=== PATIENT | male | born 1940 | race Caucasian/White ===

== ENCOUNTER 2019-07-29 22:57 | Emergency (ER) | payer OTHER, MEDICARE, SELFPAY ==
--- NOTE | ~2019-07-29 | XR_ITS ---
XR shoulder RT min 2V 07/29/2019 23:32 Indication: Right shoulder pain after fall Procedure: 4 views right shoulder Comparison: 01/29/2017 Findings: No fracture, subluxation or dislocation. There is mild polyarticular osteoarthritis. Visual ized lung parenchyma unremarkable. No significant soft tissue abnormality. Impression: 1: No acute fracture. Reviewed, dictated and finalized at location A. [employer] Impression: 1: No acute fracture.
--- NOTE | ~2019-07-29 | XR_ITS ---
XR hand RT 2V, XR wrist RT 2V 07/29/2019 23:32 (accession [id number]), 07/29/2019 23:33 (accession [id number]) Indication: Right wrist and hand pain after fall Procedure: 2 views of the right hand and 2 views of the right wrist Comparison: No prior studies for comparison. Findings: There are advanced degenerative changes of the first CMC joint with adjacent loose bodies. No acute fracture or traumatic malalignment. Osteopenia. Impression: 1: No acute fracture. Reviewed, dictated and finalized at location A. BUSTER Impression: 1: No acute fracture. Impression: 1: No acute fracture.
[2019-07-29 23:01] VITALS: BP 161/76; PULSE 93; RESP 16; TEMP 37.2; O2SAT 99
[2019-07-30 00:17] VITALS: BP 158/85; PULSE 91; TEMP 36.8; O2SAT 96
--- NOTE | 2019-07-30 00:22 | ED.UPPEXIN ---
HPI - Extremity Injury (Upper) General Chief Complaint: Extremity Injury, Upper Stated Complaint: fall, right hand pain Time Seen by Provider: 07/30/19 00:20 Source: patient and RN notes reviewed Mode of arrival: other Limitations: no limitations History of Present Illness HPI narrative: Pt is a 78 y/o male who presents to the ED with c/o right hand pain that began at 8:30 PM after tripping and falling in [employer] parking lot. Pt notes that he was able ambulate after the fall. He notes that his sx are aggravated by movement of his RUE. Pt notes that he took 2 Vicodin 750 mg and an OTC headache relief medication for his sx. Pt also reports right shoulder pain, but denies any neck pain, back pain, numbness, and tingling. MD complaint: injury to: right and hand Onset (ago): hour(s) Other injuries: none Place: outdoors Context: fall Associated symptoms: other (right shoulder pain) Related Data Allergies Allergy/AdvReac Type Severity Reaction Status Date / Time adhesive tape Allergy Unknown Verified 12/05/16 08:16 venom-wasp Allergy Unknown Verified 01/14/10 10:53 Wasp Allergy Unknown Anaphylactic Uncoded 02/02/19 09:51 Shock Review of Systems Review of Systems: All systems reviewed & are unremarkable except as noted in HPI and below Musculoskeletal: Musculoskeletal: Denies back pain, Denies neck pain and Reports other (right hand pain, right shoulder pain) Neurologic: Denies numbness and Denies tingling PMFSH Past Medical History Medical History (Updated 07/30/19 @ 01:01 by Tila Holt) Arthritis Bladder stone BPH (benign prostatic hyperplasia) Gallbladder disease Kidney stone Prostate cancer Seasonal allergies Surgical History Surgical History (Updated 07/30/19 @ 01:01 by Tila Holt) H/O arthroscopic knee surgery bilateral knees H/O colonoscopy H/O prostatectomy H/O sinus surgery History of bladder surgery Hx of cholecystectomy Family History Family History (Updated 01/25/16 @ 23:19 by DOCTOR UNKNOWN) Father Family history of emphysema Family history of congestive heart failure Mother Family history of malignant neoplasm of breast in first degree relative Family history of malignant neoplasm Social History Social History Smoking status: Former smoker Second hand tobacco smoke exposure: No Smoking end date: 06/29/09 Alcohol intake: current Exam Const: General: healthy appearing and no acute distress Nutritional Appearance: well nourished HENMT: Mouth: Yes lip normal and Yes moist mucous membranes Eyes: Conjunctivae: conjunctivae normal Pupils: Equal, round and reactive pupils present Resp: Effort & Inspection: normal respiratory effort Back/Spine/Pelvis: Back: other (Full ROM) Skin: General skin exam: normal color, dry skin and other (warm) Neuro: General: patient oriented x3 and other (alert) Speech: normal speech Gait exam (Neuro): Normal gait present (and steady) Extrem: General: full ROM Right upper extremity: shoulder/upper arm tenderness other (over anterior deltoid) and normal ROM and Extremity exam: right hand neuromotor exam normal, vascular exam radial pulse present 2+ and normal capillary refill, normal ROM of fingers and other (pain over MCP joints on 4th and 5th finger, no deformity) Right lower extremity: knee Details: ecchymosis knee Psych: Mental Status: mental status grossly normal Affect: normal affect Course Vital Signs Vital signs: Vital Signs Temperature 37.2 C 07/29/19 23:01 Pulse Rate 93 07/29/19 23:01 Respiratory Rate 16 07/29/19 23:01 Blood Pressure 161/76 H 07/29/19 23:01 Pulse Oximetry 99 07/29/19 23:01 Temperature 36.8 C 07/30/19 00:17 Pulse Rate 88 07/30/19 00:40 Respiratory Rate 19 07/30/19 00:40 Blood Pressure 133/82 07/30/19 00:40 Pulse Oximetry 97 07/30/19 00:40 MDM - Extremity Injury (Upper) MDM Narrative Medical decision making narrative: No fracture on x-ray. He has
[2019-07-30 00:40] VITALS: BP 133/82; PULSE 88; RESP 19; O2SAT 97
== END 2019-07-30 00:40 | disposition home or self-care (01) ==
PROVIDERS: Emergency Provider Emergency Medicine; PCP Internal Medicine
DX: S63.91XA Sprain of unspecified part of right wrist and hand, initial encounter (principal); M25.511 Pain in right shoulder; S80.01XA Contusion of right knee, initial encounter; M19.90 Unspecified osteoarthritis, unspecified site; Z87.891 Personal history of nicotine dependence; Z90.79 Acquired absence of other genital organ(s); W01.0XXA Fall on same level from slipping, tripping and stumbling without subsequent striking against object, initial encounter
CPT/HCPCS: 73030; 73100; 73120; 99284

== ENCOUNTER 2022-12-08 01:49 | Day surgery (SDC) | payer OTHER, MEDICARE, SELFPAY ==
[2022-11-27 14:02] VITALS: BMI 29.3
--- NOTE | 2022-11-27 14:28 | PC.NURSE ---
Report to the Outpatient Waiting Room, entrance under the green pavilion located off [facility], at time _12:20PM on date ___12/08/22____. Planned Procedure Time: __1:30PM . Time changes happen often and if your time is changed the preop area will call you the afternoon before. - You and your visitor will be asked to self-screen and do not enter if you have any COVID symptoms. - A mask is optional within the hospital at this time. Patients may have LIGHT BREAKFAST/LUNCH. Take the following medications with a SIP of water the morning of surgery: __AM MEDS DO NOT STOP ANY OF YOUR OTHER PRESCRIPTION MEDICATIONS PRIOR TO SURGERY ?EXCEPT THE FOLLOWING Medications to discontinue per physician __HOLD HEADACHE MEDICATION WITH ASPIRIN FOR 3 DAYS PRE-OP PER DR OWEN(PER PATIENT). Date to take last dose 12/04/22 Please no make-up, nail divehi, hairspray, perfume, deodorant, or body powder the day of surgery. No jewelry (including any body piercings) or valuables the day of surgery, leave them at home. Please take a shower or bath the night before, or the morning of, surgery with an antibacterial soap. Wear comfortable, loose fitting clothing. Children are encouraged to wear pajamas. - Jewelry must be removed prior to entering the operating room. Rings and piercings that are not removed may be cut off. - The hospital will not accept responsibility for valuables. - Please leave all valuables, including medications, at home the day of surgery. If you are going home after surgery, a licensed [employer] driver OR SELF drive home. Follow any additional instructions given to you from your surgeon. If you or anyone in your household have experienced Covid symptoms in the past week, please notify your surgeon or the nurse liaison at the phone number below for possible testing. Telephone instructions given to ___PATIENT and asked if any additional questions and then verbalized understanding. Patient advised to call surgeon office or pre surgery nurse liaison [phone] if any additional questions.
[2022-12-08] VITALS (7 sets, daily range): BP systolic 141–162; BP diastolic 61–84; PULSE 93–102; RESP 12–14; TEMP 36.2; O2SAT 93–96
--- NOTE | 2022-12-08 11:56 | WPDHPUPDATE1 ---
History and Physical Update Update Date/Time: 12/08/22 11:56 History and Physical has been reviewed, including an updated exam of the patient. There are NO changes in the patient's condition. Risks, benefits, and alternatives have been discussed and questions answered. Patient agrees to proceed with procedure.
[2022-12-08] MEDS: LIDO 1%/EPINEPHRINE 1:100,000 20 ML VIAL 10 ML INFILTRATE (12:45)
--- NOTE | 2022-12-08 13:05 | P.OP_ITS ---
Procedure Note - Detailed Date of Procedure 12/08/22 Pre-op Diagnosis Sebaceous Cyst Anterior Chest Wall Post-op Diagnosis Same Procedure Performed Excision of anterior chest wall sebaceous cyst with 4cm intermediate layered wound closure. Surgeon Good Rand MD Anesthesia Local Indications Patient is a 82-year-old gentleman who presents with a slowly enlarging sebaceous cyst in his mid anterior chest wall. He presents now for excision. Findings Sebaceous cyst measuring 1.5cm x 1.0cm x 1.0cm. Description of Procedure After informed consent was obtained patient brought to the operating room was placed in a supine position and then the anterior chest was then prepped and draped in usual sterile fashion. Time-out was then performed correctly identifying the patient as well as procedure to be performed. No antibiotics were given as this was a local only procedure. I then injected 1% lidocaine mixed with 0.5% Marcaine around the cyst for local anesthetic effect. Then made a vertical elliptical incision through the skin with the scalpel and then proceeded to dissect the dermis of the skin around the cyst wall shelling it out from the surrounding subcutaneous tissue. Electrocautery was then used to completely excise out the cyst wall with the attached overlying ellipse of skin. The cyst wall was not violated. The cyst measured 0.5cm in length by 1.0cm in width by 1.0cm in depth. It was sent to pathology for examination. I then achieved hemostasis in the wound electrocautery. It was then irrigated sterile saline solution. A 4cm intermediate layered wound closure was then performed u tilizing multiple layers of interrupted 3-0 Vicryl sutures in the subcutaneous tissues. The skin edges were approximated utilizing a running subcuticular 4 Monocryl suture. The incision was then cleaned and skin glue was applied. The patient tolerated the procedure well no complications. All sponges, needles, and instrument counts were correct at the end procedure. EBL was _2__cc. The patient was awakened and taken to recovery in stable and satisfactory condition. Implants None Estimated Blood Loss 2 Drains No Packing No Pathology Yes (Cyst to pathology) Complications No immediate complications Condition Stable Disposition PACU [facility] Billing Surgery - Charge Forward: Surgery Billing
== END 2022-12-08 13:17 | disposition home or self-care (01) ==
PROVIDERS: PCP Internal Medicine; Visit Provider Surgery
PROC: (CPT 11402; principal; 2022-12-08 12:00)
DX: L72.0 Epidermal cyst (principal)
CPT/HCPCS: 11402; 12032; 88305; A9270

== ENCOUNTER → 2023-01-27 13:37 | Outpatient (CLI) | payer OTHER, MEDICARE, SELFPAY ==
--- NOTE | ~2023-01-27 | MR_ITS ---
EXAMINATION: MR shoulder RT wo con DATE: 01/27/2023 14:22 INDICATION: Right shoulder pain TECHNIQUE: Magnetic resonance imaging (MRI) of the right shoulder was performed without intravenous c ontrast. Sequences included axial PD-weighted FS FSE, coronal oblique PD-weighted FS FSE, coronal obl ique T2-weighted FS FSE, sagittal PD-weighted FS FSE, and sagittal T1-weighted SE. COMPARISON: None. FINDINGS: Coracoacromial arch: The acromion undersurface is curved in morphology (type II). The coracoacromial ligament is normal. M oderate acromioclavicular osteoarthritis. Rotator cuff: Moderate tendinopathy at the distal conjoined portion of the supraspinatus and infraspinatus tendons without discrete tear. Moderate subscapularis tendinopathy with small intrasubstance tear measuring a pproximately 4-5 mm in craniocaudal length along the inferolateral margin of the lesser tuberosity fo otplate along the medial rim of the intertubercular groove. There is partial subluxation of a portion of the long head biceps tendon into the tear defect which appears likely transition to a small intra substance split tear of the more cephalad tendon. There is intraosseous cystic change underlying the lesser tuberosity. The teres minor tendon is normal. Normal rotator cuff muscle bulk and signal. Biceps tendon, glenoid labrum and glenohumeral cartilage: Mild tendinopathy without tear of the intra-articular long head biceps tendon. Prominent diffuse dege nerative tearing circumferentially about the glenoid labrum. There is intraosseous cystic change mariana g the posterior superior rim of the glenoid. Deep chondral ulceration without degenerative subchondra l changes slightly posterior and medial to the apex of the humeral head. Diffuse mild partial-thickne ss cartilage loss along the glenoid with suggestion of a small region of delamination along the bone chondral interface at the anteroinferior glenoid. Fluid: Physiologic amount of fluid in the glenohumeral joint. Disproportionate increased fluid signal in the long head biceps tendon sheath consistent with mild bicipital tenosynovitis. There is also a 4 mm o void low signal intensity loose body along the long head biceps tendon sheath. Mild increased fluid s ignal along the subacromial/subdeltoid bursa consistent with minimal bursitis. Bones: Bone alignment is normal. No fracture or pathologic marrow replacing process. Mild cystic change at t he greater tuberosity. IMPRESSION: 1. Mild glenohumeral osteoarthritis with diffuse degenerative tearing of the glenoid labrum. 2. Moderate tendinopathy of the conjoined portion of the supraspinatus and infraspinatus tendons with out tear and of the subscapularis tendon with small mild partial-thickness tear along the inferolater al aspect of the lesser tuberosity footplate transition to a small longitudinal split tear in the mor e cephalad distal tendon. 3. Mild bicipital tenosynovitis with mild tendinopathy of the intra-articular long head biceps tendon . There is subluxation of a portion of the extra articular biceps tendon into the subscapularis tendo n tear defect. 4. Moderate acromioclavicular osteoarthritis. Reviewed, dictated and finalized at location L. IMPRESSION: 1. Mild glenohumeral osteoarthritis with diffuse degenerative tearing of the gl enoid labrum. 2. Moderate tendinopathy of the conjoined portion of the supraspinatus and infr aspinatus tendons without tear and of the subscapularis tendon with small mild partial-thickness tear along the inferolateral aspect of the lesser tuberosity footplate transition to a small longitudinal split tear in the more cephalad di stal tendon. 3. Mild bicipital tenosynovitis with mild tendinopathy of the intra-articular l modesto head biceps tendon. There is subluxation of a po
== END ==
PROVIDERS: PCP Internal Medicine; Visit Provider Orthopaedic Surgery
DX: M19.011 Primary osteoarthritis, right shoulder (principal); M75.21 Bicipital tendinitis, right shoulder
CPT/HCPCS: 73221

== ENCOUNTER 2023-04-14 13:09 | Outpatient (NON) | payer OTHER, MEDICARE, SELFPAY | END 2023-04-14 13:10 | disposition home or self-care (01) | LOC: ANHLAB 04-15 13:12 | PROVIDERS: PCP Internal Medicine; Visit Provider Nurse Practitioner | DX: D48.5 Neoplasm of uncertain behavior of skin (principal) | CPT/HCPCS: 88305 ==

== ENCOUNTER 2024-04-25 08:23 | Outpatient (CLI) | payer MEDICARE, SELFPAY ==
--- NOTE | ~2024-04-25 | MR_ITS ---
EXAMINATION: MR shoulder LT wo con DATE: 04/25/2024 09:11 INDICATION: Left shoulder pain TECHNIQUE: Magnetic resonance imaging (MRI) of the left shoulder was performed without intravenous co ntrast. Sequences included axial PD-weighted FS FSE, coronal oblique PD-weighted FS FSE, coronal obli que T2-weighted FS FSE, sagittal PD-weighted FS FSE, and sagittal T1-weighted SE. COMPARISON: None. FINDINGS: Coracoacromial arch: The acromion undersurface is curved in morphology (type II). The coracoacromial ligament is normal. M oderate acromioclavicular osteoarthritis. Rotator cuff: Mild to moderate tendinopathy without tear at the supraspinatus and infraspinatus tendons. The teres minor tendon is normal. There is mild subscapularis tendinopathy with tear involving the entire media l collateral with of the cephalad third of the lesser tuberosity footplate and the lateral half of th e mid third of the lesser tuberosity footplate. 3.6 x 1.8 x 3.6 cm intramuscular lipoma within the ca udal aspect of the subscapularis. Otherwise normal rotator cuff muscle bulk and signal. Biceps tendon, glenoid labrum and glenohumeral cartilage: Severe tendinopathy without discrete tear of the long head biceps tendon at the junction of the intra -articular and extra articular portion of the tendon which is subluxed across the medial rim of the i ntertubercular groove and the lesser tuberosity tear defect of the subscapularis tendon. There is a t ear at the base of the 3:00-4:30 position of the anteroinferior glenoid labrum. There is an additiona l tear of the posterior superior glenoid labrum extending from the 10:30-11:30 position. There is mil d partial-thickness cartilage loss at the glenoid. There is some partial-thickness chondral fissuring at the anteroinferior glenoid. Fluid: Small glenohumeral joint effusion or soft tissue extension of fluid into the deep subscapular recess and along the long head biceps tendon sheath. No loose osteochondral bodies. Mild increased fluid sig nal in the subacromial/subdeltoid bursa consistent with minimal bursitis. Bones: Bone alignment is normal. There is appears be an old no sac fracture trough along the posterior super ior lateral aspect of the humeral head suggesting sequela prior anterior glenohumeral dislocation. Th ere is cystic change along the lesser tuberosity likely related to the subscapularis tendon disease a nd tear. IMPRESSION: 1. 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 2. Mild subscapularis tendinopathy with partial tear involving the cephalad third and lateral side of the middle third of the lesser tuberosity footplate allowing medial subluxation of the long head of the biceps tendon across the medial rim of the intertubercular groove and across the tear defect. 3. Severe secondary tendinopathy without tear at the junction of the intra-articular and extra articu lar portions of the subluxed long head biceps tendon. 4. Moderate supraspinatus and displaced tendinopathy without tear. 5. Mild glenohumeral and moderate acromioclavicular osteoarthritis. Reviewed, dictated and finalized at location A. IMPRESSION: 1. Chronic Hill-Sachs fracture trough with tear at the anteroinferior glenoid l ikely sequela of a chronic anterior glenohumeral dislocation injury. 2. Mild subscapularis tendinopathy with partial tear involving the cephalad thi rd and lateral side of the middle third of the lesser tuberosity footplate allo wing medial subluxation of the long head of the biceps tendon across the medial rim of the intertubercular groove and across the tear defect. 3. Severe secondary tendinopathy without tear at the junction of the intra-luann cular and extra articular portions of the subluxed long head biceps tendon. 4. Moderate supraspinatus and displaced tendinopathy without tear. 5. Mild glenohumeral and moderate acromioclavicular osteoarthritis.
== END 2024-04-25 08:24 | disposition home or self-care (01) ==
LOC: MICIMG 08:25
PROVIDERS: PCP Internal Medicine; Visit Provider Orthopaedic Surgery
DX: M19.012 Primary osteoarthritis, left shoulder (principal)
CPT/HCPCS: 73221

== ENCOUNTER 2024-08-30 14:01 | Outpatient (CLI) | payer MEDICARE, SELFPAY | END 2024-08-30 14:02 | disposition home or self-care (01) | PROVIDERS: Visit Provider Nurse Practitioner | DX: M51.26 Other intervertebral disc displacement, lumbar region (principal); M47.896 Other spondylosis, lumbar region | CPT/HCPCS: 72148 ==

== ENCOUNTER 2025-02-24 17:45 | Inpatient (IN) | payer MEDICARE, SELFPAY ==
--- NOTE | ~2025-02-24 | XR_ITS ---
EXAMINATION: XR retrograde pyelo w/stent RT DATE: 02/25/2025 02:45 INDICATION: Right internal ureteral stent placement TECHNIQUE: Fluoroscopic images from a right internal ureteral stent placement are submitted for review. 41 seconds of fluoroscopy time. FINDINGS: There is a right double-J internal ureteral stent projecting in expected position, with proximal [place] loop at the level of the renal pelvis and distal loop in the pelvis within the bladder lumen. IMPRESSION: 1. Right internal ureteral stent placement. Please refer to real-time procedural findings for details. Reviewed, dictated and finalized at location O. IMPRESSION: 1. Right internal ureteral stent placement. Please refer to real-time procedu ral findings for details.
--- NOTE | ~2025-02-24 | XR_ITS ---
EXAMINATION: XR chest 1V portable, 02/25/2025 7:28 CDT HISTORY: Hypoxia COMPARISON: No comparisons available. Technique: Single view. Findings: Scattered bilateral interstitial airspace opacities. No pneumothorax. Heart is normal size. Mediastinal and hilar contours are within normal limits. Bony thorax no acute abnormality. Impression: Probable viral pneumonitis Reviewed, dictated and finalized at location A. Impression: Probable viral pneumonitis
--- NOTE | ~2025-02-24 | XR_ITS ---
XR abdomen/kub 1V 02/28/2025 11:05 Indication: Right renal stone Procedure: KUB Comparison: 02/26/2025 Findings: There is a right internal ureteral stent, position unchanged. There are multiple calcifications adjacent to the stent throughout its course, suspicious for ureteral stones. There is a right renal stone in the lower pole. Bowel gas pattern nonobstructive. Severe lumbar spondylosis. Impression: 1: Right renal and probable ureteral stones. Consider correlation with CT. Right internal ureteral stent position stable. Reviewed, dictated and finalized at location O. Impression: 1: Right renal and probable ureteral stones. Consider correlation with CT. Righ t internal ureteral stent position stable.
--- NOTE | ~2025-02-24 | XR_ITS ---
EXAMINATION: XR abdomen/kub 1V, 02/25/2025 10:20 CDT HISTORY: Right ureteral stone position COMPARISON: No comparisons available. Technique: 1 view. Findings: Bowel gas pattern unremarkable. No obstruction. There are some phleboliths noted however there is no gross perilesional calculus identified. No acute osseous abnormality. Right ureteral stent appears in appropriate location, portacatheter noted. Impression: 1. Probable phlebolith, no gross periureteral calculus. Correlation with CT recommended Reviewed, dictated and finalized at location A. Impression: 1. Probable phlebolith, no gross periureteral calculus. Correlation with CT rec ommended
--- NOTE | ~2025-02-24 | XR_ITS ---
EXAMINATION: XR abdomen/kub 1V DATE: 02/26/2025 12:44 INDICATION: Constipation TECHNIQUE: A supine view of the abdomen on 2 radiographs was obtained. COMPARISON: 02/25/2025 FINDINGS: Unchanged likely catheter projecting over the bladder and right internal ureteral stent with loops formed in expected location of the right renal pelvis and the bladder. Again seen is a small electronic device with battery projecting over the left abdomen. Moderate amount of gas scattered throughout the colon and in the stomach. No dilated gas-filled loops of small bowel to suggest obstruction. Cholecystectomy clips in right upper quadrant. A few phleboliths in the pelvis. Mild S-shaped lumbar curvature with severe spondylosis.. IMPRESSION: 1. Valente catheter and right anterior vertebral stent, both remaining in expected positions. Reviewed, dictated and finalized at location A. IMPRESSION: 1. Valente catheter and right anterior vertebral stent, both remaining in expecte d positions.
--- NOTE | 2025-02-24 22:10 | PM.IMHP ---
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 The patient presented outside facility complaining of decreased appetite for 3 days and right flank pain. He denies any dysuria or hematuria. He denied having any fevers and was afebrile on presentation to the outside hospital. According to the documentation from the outside facility the patient was initially had sinus tachycardia but shortly after arrival at ER was noted to flip into AFib with RVR. The patient denies any chest pain at the outside facility. He does not have a documented history of AFib or heart failure. Patient did have an elevated white count at 12.3 and a lactic acid of 2.4. He received 1 L IV fluid bolus and 1 dose of Zosyn around 15:00. Patient's creatinine was 1.46. His baseline creatinine is unknown. His potassium was 3.9 and is magnesium was 1.7. He received a dose of morphine and a dose of Zofran at the outside hospital as well. Blood cultures were obtained at the outside hospital. Is documented that the patient had a UA collected at the outside hospital but the patient did not arrive with the results of the UA in his chart. The patient is extremely hard of hearing which made obtaining history difficult. He denied having any pain at the time my evaluation and denied difficulty emptying his bladder. However despite denying pain on palpation the patient's abdomen he did grimace multiple times a specially palpation of the suprapubic region. The patient had had a bladder scan an hour so prior to my evaluation had demonstrated greater than 400 mL of urine. He was febrile with a T-max of a 102.9 at the time of my evaluation. His CT from the outside facility was reviewed and demonstrated an 8 mm mid ureteral stone with mild hydronephrosis. The patient seemed to somewhat confused at times and acutely ill-appearing. Urology was contacted and updated as to the patient's change in condition and subsequently patient is being taken directly to OR for ureteral stent placement. Review of Systems Review of Systems: Review of systems limited due to the patient's chronic hearing loss and confusion likely due to acute infection/encephalopathy. Subsequently the majority of information was obtained from review of past medical records, external records and nursing report. [facility] Past Medical History Medical History (Updated 02/25/25 @ 05:02 by Leana Contreras DO) Type 2 diabetes mellitus with insulin therapy Diabetic retinopathy SK (seborrheic keratosis) Incomplete tear of right rotator cuff Hereditary and idiopathic neuropathy, unspecified Gastro-esophageal reflux disease without esophagitis Elevated PSA Dysphagia Body mass index (BMI) greater than 30 (01/29/17) AK (actinic keratosis) Hard of hearing Chronic pain of both knees Chronic low back pain Essential (primary) hypertension Prostate cancer BPH (benign prostatic hyperplasia) Kidney stone Seasonal allergies Surgical History Surgical History Status post cystoscopy with ureteral stent placement With right ureteral stent placement at least 3 past with the most recent episode being December 2013 and September 2017 Status post right partial knee replacement Complicated by Staph epidermidis infection with subsequent removal of hardware and antibiotic spacer placement 03/2025 H/O cataract removal with insertion of prosthetic lens Hx of excision of mass exc anterior chest wall cyst on 12/08/22 H/O arthroscopic knee surgery bilateral knees History of bladder surgery H/O prostatectomy Hx of cholecystectomy H/O colonoscopy H/O sinus surgery Family History Family History Father Family history of emphysema Family history of congestive heart failure Mother Family history of malignant neoplasm of breast in first degree relative Family history of malignant neoplasm Social History Social History (Updated 02/25/25 @ 04:32 by Leana Contreras DO) Social History: He lives with his . He has 6 children. 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 He smoked a pack of cigarettes per week from the time use 17 up until 2002. The last 10 or 15 years of his smoking he only smoked intermittently. Code status: Full code Surrogate decision maker: Smoking packs per day: 0.25 Smoking cigarettes per day: 5.0 Years smoked: 50 Smoking pack-years: 12.50 Smoking status: Former smoker Tobacco type: cigarettes Second hand tobacco smoke exposure: No Smoking end date: 12/27/02 Additional smoking assessment comments: SMOKED 1 PACK/WEEK X 15 YEARS Alcohol intake: former Substance use: never Lack of Transportation: No Lack of Food: Never True Current Housing: I Have Housing Concerned About Future Housing: No Difficulty Paying Gas/Electric Bills: No Difficulty Paying for Meds: No Currently Unemployed: No Education: Decline to Answer Difficulty w/ Childcare or Family Care: No Living arrangements: with family Additional living arrangements comments: AND GRANDDAUGHTER Spiritual care concerns: No Meds Home Medications and Allergies Home Medications ?Medication ?Instructions ?Recorded ?Confirmed ?Type blood sugar diagnostic (Accu-Chek #10 ea 08/11/19 02/25/25 History Dot Plus test strips) blood-glucose meter (Accu-Chek #1 ea 08/11/19 02/25/25 History Dot Plus Meter) lancets (Accu-Chek Softclix #50 ea 08/11/19 02/25/25 History Lancets) aiepfuq-dzeifdsgslfhh-olbbpasy 250 1 - 3 tablet PO Q4-6H PRN HEADACHES 11/27/22 02/24/25 History mg-250 mg-65 mg tablet (Excedrin Migraine) magnesium 500 mg tablet 500 mg PO DAILY PRN cramps 11/27/22 02/24/25 History blood-glucose sensor (Dexcom G7 #10 ea 05/01/23 02/25/25 Rx Sensor device) pen needle, diabetic 31 gauge x #100 ea 08/11/23 02/25/25 Rx 3/16 (BD Ultra-Fine Mini Pen Needle) hydrocodone 10 mg-acetaminophen 1 tablet PO Q6H PRN pain (scale 02/09/24 02/24/25 History 325 mg tablet score 4-6) empagliflozin 10 mg tablet 10 mg PO QAM #90 tabs 05/27/24 02/24/25 Rx (Jardiance) metformin 500 mg tablet 1,000 mg (2 x 500 mg) PO BID 90 09/05/24 02/24/25 Rx days #360 tabs cyclobenzaprine 10 mg tablet 10 mg PO DAILY PRN muscle spasm 02/24/25 02/24/25 History insulin glargine 100 unit/mL (3 60 unit subcut DAILY 02/24/25 02/24/25 History mL) subcutaneous pen (Lantus Solostar U-100 Insulin) insulin aspart U-100 100 unit/mL See Rx Instructions subcut DAILY 02/25/25 02/25/25 History (3 mL) subcutaneous pen (Novolog FlexPen U-100 Insulin aspart) Allergies Allergy/AdvReac Type Severity Reaction Status Date / Time venom-wasp Allergy Severe Anaphylaxis Verified 02/24/25 23:50 adhesive tape Allergy Mild Rash Verified 02/24/25 23:50 Exam Narrative: Weight 100.4 kg BMI 29.2 Const: Other: Acutely ill-appearing, height weight proportionate HENMT: Other: Mucous membranes are dry, no oral pharyngeal erythema upper and lower dentures in place Eyes: Other: Pupils are equal and reactive, no scleral icterus, no conjunctival pallor Neck: Other: No lymphadenopathy, no thyromegaly Resp: Other: Clear to auscultation bilaterally, no increased work of breathing Cardio: Other: Irregularly irregular, tachycardic, 2+ bilateral radial pedal pulses, no murmur GI: Other: Soft, distended, tender over the suprapubic and lower abdominal area : Other: Circumcised male, Valente catheter place after my evaluation and urine output evaluated immediately thereafter demonstrated greater than 600 mL of immediate output of turbid yellow urine Skin: Other: Hot to touch, non jaundice, no pallor, 3-4 second cap refill Neuro: Other: Alert oriented to person, year and name of the current president, confused as to the month and the exact location of the hospital, speech is clear, hearing is profoundly affected, no facial asymmetry, no localizing neurologic deficits noted during the course of conversation Extrem: Other: Moves all extremities equally, no clubbing, cyanosis or edema Psych: Other: confused, cooperative H&P: Results Labs Labs: labs from outside facility: CBC: WBC 12.3 hemoglobin 12.8 platelet count 238 Lactic acid: 2.4 CMP: Sodium 135 potassium 3.9 chloride 99 CO2 22 BUN 22 creatinine 1.46 glucose 209 normal is he ALT and bilirubin TSH 0.875 Troponin less than 0.012 Magnesium 1.7 PT PTT and INR within normal limits with INR specifically being 1.0 CT of the abdomen pelvis without contrast from outside facility demonstrated 8.6 mm mid ureteral stone with mild hydronephrosis Chest x-ray: Increased bronchovascular markings Assessment and Plan Assessment and plan (1) Sepsis: Qualifiers: Sepsis type: sepsis due to unspecified organism Sepsis acute organ dysfunction status: with acute organ dysfunction Severe sepsis acute organ dysfunction type: acute renal failure Acute renal failure type: unspecified Severe sepsis shock status: without septic shock Qualified Code(s): A41.9 - Sepsis, unspecified organism; R65.20 - Severe sepsis without septic shock; N17.9 - Acute kidney failure, unspecified Code(s): A41.9 - Sepsis, unspecified organism Status: Acute (2) Hydronephrosis with renal calculous obstruction: Code(s): N13.2 - Hydronephrosis with renal and ureteral calculous obstruction Status: Acute (3) Urinary tract infection: Qualifiers: Urinary tract infection type: acute pyelonephritis Qualified Code(s): N10 - Acute pyelonephritis Code(s): N39.0 - Urinary tract infection, site not specified Status: Acute (4) Atrial fibrillation with rapid ventricular response: Code(s): I48.91 - Unspecified atrial fibrillation Status: Acute (5) Acute kidney injury: Code(s): N17.9 - Acute kidney failure, unspecified Status: Acute (6) Dehydration: Code(s): E86.0 - Dehydration Status: Acute (7) Type 2 diabetes mellitus with hyperglycemia, with long-term current use of insulin: Code(s): E11.65 - Type 2 diabetes mellitus with hyperglycemia; 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 Patient received 1 L fluid bolus at the outside hospital. I ordered a 2 L of fluid bolus while awaiting for the patient to go to the OR for cystoscopy. The normal saline bolus that I had ordered did not get completed but patient did receive an additional 1 L of LR in the OR. Postoperative Nina the patient was still tachycardic. Will given additional 1 L fluid bolus to achieve the patient's 30 mL/kilos recommended fluids as the patient is not having any respiratory symptoms to suggest pulmonary edema or cardiac decompensation. I suspect patient likely has some chronic AFib for flutter that was previously undiagnosed and that his tachycardia is in part due to volume depletion. Patient is still as ketones in his urine despite the fluids administered after arrival here and is L given at the outside hospital. Will continue patient on maintenance IV fluids. Patient had been started on Zosyn at the outside facility and will continue Zosyn here with pharmacy to dose. Blood cultures were obtained at the outside facility. However will also obtain blood cultures here to confirm and will obtain urine specimen sent for culture. Patient did have lactic acidosis on labs from outside facility will repeat lactic acid level. Patient is noted to be in atrial flutter with RVR. I suspect patient may have some chronic underlying a flutter did previously undiagnosed. Component the tachycardia is likely due to fever and volume status. Fluids as discussed above. Patient on initial arrival to our facility had actually converted back to sinus tachycardia but then had a recurrence of atrial flutter. Labs from outside facility did she demonstrate borderline low magnesium level. Will give 2 g magnesium sulfate rider today aim for magnesium level closer to his 2 given the patient's arrhythmia. Will obtain echocardiogram to further evaluate patient's cardiac structure and function. Patient will be placed back on a Cardizem drip. Patient's repeat troponin at our facility is normal with no evidence of acute cardiac ischemia. EKGs personally reviewed and interpreted as discussed. Will place on heparin drip. Will base initial INR PT PTT off of labs from [place]. This was discussed with the pharmacist on duty. Patient has elevated creatinine. Patient's baseline creatinine is not known but I suspect at least some component of acute kidney injury due to a combination of sepsis and ureteral obstruction. Will avoid nephrotoxic medications and proceed with IV fluid administration as discussed above. Will monitor strict I&O's. The patient does seem to have some episodes of confusion is unclear if part of this may be his chronic hearing difficulty but I think there is at least some component of encephalopathy. Will treat underlying cause and avoid sedating medications. Patient has type 2 diabetes mellitus on chronic insulin therapy and is currently hyperglycemic. Will place patient on a reduced dose of his home Lantus as he is currently NPO. We will also order moderate dose sliding scale insulin with Accu-Cheks q.6 hours and hypoglycemia protocol as needed. 60 minutes spent in critical care activities. Due to a high probability of clinically significant, life threatening deterioration, the patient required my highest level of preparedness to intervene emergently and I personally spent this critical care time directly and personally managing the patient. This critical care time included obtaining a history; examining the patient; pulse oximetry; ordering and review of studies; arranging urgent treatment with development of a management plan; evaluation of patient's response to treatment; frequent reassessment; and discussions with other providers. It was exclusive of separately billable procedures and treating other patients and teaching time. Please see Assessment and Plan section and the rest of the note for further information on patient assessment and treatment. Quality VTE Prophylaxis VTE prophylaxis: pharmacologic ordered (Heparin drip per protocol) Hospitalist MIPS Advance Care Plan I have confirmed that the patient's Advanced Care Plan is present, code status is documented, or surrogate decision maker is listed in patient medical record.: Yes Medication Reconciliation I have utilized all available resources to obtain, update and review the patients current medications (includes all prescriptions, OTC, herbals, cannabis, and nutritional supplements).: Yes
[2025-02-24 22:43] VITALS: BP 125/63; PULSE 102; RESP 23; TEMP 37.4; O2SAT 93
[2025-02-24 22:48] VITALS: PULSE 106
[2025-02-24 22:52] VITALS: BMI 29.2
[2025-02-24] MEDS: SODIUM CHLORIDE 0.9% IV 1,000 ML 100 ML IV CONT (22:54)
--- NOTE | 2025-02-24 23:06 | ECG_ITS ---
Test Date: 2025-02-24 23:22:52 Measurements Intervals [place] Rate: 163 P: 0 SC: 0 QRS: -29 QRSD: 120 T: 69 QT: 276 QTc: 456 Interpretive Statements ATRIAL FLUTTER/TACHYCARDIA WITH RAPID VENTRICULAR RESPONSE INCOMPLETE LEFT BUNDLE BRANCH BLOCK DELAYED PRECORDIAL R/S TRANSITION NONSPECIFIC ST & T-WAVE ABNORMALITY- HIGH LATERAL LEADS BASELINE ARTIFACT- I, II, III, AVR, AVL, AVF, V1-V4 ABNORMAL ECG No previous ECG available for comparison Electronically Signed On 02-25-2025 08:22:05 CDT by Dion Jordan D.O.
[2025-02-24 23:41] VITALS: BP 115/63; PULSE 167; RESP 32; TEMP 38.3; O2SAT 94
[2025-02-25] VITALS (49 sets, daily range): BP systolic 96–148; BP diastolic 52–94; PULSE 87–165; RESP 16–36; TEMP 36.4–39.4; O2SAT 88–97
--- NOTE | 2025-02-25 | ECHO_ITS ---
Patient Info Name: Thompson Agudelo Age: 84 years : 1940 Gender: Male Ht: 72 in Wt: 232 lbs BSA: 2.34 m2 HR: 160 bpm BP: 111 / 73 mmHg Heart Rhythm: Tachycardia, Atrial Fibrillation Technical Quality: Fair Exam Date: 02/25/2025 8:32 AM Patient Status: I Admit Date: 02/25/2025 Exam Type: CA echo dop color flow w con Complete two-dimensional, color flow and Doppler transthoracic echocardiogram is performed with contrast to opacify the left ventricle and to improve the deliniation of the left ventricle endocardial borders. Staff Referring Physician: Alberto Munroe M.D. Creative Recruiter: Moriah Quinn Attending Provider: Leana Contreras DO Contrast/Agitated Saline Contrast/Ag. Saline: Definity Amount: 2.00 ml Administered By: Moriah Quinn Summary 1. Left ventricular systolic function is normal, estimated at 60-65. 2. There is mildly increased left ventricular wall thickness. 3. The left ventricular diastolic function is abnormal. 4. There is mild aortic valve stenosis. Left Ventricle Left ventricular chamber dimension is normal. Left ventricular systolic function is normal, estimated at 60-65. There is mildly increased left ventricular wall thickness. Left ventricular septal wall motion is normal. The left ventricular diastolic function is abnormal. Right Ventricle Right ventricular chamber dimension is normal. Right ventricular systolic function is normal. Left Atria Left atrial chamber dimension is mildly enlarged. Right Atria Right atrial chamber dimension is normal. Aortic Valve The aortic valve is trileaflet. There is moderate aortic valve sclerosis. There is mild aortic valve stenosis. There is no aortic valve regurgitation. Pulmonic Valve The pulmonic valve is normal. There is no pulmonic valve stenosis. There is no pulmonic regurgitation. Mitral Valve The mitral valve has normal leaflets. There is no mitral valve stenosis. There is no mitral valve regurgitation. There is mild mitral valve calcification. Tricuspid Valve The tricuspid valve leaflets are normal. There is no significant tricuspid valve stenosis. There is no tricuspid valve regurgitation. Pericardium/Pleural The pericardium appears normal. There is no pericardial effusion. Inferior Vena Cava Normal inferior vena cava with >50% collapse upon inspiration consistent with normal right atrial pressure, 5 mmHg. Aorta The aortic root size at the sinus of Valsalva is normal. The prox ascending aorta size is normal. Left Ventricular Outflow Tract Name Value Normal LVOT 2D LVOT Diameter 2.1 cm LVOT Doppler LVOT Peak Velocity 97 cm/s LVOT Peak Gradient 3 mmHg LVOT Mean Gradient 2 mmHg LVOT VTI 24 cm LVOT Stroke Volume 81 ml Pulmonic Valve Name Value Normal RVOT Doppler RVOT Peak Velocity 59 cm/s RVOT Peak Gradient 1 mmHg PV Doppler PV Peak Velocity 99 cm/s PV Peak Gradient 4 mmHg Tricuspid Valve Name Value Normal Estimated PAP/RSVP RA Pressure 5 mmHg <=5 Aorta Name Value Normal Ascending Aorta Sinus of Valsalva Diameter 3.6 cm 3.1-3.7 Sinus of Valsalva Index 1.6 cm/m2 1.5-1.9 Ao [place] Diameter 3.2 cm 2.6-3.2 Aortic Valve Name Value Normal AV Doppler AV Peak Velocity 189 cm/s AV Peak Gradient 9 mmHg AV Area (Cont Eq Ramon) 1.7 cm2 AV DI (Ramon) 0.51 AV Regurgitation 2D LVOT Area 3.3 cm2 Ventricles Name Value Normal LV Dimensions 2D/MM IVS Diastolic Thickness (2D) 1.1 cm 0.6-1.0 LVID Diastole (2D) 3.5 cm 4.2-5.8 LVIW Diastolic Thickness (2D) 1.3 cm 0.6-1.0 LVID Systole (2D) 2.3 cm 2.5-4.0 LVOT Diameter 2.1 cm LV Mass (2D Cubed) 135.80 g 88.00-224.00 LV Mass Index (2D Cubed) 58 g/m2 49-115 Relative Wall Thickness (2D) 0.74 <=0.42 LV Fractional Shortening/Ejection Fraction 2D/MM LV Fractional Shortening (2D) 34 % 25-43 LV EF (2D Teichholz) 64 % LV Diastolic Volume (4C MOD) 107 ml LV EF (4C MOD) 56 % LV Diastolic Volume (2C MOD) 100 ml LV EF (2C MOD) 57 % LV Diastolic Volume (BP MOD) 105 ml 62-150 LV Diastolic Volume Index (BP MOD) 45 ml/m2 34-74 LV Systolic Volume (BP MOD) 46 ml 21-61 LV Systolic Volume Index (BP MOD) 20 ml/m2 11-31 LV EF (BP MOD) 56 % 52-72 LV Diastolic Length (4C) 8.0 cm LV Systolic Length (4C) 7.4 cm LV Stroke Volume (4C MOD) 60 ml RV Dimensions 2D/MM TAPSE 1.8 cm >=1.7 Atria Name Value Normal LA Dimensions LA Volume (4C A-L) 92 ml LA Volume (BP A-L) 93 ml RA Dimensions RA Systolic [place] Length (4C) 6.5 cm 2.1-2.7 RA Area (4C) 16.0 cm2 <=18.0 Report Signatures
[2025-02-25] MEDS: dilTIAZem 100 MG/100 ML 100 MG/100 ML BAG 10 MG IV CONT (00:11)
[2025-02-25 00:26] LABS: Troponin I < 0.012 ng/mL (0.000-0.034)
[2025-02-25] MEDS: LIDOCAINE 2% GEL UROJET 10 ML PKG MUCOUS MEM (00:44)
[2025-02-25] MEDS: ACETAMINOPHEN 325 MG TABLET 650 MG PO ×4 (01:10→23:34)
[2025-02-25] MEDS: PIPERACILLIN/TAZOBACTAM SOD 2.25 GM in SODIUM CHLORIDE 0.9% IV 50 ML 100 ML IVPB ×5 (01:11→23:22)
[2025-02-25 01:42] LABS: Add Urine Microscopic? YES; Appearance Urine Cloudy (Clear); Glucose Urine UA Negative (Negative); Leukocyte Esterase Ur 1+ LEU/UL (Negative); Need Manual Microscopic Reviewed; Nitrate Urine Positive (Negative); Specific Grav Ur 1.025 (1.001-1.035)
[2025-02-25] MEDS: SODIUM CHLORIDE 0.9% IV 1,000 ML 999 ML IV CONT ×2 (01:47→04:27)
--- NOTE | 2025-02-25 02:11 | P.PNAN_ITS ---
Anes - Initial Pre Proc Eval Procedure: Operation Date: 02/25/25 01:40 Proposed Procedures p Cysto, RPG, Stone Ext, Stent Placement(Right) - Alberto Munroe MD Date/Time: 02/25/25 02:11 Surgeon: Elier Giles MD Pre Op Diagnosis: Afib RVR/Renal Stone Patient Data Age: 84 Gender: M Height: 1.85 m Weight: 100.4 kg Last Vital Signs Temp 37.4 C 02/25/25 02:01 Pulse 161 H 02/25/25 02:03 Resp 36 H 02/25/25 01:54 BP 119/72 02/25/25 02:03 Pulse Ox 95 02/25/25 01:54 O2 Del Method Nasal Cannula 02/25/25 01:30 O2 Flow Rate 2 02/25/25 01:30 Allergies Allergy/AdvReac Type Severity Reaction Status Date / Time venom-wasp Allergy Severe Anaphylaxis Verified 02/24/25 23:50 adhesive tape Allergy Mild Rash Verified 02/24/25 23:50 Home Medications ?Medication ?Instructions ?Recorded ?Confirmed ?Type blood sugar diagnostic (Accu-Chek #10 ea 08/11/1901/29 History Dot Plus test strips) blood-glucose meter (Accu-Chek #1 ea 08/11/19 02/25/25 History Dot Plus Meter) lancets (Accu-Chek Softclix #50 ea 08/11/19 02/25/25 H istory Lancets) nmrzjpe-ceqeifjqpqips-xemrpdre 250 1 - 3 tablet PO Q4- 6H PRN HEADACHES 11/27/22 02/24/25 History mg-250 mg-65 mg tablet (Excedrin Migraine) magnesium 500 mg tablet 500 mg PO DAILY PRN cramps 0 11/27/22 02/24/25 History blood-glucose sensor (Dexcom G7 #10 ea 05/01/23 Rx Sensor device) pen needle, diabetic 31 gauge x #100 ea 08/11/2302/25 Rx 3/16 (BD Ultra-Fine Mini Pen Needle) hydrocodone 10 mg-acetaminophen 1 tablet PO Q6H PRN pa in (scale 02/09/24 02/24/25 History 325 mg tablet score 4-6) empagliflozin 10 mg tablet 10 mg PO QAM #90 tabs 11/29 /24 08/29/25 Rx (Jardiance) metformin 500 mg tablet 1,000 mg (2 x 500 mg) PO BID 90 09/05/24 02/24/25 Rx days #360 tabs cyclobenzaprine 10 mg tablet 10 mg PO DAILY PRN muscle spasm 02/24/25 02/24/25 History insulin glargine 100 unit/mL (3 60 unit subcut DAILY 0 02/24/25 02/24/25 History mL) subcutaneous pen (Lantus Solostar U-100 Insulin) insulin aspart U-100 100 unit/mL See Rx Instructions s ubcut DAILY 02/25/25 02/25/25 History (3 mL) subcutaneous pen (Novolog FlexPen U-100 Insulin aspart) Laboratory Tests 02/24/25 02/24/25 02/25/25 22:52 23:45 00:48 POC Capillary Glucose 174 H mg/dl (65-105) Lactic Acid Troponin I < 0.012 ng/mL (0.000-0.034) Urine Color Dark yellow (Yellow) Urine Appearance Cloudy H (Clear) Urine pH 5.0 (5.0-9.0) Ur Specific [place] 1.025 (1.001-1.035) Urine Protein 2+ H mg/dL (Negative) Urine Glucose (UA) Negative mg/dL (Negative) Urine Ketones Trace H mg/dL (Negative) Ur Blood (Man) 1+ H (Negative) Urine Nitrate Positive (Negative) Urine Bilirubin Negative (Negative) Urine Urobilinogen 0.2 mg/dL (<2.0) Ur Leukocyte Esterase 1+ H ISABELLE/UL (Negative) Add Ur Microanalysis Reviewed Urine RBC 0-2 /hpf (0-2) Urine WBC 6-10 H /hpf (0-3) Ur Squamous Epith Cells Occasional /hpf (Few) Urine Bacteria Rare /hpf Urine Casts 6-10 Urine Mucus Present /lpf 02/25/25 01:02 POC Capillary Glucose Lactic Acid 1.2 mmol/L (0.7-2.0) Troponin I Urine Color Urine Appearance Urine pH Ur Specific [place] Urine Protein Urine Glucose (UA) Urine Ketones Ur Blood (Man) Urine Nitrate Urine Bilirubin Urine Urobilinogen Ur Leukocyte Esterase Add Ur Microanalysis Urine RBC Urine WBC Ur Squamous Epith Cells Urine Bacteria Urine Casts Urine Mucus Patient hx anesthesia problems: none Family hx anesthesia problems: none Results Review: All pre-operative results and documents have been reviewed as part of the pre- operative evaluation. [facility]LY [facility] Past Medical History Medical History Diabetic retinopathy SK (seborrheic keratosis) Incomplete tear of right rotator cuff Hereditary and idiopathic neuropathy, unspecified Gastro-esophageal reflux disease without esophagitis Elevated PSA Dysphagia Body mass index (BMI) greater than 30 (01/29/17) [place] (actinic keratosis) Hard of hearing Chronic pain of both knees Chronic low back pain Essential (primary) hypertension Type 2 diabetes mellitus without complications Prostate cancer BPH (benign prostatic hyperplasia) Kidney stone Seasonal allergies Surgical History Surgical History Status post cystoscopy with ureteral stent placement With right ureteral stent placement at least 3 past with the most recent episode being December 2013 and September 2017 Status post right partial knee replacement Complicated by Staph epidermidis infection with subsequent removal of hardware and antibiotic spacer placement 03/2025 H/O cataract removal with insertion of prosthetic lens Hx of excision of mass exc anterior chest wall cyst on 12/08/22 H/O arthroscopic knee surgery bilateral knees History of bladder surgery H/O prostatectomy Hx of cholecystectomy H/O colonoscopy H/O sinus surgery Family History Family History Father Family history of emphysema Family history of congestive heart failure Mother Family history of malignant neoplasm of breast in first degree relative Family history of malignant neoplasm Social History Social History Social History: Code status: Surrogate decision maker: Smoking packs per day: 0.5 Smoking cigarettes per day: 10.0 Years smoked: 10 Smoking pack-years: 5.00 Smoking status: Former smoker Tobacco type: cigarettes Second hand tobacco smoke exposure: No Smoking end date: 12/27/02 Additional smoking assessment comments: SMOKED 1 PACK/WEEK X 15 YEARS Alcohol intake: former Substance use: never Lack of Transportation: No Lack of Food: Never True Current Housing: I Have Housing Concerned About Future Housing: No Difficulty Paying Gas/Electric Bills: No Difficulty Paying for Meds: No Currently Unemployed: No Education: Decline to Answer Difficulty w/ Childcare or Family Care: No Living arrangements: with family Additional living arrangements comments: AND GRANDDAUGHTER Spiritual care concerns: No Anes - Eval Final PreProcedure Day of Procedure 02/25/25 02:11 Patient weight: overweight Heart: irregular rhythm and tachycardia Lungs: clear to auscultation Airway: Mallampati scale class II Neurological: alert and oriented Last oral intake: >/= 8 hours ASA classification: III Emergent: yes Anesthetic plan: proceed Anesthesia type and monitoring: general GIVS and standard monitoring Results Review: All pre-operative results and documents have been reviewed as part of the pre- operative evaluation. Informed Consent: The patient's anesthetic plan of GIVS with possibility of GA with ETT and possible central line, a-line and ICU admission and its attendant risks and benefits were discussed with the patient/family/POA. Questions were solicited and answers provided to the satisfaction of the patient/family/POA.
--- NOTE | 2025-02-25 02:17 | WPDURCON ---
Assessment and Plan Assessment and plan (1) Prostate cancer: Code(s): C61 - Malignant neoplasm of prostate Status: Acute Assessment and Plan: (2) Hydronephrosis with renal calculous obstruction: Code(s): N13.2 - Hydronephrosis with renal and ureteral calculous obstruction Status: Acute (3) Pyelonephritis: Code(s): N12 - Tubulo-interstitial nephritis, not specified as acute or chronic Status: Acute Assessment and Plan: Obstructing right ureteral calculus with obstructive pyelonephritis Emergent cystoscopy with right ureteral stent placement this evening. Definitive stone management in the future Urology Consult Note HPI Date Seen: 02/25/25 Requesting Physician: Elier Giles MD Primary Care Provider: Timothy Medrano, Consult Narrative Narrative: Thompson Agudelo is a 84 year old male with history of urolithiasis requiring intervention approximately 12 years ago. We got called from the ER in [facility] [place] late this afternoon where he had presented with a painful 8 mm obstructing right ureteral stone. Subsequent to transfer patient spiked a fever and developed tachycardia. In light of his fever and obstructing stone will plan emergent cystoscopy with right ureteral stent placement. He will need definitive stone intervention his infection has been thoroughly treated. Review of Systems Review of Systems: All systems reviewed & are unremarkable except as noted in HPI and below PMFSH Past Medical History Medical History Diabetic retinopathy SK (seborrheic keratosis) Incomplete tear of right rotator cuff Hereditary and idiopathic neuropathy, unspecified Gastro-esophageal reflux disease without esophagitis Elevated PSA Dysphagia Body mass index (BMI) greater than 30 (01/29/17) [place] (actinic keratosis) Hard of hearing Chronic pain of both knees Chronic low back pain Essential (primary) hypertension Type 2 diabetes mellitus without complications Prostate cancer BPH (benign prostatic hyperplasia) Kidney stone Seasonal allergies Surgical History Surgical History Status post cystoscopy with ureteral stent placement With right ureteral stent placement at least 3 past with the most recent episode being December 2013 and September 2017 Status post right partial knee replacement Complicated by Staph epidermidis infection with subsequent removal of hardware and antibiotic spacer placement 03/2025 H/O cataract removal with insertion of prosthetic lens Hx of excision of mass exc anterior chest wall cyst on 12/08/22 H/O arthroscopic knee surgery bilateral knees History of bladder surgery H/O prostatectomy Hx of cholecystectomy H/O colonoscopy H/O sinus surgery Family History Family History Father Family history of emphysema Family history of congestive heart failure Mother Family history of malignant neoplasm of breast in first degree relative Family history of malignant neoplasm Social History Social History Social History: Code status: Surrogate decision maker: Smoking packs per day: 0.5 Smoking cigarettes per day: 10.0 Years smoked: 10 Smoking pack-years: 5.00 Smoking status: Former smoker Tobacco type: cigarettes Second hand tobacco smoke exposure: No Smoking end date: 12/27/02 Additional smoking assessment comments: SMOKED 1 PACK/WEEK X 15 YEARS Alcohol intake: former Substance use: never Lack of Transportation: No Lack of Food: Never True Current Housing: I Have Housing Concerned About Future Housing: No Difficulty Paying Gas/Electric Bills: No Difficulty Paying for Meds: No Currently Unemployed: No Education: Decline to Answer Difficulty w/ Childcare or Family Care: No Living arrangements: with family Additional living arrangements comments: AND GRANDDAUGHTER Spiritual care concerns: No Meds Home Medications and Allergies Home Medications ?Medication ?Instructions ?Recorded ?Confirmed ?Type blood sugar diagnostic (Accu-Chek #10 ea 08/11/19 02/25/25 History Dot Plus test strips) blood-glucose meter (Accu-Chek #1 ea 08/11/19 02/25/25 History Dot Plus Meter) lancets (Accu-Chek Softclix #50 ea 08/11/19 02/25/25 History Lancets) muljduo-xldjuupdedckb-vtskeuvb 250 1 - 3 tablet PO Q4-6H PRN HEADACHES 11/27/22 02/24/25 History mg-250 mg-65 mg tablet (Excedrin Migraine) magnesium 500 mg tablet 500 mg PO DAILY PRN cramps 11/27/22 02/24/25 History blood-glucose sensor (Dexcom G7 #10 ea 05/01/23 02/25/25 Rx Sensor device) pen needle, diabetic 31 gauge x #100 ea 08/11/23 02/25/25 Rx 3/16 (BD Ultra-Fine Mini Pen Needle) hydrocodone 10 mg-acetaminophen 1 tablet PO Q6H PRN pain (scale 02/09/24 02/24/25 History 325 mg tablet score 4-6) empagliflozin 10 mg tablet 10 mg PO QAM #90 tabs 05/27/24 02/24/25 Rx (Jardiance) metformin 500 mg tablet 1,000 mg (2 x 500 mg) PO BID 90 09/05/24 02/24/25 Rx days #360 tabs cyclobenzaprine 10 mg tablet 10 mg PO DAILY PRN muscle spasm 02/24/25 02/24/25 History insulin glargine 100 unit/mL (3 60 unit subcut DAILY 02/24/25 02/24/25 History mL) subcutaneous pen (Lantus Solostar U-100 Insulin) insulin aspart U-100 100 unit/mL See Rx Instructions subcut DAILY 02/25/25 02/25/25 History (3 mL) subcutaneous pen (Novolog FlexPen U-100 Insulin aspart) Allergies Allergy/AdvReac Type Severity Reaction Status Date / Time venom-wasp Allergy Severe Anaphylaxis Verified 02/24/25 23:50 adhesive tape Allergy Mild Rash Verified 02/24/25 23:50 Vital Signs Vital Signs - 24 hr 02/24/25 22:43 02/24/25 22:48 02/24/25 23:00 Temperature 99.4 F Pulse Rate 102 H 106 H Respiratory Rate 23 H Blood Pressure 125/63 Pulse Oximetry 93 Oxygen Delivery Room Air Oxygen Flow Rate 02/24/25 23:41 02/25/25 00:00 02/25/25 00:11 Temperature 100.9 F H Pulse Rate 167 H 162 H 163 H Respiratory Rate 32 H Blood Pressure 115/63 Pulse Oximetry 94 Oxygen Delivery Oxygen Flow Rate 02/25/25 01:03 02/25/25 01:10 02/25/25 01:30 Temperature 102.9 F H 102.9 F H Pulse Rate Respiratory Rate Blood Pressure Pulse Oximetry 95 Oxygen Delivery Nasal Cannula Oxygen Flow Rate 2 02/25/25 01:54 02/25/25 02:00 02/25/25 02:01 Temperature 99.1 F 99.4 F Pulse Rate 165 H 161 H Respiratory Rate 36 H Blood Pressure 119/72 Pulse Oximetry 95 Oxygen Delivery Oxygen Flow Rate 02/25/25 02:03 Temperature Pulse Rate 161 H Respiratory Rate Blood Pressure 119/72 Pulse Oximetry Oxygen Delivery Oxygen Flow Rate Exam Const: General: no acute distress Resp: Effort & Inspection: normal respiratory effort GI: Inspection: non-distended GI Palp: No abdominal tenderness and No Guarding due to palpation present (GI) Auscultation: normal bowel sounds Results Labs Labs: Cardiac Enzymes 02/24/25 Range/Units 23:45 Troponin I < 0.012 (0.000-0.034) ng/mL Urine 02/25/25 Range/Units 00:48 Urine Color Dark yellow (Yellow) Urine Appearance Cloudy H (Clear) Urine pH 5.0 (5.0-9.0) Ur Specific [place] 1.025 (1.001-1.035) Urine Protein 2+ H (Negative) mg/dL Urine Glucose (UA) Negative (Negative) mg/dL
--- NOTE | 2025-02-25 02:18 | PC.NURSE ---
0210 Patient transported to OR for cystoscopy with right ureteral stent placement. Left patient in the care of LOLITA Espana; HALIE Brenner; Dr. Bartlett and Dr. Munroe.
--- NOTE | 2025-02-25 02:20 | WPDHPUPDATE1 ---
History and Physical Update Update Date/Time: 02/25/25 02:20 History and Physical has been reviewed, including an updated exam of the patient. There are NO changes in the patient's condition. Risks, benefits, and alternatives have been discussed and questions answered. Patient agrees to proceed with procedure.
--- NOTE | 2025-02-25 02:40 | P.OP_ITS ---
Procedure Note - Detailed Date of Procedure 02/25/25 Pre-op Diagnosis Right ureteral stone, obstructive pyelonephritis Post-op Diagnosis Same Procedure Performed Cystoscopy right retrograde pyelogram, right ureteral stent placement Surgeon Alberto Munroe MD Anesthesia MAC Description of Procedure Patient is brought the operative suite where he is prepped draped in routine sterile fashion while dorsal lithotomy position. 2% xylocaine jelly was introduced intraurethrally and systemic sedation is administered per Anesthesia. Cystoscopy was undertaken with a 19 F rigid cystoscope. He has no urethral stricture and minimal prostatic hyperplasia. The bladder was trabeculated and diffusely hyperemic consistent with bacterial cystitis. There is no intravesical foreign body or neoplasm. Has a single orthotopic ureteral orifice bilaterally. A [place] catheter was used to obtain a right retrograde pyelogram and ensure appropriate positioning of ureteral stent. There appears to be obstruction in the right mid ureter consistent with his known ureteral stone. A 0.035 in glidewire was advised against into the right renal pelvis and a 6 F variable length stent is positioned with the proximal coil in the renal pelvis and distal coil in the bladder. Scopes wires removed and a 18 F coude catheter was placed to drainage. Efflux was clear at the termination. Drains Yes Packing No Pathology None sent Complications No immediate complications Condition Stable
[2025-02-25] MEDS: LACTATED RINGERS 1,000 ML 30 ML IV CONT (02:42)
--- NOTE | 2025-02-25 03:25 | PC.NURSE ---
Pt arrived back to floor from OR at 0325.
[2025-02-25] MEDS: SODIUM CHLORIDE 0.9% IV 1,000 ML 100 ML IV CONT (03:42)
[2025-02-25 04:13] LABS: Hematocrit 32.7 % (42.0-52.0); Hemoglobin 10.8 g/dL (14.0-18.0); Immature Granulocyte Percent A 1.2 % (0-0.5); Lymphocytes Absolute Auto 0.54 K/mm3 (0.9-3.2); Mean Corpuscular HGB Conc 33.0 g/dl (32-36); Mean Corpuscular Hemoglobin 32.0 pg (26-34); Mean Corpuscular Volume 97.0 fl (80-100); Nucleated Red Blood Cells Absolute Auto 0.000 K/mm3 (0.0-0.012); Nucleated Red Blood Cells Perc 0.0 % (0.0-0.2); Platelet Count Result 195 k/mm3 (150-375); Red Blood Count 3.37 M/mm3 (4.6-6.20); White Blood Count 13.5 K/mm3 (4.5-10.0)
[2025-02-25 04:38] LABS: Anion Gap 8 mmol/L (4-12); Blood Urea Nitrogen 22 mg/dL (9-20); Calcium 8.3 mg/dL (8.4-10.2); Carbon Dioxide 23 mmol/L (22-30); Chloride 101 mmol/L (98-107); Estimated CRCL calculation 43 ml/min; Estimated Glomerular Filt Rate 51; Glucose 202 mg/dL (65-110); Magnesium 1.6 mg/dL (1.6-2.3); Potassium 4.0 mmol/L (3.4-5.0); Sodium 132 mmol/L (137-145)
[2025-02-25] MEDS: MAGNESIUM SULF 2 GM/WATER 50ML 2 GM/50 ML BAG IVPB (04:56)
[2025-02-25 05:43] LABS: Partial Thromboplastin Time 51.3 Seconds (22.3-36.8)
[2025-02-25] MEDS: HEPARIN SOD/D5W 100 UNITS/ML 25,000 UNITS/250 ML BAG 15 UNITS IV CONT (06:03)
[2025-02-25] MEDS: METOPROLOL TARTRATE INJ 5 MG/5 ML VIAL IV PUSH (06:49)
--- NOTE | 2025-02-25 07:45 | WPDUROPN2 ---
Progress Note: A&P Assessment and Plan (1) Urinary tract infection: Qualifiers: Urinary tract infection type: acute pyelonephritis Qualified Code(s): N10 - Acute pyelonephritis Code(s): N39.0 - Urinary tract infection, site not specified Status: Acute (2) Hydronephrosis with renal calculous obstruction: Code(s): N13.2 - Hydronephrosis with renal and ureteral calculous obstruction Status: Acute Assessment and Plan: Afebrile following stent placement early this morning. Tolerating stent well. Continue Pip/Tazo pending culture results. KUB for stone position. Subjective Subjective Date/Time Seen: 02/25/25 07:45 Interval history: Reports shortness of breath but no flank/abdominal pain Review of Systems Review of Systems: All systems reviewed & are unremarkable except as noted in HPI and below Exam Const: General: no acute distress Resp: Effort & Inspection: normal respiratory effort GI: Inspection: non-distended GI Palp: No abdominal tenderness and No Guarding due to palpation present (GI) Auscultation: normal bowel sounds Urinary Catheter: Urinary Catheter: patent and draining and urine clear Objective Data Vital Signs Vital Signs: Vital Signs - 24 hr 02/24/25 22:43 02/24/25 22:48 02/24/25 23:00 Temperature 99.4 F Pulse Rate 102 H 106 H Respiratory Rate 23 H Blood Pressure 125/63 Pulse Oximetry 93 Oxygen Delivery Room Air Oxygen Flow Rate 02/24/25 23:41 02/25/25 00:00 02/25/25 00:11 Temperature 100.9 F H Pulse Rate 167 H 162 H 163 H Respiratory Rate 32 H Blood Pressure 115/63 Pulse Oximetry 94 Oxygen Delivery Oxygen Flow Rate 02/25/25 01:03 02/25/25 01:10 02/25/25 01:30 Temperature 102.9 F H 102.9 F H Pulse Rate Respiratory Rate Blood Pressure Pulse Oximetry 95 Oxygen Delivery Nasal Cannula Oxygen Flow Rate 2 02/25/25 01:54 02/25/25 02:00 02/25/25 02:01 Temperature 99.1 F 99.4 F Pulse Rate 165 H 161 H Respiratory Rate 36 H Blood Pressure 119/72 Pulse Oximetry 95 Oxygen Delivery Oxygen Flow Rate 02/25/25 02:03 02/25/25 02:40 02/25/25 02:45 Temperature 98.6 F Pulse Rate 161 H 160 H 160 H Respiratory Rate 28 H 26 H Blood Pressure 119/72 114/67 119/62 Pulse Oximetry 97 97 Oxygen Delivery Simple Face Mask Simple Face Mask Oxygen Flow Rate 10 10 02/25/25 03:00 02/25/25 03:11 02/25/25 03:25 Temperature 98.4 F Pulse Rate 156 H 155 H 147 H Respiratory Rate 21 H 20 18 Blood Pressure 105/67 111/68 96/59 L Pulse Oximetry 94 95 92 Oxygen Delivery Nasal Cannula Nasal Cannula Oxygen Flow Rate 3 3 02/25/25 03:30 02/25/25 04:00 02/25/25 04:00 Temperature Pulse Rate 158 H 159 H Respiratory Rate Blood Pressure 96/59 L Pulse Oximetry 94 Oxygen Delivery Nasal Cannula Oxygen Flow Rate 3 02/25/25 04:46 02/25/25 06:00 02/25/25 06:01 Temperature 98.4 F 98.1 F Pulse Rate 156 H 160 H 156 H Respiratory Rate 18 18 Blood Pressure 122/66 141/60 H Pulse Oximetry 90 94 Oxygen Delivery Oxygen Flow Rate 02/25/25 06:02 02/25/25 06:47 02/25/25 06:49 Temperature Pulse Rate 160 H 162 H 161 H Respiratory Rate Blood Pressure 138/76 134/59 L Pulse Oximetry Oxygen Delivery Oxygen Flow Rate Intake/Output Intake/Output: Intake & Output 02/22/25 02/23/25 02/24/25 02/25/25 23:59 23:59 23:59 23:59 Intake Total 1968.5 Output Total 1300 Balance 668.5 Meds/Results Medications: Active Medications Generic Name Dose Route Start Last Admin Trade Name Freq PRN Reason Stop Dose Admin Acetaminophen 650 mg 02/24/25 22:24 02/25/25 01:10 Acetaminophen 325 Mg Tablet PO 650 mg Q4H PRN Administration Mild Pain (1-3) or Fever Hydrocodone Bitart/Acetaminophen 1 tab 02/25/25 00:31 Hydrocodone/Acetaminophen (*Crx) 10-325 Mg Tablet PO Q6H PRN pain (scale score 4-6) Al Hydrox/Mg Hydrox/Simethicone 30 ml 02/24/25 22:24 Mag Hydrox/Al Hydrox/Simeth 30 Ml Udc PO QID PRN Dyspepsia Cyclobenzaprine HCl 10 mg 02/25/25 00:31 Cyclobenzaprine Hcl 10 Mg Tablet PO DAILY PRN Muscle Spasm Dextrose 12.5 gm 02/25/25 00:33 Dextrose 50% 25 Gm/50 Ml Syringe IV PUSH PRN PRN Hypoglycemia Protocol Glucagon 1 mg 02/25/25 00:33 Glucagon For Inj 1 Mg Vial IM PRN PRN Hypoglycemia Protocol Glucose 15 gm 02/25/25 00:33 Glucose Oral Gel 15 Gm Of Glucse In 37.5 Gm Tube PO PRN PRN Hypoglycemia Protocol Heparin Sodium (Porcine) 7,000 units 02/25/25 04:55 Heparin Sodium 5,000 Units/Ml Vial IV PUSH PRN PRN aPTT less than 55 seconds Heparin Sodium (Porcine) 3,500 units 02/25/25 04:55 Heparin Sodium 5,000 Units/Ml Vial IV PUSH PRN PRN aPTT 55 - 70 seconds Sodium Chloride 1,000 mls @ 100 mls/hr 02/24/25 22:25 02/25/25 03:42 Normal Saline Iv IV CONT 100 mls/hr .Q10H ANTON Administration Diltiazem HCl 100 mg in 100 mls @ 15 mls/hr 02/24/25 23:45 02/25/25 06:02 Cardizem 100 Mg/100 Ml IV CONT 15 mg/hr .[id number] [place] 15 mls/hr 15 MG/HR Infusion Piperacillin Sod/Tazobactam 50 mls @ 100 mls/hr 02/25/25 00:20 02/25/25 05:41 Sod 2.25 gm/ Sodium Chloride IVPB 100 mls/hr Q6HR ANTON Administration Dextrose 1,000 mls @ 100 mls/hr 02/25/25 00:33 Dextrose 5% 1,000 Ml IVPB PRN PRN Hypoglycemia Protocol Lactated Ringer's 1,000 mls @ 30 mls/hr 02/25/25 02:40 02/25/25 03:13 Lr - Lactated Ringers Iv IV CONT Infused .Q24H [place] Infusion Heparin Sodium/Dextrose 25,000 units in 250 mls @ 15 mls/hr 02/25/25 04:55 02/25/25 06:03 Heparin Sodium/D5w 100 Units/Ml IV CONT 1,500 units/hr .[id number] [place] 15 mls/hr Protocol Administration 1,500 UNITS/HR Insulin Aspart 3 - 6 units 02/25/25 08:00 Insulin Aspart (*Bkc) 100 Units/Ml SUB-Q TIDWM [facility] Protocol Insulin Glargine 45 units 02/25/25 21:00 Insulin Glargine (*Bkc) 100 Units/Ml SUB-Q HS [facility] Magnesium Hydroxide 30 ml 02/24/25 22:24 Magnesium Hydroxide Susp 30 Ml Udc PO DAILY PRN Constipation Morphine Sulfate 2 mg 02/24/25 22:24 Morphine Sulfate (*Crx) 2 Mg/Ml Inj IV PUSH Q4H PRN Pain Rated 7-10 Naloxone HCl 0.1 mg 02/24/25 22:24 Naloxone Hcl 0.4 Mg/Ml Vial IV PUSH Q2M PRN Opiate Reversal Ondansetron HCl 4 mg 02/25/25 02:38 Ondansetron Inj 4 Mg/2 Ml Vial IV PUSH ONCE PRN Nausea Perflutren Lipid Microsphere 0 ml 02/24/25 22:22 Perflutren Lipid Microspheres 1.5 Ml Vial Diluted To 10 Ml Total Volume IV PUSH 02/27/25 22:24 ONCE PRN adequate visualization Protocol Labs Labs: Laboratory Results - last 24 hr 02/24/25 02/24/25 02/25/25 22:52 23:45 00:48 WBC RBC Hgb Hct MCV MCH MCHC RDW Plt Count MPV Immature Gran % (Auto) Neut % (Auto) Lymph % (Auto) [place] % (Auto) Eos % (Auto) Baso % (Auto) Lymph # (Auto) [place] # (Auto) Eos # (Auto) Baso # (Auto) Abs Immat Gran (auto) Absolute Neuts (auto) Absolute Nucleated RBC Nucleated RBC % APTT Sodium Potassium Chloride Carbon Dioxide Anion Gap BUN Creatinine Estim Creat Clear Calc Estimated GFR Glucose POC Capillary Glucose 174 H Lactic Acid Calcium Phosphorus Magnesium Troponin I < 0.012 Urine Color Dark yellow Urine Appearance Cloudy H Urine pH 5.0 Ur Specific [place] 1.025 Urine Protein 2+ H Urine Glucose (UA) Negative Urine Ketones Trace H Ur Blood (Man) 1+ H Urine Nitrate Positive Urine Bilirubin Negative Urine Urobilinogen 0.2 Ur Leukocyte Esterase 1+ H Add Ur Microanalysis Reviewed Urine RBC 0-2 Urine WBC 6-10 H Ur Squamous Epith Cells Occasional Urine Bacteria Rare Urine Casts 6-10 Urine Mucus Present 02/25/25 02/25/25 02/25/25 01:02 02:50 03:54 WBC 13.5 H RBC 3.37 L Hgb 10.8 L Hct 32.7 L MCV 97.0 MCH 32.0 MCHC 33.0 RDW 12.5 Plt Count 195 MPV 9.5 Immature Gran % (Auto) 1.2 H Neut % (Auto) 86.5 H Lymph % (Auto) 4.0 L [place] % (Auto) 7.6 Eos % (Auto) 0.4 Baso % (Auto) 0.3 Lymph # (Auto) 0.54 L [place] # (Auto) 1.0 H Eos # (Auto) 0.1 Baso # (Auto) 0.0 Abs Immat Gran (auto) 0.16 H Absolute Neuts (auto) 11.7 H Absolute Nucleated RBC 0.000 Nucleated RBC % 0.0 APTT Sodium 132 L Potassium 4.0 Chloride 101 Carbon Dioxide 23 Anion Gap 8 BUN 22 H Creatinine 1.35 H Estim Creat Clear Calc 43 Estimated GFR 51 L Glucose 202 H POC Capillary Glucose 180 H Lactic Acid 1.2 Calcium 8.3 L Phosphorus 3.0 Magnesium 1.6 Troponin I Urine Color Urine Appearance Urine pH Ur Specific [place] Urine Protein Urine Glucose (UA) Urine Ketones Ur Blood (Man) Urine Nitrate Urine Bilirubin Urine Urobilinogen Ur Leukocyte Esterase Add Ur Microanalysis Urine RBC Urine WBC Ur Squamous Epith Cells Urine Bacteria Urine Casts Urine Mucus 02/25/25 02/25/25 05:22 05:55 WBC RBC Hgb Hct MCV MCH MCHC RDW Plt Count MPV Immature Gran % (Auto) Neut % (Auto) Lymph % (Auto) [place] % (Auto) Eos % (Auto) Baso % (Auto) Lymph # (Auto) [place] # (Auto) Eos # (Auto) Baso # (Auto) Abs Immat Gran (auto) Absolute Neuts (auto) Absolute Nucleated RBC Nucleated RBC % APTT 51.3 H Sodium Potassium Chloride Carbon Dioxide Anion Gap BUN Creatinine Estim Creat Clear Calc Estimated GFR Glucose POC Capillary Glucose 182 H Lactic Acid Calcium Phosphorus Magnesium Troponin I Urine Color Urine Appearance Urine pH Ur Specific [place] Urine Protein Urine Glucose (UA) Urine Ketones Ur Blood (Man) Urine Nitrate Urine Bilirubin Urine Urobilinogen Ur Leukocyte Esterase Add Ur Microanalysis Urine RBC Urine WBC Ur Squamous Epith Cells Urine Bacteria Urine Casts Urine Mucus
--- NOTE | 2025-02-25 08:09 | PC.NURSE ---
[id number] spoke with Sandrine Murry at [facility] lab. Report positive blood culture in both anaerobic bottle. Result gram negative bacilli.
--- NOTE | 2025-02-25 08:10 | PC.NURSE ---
0715 telephoned Saundra to update her concerning new room number. Left message to call the IMU.
[2025-02-25] MEDS: dilTIAZem 100 MG/100 ML 100 MG/100 ML BAG 15 MG IV CONT (08:31)
--- NOTE | 2025-02-25 09:17 | PM.IMPN ---
Progress Note: A&P Assessment and Plan (1) Sepsis: Qualifiers: Acute renal failure type: unspecified Sepsis acute organ dysfunction status: with acute organ dysfunction Sepsis type: sepsis due to unspecified organism Severe sepsis acute organ dysfunction type: acute renal failure Severe sepsis shock status: without septic shock Qualified Code(s): A41.9 - Sepsis, unspecified organism; R65.20 - Severe sepsis without septic shock; N17.9 - Acute kidney failure, unspecified Code(s): A41.9 - Sepsis, unspecified organism Status: Acute Assessment and Plan: Due to obstructive nephrolithiasis Underwent emergent cystoscopy with right ureteral stent placement Started on Zosyn at outside facility Blood culture from outside facility growing Gram-negative bacilli Will continue Zosyn Received fluids in the ED and floor -total 3 L (2) Hydronephrosis with renal calculous obstruction: Code(s): N13.2 - Hydronephrosis with renal and ureteral calculous obstruction Status: Acute Assessment and Plan: As above (3) Urinary tract infection: Qualifiers: Urinary tract infection type: acute pyelonephritis Qualified Code(s): N10 - Acute pyelonephritis Code(s): N39.0 - Urinary tract infection, site not specified Status: Acute Assessment and Plan: As above (4) Atrial fibrillation with rapid ventricular response: Code(s): I48.91 - Unspecified atrial fibrillation Status: Acute Assessment and Plan: New onset. Order TSH Echo shows left ventricular ejection fraction 60-65% On heparin drip Order HbA1c and Lipid Panel Started on metoprolol 25 mg and amiodarone drip Lasix 40 IV b.i.d. Cardiology consulted (5) Acute kidney injury: Code(s): N17.9 - Acute kidney failure, unspecified Status: Acute Assessment and Plan: -possibly due to obstructing nephrolithiasis -Avoid nephrotoxic drugs. -Monitor antihypertensive drug therapy. -Avoid NSAIDs. -Routine CMP monitoring GFR. -Monitor electrolytes especially potassium. -Antibiotic doses depending on creatinine clearance. -Pharmacy does medications. -unable to find baseline Cr -Routine follow-up with Nephrology as an outpatient. (6) Dehydration: Code(s): E86.0 - Dehydration Status: Acute Assessment and Plan: NS at 100 mL/hr Monitor I and O's (7) Type 2 diabetes mellitus with hyperglycemia, with long-term current use of insulin: Code(s): E11.65 - Type 2 diabetes mellitus with hyperglycemia; Z79.4 - oil heaterman (current) use of insulin Status: Acute Assessment and Plan: Order HbA1c SSI Hypoglycemic protocol (8) Bacteremia: Code(s): R78.81 - Bacteremia Status: Acute Assessment and Plan: [facility] reported blood culture growing Gram-negative bacilli with aerobic bottle Continue Zosyn Follow-up with culture Possible source UTI Trans thoracic echocardiogram negative for any vegetation Less suspicion for endocarditis, 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 Patient was transferred from ER at [facility] due to obstructing nephrolithiasis. Today he underwent emergent cystoscopy with right ureteral stent placement. Patient 0 was also seen by Cardiology due to atrial flutter with RVR. Patient started on metoprolol 25 mg q.i.d. and started on amiodarone drip. Review of Systems Review of Systems: Review of systems limited due to the patient's chronic hearing loss and confusion likely due to acute infection/encephalopathy. Subsequently the majority of information was obtained from review of past medical records, external records and nursing report. Exam Narrative: Weight 100.4 kg BMI 29.2 Const: Other: Acutely ill-appearing, height weight proportionate HENMT: Other: Mucous membranes are dry, no oral pharyngeal erythema upper and lower dentures in place Eyes: Other: Pupils are equal and reactive, no scleral icterus, no conjunctival pallor Neck: Other: No lymphadenopathy, no thyromegaly Resp: Other: Clear to auscultation bilaterally, no increased work of breathing Cardio: Other: Irregularly irregular, tachycardic, 2+ bilateral radial pedal pulses, no murmur GI: Other: Soft, distended, tender over the suprapubic and lower abdominal area : Other: Circumcised male, Valente catheter place after my evaluation and urine output evaluated immediately thereafter demonstrated greater than 600 mL of immediate output of turbid yellow urine Skin: Other: Hot to touch, non jaundice, no pallor, 3-4 second cap refill Neuro: Other: Alert oriented to person, year and name of the current president, confused as to the month and the exact location of the hospital, speech is clear, hearing is profoundly affected, no facial asymmetry, no localizing neurologic deficits noted during the course of conversation Extrem: Other: Moves all extremities equally, no clubbing, cyanosis or edema Psych: Other: confused, cooperative Objective Data Vital Signs Vital Signs: Vital Signs - 24 hr 02/24/25 22:43 02/24/25 22:48 02/24/25 23:00 Temperature 99.4 F Pulse Rate 102 H 106 H Respiratory Rate 23 H Blood Pressure 125/63 Pulse Oximetry 93 Oxygen Delivery Room Air Oxygen Flow Rate 02/24/25 23:41 02/25/25 00:00 02/25/25 00:11 Temperature 100.9 F H Pulse Rate 167 H 162 H 163 H Respiratory Rate 32 H Blood Pressure 115/63 Pulse Oximetry 94 Oxygen Delivery Oxygen Flow Rate 02/25/25 01:03 02/25/25 01:10 02/25/25 01:30 Temperature 102.9 F H 102.9 F H Pulse Rate Respiratory Rate Blood Pressure Pulse Oximetry 95 Oxygen Delivery Nasal Cannula Oxygen Flow Rate 2 02/25/25 01:54 02/25/25 02:00 02/25/25 02:01 Temperature 99.1 F 99.4 F Pulse Rate 165 H 161 H Respiratory Rate 36 H Blood Pressure 119/72 Pulse Oximetry 95 Oxygen Delivery Oxygen Flow Rate 02/25/25 02:03 02/25/25 02:40 02/25/25 02:45 Temperature 98.6 F Pulse Rate 161 H 160 H 160 H Respiratory Rate 28 H 26 H Blood Pressure 119/72 114/67 119/62 Pulse Oximetry 97 97 Oxygen Delivery Simple Face Mask Simple Face Mask Oxygen Flow Rate 10 10 02/25/25 03:00 02/25/25 03:11 02/25/25 03:25 Temperature 98.4 F Pulse Rate 156 H 155 H 147 H Respiratory Rate 21 H 20 18 Blood Pressure 105/67 111/68 96/59 L Pulse Oximetry 94 95 92 Oxygen Delivery Nasal Cannula Nasal Cannula Oxygen Flow Rate 3 3 02/25/25 03:30 02/25/25 04:00 02/25/25 04:00 Temperature Pulse Rate 158 H 159 H Respiratory Rate Blood Pressure 96/59 L Pulse Oximetry 94 Oxygen Delivery Nasal Cannula Oxygen Flow Rate 3 02/25/25 04:46 02/25/25 06:00 02/25/25 06:01 Temperature 98.4 F 98.1 F Pulse Rate 156 H 160 H 156 H Respiratory Rate 18 18 Blood Pressure 122/66 141/60 H Pulse Oximetry 90 94 Oxygen Delivery Oxygen Flow Rate 02/25/25 06:02 02/25/25 06:47 02/25/25 06:49 Temperature Pulse Rate 160 H 162 H 161 H Respiratory Rate Blood Pressure 138/76 134/59 L Pulse Oximetry Oxygen Delivery Oxygen Flow Rate 02/25/25 08:00 02/25/25 08:04 02/25/25 08:31 Temperature 98.3 F Pulse Rate 152 H 163 H Respiratory Rate 20 Blood Pressure 111/73 Pulse Oximetry 94 91 Oxygen Delivery Nasal Cannula Oxygen Flow Rate 3 02/25/25 08:31 02/25/25 08:58 02/25/25 09:02 Temperature 100.4 F H 100.4 F H Pulse Rate 163 H 162 H Respiratory Rate Blood Pressure Pulse Oximetry Oxygen Delivery Oxygen Flow Rate Intake/Output Intake/Output: Intake & Output 02/22/25 02/23/25 02/24/25 02/25/25 23:59 23:59 23:59 23:59 Intake Total 2005.7 Output Total 1300 Balance 705.7 Meds/Results Medications: Active Medications Generic Name Dose Route Start Last Admin Trade Name Freq PRN Reason Stop Dose Admin Acetaminophen 650 mg 02/24/25 22:24 02/25/25 09:02 Acetaminophen 325 Mg Tablet PO 650 mg Q4H PRN Administration Mild Pain (1-3) or Fever Hydrocodone Bitart/Acetaminophen 1 tab 02/25/25 00:31 Hydrocodone/Acetaminophen (*Crx) 10-325 Mg Tablet PO Q6H PRN pain (scale score 4-6) Al Hydrox/Mg Hydrox/Simethicone 30 ml 02/24/25 22:24 Mag Hydrox/Al Hydrox/Simeth 30 Ml Udc PO QID PRN Dyspepsia Cyclobenzaprine HCl 10 mg 02/25/25 00:31 Cyclobenzaprine Hcl 10 Mg Tablet PO DAILY PRN Muscle Spasm Dextrose 12.5 gm 02/25/25 00:33 Dextrose 50% 25 Gm/50 Ml Syringe IV PUSH PRN PRN Hypoglycemia Protocol Glucagon 1 mg 02/25/25 00:33 Glucagon For Inj 1 Mg Vial IM PRN PRN Hypoglycemia Protocol Glucose 15 gm 02/25/25 00:33 Glucose Oral Gel 15 Gm Of Glucse In 37.5 Gm Tube PO PRN PRN Hypoglycemia Protocol Heparin Sodium (Porcine) 7,000 units 02/25/25 04:55 Heparin Sodium 5,000 Units/Ml Vial IV PUSH PRN PRN aPTT less than 55 seconds Heparin Sodium (Porcine) 3,500 units 02/25/25 04:55 Heparin Sodium 5,000 Units/Ml Vial IV PUSH PRN PRN aPTT 55 - 70 seconds Sodium Chloride 1,000 mls @ 100 mls/hr 02/24/25 22:25 02/25/25 03:42 Normal Saline Iv IV CONT 100 mls/hr .Q10H ANTON Administration Diltiazem HCl 100 mg in 100 mls @ 15 mls/hr 02/24/25 23:45 02/25/25 08:31 Cardizem 100 Mg/100 Ml IV CONT 15 mg/hr .Q6H40M [place] 15 mls/hr 15 MG/HR Administration Piperacillin Sod/Tazobactam 50 mls @ 100 mls/hr 02/25/25 00:20 02/25/25 05:41 Sod 2.25 gm/ Sodium Chloride IVPB 100 mls/hr Q6HR AN[place] Administration Dextrose 1,000 mls @ 100 mls/hr 02/25/25 00:33 Dextrose 5% 1,000 Ml IVPB PRN PRN Hypoglycemia Protocol Lactated Ringer's 1,000 mls @ 30 mls/hr 02/25/25 02:40 02/25/25 03:13 Lr - Lactated Ringers Iv IV CONT Infused .Q24H ANTON Infusion Heparin Sodium/Dextrose 25,000 units in 250 mls @ 15 mls/hr 02/25/25 04:55 02/25/25 06:03 Heparin Sodium/D5w 100 Units/Ml IV CONT 1,500 units/hr .[id number] [place] 15 mls/hr Protocol Administration 1,500 UNITS/HR Insulin Aspart 3 - 6 units 02/25/25 08:00 Insulin Aspart (*Bkc) 100 Units/Ml SUB-Q TIDWM [facility] Protocol Insulin Glargine 45 units 02/25/25 21:00 Insulin Glargine (*Bkc) 100 Units/Ml SUB-Q HS [place] Magnesium Hydroxide 30 ml 02/24/25 22:24 Magnesium Hydroxide Susp 30 Ml Udc PO DAILY PRN Constipation Morphine Sulfate 2 mg 02/24/25 22:24 Morphine Sulfate (*Crx) 2 Mg/Ml Inj IV PUSH Q4H PRN Pain Rated 7-10 Naloxone HCl 0.1 mg 02/24/25 22:24 Naloxone Hcl 0.4 Mg/Ml Vial IV PUSH Q2M PRN Opiate Reversal Ondansetron HCl 4 mg 02/25/25 02:38 Ondansetron Inj 4 Mg/2 Ml Vial IV PUSH ONCE PRN Nausea Perflutren Lipid Microsphere 0 ml 02/24/25 22:22 Perflutren Lipid Microspheres 1.5 Ml Vial Diluted To 10 Ml Total Volume IV PUSH 02/27/25 22:24 ONCE PRN adequate visualization Protocol Labs Labs: Laboratory Results - last 24 hr 02/24/25 02/24/25 02/25/25 22:52 23:45 00:48 WBC RBC Hgb Hct MCV MCH MCHC RDW Plt Count MPV Immature Gran % (Auto) Neut % (Auto) Lymph % (Auto) [place] % (Auto) Eos % (Auto) Baso % (Auto) Lymph # (Auto) [place] # (Auto) Eos # (Auto) Baso # (Auto) Abs Immat Gran (auto) Absolute Neuts (auto) Absolute Nucleated RBC Nucleated RBC % APTT Sodium Potassium Chloride Carbon Dioxide Anion Gap BUN Creatinine Estim Creat Clear Calc Estimated GFR Glucose POC Capillary Glucose 174 H Lactic Acid Calcium Phosphorus Magnesium Troponin I < 0.012 Urine Color Dark yellow Urine Appearance Cloudy H Urine pH 5.0 Ur Specific [place] 1.025 Urine Protein 2+ H Urine Glucose (UA) Negative Urine Ketones Trace H Ur Blood (Man) 1+ H Urine Nitrate Positive Urine Bilirubin Negative Urine Urobilinogen 0.2 Ur Leukocyte Esterase 1+ H Add Ur Microanalysis Reviewed Urine RBC 0-2 Urine WBC 6-10 H Ur Squamous Epith Cells Occasional Urine Bacteria Rare Urine Casts 6-10 Urine Mucus Present 02/25/25 02/25/25 02/25/25 01:02 02:50 03:54 WBC 13.5 H RBC 3.37 L Hgb 10.8 L Hct 32.7 L MCV 97.0 MCH 32.0 MCHC 33.0 RDW 12.5 Plt Count 195 MPV 9.5 Immature Gran % (Auto) 1.2 H Neut % (Auto) 86.5 H Lymph % (Auto) 4.0 L [place] % (Auto) 7.6 Eos % (Auto) 0.4 Baso % (Auto) 0.3 Lymph # (Auto) 0.54 L [place] # (Auto) 1.0 H Eos # (Auto) 0.1 Baso # (Auto) 0.0 Abs Immat Gran (auto) 0.16 H Absolute Neuts (auto) 11.7 H Absolute Nucleated RBC 0.000 Nucleated RBC % 0.0 APTT Sodium 132 L Potassium 4.0 Chloride 101 Carbon Dioxide 23 Anion Gap 8 BUN 22 H Creatinine 1.35 H Estim Creat Clear Calc 43 Estimated GFR 51 L Glucose 202 H POC Capillary Glucose 180 H Lactic Acid 1.2 Calcium 8.3 L Phosphorus 3.0 Magnesium 1.6 Troponin I Urine Color Urine Appearance Urine pH Ur Specific [place] Urine Protein Urine Glucose (UA) Urine Ketones Ur Blood (Man) Urine Nitrate Urine Bilirubin Urine Urobilinogen Ur Leukocyte Esterase Add Ur Microanalysis Urine RBC Urine WBC Ur Squamous Epith Cells Urine Bacteria Urine Casts Urine Mucus 02/25/25 02/25/25 02/25/25 05:22 05:55 07:42 WBC RBC Hgb Hct MCV MCH MCHC RDW Plt Count MPV Immature Gran % (Auto) Neut % (Auto) Lymph % (Auto) [place] % (Auto) Eos % (Auto) Baso % (Auto) Lymph # (Auto) [place] # (Auto) Eos # (Auto) Baso # (Auto) Abs Immat Gran (auto) Absolute Neuts (auto) Absolute Nucleated RBC Nucleated RBC % APTT 51.3 H Sodium Potassium Chloride Carbon Dioxide Anion Gap BUN Creatinine Estim Creat Clear Calc Estimated GFR Glucose POC Capillary Glucose 182 H 211 H Lactic Acid Calcium Phosphorus Magnesium Troponin I Urine Color Urine Appearance Urine pH Ur Specific [place] Urine Protein Urine Glucose (UA) Urine Ketones Ur Blood (Man) Urine Nitrate Urine Bilirubin Urine Urobilinogen Ur Leukocyte Esterase Add Ur Microanalysis Urine RBC Urine WBC Ur Squamous Epith Cells Urine Bacteria Urine Casts Urine Mucus Quality VTE Prophylaxis VTE prophylaxis: pharmacologic ordered (Heparin drip per protocol)
--- NOTE | 2025-02-25 09:26 | PM.CNCAR ---
Assessment and Plan Assessment and plan (1) Atrial fibrillation with rapid ventricular response: Code(s): I48.91 - Unspecified atrial fibrillation Status: Acute Plan Acute hypoxemic respiratory failure is likely related to pulmonary edema Atrial flutter with RVR Sepsis Obstructive uropathy ASH Diabetes mellitus type 2 Plan Transthoracic echocardiogram Lasix 40 mg IV b.i.d. Rate control using metoprolol 25 mg q.i.d. and start amiodarone infusion 150 mg of 10 minutes and 1 milligram/minute for 6 hours and 0.5 mg per minute afterward Continue heparin infusion Watch for bleeding with hematuria since patient had cystoscopy yesterday Follow-up CBC and BMP History of Present Illness History of Present Illness Consult date/time: 02/25/25 09:26 Reason For Visit: Afib RVR/Renal Stone Narrative: 84-year-old male patient presented to the hospital with flank pain and AFib with RVR. Patient cannot give much history he was in distress this morning with severe tachypnea sitting up on the edge of the bed. Per chart review patient was transferred from [facility] ER with severe pain in both legs. He was noted to have tachycardia and flipped into AFib with RVR. He was noted to have elevated low platelet count admitted to the hospital was infected obstructive uropathy was ASH and sepsis. He underwent cystoscopy yesterday. Patient appeared confused this morning Review of Systems Review of Systems: ROS unobtainable: Yes unobtainable due to mental status [facility] Past Medical History Medical History (Updated 02/25/25 @ 05:02 by Leana Contreras DO) Type 2 diabetes mellitus with insulin therapy Diabetic retinopathy SK (seborrheic keratosis) Incomplete tear of right rotator cuff Hereditary and idiopathic neuropathy, unspecified Gastro-esophageal reflux disease without esophagitis Elevated PSA Dysphagia Body mass index (BMI) greater than 30 (01/29/17) AK (actinic keratosis) Hard of hearing Chronic pain of both knees Chronic low back pain Essential (primary) hypertension Prostate cancer BPH (benign prostatic hyperplasia) Kidney stone Seasonal allergies Surgical History Surgical History Status post cystoscopy with ureteral stent placement With right ureteral stent placement at least 3 past with the most recent episode being December 2013 and September 2017 Status post right partial knee replacement Complicated by Staph epidermidis infection with subsequent removal of hardware and antibiotic spacer placement 03/2025 H/O cataract removal with insertion of prosthetic lens Hx of excision of mass exc anterior chest wall cyst on 12/08/22 H/O arthroscopic knee surgery bilateral knees History of bladder surgery H/O prostatectomy Hx of cholecystectomy H/O colonoscopy H/O sinus surgery Family History Family History Father Family history of emphysema Family history of congestive heart failure Mother Family history of malignant neoplasm of breast in first degree relative Family history of malignant neoplasm Social History Social History (Updated 02/25/25 @ 04:32 by Leana Contreras DO) Social History: He lives with his . He has 6 children. 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 He smoked a pack of cigarettes per week from the time use 17 up until 2002. The last 10 or 15 years of his smoking he only smoked intermittently. Code status: Full code Surrogate decision maker: Smoking packs per day: 0.25 Smoking cigarettes per day: 5.0 Years smoked: 50 Smoking pack-years: 12.50 Smoking status: Former smoker Tobacco type: cigarettes Second hand tobacco smoke exposure: No Smoking end date: 12/27/02 Additional smoking assessment comments: SMOKED 1 PACK/WEEK X 15 YEARS Alcohol intake: former Substance use: never Lack of Transportation: No Lack of Food: Never True Current Housing: I Have Housing Concerned About Future Housing: No Difficulty Paying Gas/Electric Bills: No Difficulty Paying for Meds: No Currently Unemployed: No Education: Decline to Answer Difficulty w/ Childcare or Family Care: No Living arrangements: with family Additional living arrangements comments: AND GRANDDAUGHTER Spiritual care concerns: No Meds Home Medications and Allergies Home Medications ?Medication ?Instructions ?Recorded ?Confirmed ?Type blood sugar diagnostic (Accu-Chek #10 ea 08/11/19 02/25/25 History Dot Plus test strips) blood-glucose meter (Accu-Chek #1 ea 08/11/19 02/25/25 History Dot Plus Meter) lancets (Accu-Chek Softclix #50 ea 08/11/19 02/25/25 History Lancets) pyepuys-upswevepzkmfy-snnydjqd 250 1 - 3 tablet PO Q4-6H PRN HEADACHES 11/27/22 02/24/25 History mg-250 mg-65 mg tablet (Excedrin Migraine) magnesium 500 mg tablet 500 mg PO DAILY PRN cramps 11/27/22 02/24/25 History blood-glucose sensor (Dexcom G7 #10 ea 05/01/23 02/25/25 Rx Sensor device) pen needle, diabetic 31 gauge x #100 ea 08/11/23 02/25/25 Rx 3/16 (BD Ultra-Fine Mini Pen Needle) hydrocodone 10 mg-acetaminophen 1 tablet PO Q6H PRN pain (scale 02/09/24 02/24/25 History 325 mg tablet score 4-6) empagliflozin 10 mg tablet 10 mg PO QAM #90 tabs 05/27/24 02/24/25 Rx (Jardiance) metformin 500 mg tablet 1,000 mg (2 x 500 mg) PO BID 90 09/05/24 02/24/25 Rx days #360 tabs cyclobenzaprine 10 mg tablet 10 mg PO DAILY PRN muscle spasm 02/24/25 02/24/25 History insulin glargine 100 unit/mL (3 60 unit subcut DAILY 02/24/25 02/24/25 History mL) subcutaneous pen (Lantus Solostar U-100 Insulin) insulin aspart U-100 100 unit/mL See Rx Instructions subcut DAILY 02/25/25 02/25/25 History (3 mL) subcutaneous pen (Novolog FlexPen U-100 Insulin aspart) Allergies Allergy/AdvReac Type Severity Reaction Status Date / Time venom-wasp Allergy Severe Anaphylaxis Verified 02/24/25 23:50 adhesive tape Allergy Mild Rash Verified 02/24/25 23:50 Vital Signs Vital Signs - 24 hr 02/24/25 22:43 02/24/25 22:48 02/24/25 23:00 Temperature 37.4 C Pulse Rate 102 H 106 H Respiratory Rate 23 H Blood Pressure 125/63 Pulse Oximetry 93 Oxygen Delivery Room Air Oxygen Flow Rate 02/24/25 23:41 02/25/25 00:00 02/25/25 00:11 Temperature 38.3 C H Pulse Rate 167 H 162 H 163 H Respiratory Rate 32 H Blood Pressure 115/63 Pulse Oximetry 94 Oxygen Delivery Oxygen Flow Rate 02/25/25 01:03 02/25/25 01:10 02/25/25 01:30 Temperature 39.4 C H 39.4 C H Pulse Rate Respiratory Rate Blood Pressure Pulse Oximetry 95 Oxygen Delivery Nasal Cannula Oxygen Flow Rate 2 02/25/25 01:54 02/25/25 02:00 02/25/25 02:01 Temperature 37.3 C 37.4 C Pulse Rate 165 H 161 H Respiratory Rate 36 H Blood Pressure 119/72 Pulse Oximetry 95 Oxygen Delivery Oxygen Flow Rate 02/25/25 02:03 02/25/25 02:40 02/25/25 02:45 Temperature 37.0 C Pulse Rate 161 H 160 H 160 H Respiratory Rate 28 H 26 H Blood Pressure 119/72 114/67 119/62 Pulse Oximetry 97 97 Oxygen Delivery Simple Face Mask Simple Face Mask Oxygen Flow Rate 10 10 02/25/25 03:00 02/25/25 03:11 02/25/25 03:25 Temperature 36.9 C Pulse Rate 156 H 155 H 147 H Respiratory Rate 21 H 20 18 Blood Pressure 105/67 111/68 96/59 L Pulse Oximetry 94 95 92 Oxygen Delivery Nasal Cannula Nasal Cannula Oxygen Flow Rate 3 3 02/25/25 03:30 02/25/25 04:00 02/25/25 04:00 Temperature Pulse Rate 158 H 159 H Respiratory Rate Blood Pressure 96/59 L Pulse Oximetry 94 Oxygen Delivery Nasal Cannula Oxygen Flow Rate 3 02/25/25 04:46 02/25/25 06:00 02/25/25 06:01 Temperature 36.9 C 36.7 C Pulse Rate 156 H 160 H 156 H Respiratory Rate 18 18 Blood Pressure 122/66 141/60 H Pulse Oximetry 90 94 Oxygen Delivery Oxygen Flow Rate 02/25/25 06:02 02/25/25 06:47 02/25/25 06:49 Temperature Pulse Rate 160 H 162 H 161 H Respiratory Rate Blood Pressure 138/76 134/59 L Pulse Oximetry Oxygen Delivery Oxygen Flow Rate 02/25/25 08:00 02/25/25 08:04 02/25/25 08:31 Temperature 36.8 C Pulse Rate 152 H 163 H Respiratory Rate 20 Blood Pressure 111/73 Pulse Oximetry 94 91 Oxygen Delivery Nasal Cannula Oxygen Flow Rate 3 02/25/25 08:31 02/25/25 08:58 02/25/25 09:02 Temperature 38.0 C H 38.0 C H Pulse Rate 163 H 162 H Respiratory Rate Blood Pressure Pulse Oximetry Oxygen Delivery Oxygen Flow Rate Exam Const: General: in distress moderate and confusion Other: Able to lie flat HENMT: Face/Nose/Sinus: Normal nares present and no epistaxis Mouth: Yes moist mucous membranes Eyes: Sclera: sclerae normal Pupils: Equal, round and reactive pupils present Neck: Neck: supple and JVD Carotids: no bruits Resp: Auscultation: rales bilateral at the base and lung sounds not diminished Other: No chest wall tenderness Cardio: Rate: regular rate Rhythm: regular rhythm Heart sounds: no gallops, no murmurs and no rubs GI: GI Palp: Yes Soft to palpation and No Tenderness to palpation present (GI) Auscultation: normal bowel sounds Skin: General skin exam: normal color, rashes and/or lesions noted and no erythema Other: Warm Neuro: Cranial nerves: Yes Equal, round and reactive pupils present Speech: normal speech Other: No obvious focal deficit or facial asymmetry Extrem: General: no edema Other: Normal capillary refills Intact distal pulses. Results Labs and Meds 02/25/25 03:54 02/25/25 03:54 Lab results: Cardiac Enzymes 02/24/25 Range/Units 23:45 Troponin I < 0.012 (0.000-0.034) ng/mL Coagulation 02/25/25 Range/Units 05:22 APTT 51.3 H (22.3-36.8) Seconds CBC 02/25/25 Range/Units 03:54 WBC 13.5 H (4.5-10.0) K/mm3 RBC 3.37 L (4.6-6.20) M/mm3 Hgb 10.8 L (14.0-18.0) g/dL Hct 32.7 L (42.0-52.0) % Plt Count 195 (150-375) k/mm3 Lymph # (Auto) 0.54 L (0.9-3.2) K/mm3 Thomas # (Auto) 1.0 H (0.1-0.6) K/mm3 Eos # (Auto) 0.1 (0-0.3) K/mm3 Baso # (Auto) 0.0 (0.0-0.1) K/mm3 Comprehensive Metabolic Panel 02/25/25 Range/Units 03:54 Sodium 132 L (137-145) mmol/L Potassium 4.0 (3.4-5.0) mmol/L Chloride 101 (98-107) mmol/L Carbon Dioxide 23 (22-30) mmol/L BUN 22 H (9-20) mg/dL Creatinine 1.35 H (0.7-1.3) mg/dL Glucose 202 H (65-110) mg/dL Calcium 8.3 L (8.4-10.2) mg/dL Intake and Output 02/24/25 02/25/25 02/25/25 23:59 07:59 15:59 Intake Total 1968.5 37.2 Output Total 1300 Balance 668.5 37.2 Intake: IV 1968.5 37.2 Lactated Ringers 1,000 ml @ 30 500 mls/hr IV CONT .Q24H [facility] Rx#: [id number] Sodium Chloride 0.9% IV 1,000 1360 ml @ 999 mls/hr IV CONT .Q1H1M [facility] Rx#:[id number] dilTIAZem 100 MG/100 ML 100 mg 58.5 37.2 In 100 ml @ 10 MG/HR 10 mls/hr IV CONT .Q10H [facility] Rx#:[id number] Piperacillin/Tazobactam Sod 2. 50 25 gm In Sodium Chloride 0.9% IV 50 ml @ 100 mls/hr IVPB Q6HR [facility] Rx#:[id number] Output: Catheter Urine 1300 Urethral Catheter 1300 Patient Weight 02/25/25 23:59 Weight 100.4 kg
[2025-02-25] MEDS: INSULIN ASPART (*BKC) 100 UNITS/ML SUB-Q ×4 (09:59→21:39)
[2025-02-25] MEDS: FUROSEMIDE INJ 40 MG/4 ML VIAL IV PUSH ×2 (10:06→17:24)
[2025-02-25] MEDS: METOPROLOL TARTRATE 25 MG TABLET PO ×3 (10:29→23:22)
[2025-02-25] MEDS: PERFLUTREN LIPID MICROSPHERES 1.5 ML VIAL DILUTED TO 10 ML TOTAL VOLUME IV PUSH (11:03)
--- NOTE | 2025-02-25 11:03 | IVDEFINITY ---
Prior to administration of IV Definity the patient was educated on the risks and benefits of the imaging enhancing agent including potential adverse side effects. The patient verbalized understanding. Allergies were verified. No exclusion criteria were identified and at least one of the following inclusion criteria were met: 1) physician request, 2) patient technically difficult to image (per the [place] [employer] guidelines of two or more segments not discernable within the apical view), or 3) questionable left ventricular function. ?
[2025-02-25 11:14] LABS: Hematocrit 35.1 % (42.0-52.0); Hemoglobin 11.5 g/dL (14.0-18.0); Mean Corpuscular HGB Conc 32.8 g/dl (32-36); Mean Corpuscular Hemoglobin 31.8 pg (26-34); Mean Corpuscular Volume 97.0 fl (80-100); Platelet Count Result 211 k/mm3 (150-375); Red Blood Count 3.62 M/mm3 (4.6-6.20); White Blood Count 15.0 K/mm3 (4.5-10.0)
--- NOTE | 2025-02-25 11:19 | ECG_ITS ---
Test Date: 2025-02-25 11:49:14 Measurements Intervals [place] Rate: 89 P: 23 MT: 167 QRS: 0 QRSD: 113 T: 46 QT: 358 QTc: 436 Interpretive Statements SINUS RHYTHM INCOMPLETE LEFT BUNDLE BRANCH BLOCK ABNORMAL ECG Compared to ECG 02/24/2025 23:22:52 Atrial flutter no longer present Electronically Signed On 02-25-2025 15:38:04 CDT by Dion Jordan D.O.
[2025-02-25 11:37] LABS: Partial Thromboplastin Time 113.3 Seconds (22.3-36.8)
[2025-02-25 11:49] LABS: Alanine Aminotransferase 15 U/L (6-50); Albumin Level 3.5 g/dL (3.5-5.1); Alkaline Phosphatase 78 U/L (38-126); Anion Gap 12 mmol/L (4-12); Aspartate Amino Transferase 28 U/L (17-59); Bilirubin,Total 1.3 mg/dL (0.2-1.3); Blood Urea Nitrogen 25 mg/dL (9-20); Calcium 8.3 mg/dL (8.4-10.2); Carbon Dioxide 22 mmol/L (22-30); Chloride 100 mmol/L (98-107); Estimated CRCL calculation 39 ml/min; Estimated Glomerular Filt Rate 46; Glucose 283 mg/dL (65-110); Potassium 4.1 mmol/L (3.4-5.0); Sodium 134 mmol/L (137-145); Total Protein 6.9 g/dL (6.3-8.2)
[2025-02-25] MEDS: ONDANSETRON INJ 4 MG/2 ML VIAL IV PUSH (15:15)
[2025-02-25 19:12] LABS: Partial Thromboplastin Time 72.6 Seconds (22.3-36.8)
[2025-02-25] MEDS: IPRATROPIUM BR 0.02% INH SOLN 0.5 MG/2.5 ML VIAL INHALATION (21:18)
[2025-02-25] MEDS: INSULIN GLARGINE (*BKC) 100 UNITS/ML 55 UNITS SUB-Q (21:38)
[2025-02-25] MEDS: HEPARIN SOD/D5W 100 UNITS/ML 25,000 UNITS/250 ML BAG 13 UNITS IV CONT (23:09)
[2025-02-26] VITALS (36 sets, daily range): BP systolic 110–141; BP diastolic 58–90; PULSE 75–155; RESP 16–28; TEMP 36.6–38.1; O2SAT 90–99
[2025-02-26 00:58] LABS: Hemoglobin A1C 7.4 % (<5.7)
[2025-02-26 01:11] LABS: Alanine Aminotransferase 15 U/L (6-50); Albumin Level 3.3 g/dL (3.5-5.1); Alkaline Phosphatase 75 U/L (38-126); Anion Gap 8 mmol/L (4-12); Aspartate Amino Transferase 35 U/L (17-59); Bilirubin,Total 0.6 mg/dL (0.2-1.3); Blood Urea Nitrogen 31 mg/dL (9-20); Calcium 8.0 mg/dL (8.4-10.2); Carbon Dioxide 28 mmol/L (22-30); Chloride 96 mmol/L (98-107); Cholesterol 98 mg/dL (0-200); Estimated CRCL calculation 38 ml/min; Estimated Glomerular Filt Rate 43; Glucose 231 mg/dL (65-110); HDL Direct 12 mg/dL; Potassium 3.5 mmol/L (3.4-5.0); Sodium 132 mmol/L (137-145); Total Protein 6.6 g/dL (6.3-8.2); Triglycerides 235 mg/dL (<150)
[2025-02-26 01:14] LABS: Partial Thromboplastin Time 68.4 Seconds (22.3-36.8)
[2025-02-26 01:40] LABS: Thyroid Stimulating Hormone Reflex 0.221 uIU/mL (0.465-4.68)
[2025-02-26] MEDS: METOPROLOL TARTRATE 25 MG TABLET PO ×3 (05:56→13:55)
[2025-02-26 05:57] LABS: Free T4 Free Thyroxine Reflex 1.55 ng/dL (0.78-2.19)
[2025-02-26] MEDS: PIPERACILLIN/TAZOBACTAM SOD 2.25 GM in SODIUM CHLORIDE 0.9% IV 50 ML 100 ML IVPB ×4 (05:57→23:07)
[2025-02-26 06:43] LABS: Total Triiodothyronine (T3) 0.65 NG/ML (0.82-1.58)
[2025-02-26 07:45] LABS: Partial Thromboplastin Time 73.8 Seconds (22.3-36.8)
[2025-02-26] MEDS: INSULIN ASPART (*BKC) 100 UNITS/ML SUB-Q ×3 (08:29→16:35)
[2025-02-26] MEDS: FUROSEMIDE INJ 40 MG/4 ML VIAL IV PUSH (08:30)
--- NOTE | 2025-02-26 09:21 | PM.PNCARD ---
Progress Note: A&P Assessment and Plan (1) Atrial fibrillation with rapid ventricular response: Code(s): I48.91 - Unspecified atrial fibrillation Status: Acute Plan Acute hypoxemic respiratory failure is likely related to pulmonary edema improved today Atrial flutter with RVR converted back to sinus Sepsis Obstructive uropathy ASH Diabetes mellitus type 2 Plan Transthoracic echocardiogram Change Lasix to 40 mg p.o. b.i.d. Change amiodarone to 400 mg daily Continue heparin infusion if no more hematuria tomorrow or consider starting Eliquis 5 mg b.i.d. Follow-up CBC and BMP Subjective Date/time seen: 02/26/25 09:21 Interval history: Patient is seen today for evaluation of AFib with RVR No acute events overnight Breathing better today Telemetry is converted to sinus rhythm Review of Systems Review of Systems: All systems reviewed & are unremarkable except as noted in HPI and below Exam Const: General: in distress moderate and confusion Other: Able to lie flat HENMT: Face/Nose/Sinus: Normal nares present and no epistaxis Mouth: Yes moist mucous membranes Eyes: Sclera: sclerae normal Pupils: Equal, round and reactive pupils present Neck: Neck: supple and JVD Carotids: no bruits Resp: Auscultation: rales bilateral at the base and lung sounds not diminished Other: No chest wall tenderness Cardio: Rate: regular rate Rhythm: regular rhythm Heart sounds: no gallops, no murmurs and no rubs GI: GI Palp: Yes Soft to palpation and No Tenderness to palpation present (GI) Auscultation: normal bowel sounds Skin: General skin exam: normal color, rashes and/or lesions noted and no erythema Other: Warm Neuro: Cranial nerves: Yes Equal, round and reactive pupils present Speech: normal speech Other: No obvious focal deficit or facial asymmetry Extrem: General: no edema Other: Normal capillary refills Intact distal pulses. Objective Data Vital Signs Vital Signs: Vital Signs - 24 hr 02/25/25 09:59 02/25/25 10:00 02/25/25 10:00 Temperature Pulse Rate 155 H 154 H Respiratory Rate Blood Pressure 126/71 Pulse Oximetry Oxygen Delivery Oxygen Flow Rate 02/25/25 10:05 02/25/25 10:05 02/25/25 10:29 Temperature Pulse Rate 165 H 165 H 153 H Respiratory Rate Blood Pressure 126/71 126/71 Pulse Oximetry Oxygen Delivery Oxygen Flow Rate 02/25/25 11:12 02/25/25 11:45 02/25/25 12:00 Temperature 36.9 C Pulse Rate 95 93 88 Respiratory Rate 20 Blood Pressure 129/60 Pulse Oximetry 94 Oxygen Delivery Oxygen Flow Rate 02/25/25 12:00 02/25/25 12:00 02/25/25 14:00 Temperature Pulse Rate 87 89 Respiratory Rate Blood Pressure Pulse Oximetry 94 Oxygen Delivery Nasal Cannula Oxygen Flow Rate 3 02/25/25 14:00 02/25/25 14:00 02/25/25 15:14 Temperature Pulse Rate 94 96 Respiratory Rate Blood Pressure 148/94 H Pulse Oximetry Oxygen Delivery Oxygen Flow Rate 02/25/25 16:00 02/25/25 16:00 02/25/25 16:52 Temperature 38.1 C H Pulse Rate 96 99 103 H Respiratory Rate 20 20 Blood Pressure 135/62 Pulse Oximetry 94 91 Oxygen Delivery Room Air Oxygen Flow Rate 02/25/25 17:24 02/25/25 17:45 02/25/25 17:46 Temperature 38.1 C H Pulse Rate 100 100 Respiratory Rate Blood Pressure Pulse Oximetry Oxygen Delivery Oxygen Flow Rate 02/25/25 18:20 02/25/25 20:00 02/25/25 20:00 Temperature 36.4 C 38.2 C H 38.2 C H Pulse Rate 94 99 Respiratory Rate 20 22 H Blood Pressure 132/56 L 131/61 Pulse Oximetry 92 92 Oxygen Delivery Oxygen Flow Rate 02/25/25 20:00 02/25/25 20:00 02/25/25 20:00 Temperature Pulse Rate 99 93 Respiratory Rate 24 H Blood Pressure 131/61 Pulse Oximetry 88 L Oxygen Delivery Nasal Cannula Oxygen Flow Rate 3 02/25/25 21:50 02/25/25 22:00 02/25/25 23:22 Temperature 37.1 C Pulse Rate 100 101 H 104 H Respiratory Rate 16 Blood Pressure 122/52 L Pulse Oximetry 90 Oxygen Delivery Oxygen Flow Rate 02/25/25 23:34 02/25/25 23:36 02/25/25 23:39 Temperature 38.5 C H 38.5 C H Pulse Rate 101 H 100 Respiratory Rate 32 H Blood Pressure 137/77 122/52 L Pulse Oximetry 96 Oxygen Delivery Oxygen Flow Rate 02/25/25 23:39 02/26/25 00:00 02/26/25 00:00 Temperature Pulse Rate 101 H 100 Respiratory Rate Blood Pressure 137/77 Pulse Oximetry 94 Oxygen Delivery Nasal Cannula Oxygen Flow Rate 2 02/26/25 00:45 02/26/25 00:59 02/26/25 01:55 Temperature 38.1 C H 38.1 C H 37.9 C H Pulse Rate 94 Respiratory Rate 22 H Blood Pressure 139/66 Pulse Oximetry 93 Oxygen Delivery Oxygen Flow Rate 02/26/25 02:00 02/26/25 02:00 02/26/25 02:33 Temperature Pulse Rate 93 94 89 Respiratory Rate Blood Pressure 139/66 Pulse Oximetry Oxygen Delivery Oxygen Flow Rate 02/26/25 02:33 02/26/25 03:39 02/26/25 03:43 Temperature 36.8 C Pulse Rate 89 87 87 Respiratory Rate 28 H Blood Pressure 130/61 130/61 Pulse Oximetry 95 Oxygen Delivery Oxygen Flow Rate 02/26/25 03:45 02/26/25 04:00 02/26/25 05:52 Temperature Pulse Rate 88 88 Respiratory Rate Blood Pressure 136/70 Pulse Oximetry 96 Oxygen Delivery Nasal Cannula Oxygen Flow Rate 1 02/26/25 05:56 02/26/25 06:00 02/26/25 08:00 Temperature 37.3 C Pulse Rate 89 94 99 Respiratory Rate 24 H Blood Pressure 141/72 H Pulse Oximetry 99 Oxygen Delivery Oxygen Flow Rate Intake/Output Intake/Output: Intake & Output 02/23/25 02/24/25 02/25/25 02/26/25 23:59 23:59 23:59 23:59 Intake Total 2953.0 781.8 Output Total 3250 1750 Balance -297.0 -968.2 Meds/Results Medications: Active Medications Generic Name Dose Route Start Last Admin Trade Name Freq PRN Reason Stop Dose Admin Acetaminophen 650 mg 02/24/25 22:24 02/25/25 23:34 Acetaminophen 325 Mg Tablet PO 650 mg Q4H PRN Administration Mild Pain (1-3) or Fever Hydrocodone Bitart/Acetaminophen 1 tab 02/25/25 00:31 Hydrocodone/Acetaminophen (*Crx) 10-325 Mg Tablet PO Q6H PRN pain (scale score 4-6) Al Hydrox/Mg Hydrox/Simethicone 30 ml 02/24/25 22:24 Mag Hydrox/Al Hydrox/Simeth 30 Ml Udc PO QID PRN Dyspepsia Cyclobenzaprine HCl 10 mg 02/25/25 00:31 Cyclobenzaprine Hcl 10 Mg Tablet PO DAILY PRN Muscle Spasm Dextrose 12.5 gm 02/25/25 00:33 Dextrose 50% 25 Gm/50 Ml Syringe IV PUSH PRN PRN Hypoglycemia Protocol Dextrose 12.5 gm 02/25/25 13:41 Dextrose 50% 25 Gm/50 Ml Syringe IV PUSH PRN PRN Hypoglycemia Protocol Furosemide 40 mg 02/25/25 09:45 02/26/25 08:30 Furosemide Inj 40 Mg/4 Ml Vial IV PUSH 40 mg BID ANTON Administration Glucagon 1 mg 02/25/25 00:33 Glucagon For Inj 1 Mg Vial IM PRN PRN Hypoglycemia Protocol Glucagon 1 mg 02/25/25 13:41 Glucagon For Inj 1 Mg Vial IM PRN PRN Hypoglycemia Protocol Glucose 15 gm 02/25/25 00:33 Glucose Oral Gel 15 Gm Of Glucse In 37.5 Gm Tube PO PRN PRN Hypoglycemia Protocol Glucose 15 gm 02/25/25 13:41 Glucose Oral Gel 15 Gm Of Glucse In 37.5 Gm Tube PO PRN PRN Hypoglycemia Protocol Heparin Sodium (Porcine) 7,000 units 02/25/25 04:55 Heparin Sodium 5,000 Units/Ml Vial IV PUSH PRN PRN aPTT less than 55 seconds Heparin Sodium (Porcine) 3,500 units 02/25/25 04:55 02/26/25 01:25 Heparin Sodium 5,000 Units/Ml Vial IV PUSH 3,500 units PRN PRN Administration aPTT 55 - 70 seconds Piperacillin Sod/Tazobactam 50 mls @ 100 mls/hr 02/25/25 00:20 02/26/25 05:57 Sod 2.25 gm/ Sodium Chloride IVPB 100 mls/hr Q6HR ANTON Administration Dextrose 1,000 mls @ 100 mls/hr 02/25/25 00:33 Dextrose 5% 1,000 Ml IVPB PRN PRN Hypoglycemia Protocol Heparin Sodium/Dextrose 25,000 units in 250 mls @ 15 mls/hr 02/25/25 04:55 02/26/25 08:00 Heparin Sodium/D5w 100 Units/Ml IV CONT 1,500 units/hr .[id number] ANTON 15 mls/hr Protocol Titration 1,500 UNITS/HR Amiodarone HCl/Dextrose 360 mg in 200 mls @ 16.667 mls/hr 02/25/25 15:42 02/26/25 05:52 Nexterone 360 Mg/D5w 200 Ml IV CONT 02/26/25 15:41 0.5 mg/min .Q12H ANTON 16.67 mls/hr Protocol Infusion 0.5 MG/MIN Dextrose 1,000 mls @ 100 mls/hr 02/25/25 13:41 Dextrose 5% 1,000 Ml IVPB PRN PRN Hypoglycemia Protocol Insulin Aspart 3 - 6 units 02/25/25 08:00 02/26/25 08:29 Insulin Aspart (*Bkc) 100 Units/Ml SUB-Q 3 units TIDWM ANTON Administration Protocol Insulin Aspart 1 - 2 units 02/25/25 21:00 02/25/25 21:39 Insulin Aspart (*Bkc) 100 Units/Ml SUB-Q 1 units HS ANTON Administration Protocol Insulin Glargine 55 units 02/25/25 21:10 02/25/25 21:38 Insulin Glargine (*Bkc) 100 Units/Ml SUB-Q 55 units HS ANTON Administration Magnesium Hydroxide 30 ml 02/24/25 22:24 Magnesium Hydroxide Susp 30 Ml Udc PO DAILY PRN Constipation Metoprolol Tartrate 25 mg 02/25/25 12:00 02/26/25 05:56 Metoprolol Tartrate 25 Mg Tablet PO 25 mg Q6HR ANTON Administration Morphine Sulfate 2 mg 02/24/25 22:24 Morphine Sulfate (*Crx) 2 Mg/Ml Inj IV PUSH Q4H PRN Pain Rated 7-10 Naloxone HCl 0.1 mg 02/24/25 22:24 Naloxone Hcl 0.4 Mg/Ml Vial IV PUSH Q2M PRN Opiate Reversal Ondansetron HCl 4 mg 02/25/25 02:38 02/25/25 15:15 Ondansetron Inj 4 Mg/2 Ml Vial IV PUSH 4 mg ONCE PRN Administration Nausea Ondansetron HCl 4 mg 02/25/25 14:59 Ondansetron Inj 4 Mg/2 Ml Vial IV PUSH Q4H PRN Nausea And Vomiting Radiology Results: ITS Impressions Abdomen X-Ray 02/25/25 19:16 Impression: 1. Probable phlebolith, no gross periureteral calculus. Correlation with CT recommended Chest X-Ray 02/25/25 19:27 Impression: Probable viral pneumonitis Labs Labs: Laboratory Results - last 24 hr 02/25/25 02/25/25 02/25/25 11:07 11:15 16:18 WBC 15.0 H RBC 3.62 L Hgb 11.5 L Hct 35.1 L MCV 97.0 MCH 31.8 MCHC 32.8 RDW 12.4 Plt Count 211 MPV 9.7 APTT 113.3 H Sodium 134 L Potassium 4.1 Chloride 100 Carbon Dioxide 22 Anion Gap 12 BUN 25 H Creatinine 1.47 H Estim Creat Clear Calc 39 Estimated GFR 46 L Glucose 283 H POC Capillary Glucose 288 H 270 H Hemoglobin A1c Calcium 8.3 L Total Bilirubin 1.3 AST 28 ALT 15 Alkaline Phosphatase 78 Total Protein 6.9 Albumin 3.5 Triglycerides Cholesterol LDL Cholesterol Direct HDL Direct TSH (Reflex) Free T4 Total T3 02/25/25 02/25/25 02/26/25 18:37 19:40 00:29 WBC RBC Hgb Hct MCV MCH MCHC RDW Plt Count MPV APTT 72.6 H 68.4 H Sodium 132 L Potassium 3.5 Chloride 96 L Carbon Dioxide 28 Anion Gap 8 BUN 31 H Creatinine 1.54 H Estim Creat Clear Calc 38 Estimated GFR 43 L Glucose 231 H POC Capillary Glucose 244 H Hemoglobin A1c 7.4 H Calcium 8.0 L Total Bilirubin 0.6 AST 35 ALT 15 Alkaline Phosphatase 75 Total Protein 6.6 Albumin 3.3 L Triglycerides 235 H Cholesterol 98 LDL Cholesterol Direct < 30 HDL Direct 12 TSH (Reflex) 0.221 L Free T4 1.55 Total T3 0.65 L 02/26/25 02/26/25 07:22 07:24 WBC RBC Hgb Hct MCV MCH MCHC RDW Plt Count MPV APTT 73.8 H Sodium Potassium Chloride Carbon Dioxide Anion Gap BUN Creatinine Estim Creat Clear Calc Estimated GFR Glucose POC Capillary Glucose 249 H Hemoglobin A1c Calcium Total Bilirubin AST ALT Alkaline Phosphatase Total Protein Albumin Triglycerides Cholesterol LDL Cholesterol Direct HDL Direct TSH (Reflex) Free T4 Total T3
--- NOTE | 2025-02-26 09:36 | PM.IMPN ---
Progress Note: A&P Assessment and Plan (1) Sepsis: Qualifiers: Acute renal failure type: unspecified Sepsis acute organ dysfunction status: with acute organ dysfunction Sepsis type: sepsis due to unspecified organism Severe sepsis acute organ dysfunction type: acute renal failure Severe sepsis shock status: without septic shock Qualified Code(s): A41.9 - Sepsis, unspecified organism; R65.20 - Severe sepsis without septic shock; N17.9 - Acute kidney failure, unspecified Code(s): A41.9 - Sepsis, unspecified organism Status: Acute Assessment and Plan: Due to obstructive nephrolithiasis Underwent emergent cystoscopy with right ureteral stent placement Started on Zosyn at outside facility Blood culture from outside facility growing Gram-negative bacilli Will continue Zosyn Received fluids in the ED and floor -total 3 L (2) Hydronephrosis with renal calculous obstruction: Code(s): N13.2 - Hydronephrosis with renal and ureteral calculous obstruction Status: Acute Assessment and Plan: As above (3) Urinary tract infection: Qualifiers: Urinary tract infection type: acute pyelonephritis Qualified Code(s): N10 - Acute pyelonephritis Code(s): N39.0 - Urinary tract infection, site not specified Status: Acute Assessment and Plan: As above (4) Atrial fibrillation with rapid ventricular response: Code(s): I48.91 - Unspecified atrial fibrillation Status: Acute Assessment and Plan: New onset. Order TSH Echo shows left ventricular ejection fraction 60-65% On heparin drip Order HbA1c and Lipid Panel Started on metoprolol 25 mg and amiodarone drip Lasix 40 IV b.i.d. Cardiology consulted 02/26: Amiodarone drip stopped and started on amiodarone 400 mg p.o. q.d. (5) Acute kidney injury: Code(s): N17.9 - Acute kidney failure, unspecified Status: Acute Assessment and Plan: -possibly due to obstructing nephrolithiasis -Avoid nephrotoxic drugs. -Monitor antihypertensive drug therapy. -Avoid NSAIDs. -Routine CMP monitoring GFR. -Monitor electrolytes especially potassium. -Antibiotic doses depending on creatinine clearance. -Pharmacy does medications. -unable to find baseline Cr -Routine follow-up with Nephrology as an outpatient. (6) Dehydration: Code(s): E86.0 - Dehydration Status: Acute Assessment and Plan: NS at 100 mL/hr Monitor I and O's (7) Type 2 diabetes mellitus with hyperglycemia, with long-term current use of insulin: Code(s): E11.65 - Type 2 diabetes mellitus with hyperglycemia; Z79.4 - jail (current) use of insulin Status: Acute Assessment and Plan: Order HbA1c SSI Hypoglycemic protocol (8) Bacteremia: Code(s): R78.81 - Bacteremia Status: Acute Assessment and Plan: [facility] reported blood culture growing Gram-negative bacilli with aerobic bottle Continue Zosyn Follow-up with culture Possible source UTI Trans thoracic echocardiogram negative for any vegetation Less suspicion for endocarditis, 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 Ordered MRSA, KUB due to constipation and ipratropium for wheezing.Amiodarone drip stopped and started on amiodarone 400 mg p.o. q.d. Review of Systems Review of Systems: Review of systems limited due to the patient's chronic hearing loss and confusion likely due to acute infection/encephalopathy. Subsequently the majority of information was obtained from review of past medical records, external records and nursing report. Exam Narrative: Weight 100.4 kg BMI 29.2 Const: Other: Acutely ill-appearing, height weight proportionate HENMT: Other: Mucous membranes are dry, no oral pharyngeal erythema upper and lower dentures in place Eyes: Other: Pupils are equal and reactive, no scleral icterus, no conjunctival pallor Neck: Other: No lymphadenopathy, no thyromegaly Resp: Other: Clear to auscultation bilaterally, no increased work of breathing Cardio: Other: Irregularly irregular, tachycardic, 2+ bilateral radial pedal pulses, no murmur GI: Other: Soft, distended, tender over the suprapubic and lower abdominal area : Other: Circumcised male, Valente catheter place after my evaluation and urine output evaluated immediately thereafter demonstrated greater than 600 mL of immediate output of turbid yellow urine Skin: Other: Hot to touch, non jaundice, no pallor, 3-4 second cap refill Neuro: Other: Alert oriented to person, year and name of the current president, confused as to the month and the exact location of the hospital, speech is clear, hearing is profoundly affected, no facial asymmetry, no localizing neurologic deficits noted during the course of conversation Extrem: Other: Moves all extremities equally, no clubbing, cyanosis or edema Psych: Other: confused, cooperative Objective Data Vital Signs Vital Signs: Vital Signs - 24 hr 02/25/25 09:59 02/25/25 10:00 02/25/25 10:00 Temperature Pulse Rate 155 H 154 H Respiratory Rate Blood Pressure 126/71 Pulse Oximetry Oxygen Delivery Oxygen Flow Rate 02/25/25 10:05 02/25/25 10:05 02/25/25 10:29 Temperature Pulse Rate 165 H 165 H 153 H Respiratory Rate Blood Pressure 126/71 126/71 Pulse Oximetry Oxygen Delivery Oxygen Flow Rate 02/25/25 11:12 02/25/25 11:45 02/25/25 12:00 Temperature 98.5 F Pulse Rate 95 93 88 Respiratory Rate 20 Blood Pressure 129/60 Pulse Oximetry 94 Oxygen Delivery Oxygen Flow Rate 02/25/25 12:00 02/25/25 12:00 02/25/25 14:00 Temperature Pulse Rate 87 89 Respiratory Rate Blood Pressure Pulse Oximetry 94 Oxygen Delivery Nasal Cannula Oxygen Flow Rate 3 02/25/25 14:00 02/25/25 14:00 02/25/25 15:14 Temperature Pulse Rate 94 96 Respiratory Rate Blood Pressure 148/94 H Pulse Oximetry Oxygen Delivery Oxygen Flow Rate 02/25/25 16:00 02/25/25 16:00 02/25/25 16:52 Temperature 100.5 F H Pulse Rate 96 99 103 H Respiratory Rate 20 20 Blood Pressure 135/62 Pulse Oximetry 94 91 Oxygen Delivery Room Air Oxygen Flow Rate 02/25/25 17:24 02/25/25 17:45 02/25/25 17:46 Temperature 100.5 F H Pulse Rate 100 100 Respiratory Rate Blood Pressure Pulse Oximetry Oxygen Delivery Oxygen Flow Rate 02/25/25 18:20 02/25/25 20:00 02/25/25 20:00 Temperature 97.6 F 100.8 F H 100.8 F H Pulse Rate 94 99 Respiratory Rate 20 22 H Blood Pressure 132/56 L 131/61 Pulse Oximetry 92 92 Oxygen Delivery Oxygen Flow Rate 02/25/25 20:00 02/25/25 20:00 02/25/25 20:00 Temperature Pulse Rate 99 93 Respiratory Rate 24 H Blood Pressure 131/61 Pulse Oximetry 88 L Oxygen Delivery Nasal Cannula Oxygen Flow Rate 3 02/25/25 21:50 02/25/25 22:00 02/25/25 23:22 Temperature 98.8 F Pulse Rate 100 101 H 104 H Respiratory Rate 16 Blood Pressure 122/52 L Pulse Oximetry 90 Oxygen Delivery Oxygen Flow Rate 02/25/25 23:34 02/25/25 23:36 02/25/25 23:39 Temperature 101.3 F H 101.3 F H Pulse Rate 101 H 100 Respiratory Rate 32 H Blood Pressure 137/77 122/52 L Pulse Oximetry 96 Oxygen Delivery Oxygen Flow Rate 02/25/25 23:39 02/26/25 00:00 02/26/25 00:00 Temperature Pulse Rate 101 H 100 Respiratory Rate Blood Pressure 137/77 Pulse Oximetry 94 Oxygen Delivery Nasal Cannula Oxygen Flow Rate 2 02/26/25 00:45 02/26/25 00:59 02/26/25 01:55 Temperature 100.5 F H 100.5 F H 100.2 F H Pulse Rate 94 Respiratory Rate 22 H Blood Pressure 139/66 Pulse Oximetry 93 Oxygen Delivery Oxygen Flow Rate 02/26/25 02:00 02/26/25 02:00 02/26/25 02:33 Temperature Pulse Rate 93 94 89 Respiratory Rate Blood Pressure 139/66 Pulse Oximetry Oxygen Delivery Oxygen Flow Rate 02/26/25 02:33 02/26/25 03:39 02/26/25 03:43 Temperature 98.3 F Pulse Rate 89 87 87 Respiratory Rate 28 H Blood Pressure 130/61 130/61 Pulse Oximetry 95 Oxygen Delivery Oxygen Flow Rate 02/26/25 03:45 02/26/25 04:00 02/26/25 05:52 Temperature Pulse Rate 88 88 Respiratory Rate Blood Pressure 136/70 Pulse Oximetry 96 Oxygen Delivery Nasal Cannula Oxygen Flow Rate 1 02/26/25 05:56 02/26/25 06:00 02/26/25 08:00 Temperature 99.1 F Pulse Rate 89 94 99 Respiratory Rate 24 H Blood Pressure 141/72 H Pulse Oximetry 99 Oxygen Delivery Oxygen Flow Rate Intake/Output Intake/Output: Intake & Output 02/23/25 02/24/25 02/25/25 02/26/25 23:59 23:59 23:59 23:59 Intake Total 2953.0 781.8 Output Total 3250 1750 Balance -297.0 -968.2 Meds/Results Medications: Active Medications Generic Name Dose Route Start Last Admin Trade Name Freq PRN Reason Stop Dose Admin Acetaminophen 650 mg 02/24/25 22:24 02/25/25 23:34 Acetaminophen 325 Mg Tablet PO 650 mg Q4H PRN Administration Mild Pain (1-3) or Fever Hydrocodone Bitart/Acetaminophen 1 tab 02/25/25 00:31 Hydrocodone/Acetaminophen (*Crx) 10-325 Mg Tablet PO Q6H PRN pain (scale score 4-6) Al Hydrox/Mg Hydrox/Simethicone 30 ml 02/24/25 22:24 Mag Hydrox/Al Hydrox/Simeth 30 Ml Udc PO QID PRN Dyspepsia Cyclobenzaprine HCl 10 mg 02/25/25 00:31 Cyclobenzaprine Hcl 10 Mg Tablet PO DAILY PRN Muscle Spasm Dextrose 12.5 gm 02/25/25 00:33 Dextrose 50% 25 Gm/50 Ml Syringe IV PUSH PRN PRN Hypoglycemia Protocol Dextrose 12.5 gm 02/25/25 13:41 Dextrose 50% 25 Gm/50 Ml Syringe IV PUSH PRN PRN Hypoglycemia Protocol Furosemide 40 mg 02/26/25 17:00 Furosemide 40 Mg Tablet PO BID ANTON Glucagon 1 mg 02/25/25 00:33 Glucagon For Inj 1 Mg Vial IM PRN PRN Hypoglycemia Protocol Glucagon 1 mg 02/25/25 13:41 Glucagon For Inj 1 Mg Vial IM PRN PRN Hypoglycemia Protocol Glucose 15 gm 02/25/25 00:33 Glucose Oral Gel 15 Gm Of Glucse In 37.5 Gm Tube PO PRN PRN Hypoglycemia Protocol Glucose 15 gm 02/25/25 13:41 Glucose Oral Gel 15 Gm Of Glucse In 37.5 Gm Tube PO PRN PRN Hypoglycemia Protocol Heparin Sodium (Porcine) 7,000 units 02/25/25 04:55 Heparin Sodium 5,000 Units/Ml Vial IV PUSH PRN PRN aPTT less than 55 seconds Heparin Sodium (Porcine) 3,500 units 02/25/25 04:55 02/26/25 01:25 Heparin Sodium 5,000 Units/Ml Vial IV PUSH 3,500 units PRN PRN Administration aPTT 55 - 70 seconds Piperacillin Sod/Tazobactam 50 mls @ 100 mls/hr 02/25/25 00:20 02/26/25 05:57 Sod 2.25 gm/ Sodium Chloride IVPB 100 mls/hr Q6HR ANTON Administration Dextrose 1,000 mls @ 100 mls/hr 02/25/25 00:33 Dextrose 5% 1,000 Ml IVPB PRN PRN Hypoglycemia Protocol Heparin Sodium/Dextrose 25,000 units in 250 mls @ 15 mls/hr 02/25/25 04:55 02/26/25 08:00 Heparin Sodium/D5w 100 Units/Ml IV CONT 1,500 units/hr .[id number] ANTON 15 mls/hr Protocol Titration 1,500 UNITS/HR Amiodarone HCl/Dextrose 360 mg in 200 mls @ 16.667 mls/hr 02/25/25 15:42 02/26/25 05:52 Nexterone 360 Mg/D5w 200 Ml IV CONT 02/26/25 15:41 0.5 mg/min .Q12H ANTON 16.67 mls/hr Protocol Infusion 0.5 MG/MIN Dextrose 1,000 mls @ 100 mls/hr 02/25/25 13:41 Dextrose 5% 1,000 Ml IVPB PRN PRN Hypoglycemia Protocol Insulin Aspart 3 - 6 units 02/25/25 08:00 02/26/25 08:29 Insulin Aspart (*Bkc) 100 Units/Ml SUB-Q 3 units TIDWM ANTON Administration Protocol Insulin Aspart 1 - 2 units 02/25/25 21:00 02/25/25 21:39 Insulin Aspart (*Bkc) 100 Units/Ml SUB-Q 1 units HS ANTON Administration Protocol Insulin Glargine 55 units 02/25/25 21:10 02/25/25 21:38 Insulin Glargine (*Bkc) 100 Units/Ml SUB-Q 55 units HS ANTON Administration Magnesium Hydroxide 30 ml 02/24/25 22:24 Magnesium Hydroxide Susp 30 Ml Udc PO DAILY PRN Constipation Metoprolol Tartrate 25 mg 02/25/25 12:00 02/26/25 05:56 Metoprolol Tartrate 25 Mg Tablet PO 25 mg Q6HR ANTON Administration Morphine Sulfate 2 mg 02/24/25 22:24 Morphine Sulfate (*Crx) 2 Mg/Ml Inj IV PUSH Q4H PRN Pain Rated 7-10 Naloxone HCl 0.1 mg 02/24/25 22:24 Naloxone Hcl 0.4 Mg/Ml Vial IV PUSH Q2M PRN Opiate Reversal Ondansetron HCl 4 mg 02/25/25 02:38 02/25/25 15:15 Ondansetron Inj 4 Mg/2 Ml Vial IV PUSH 4 mg ONCE PRN Administration Nausea Ondansetron HCl 4 mg 02/25/25 14:59 Ondansetron Inj 4 Mg/2 Ml Vial IV PUSH Q4H PRN Nausea And Vomiting Radiology Results: ITS Impressions Abdomen X-Ray 02/25/25 19:16 Impression: 1. Probable phlebolith, no gross periureteral calculus. Correlation with CT recommended Chest X-Ray 02/25/25 19:27 Impression: Probable viral pneumonitis Labs Labs: Laboratory Results - last 24 hr 02/25/25 02/25/25 02/25/25 11:07 11:15 16:18 WBC 15.0 H RBC 3.62 L Hgb 11.5 L Hct 35.1 L MCV 97.0 MCH 31.8 MCHC 32.8 RDW 12.4 Plt Count 211 MPV 9.7 APTT 113.3 H Sodium 134 L Potassium 4.1 Chloride 100 Carbon Dioxide 22 Anion Gap 12 BUN 25 H Creatinine 1.47 H Estim Creat Clear Calc 39 Estimated GFR 46 L Glucose 283 H POC Capillary Glucose 288 H 270 H Hemoglobin A1c Calcium 8.3 L Total Bilirubin 1.3 AST 28 ALT 15 Alkaline Phosphatase 78 Total Protein 6.9 Albumin 3.5 Triglycerides Cholesterol LDL Cholesterol Direct HDL Direct TSH (Reflex) Free T4 Total T3 02/25/25 02/25/25 02/26/25 18:37 19:40 00:29 WBC RBC Hgb Hct MCV MCH MCHC RDW Plt Count MPV APTT 72.6 H 68.4 H Sodium 132 L Potassium 3.5 Chloride 96 L Carbon Dioxide 28 Anion Gap 8 BUN 31 H Creatinine 1.54 H Estim Creat Clear Calc 38 Estimated GFR 43 L Glucose 231 H POC Capillary Glucose 244 H Hemoglobin A1c 7.4 H Calcium 8.0 L Total Bilirubin 0.6 AST 35 ALT 15 Alkaline Phosphatase 75 Total Protein 6.6 Albumin 3.3 L Triglycerides 235 H Cholesterol 98 LDL Cholesterol Direct < 30 HDL Direct 12 TSH (Reflex) 0.221 L Free T4 1.55 Total T3 0.65 L 02/26/25 02/26/25 07:22 07:24 WBC RBC Hgb Hct MCV MCH MCHC RDW Plt Count MPV APTT 73.8 H Sodium Potassium Chloride Carbon Dioxide Anion Gap BUN Creatinine Estim Creat Clear Calc Estimated GFR Glucose POC Capillary Glucose 249 H Hemoglobin A1c Calcium Total Bilirubin AST ALT Alkaline Phosphatase Total Protein Albumin Triglycerides Cholesterol LDL Cholesterol Direct HDL Direct TSH (Reflex) Free T4 Total T3 Quality VTE Prophylaxis VTE prophylaxis: pharmacologic ordered (Heparin drip per protocol) Hospitalist MIPS Advance Care Plan I have confirmed that the patient's Advanced Care Plan is present, code status is documented, or surrogate decision maker is listed in patient medical record.: Yes Medication Reconciliation I have utilized all available resources to obtain, update and review the patients current medications (includes all prescriptions, OTC, herbals, cannabis, and nutritional supplements).: Yes
--- NOTE | 2025-02-26 10:22 | WPDUROPN2 ---
Progress Note: A&P Assessment and Plan (1) Hydronephrosis with renal calculous obstruction: Code(s): N13.2 - Hydronephrosis with renal and ureteral calculous obstruction Status: Acute Assessment and Plan: Tolerating stent well. I don't see his ureteral stone on KUB but there is extensive bowel gas. Await urine culture. Subjective Subjective Date/Time Seen: 02/26/25 10:22 Interval history: No significant flank/abdominal pain. Still SOB but improving Review of Systems Review of Systems: All systems reviewed & are unremarkable except as noted in HPI and below Exam Const: General: no acute distress Resp: Effort & Inspection: normal respiratory effort GI: Inspection: non-distended GI Palp: No abdominal tenderness and No Guarding due to palpation present (GI) Auscultation: normal bowel sounds Urinary Catheter: Urinary Catheter: patent and draining and urine clear Objective Data Vital Signs Vital Signs: Vital Signs - 24 hr 02/25/25 10:29 02/25/25 11:12 02/25/25 11:45 Temperature 98.5 F Pulse Rate 153 H 95 93 Respiratory Rate 20 Blood Pressure 129/60 Pulse Oximetry 94 Oxygen Delivery Oxygen Flow Rate 02/25/25 12:00 02/25/25 12:00 02/25/25 12:00 Temperature Pulse Rate 88 87 Respiratory Rate Blood Pressure Pulse Oximetry 94 Oxygen Delivery Nasal Cannula Oxygen Flow Rate 3 02/25/25 14:00 02/25/25 14:00 02/25/25 14:00 Temperature Pulse Rate 89 94 Respiratory Rate Blood Pressure 148/94 H Pulse Oximetry Oxygen Delivery Oxygen Flow Rate 02/25/25 15:14 02/25/25 16:00 02/25/25 16:00 Temperature Pulse Rate 96 96 99 Respiratory Rate 20 Blood Pressure Pulse Oximetry 94 Oxygen Delivery Room Air Oxygen Flow Rate 02/25/25 16:52 02/25/25 17:24 02/25/25 17:45 Temperature 100.5 F H 100.5 F H Pulse Rate 103 H 100 Respiratory Rate 20 Blood Pressure 135/62 Pulse Oximetry 91 Oxygen Delivery Oxygen Flow Rate 02/25/25 17:46 02/25/25 18:20 02/25/25 20:00 Temperature 97.6 F 100.8 F H Pulse Rate 100 94 99 Respiratory Rate 20 22 H Blood Pressure 132/56 L 131/61 Pulse Oximetry 92 92 Oxygen Delivery Oxygen Flow Rate 02/25/25 20:00 02/25/25 20:00 02/25/25 20:00 Temperature 100.8 F H Pulse Rate 99 Respiratory Rate 24 H Blood Pressure 131/61 Pulse Oximetry 88 L Oxygen Delivery Nasal Cannula Oxygen Flow Rate 3 02/25/25 20:00 02/25/25 21:50 02/25/25 22:00 Temperature 98.8 F Pulse Rate 93 100 101 H Respiratory Rate 16 Blood Pressure 122/52 L Pulse Oximetry 90 Oxygen Delivery Oxygen Flow Rate 02/25/25 23:22 02/25/25 23:34 02/25/25 23:36 Temperature 101.3 F H 101.3 F H Pulse Rate 104 H 101 H Respiratory Rate 32 H Blood Pressure 137/77 Pulse Oximetry 96 Oxygen Delivery Oxygen Flow Rate 02/25/25 23:39 02/25/25 23:39 02/26/25 00:00 Temperature Pulse Rate 100 101 H 100 Respiratory Rate Blood Pressure 122/52 L 137/77 Pulse Oximetry Oxygen Delivery Oxygen Flow Rate 02/26/25 00:00 02/26/25 00:45 02/26/25 00:59 Temperature 100.5 F H 100.5 F H Pulse Rate Respiratory Rate Blood Pressure Pulse Oximetry 94 Oxygen Delivery Nasal Cannula Oxygen Flow Rate 2 02/26/25 01:55 02/26/25 02:00 02/26/25 02:00 Temperature 100.2 F H Pulse Rate 94 93 94 Respiratory Rate 22 H Blood Pressure 139/66 139/66 Pulse Oximetry 93 Oxygen Delivery Oxygen Flow Rate 02/26/25 02:33 02/26/25 02:33 02/26/25 03:39 Temperature 98.3 F Pulse Rate 89 89 87 Respiratory Rate 28 H Blood Pressure 130/61 Pulse Oximetry 95 Oxygen Delivery Oxygen Flow Rate 02/26/25 03:43 02/26/25 03:45 02/26/25 04:00 Temperature Pulse Rate 87 88 Respiratory Rate Blood Pressure 130/61 Pulse Oximetry 96 Oxygen Delivery Nasal Cannula Oxygen Flow Rate 1 02/26/25 05:52 02/26/25 05:56 02/26/25 06:00 Temperature Pulse Rate 88 89 94 Respiratory Rate Blood Pressure 136/70 Pulse Oximetry Oxygen Delivery Oxygen Flow Rate 02/26/25 08:00 Temperature 99.1 F Pulse Rate 99 Respiratory Rate 24 H Blood Pressure 141/72 H Pulse Oximetry 99 Oxygen Delivery Oxygen Flow Rate Intake/Output Intake/Output: Intake & Output 02/23/25 02/24/25 02/25/25 02/26/25 23:59 23:59 23:59 23:59 Intake Total 2953.0 781.8 Output Total 3250 1750 Balance -297.0 -968.2 Meds/Results Medications: Active Medications Generic Name Dose Route Start Last Admin Trade Name Freq PRN Reason Stop Dose Admin Acetaminophen 650 mg 02/24/25 22:24 02/25/25 23:34 Acetaminophen 325 Mg Tablet PO 650 mg Q4H PRN Administration Mild Pain (1-3) or Fever Hydrocodone Bitart/Acetaminophen 1 tab 02/25/25 00:31 Hydrocodone/Acetaminophen (*Crx) 10-325 Mg Tablet PO Q6H PRN pain (scale score 4-6) Al Hydrox/Mg Hydrox/Simethicone 30 ml 02/24/25 22:24 Mag Hydrox/Al Hydrox/Simeth 30 Ml Udc PO QID PRN Dyspepsia Cyclobenzaprine HCl 10 mg 02/25/25 00:31 Cyclobenzaprine Hcl 10 Mg Tablet PO DAILY PRN Muscle Spasm Dextrose 12.5 gm 02/25/25 00:33 Dextrose 50% 25 Gm/50 Ml Syringe IV PUSH PRN PRN Hypoglycemia Protocol Dextrose 12.5 gm 02/25/25 13:41 Dextrose 50% 25 Gm/50 Ml Syringe IV PUSH PRN PRN Hypoglycemia Protocol Furosemide 40 mg 02/26/25 17:00 Furosemide 40 Mg Tablet PO BID ANTON Glucagon 1 mg 02/25/25 00:33 Glucagon For Inj 1 Mg Vial IM PRN PRN Hypoglycemia Protocol Glucagon 1 mg 02/25/25 13:41 Glucagon For Inj 1 Mg Vial IM PRN PRN Hypoglycemia Protocol Glucose 15 gm 02/25/25 00:33 Glucose Oral Gel 15 Gm Of Glucse In 37.5 Gm Tube PO PRN PRN Hypoglycemia Protocol Glucose 15 gm 02/25/25 13:41 Glucose Oral Gel 15 Gm Of Glucse In 37.5 Gm Tube PO PRN PRN Hypoglycemia Protocol Heparin Sodium (Porcine) 7,000 units 02/25/25 04:55 Heparin Sodium 5,000 Units/Ml Vial IV PUSH PRN PRN aPTT less than 55 seconds Heparin Sodium (Porcine) 3,500 units 02/25/25 04:55 02/26/25 01:25 Heparin Sodium 5,000 Units/Ml Vial IV PUSH 3,500 units PRN PRN Administration aPTT 55 - 70 seconds Piperacillin Sod/Tazobactam 50 mls @ 100 mls/hr 02/25/25 00:20 02/26/25 05:57 Sod 2.25 gm/ Sodium Chloride IVPB 100 mls/hr Q6HR ANTON Administration Dextrose 1,000 mls @ 100 mls/hr 02/25/25 00:33 Dextrose 5% 1,000 Ml IVPB PRN PRN Hypoglycemia Protocol Heparin Sodium/Dextrose 25,000 units in 250 mls @ 15 mls/hr 02/25/25 04:55 02/26/25 08:00 Heparin Sodium/D5w 100 Units/Ml IV CONT 1,500 units/hr .[id number] ATNON 15 mls/hr Protocol Titration 1,500 UNITS/HR Amiodarone HCl/Dextrose 360 mg in 200 mls @ 16.667 mls/hr 02/25/25 15:42 02/26/25 05:52 Nexterone 360 Mg/D5w 200 Ml IV CONT 02/26/25 15:41 0.5 mg/min .Q12H ANTON 16.67 mls/hr Protocol Infusion 0.5 MG/MIN Dextrose 1,000 mls @ 100 mls/hr 02/25/25 13:41 Dextrose 5% 1,000 Ml IVPB PRN PRN Hypoglycemia Protocol Insulin Aspart 3 - 6 units 02/25/25 08:00 02/26/25 08:29 Insulin Aspart (*Bkc) 100 Units/Ml SUB-Q 3 units TIDWM ANTON Administration Protocol Insulin Aspart 1 - 2 units 02/25/25 21:00 02/25/25 21:39 Insulin Aspart (*Bkc) 100 Units/Ml SUB-Q 1 units HS ANTON Administration Protocol Insulin Glargine 55 units 02/25/25 21:10 02/25/25 21:38 Insulin Glargine (*Bkc) 100 Units/Ml SUB-Q 55 units HS ANTON Administration Magnesium Hydroxide 30 ml 02/24/25 22:24 Magnesium Hydroxide Susp 30 Ml Udc PO DAILY PRN Constipation Metoprolol Tartrate 25 mg 02/25/25 12:00 02/26/25 05:56 Metoprolol Tartrate 25 Mg Tablet PO 25 mg Q6HR ANTON Administration Morphine Sulfate 2 mg 02/24/25 22:24 Morphine Sulfate (*Crx) 2 Mg/Ml Inj IV PUSH Q4H PRN Pain Rated 7-10 Naloxone HCl 0.1 mg 02/24/25 22:24 Naloxone Hcl 0.4 Mg/Ml Vial IV PUSH Q2M PRN Opiate Reversal Ondansetron HCl 4 mg 02/25/25 02:38 02/25/25 15:15 Ondansetron Inj 4 Mg/2 Ml Vial IV PUSH 4 mg ONCE PRN Administration Nausea Ondansetron HCl 4 mg 02/25/25 14:59 Ondansetron Inj 4 Mg/2 Ml Vial IV PUSH Q4H PRN Nausea And Vomiting Radiology Results: ITS Impressions Abdomen X-Ray 02/25/25 19:16 Impression: 1. Probable phlebolith, no gross periureteral calculus. Correlation with CT recommended Chest X-Ray 02/25/25 19:27 Impression: Probable viral pneumonitis Retrograde Pyelogram 02/26/25 10:14 IMPRESSION: 1. Right internal ureteral stent placement. Please refer to real-time procedural findings for details. Labs Labs: Laboratory Results - last 24 hr 02/25/25 02/25/25 02/25/25 11:07 11:15 16:18 WBC 15.0 H RBC 3.62 L Hgb 11.5 L Hct 35.1 L MCV 97.0 MCH 31.8 MCHC 32.8 RDW 12.4 Plt Count 211 MPV 9.7 APTT 113.3 H Sodium 134 L Potassium 4.1 Chloride 100 Carbon Dioxide 22 Anion Gap 12 BUN 25 H Creatinine 1.47 H Estim Creat Clear Calc 39 Estimated GFR 46 L Glucose 283 H POC Capillary Glucose 288 H 270 H Hemoglobin A1c Calcium 8.3 L Total Bilirubin 1.3 AST 28 ALT 15 Alkaline Phosphatase 78 Total Protein 6.9 Albumin 3.5 Triglycerides Cholesterol LDL Cholesterol Direct HDL Direct TSH (Reflex) Free T4 Total T3 02/25/25 02/25/25 02/26/25 18:37 19:40 00:29 WBC RBC Hgb Hct MCV MCH MCHC RDW Plt Count MPV APTT 72.6 H 68.4 H Sodium 132 L Potassium 3.5 Chloride 96 L Carbon Dioxide 28 Anion Gap 8 BUN 31 H Creatinine 1.54 H Estim Creat Clear Calc 38 Estimated GFR 43 L Glucose 231 H POC Capillary Glucose 244 H Hemoglobin A1c 7.4 H Calcium 8.0 L Total Bilirubin 0.6 AST 35 ALT 15 Alkaline Phosphatase 75 Total Protein 6.6 Albumin 3.3 L Triglycerides 235 H Cholesterol 98 LDL Cholesterol Direct < 30 HDL Direct 12 TSH (Reflex) 0.221 L Free T4 1.55 Total T3 0.65 L 02/26/25 02/26/25 07:22 07:24 WBC RBC Hgb Hct MCV MCH MCHC RDW Plt Count MPV APTT 73.8 H Sodium Potassium Chloride Carbon Dioxide Anion Gap BUN Creatinine Estim Creat Clear Calc Estimated GFR Glucose POC Capillary Glucose 249 H Hemoglobin A1c Calcium Total Bilirubin AST ALT Alkaline Phosphatase Total Protein Albumin Triglycerides Cholesterol LDL Cholesterol Direct HDL Direct TSH (Reflex) Free T4 Total T3
[2025-02-26 13:22] LABS: MRSA (PCR) NOT DETECTED (NOT DETECTE)
[2025-02-26] MEDS: IPRATROPIUM BR 0.02% INH SOLN 0.5 MG/2.5 ML VIAL INHALATION ×2 (14:34→21:30)
[2025-02-26 15:01] LABS: Hematocrit 33.7 % (42.0-52.0); Hemoglobin 11.4 g/dL (14.0-18.0); Mean Corpuscular HGB Conc 33.8 g/dl (32-36); Mean Corpuscular Hemoglobin 32.0 pg (26-34); Mean Corpuscular Volume 94.7 fl (80-100); Platelet Count Result 221 k/mm3 (150-375); Red Blood Count 3.56 M/mm3 (4.6-6.20); White Blood Count 10.1 K/mm3 (4.5-10.0)
[2025-02-26 15:16] LABS: Partial Thromboplastin Time 58.4 Seconds (22.3-36.8)
[2025-02-26] MEDS: FUROSEMIDE 40 MG TABLET PO (16:35)
[2025-02-26] MEDS: AMIODARONE HCL 200 MG TABLET 400 MG PO ×2 (16:35→20:46)
[2025-02-26] MEDS: HEPARIN SOD/D5W 100 UNITS/ML 25,000 UNITS/250 ML BAG 17 UNITS IV CONT (17:50)
[2025-02-26] MEDS: INSULIN GLARGINE (*BKC) 100 UNITS/ML 55 UNITS SUB-Q (20:46)
[2025-02-26 21:40] LABS: Partial Thromboplastin Time 110.6 Seconds (22.3-36.8)
[2025-02-26] MEDS: METOPROLOL TARTRATE 50 MG TAB PO (23:07)
[2025-02-27] VITALS (22 sets, daily range): BP systolic 109–146; BP diastolic 57–81; PULSE 72–147; RESP 16–20; TEMP 36.4–37; O2SAT 88–98
[2025-02-27 04:37] LABS: Hematocrit 32.7 % (42.0-52.0); Hemoglobin 10.9 g/dL (14.0-18.0); Mean Corpuscular HGB Conc 33.3 g/dl (32-36); Mean Corpuscular Hemoglobin 31.9 pg (26-34); Mean Corpuscular Volume 95.6 fl (80-100); Platelet Count Result 213 k/mm3 (150-375); Red Blood Count 3.42 M/mm3 (4.6-6.20); White Blood Count 8.2 K/mm3 (4.5-10.0)
[2025-02-27 04:54] LABS: Partial Thromboplastin Time 67.6 Seconds (22.3-36.8)
[2025-02-27] MEDS: METOPROLOL TARTRATE 50 MG TAB PO ×3 (05:17→21:24)
[2025-02-27] MEDS: PIPERACILLIN/TAZOBACTAM SOD 2.25 GM in SODIUM CHLORIDE 0.9% IV 50 ML 100 ML IVPB (05:18)
[2025-02-27] MEDS: IPRATROPIUM BR 0.02% INH SOLN 0.5 MG/2.5 ML VIAL INHALATION (07:35)
[2025-02-27 07:36] LABS: Alanine Aminotransferase 16 U/L (6-50); Albumin Level 3.3 g/dL (3.5-5.1); Alkaline Phosphatase 79 U/L (38-126); Anion Gap 7 mmol/L (4-12); Aspartate Amino Transferase 31 U/L (17-59); Bilirubin,Total 0.6 mg/dL (0.2-1.3); Blood Urea Nitrogen 34 mg/dL (9-20); Calcium 8.6 mg/dL (8.4-10.2); Carbon Dioxide 31 mmol/L (22-30); Chloride 95 mmol/L (98-107); Estimated CRCL calculation 46 ml/min; Estimated Glomerular Filt Rate 55; Glucose 225 mg/dL (65-110); Magnesium 1.9 mg/dL (1.6-2.3); Potassium 3.3 mmol/L (3.4-5.0); Sodium 133 mmol/L (137-145); Total Protein 6.8 g/dL (6.3-8.2)
[2025-02-27] MEDS: POTASSIUM CHLORIDE 20 MEQ ER TABLET 40 MEQ PO (09:14)
[2025-02-27] MEDS: FUROSEMIDE 40 MG TABLET PO ×2 (09:14→17:09)
[2025-02-27] MEDS: AMIODARONE HCL 200 MG TABLET 400 MG PO ×2 (09:15→21:24)
[2025-02-27] MEDS: INSULIN ASPART (*BKC) 100 UNITS/ML SUB-Q ×4 (09:15→21:25)
--- NOTE | 2025-02-27 09:19 | P.PNIM_ITS ---
Progress Note: A&P Assessment and Plan (1) Sepsis: Qualifiers: Sepsis type: sepsis due to unspecified organism Sepsis acute organ dysfunction status: with acute organ dysfunction Severe sepsis acute organ dysfunction type: acute renal failure Acute renal failure type: unspecified Severe sepsis shock status: without septic shock Qualified Code(s): A41.9 - Sepsis, unspecified organism; R65.20 - Severe sepsis without septic shock; N17.9 - Acute kidney failure, unspecified Code(s): A41.9 - Sepsis, unspecified organism Status: Acute Assessment and Plan: * Due to obstructive nephrolithiasis * Underwent emergent cystoscopy with right ureteral stent placement * Started on Zosyn at outside facility, switched today to Ceftriaxone 2 gram IVPB daily. * Blood culture from outside facility growing Gram-negative bacilli at [facility]. * Blood culture drawn here on 02/25- no growth to date. * Urine culture from 02/25 is pending. * ID is following patient, appreciate recommendations. * Received fluids in the ED and floor -total 3 L * WBC improved from 10.1 > 8.2. (2) Hydronephrosis with renal calculous obstruction: Code(s): N13.2 - Hydronephrosis with renal and ureteral calculous obstruction Status: Acute Assessment and Plan: * As above (3) Urinary tract infection: Qualifiers: Urinary tract infection type: acute pyelonephritis Qualified Code(s): N10 - Acute pyelonephritis Code(s): N39.0 - Urinary tract infection, site not specified Status: Acute Assessment and Plan: * As above (4) Atrial fibrillation with rapid ventricular response: Code(s): I48.91 - Unspecified atrial fibrillation Status: Acute Assessment and Plan: * New onset. * TSH 0.221, free T4 1.55, total T3 0.65. * Echo shows left ventricular ejection fraction 60-65% * On heparin drip, if no more hematuria tomorrow or consider starting Eliquis 5 mg b.i.d. per Cardiology. * HbA1c 7.4% and Lipid Panel:Cholesterol 98, LDL <30, HDL 12, Triglycerides 235. * Amiodarone to 400 mg PO BID for one week then 400 mg daily for one week then 200 mg daily/ * Metoprolol 50 mg PO TID * Lasix 40mg PO b.i.d. * Cardiology consulted, appreciate recommendations. 02/26: Amiodarone drip stopped and started on amiodarone 400 mg p.o. q.d. (5) Acute kidney injury: Code(s): N17.9 - Acute kidney failure, unspecified Status: Acute Assessment and Plan: * possibly due to obstructing nephrolithiasis * Avoid nephrotoxic drugs. * Monitor antihypertensive drug therapy. * Avoid NSAIDs. * Routine CMP monitoring GFR. * Monitor electrolytes especially potassium. * Antibiotic doses depending on creatinine clearance. * Pharmacy dose medications. * unable to find baseline Cr. * Routine follow-up with Nephrology as an outpatient. (6) Dehydration: Code(s): E86.0 - Dehydration Status: Acute Assessment and Plan: * Improved. Good oral intake. * Monitor I and O's (7) Type 2 diabetes mellitus with hyperglycemia, with long-term current use of insulin: Code(s): E11.65 - Type 2 diabetes mellitus with hyperglycemia; Z79.4 - penitentiary (current) use of insulin Status: Acute Assessment and Plan: * HgbA1c 7.4% on 02/26/25. * SSI * Hypoglycemic protocol (8) Bacteremia: Code(s): R78.81 - Bacteremia Status: Acute Assessment and Plan: * [facility] reported blood culture growing Gram-negative bacilli with aerobic bottle * Ceftriaxone 2 gram IVPB daily. * Follow-up with culture. Urine culture pending. Blood cultures from 02/25/25 are no growth to date. * Possible source UTI * Trans thoracic echocardiogram negative for any vegetation * Less suspicion for endocarditis, will not pursue for transesophageal echo cardiac * Monitor leukocytosis and fever * ID consulted (9) Hypokalemia: Code(s): E87.6 - Hypokalemia Status: Acute Assessment and Plan: * Potassium 3.3. * Potassium 40 meq PO x 1 given. * Monitor level. Subjective Date/time seen: 02/27/25 09:19 Interval history: Patient sitting up in bed. Patient denies chest pain, palpitations, shortness of breath, headache, dizziness, nausea, or vomiting. Reports eating and drinking well. Review of Systems Review of Systems: All systems reviewed & are unremarkable except as noted in HPI and below Exam Const: General: comfortable and no acute distress Resp: Effort & Inspection: normal respiratory effort Auscultation: rales bilateral at the base and diminished lung sounds Cardio: Rate: regular rate Rhythm: regular rhythm Other: Telemetry- SR 76 GI: GI Palp: Yes Soft to palpation Auscultation: normal bowel sounds Skin: General skin exam: no rashes or lesions noted Neuro: Speech: normal speech Extrem: General: no pedal edema Psych: Mental Status: mental status grossly normal Affect: normal affect Objective Data Vital Signs Vital Signs: Vital Signs - 24 hr 02/26/25 10:00 02/26/25 10:00 02/26/25 10:00 Temperature 97.8 F Pulse Rate 75 75 75 Respiratory Rate 16 Blood Pressure 117/73 117/73 Pulse Oximetry 98 Oxygen Delivery Fraction of Inspired Oxygen 02/26/25 11:50 02/26/25 11:52 02/26/25 12:00 Temperature 99.3 F Pulse Rate 92 93 Respiratory Rate 20 Blood Pressure 133/90 Pulse Oximetry 98 92 Oxygen Delivery Room Air Fraction of Inspired Oxygen 02/26/25 12:00 02/26/25 12:00 02/26/25 13:00 Temperature Pulse Rate 92 90 137 H Respiratory Rate Blood Pressure 133/90 Pulse Oximetry Oxygen Delivery Fraction of Inspired Oxygen 02/26/25 13:55 02/26/25 14:00 02/26/25 14:00 Temperature 98.4 F Pulse Rate 155 H 143 H 134 H Respiratory Rate 20 Blood Pressure 110/84 Pulse Oximetry 92 Oxygen Delivery Fraction of Inspired Oxygen 02/26/25 14:00 02/26/25 14:00 02/26/25 14:34 Temperature 98.2 F Pulse Rate 134 H 147 H 147 H Respiratory Rate 28 H 20 Blood Pressure 110/84 115/67 Pulse Oximetry 90 92 Oxygen Delivery Room Air Fraction of Inspired Oxygen 02/26/25 14:34 02/26/25 14:41 02/26/25 14:41 Temperature Pulse Rate 147 H 98 143 H Respiratory Rate 20 20 Blood Pressure Pulse Oximetry Oxygen Delivery Fraction of Inspired Oxygen 02/26/25 16:00 02/26/25 16:00 02/26/25 16:00 Temperature 99.0 F Pulse Rate 89 90 Respiratory Rate 28 H Blood Pressure 128/62 Pulse Oximetry 91 92 Oxygen Delivery Room Air Fraction of Inspired Oxygen 02/26/25 16:35 02/26/25 17:50 02/26/25 18:00 Temperature 98.5 F Pulse Rate 91 86 89 Respiratory Rate 28 H Blood Pressure 137/58 L Pulse Oximetry 93 Oxygen Delivery Fraction of Inspired Oxygen 02/26/25 19:28 02/26/25 20:00 02/26/25 20:00 Temperature 98.0 F Pulse Rate 87 93 93 Respiratory Rate 17 17 Blood Pressure 133/61 Pulse Oximetry 93 93 Oxygen Delivery Room Air Fraction of Inspired Oxygen 02/26/25 20:46 02/26/25 21:30 02/26/25 21:34 Temperature Pulse Rate 92 86 86 Respiratory Rate 18 18 Blood Pressure Pulse Oximetry 90 Oxygen Delivery Room Air Fraction of Inspired Oxygen 02/26/25 22:00 02/26/25 22:40 02/26/25 23:07 Temperature Pulse Rate 90 98 Respiratory Rate Blood Pressure Pulse Oximetry 91 Oxygen Delivery Room Air Fraction of Inspired Oxygen 02/26/25 23:42 02/27/25 00:00 02/27/25 00:00 Temperature 98.0 F Pulse Rate 94 94 94 Respiratory Rate 17 17 Blood Pressure 141/73 H Pulse Oximetry 97 97 Oxygen Delivery Room Air Fraction of Inspired Oxygen 02/27/25 02:00 02/27/25 03:12 02/27/25 03:34 Temperature 98.0 F Pulse Rate 91 81 80 Respiratory Rate 17 17 Blood Pressure 146/58 H Pulse Oximetry 97 Oxygen Delivery Room Air Fraction of Inspired Oxygen 02/27/25 03:34 02/27/25 05:17 02/27/25 06:00 Temperature Pulse Rate 80 124 H 80 Respiratory Rate Blood Pressure Pulse Oximetry Oxygen Delivery Fraction of Inspired Oxygen 02/27/25 07:20 02/27/25 07:35 02/27/25 07:39 Temperature 97.8 F Pulse Rate 147 H 86 Respiratory Rate 16 20 Blood Pressure 109/81 Pulse Oximetry 94 91 Oxygen Delivery Room Air Fraction of Inspired Oxygen 02/27/25 07:45 Temperature Pulse Rate 82 Respiratory Rate 20 Blood Pressure Pulse Oximetry Oxygen Delivery Fraction of Inspired Oxygen Intake/Output Intake/Output: Intake & Output 02/24/25 02/25/25 02/26/25 02/27/25 23:59 23:59 23:59 23:59 Intake Total 2953.0 2198.4 511.3 Output Total 3250 7000 1000 Balance -297.0 -4801.6 -488.7 Meds/Results Medications: Active Medications Generic Name Dose Route Start Last Admin Trade Name Larry PRN Reason Stop Dose Admin Acetaminophen 650 mg 02/24/25 22:24 02/25/25 23:34 Acetaminophen 325 Mg Tablet PO 650 mg Q4H PRN Administration Mild Pain (1-3) or Fever Hydrocodone Bitart/Acetaminophen 1 tab 02/25/25 00:31 Hydrocodone/Acetaminophen (*Crx) 10-325 Mg Tablet PO Q6H PRN pain (scale score 4-6) Al Hydrox/Mg Hydrox/Simethicone 30 ml 02/24/25 22:24 Mag Hydrox/Al Hydrox/Simeth 30 Ml Udc PO QID PRN Dyspepsia Amiodarone HCl 400 mg 02/26/25 15:25 02/26/25 20:46 Amiodarone Hcl 200 Mg Tablet PO 400 mg Q12HR ANTON Administration Cyclobenzaprine HCl 10 mg 02/25/25 00:31 Cyclobenzaprine Hcl 10 Mg Tablet PO DAILY PRN Muscle Spasm Dextrose 12.5 gm 02/25/25 00:33 Dextrose 50% 25 Gm/50 Ml Syringe IV PUSH PRN PRN Hypoglycemia Protocol Dextrose 12.5 gm 02/25/25 13:41 Dextrose 50% 25 Gm/50 Ml Syringe IV PUSH PRN PRN Hypoglycemia Protocol Furosemide 40 mg 02/26/25 17:00 02/26/25 16:35 Furosemide 40 Mg Tablet PO 40 mg BID ANTON Administration Glucagon 1 mg 02/25/25 00:33 Glucagon For Inj 1 Mg Vial IM PRN PRN Hypoglycemia Protocol Glucagon 1 mg 02/25/25 13:41 Glucagon For Inj 1 Mg Vial IM PRN PRN Hypoglycemia Protocol Glucose 15 gm 02/25/25 00:33 Glucose Oral Gel 15 Gm Of Glucse In 37.5 Gm Tube PO PRN PRN Hypoglycemia Protocol Glucose 15 gm 02/25/25 13:41 Glucose Oral Gel 15 Gm Of Glucse In 37.5 Gm Tube PO PRN PRN Hypoglycemia Protocol Heparin Sodium (Porcine) 7,000 units 02/25/25 04:55 Heparin Sodium 5,000 Units/Ml Vial IV PUSH PRN PRN aPTT less than 55 seconds Heparin Sodium (Porcine) 3,500 units 02/25/25 04:55 02/27/25 05:24 Heparin Sodium 5,000 Units/Ml Vial IV PUSH 3,500 units PRN PRN Administration aPTT 55 - 70 seconds Piperacillin Sod/Tazobactam 50 mls @ 100 mls/hr 02/25/25 00:20 02/27/25 05:50 Sod 2.25 gm/ Sodium Chloride IVPB Infused Q6HR ANTON Infusion Dextrose 1,000 mls @ 100 mls/hr 02/25/25 00:33 Dextrose 5% 1,000 Ml IVPB PRN PRN Hypoglycemia Protocol Heparin Sodium/Dextrose 25,000 units in 250 mls @ 17 mls/hr 02/25/25 04:55 02/27/25 05:15 Heparin Sodium/D5w 100 Units/Ml IV CONT 1,700 units/hr .[id number] ANTON 17 mls/hr Protocol Titration 1,700 UNITS/HR Dextrose 1,000 mls @ 100 mls/hr 02/25/25 13:41 Dextrose 5% 1,000 Ml IVPB PRN PRN Hypoglycemia Protocol Insulin Aspart 3 - 6 units 02/25/25 08:00 02/26/25 16:35 Insulin Aspart (*Bkc) 100 Units/Ml SUB-Q 4 units TIDWM ANTON Administration Protocol Insulin Aspart 1 - 2 units 02/25/25 21:00 02/26/25 20:47 Insulin Aspart (*Bkc) 100 Units/Ml SUB-Q Not Given HS [facility] Protocol Insulin Glargine 55 units 02/25/25 21:10 02/26/25 20:46 Insulin Glargine (*Bkc) 100 Units/Ml SUB-Q 55 units HS ANTON Administration Ipratropium [place] 0.5 mg 02/26/25 14:00 02/27/25 07:35 Ipratropium Br 0.02% Inh Soln 0.5 Mg/2.5 Ml Vial INHALATION 0.5 mg Q6HRT ANTON Administration Magnesium Hydroxide 30 ml 02/24/25 22:24 Magnesium Hydroxide Susp 30 Ml Udc PO DAILY PRN Constipation Metoprolol Tartrate 50 mg 02/26/25 22:00 02/27/25 05:17 Metoprolol Tartrate 50 Mg Tab PO 50 mg Q8HR ANTON Administration Morphine Sulfate 2 mg 02/24/25 22:24 Morphine Sulfate (*Crx) 2 Mg/Ml Inj IV PUSH Q4H PRN Pain Rated 7-10 Naloxone HCl 0.1 mg 02/24/25 22:24 Naloxone Hcl 0.4 Mg/Ml Vial IV PUSH Q2M PRN Opiate Reversal Ondansetron HCl 4 mg 02/25/25 02:38 02/25/25 15:15 Ondansetron Inj 4 Mg/2 Ml Vial IV PUSH 4 mg ONCE PRN Administration Nausea Ondansetron HCl 4 mg 02/25/25 14:59 Ondansetron Inj 4 Mg/2 Ml Vial IV PUSH Q4H PRN Nausea And Vomiting Radiology Results: ITS Impressions Chest X-Ray 02/25/25 19:27 Impression: Probable viral pneumonitis Retrograde Pyelogram 02/26/25 10:14 IMPRESSION: 1. Right internal ureteral stent placement. Please refer to real-time procedural findings for details. Abdomen X-Ray 02/26/25 17:22 IMPRESSION: 1. Valente catheter and right anterior vertebral stent, both remaining in expected positions. Labs Labs: Laboratory Results - last 24 hr 02/26/25 02/26/25 02/26/25 11:31 12:03 14:57 WBC 10.1 H RBC 3.56 L Hgb 11.4 L Hct 33.7 L MCV 94.7 MCH 32.0 MCHC 33.8 RDW 12.7 Plt Count 221 MPV 9.8 APTT 58.4 H Sodium Potassium Chloride Carbon Dioxide Anion Gap BUN Creatinine Estim Creat Clear Calc Estimated GFR Glucose POC Capillary Glucose 236 H Calcium Magnesium Total Bilirubin AST ALT Alkaline Phosphatase Total Protein Albumin Nasal MRSA (PCR) Not detected 02/26/25 02/26/25 02/26/25 16:22 20:35 21:23 WBC RBC Hgb Hct MCV MCH MCHC RDW Plt Count MPV APTT 110.6 H Sodium Potassium Chloride Carbon Dioxide Anion Gap BUN Creatinine Estim Creat Clear Calc Estimated GFR Glucose POC Capillary Glucose 281 H 246 H Calcium Magnesium Total Bilirubin AST ALT Alkaline Phosphatase Total Protein Albumin Nasal MRSA (PCR) 02/27/25 02/27/25 02/27/25 04:31 04:32 07:20 WBC 8.2 RBC 3.42 L Hgb 10.9 L Hct 32.7 L MCV 95.6 MCH 31.9 MCHC 33.3 RDW 12.6 Plt Count 213 MPV 9.7 APTT 67.6 H Sodium 133 L Potassium 3.3 L Chloride 95 L Carbon Dioxide 31 H Anion Gap 7 BUN 34 H Creatinine 1.25 Estim Creat Clear Calc 46 Estimated GFR 55 L Glucose 225 H POC Capillary Glucose 230 H Calcium 8.6 Magnesium 1.9 Total Bilirubin 0.6 AST 31 ALT 16 Alkaline Phosphatase 79 Total Protein 6.8 Albumin 3.3 L Nasal MRSA (PCR) Quality VTE Prophylaxis VTE prophylaxis: pharmacologic ordered
--- NOTE | 2025-02-27 09:35 | PM.PNCARD ---
Progress Note: A&P Assessment and Plan (1) Atrial fibrillation with rapid ventricular response: Code(s): I48.91 - Unspecified atrial fibrillation Status: Acute Plan Acute hypoxemic respiratory failure is likely related to pulmonary edema improved today Atrial flutter with RVR converted back to sinus Sepsis Obstructive uropathy ASH Diabetes mellitus type 2 Plan Change Lasix 40 mg p.o. b.i.d. Amiodarone to 400 mg PO bID for one week then 400 mg daily for one week then 200 mg daily Metoprolol 50 mg TID Continue heparin infusion if no more hematuria tomorrow or consider starting Eliquis 5 mg b.i.d. Follow-up CBC and BMP Subjective Date/time seen: 02/27/25 09:36 Interval history: Patient is seen for follow-up for AFib with RVR No acute events overnight Telemetry paroxysmal atrial fibrillation alternating with sinus rhythm currently in sinus rhythm Review of Systems Review of Systems: All systems reviewed & are unremarkable except as noted in HPI and below Exam Const: General: in distress moderate and confusion Other: Able to lie flat HENMT: Face/Nose/Sinus: Normal nares present and no epistaxis Mouth: Yes moist mucous membranes Eyes: Sclera: sclerae normal Pupils: Equal, round and reactive pupils present Neck: Neck: supple and JVD Carotids: no bruits Resp: Auscultation: rales bilateral at the base and lung sounds not diminished Other: No chest wall tenderness Cardio: Rate: regular rate Rhythm: regular rhythm Heart sounds: no gallops, no murmurs and no rubs GI: GI Palp: Yes Soft to palpation and No Tenderness to palpation present (GI) Auscultation: normal bowel sounds Skin: General skin exam: normal color, rashes and/or lesions noted and no erythema Other: Warm Neuro: Cranial nerves: Yes Equal, round and reactive pupils present Speech: normal speech Other: No obvious focal deficit or facial asymmetry Extrem: General: no edema Other: Normal capillary refills Intact distal pulses. Objective Data Vital Signs Vital Signs: Vital Signs - 24 hr 02/26/25 10:00 02/26/25 10:00 02/26/25 10:00 Temperature 36.6 C Pulse Rate 75 75 75 Respiratory Rate 16 Blood Pressure 117/73 117/73 Pulse Oximetry 98 Oxygen Delivery Fraction of Inspired Oxygen 02/26/25 11:50 02/26/25 11:52 02/26/25 12:00 Temperature 37.4 C Pulse Rate 92 93 Respiratory Rate 20 Blood Pressure 133/90 Pulse Oximetry 98 92 Oxygen Delivery Room Air Fraction of Inspired Oxygen 02/26/25 12:00 02/26/25 12:00 02/26/25 13:00 Temperature Pulse Rate 92 90 137 H Respiratory Rate Blood Pressure 133/90 Pulse Oximetry Oxygen Delivery Fraction of Inspired Oxygen 02/26/25 13:55 02/26/25 14:00 02/26/25 14:00 Temperature 36.9 C Pulse Rate 155 H 143 H 134 H Respiratory Rate 20 Blood Pressure 110/84 Pulse Oximetry 92 Oxygen Delivery Fraction of Inspired Oxygen 02/26/25 14:00 02/26/25 14:00 02/26/25 14:34 Temperature 36.8 C Pulse Rate 134 H 147 H 147 H Respiratory Rate 28 H 20 Blood Pressure 110/84 115/67 Pulse Oximetry 90 92 Oxygen Delivery Room Air Fraction of Inspired Oxygen 02/26/25 14:34 02/26/25 14:41 02/26/25 14:41 Temperature Pulse Rate 147 H 98 143 H Respiratory Rate 20 20 Blood Pressure Pulse Oximetry Oxygen Delivery Fraction of Inspired Oxygen 02/26/25 16:00 02/26/25 16:00 02/26/25 16:00 Temperature 37.2 C Pulse Rate 89 90 Respiratory Rate 28 H Blood Pressure 128/62 Pulse Oximetry 91 92 Oxygen Delivery Room Air Fraction of Inspired Oxygen 02/26/25 16:35 02/26/25 17:50 02/26/25 18:00 Temperature 36.9 C Pulse Rate 91 86 89 Respiratory Rate 28 H Blood Pressure 137/58 L Pulse Oximetry 93 Oxygen Delivery Fraction of Inspired Oxygen 02/26/25 19:28 02/26/25 20:00 02/26/25 20:00 Temperature 36.7 C Pulse Rate 87 93 93 Respiratory Rate 17 17 Blood Pressure 133/61 Pulse Oximetry 93 93 Oxygen Delivery Room Air Fraction of Inspired Oxygen 02/26/25 20:46 02/26/25 21:30 02/26/25 21:34 Temperature Pulse Rate 92 86 86 Respiratory Rate 18 18 Blood Pressure Pulse Oximetry 90 Oxygen Delivery Room Air Fraction of Inspired Oxygen 21 02/26/25 22:00 02/26/25 22:40 02/26/25 23:07 Temperature Pulse Rate 90 98 Respiratory Rate Blood Pressure Pulse Oximetry 91 Oxygen Delivery Room Air Fraction of Inspired Oxygen 02/26/25 23:42 02/27/25 00:00 02/27/25 00:00 Temperature 36.7 C Pulse Rate 94 94 94 Respiratory Rate 17 17 Blood Pressure 141/73 H Pulse Oximetry 97 97 Oxygen Delivery Room Air Fraction of Inspired Oxygen 21 02/27/25 02:00 02/27/25 03:12 02/27/25 03:34 Temperature 36.7 C Pulse Rate 91 81 80 Respiratory Rate 17 17 Blood Pressure 146/58 H Pulse Oximetry 97 Oxygen Delivery Room Air Fraction of Inspired Oxygen 02/27/25 03:34 02/27/25 05:17 02/27/25 06:00 Temperature Pulse Rate 80 124 H 80 Respiratory Rate Blood Pressure Pulse Oximetry Oxygen Delivery Fraction of Inspired Oxygen 02/27/25 07:20 02/27/25 07:35 02/27/25 07:39 Temperature 36.6 C Pulse Rate 147 H 86 Respiratory Rate 16 20 Blood Pressure 109/81 Pulse Oximetry 94 91 Oxygen Delivery Room Air Fraction of Inspired Oxygen 02/27/25 07:45 02/27/25 09:15 Temperature Pulse Rate 82 75 Respiratory Rate 20 Blood Pressure Pulse Oximetry Oxygen Delivery Fraction of Inspired Oxygen Intake/Output Intake/Output: Intake & Output 02/24/25 02/25/25 02/26/25 02/27/25 23:59 23:59 23:59 23:59 Intake Total 2953.0 2198.4 577.6 Output Total 3250 7000 1000 Balance -297.0 -4801.6 -422.4 Meds/Results Medications: Active Medications Generic Name Dose Route Start Last Admin Trade Name Freq PRN Reason Stop Dose Admin Acetaminophen 650 mg 02/24/25 22:24 02/25/25 23:34 Acetaminophen 325 Mg Tablet PO 650 mg Q4H PRN Administration Mild Pain (1-3) or Fever Hydrocodone Bitart/Acetaminophen 1 tab 02/25/25 00:31 Hydrocodone/Acetaminophen (*Crx) 10-325 Mg Tablet PO Q6H PRN pain (scale score 4-6) Al Hydrox/Mg Hydrox/Simethicone 30 ml 02/24/25 22:24 Mag Hydrox/Al Hydrox/Simeth 30 Ml Udc PO QID PRN Dyspepsia Amiodarone HCl 400 mg 02/26/25 15:25 02/27/25 09:15 Amiodarone Hcl 200 Mg Tablet PO 400 mg Q12HR ANTON Administration Cyclobenzaprine HCl 10 mg 02/25/25 00:31 Cyclobenzaprine Hcl 10 Mg Tablet PO DAILY PRN Muscle Spasm Dextrose 12.5 gm 02/25/25 00:33 Dextrose 50% 25 Gm/50 Ml Syringe IV PUSH PRN PRN Hypoglycemia Protocol Dextrose 12.5 gm 02/25/25 13:41 Dextrose 50% 25 Gm/50 Ml Syringe IV PUSH PRN PRN Hypoglycemia Protocol Furosemide 40 mg 02/26/25 17:00 02/27/25 09:14 Furosemide 40 Mg Tablet PO 40 mg BID ANTON Administration Glucagon 1 mg 02/25/25 00:33 Glucagon For Inj 1 Mg Vial IM PRN PRN Hypoglycemia Protocol Glucagon 1 mg 02/25/25 13:41 Glucagon For Inj 1 Mg Vial IM PRN PRN Hypoglycemia Protocol Glucose 15 gm 02/25/25 00:33 Glucose Oral Gel 15 Gm Of Glucse In 37.5 Gm Tube PO PRN PRN Hypoglycemia Protocol Glucose 15 gm 02/25/25 13:41 Glucose Oral Gel 15 Gm Of Glucse In 37.5 Gm Tube PO PRN PRN Hypoglycemia Protocol Heparin Sodium (Porcine) 7,000 units 02/25/25 04:55 Heparin Sodium 5,000 Units/Ml Vial IV PUSH PRN PRN aPTT less than 55 seconds Heparin Sodium (Porcine) 3,500 units 02/25/25 04:55 02/27/25 05:24 Heparin Sodium 5,000 Units/Ml Vial IV PUSH 3,500 units PRN PRN Administration aPTT 55 - 70 seconds Piperacillin Sod/Tazobactam 50 mls @ 100 mls/hr 02/25/25 00:20 02/27/25 05:50 Sod 2.25 gm/ Sodium Chloride IVPB Infused Q6HR ANTON Infusion Dextrose 1,000 mls @ 100 mls/hr 02/25/25 00:33 Dextrose 5% 1,000 Ml IVPB PRN PRN Hypoglycemia Protocol Heparin Sodium/Dextrose 25,000 units in 250 mls @ 17 mls/hr 02/25/25 04:55 02/27/25 09:09 Heparin Sodium/D5w 100 Units/Ml IV CONT 1,700 units/hr .[id number] ANTON 17 mls/hr Protocol Titration 1,700 UNITS/HR Dextrose 1,000 mls @ 100 mls/hr 02/25/25 13:41 Dextrose 5% 1,000 Ml IVPB PRN PRN Hypoglycemia Protocol Insulin Aspart 3 - 6 units 02/25/25 08:00 02/27/25 09:15 Insulin Aspart (*Bkc) 100 Units/Ml SUB-Q 3 units TIDWM ANTON Administration Protocol Insulin Aspart 1 - 2 units 02/25/25 21:00 02/26/25 20:47 Insulin Aspart (*Bkc) 100 Units/Ml SUB-Q Not Given HS [facility] Protocol Insulin Glargine 55 units 02/25/25 21:10 02/26/25 20:46 Insulin Glargine (*Bkc) 100 Units/Ml SUB-Q 55 units HS [facility] Administration Ipratropium [place] 0.5 mg 02/26/25 14:00 02/27/25 07:35 Ipratropium Br 0.02% Inh Soln 0.5 Mg/2.5 Ml Vial INHALATION 0.5 mg Q6HRT ANTON Administration Magnesium Hydroxide 30 ml 02/24/25 22:24 Magnesium Hydroxide Susp 30 Ml Udc PO DAILY PRN Constipation Metoprolol Tartrate 50 mg 02/26/25 22:00 02/27/25 05:17 Metoprolol Tartrate 50 Mg Tab PO 50 mg Q8HR ANTON Administration Morphine Sulfate 2 mg 02/24/25 22:24 Morphine Sulfate (*Crx) 2 Mg/Ml Inj IV PUSH Q4H PRN Pain Rated 7-10 Naloxone HCl 0.1 mg 02/24/25 22:24 Naloxone Hcl 0.4 Mg/Ml Vial IV PUSH Q2M PRN Opiate Reversal Ondansetron HCl 4 mg 02/25/25 02:38 02/25/25 15:15 Ondansetron Inj 4 Mg/2 Ml Vial IV PUSH 4 mg ONCE PRN Administration Nausea Ondansetron HCl 4 mg 02/25/25 14:59 Ondansetron Inj 4 Mg/2 Ml Vial IV PUSH Q4H PRN Nausea And Vomiting Radiology Results: ITS Impressions Chest X-Ray 02/25/25 19:27 Impression: Probable viral pneumonitis Retrograde Pyelogram 02/26/25 10:14 IMPRESSION: 1. Right internal ureteral stent placement. Please refer to real-time procedural findings for details. Abdomen X-Ray 02/26/25 17:22 IMPRESSION: 1. Valente catheter and right anterior vertebral stent, both remaining in expected positions. Labs Labs: Laboratory Results - last 24 hr 02/26/25 02/26/25 02/26/25 11:31 12:03 14:57 WBC 10.1 H RBC 3.56 L Hgb 11.4 L Hct 33.7 L MCV 94.7 MCH 32.0 MCHC 33.8 RDW 12.7 Plt Count 221 MPV 9.8 APTT 58.4 H Sodium Potassium Chloride Carbon Dioxide Anion Gap BUN Creatinine Estim Creat Clear Calc Estimated GFR Glucose POC Capillary Glucose 236 H Calcium Magnesium Total Bilirubin AST ALT Alkaline Phosphatase Total Protein Albumin Nasal MRSA (PCR) Not detected 02/26/25 02/26/25 02/26/25 16:22 20:35 21:23 WBC RBC Hgb Hct MCV MCH MCHC RDW Plt Count MPV APTT 110.6 H Sodium Potassium Chloride Carbon Dioxide Anion Gap BUN Creatinine Estim Creat Clear Calc Estimated GFR Glucose POC Capillary Glucose 281 H 246 H Calcium Magnesium Total Bilirubin AST ALT Alkaline Phosphatase Total Protein Albumin Nasal MRSA (PCR) 02/27/25 02/27/25 02/27/25 04:31 04:32 07:20 WBC 8.2 RBC 3.42 L Hgb 10.9 L Hct 32.7 L MCV 95.6 MCH 31.9 MCHC 33.3 RDW 12.6 Plt Count 213 MPV 9.7 APTT 67.6 H Sodium 133 L Potassium 3.3 L Chloride 95 L Carbon Dioxide 31 H Anion Gap 7 BUN 34 H Creatinine 1.25 Estim Creat Clear Calc 46 Estimated GFR 55 L Glucose 225 H POC Capillary Glucose 230 H Calcium 8.6 Magnesium 1.9 Total Bilirubin 0.6 AST 31 ALT 16 Alkaline Phosphatase 79 Total Protein 6.8 Albumin 3.3 L Nasal MRSA (PCR)
[2025-02-27] MEDS: HEPARIN SOD/D5W 100 UNITS/ML 25,000 UNITS/250 ML BAG 17 UNITS IV CONT (10:01)
[2025-02-27] MEDS: cefTRIAXone 2 GM in SODIUM CHLORIDE 0.9% IV 100 ML 200 ML IVPB (10:08)
--- NOTE | 2025-02-27 10:59 | P.PNUR_ITS ---
Progress Note: A&P Assessment and Plan (1) Sepsis: Qualifiers: Sepsis type: sepsis due to unspecified organism Sepsis acute organ dysfunction status: with acute organ dysfunction Severe sepsis acute organ dysfunction type: acute renal failure Acute renal failure type: unspecified Severe sepsis shock status: without septic shock Qualified Code(s): A41.9 - Sepsis, unspecified organism; R65.20 - Severe sepsis without septic shock; N17.9 - Acute kidney failure, unspecified Code(s): A41.9 - Sepsis, unspecified organism Status: Acute (2) Bacteremia: Code(s): R78.81 - Bacteremia Status: Acute Assessment and Plan: * Tolerating right indwelling ureteral stent well * Blood and urine culture still pending * Plan voiding trial tomorrow * Definitive stone management, likely with ESWL, once more medically stable and current infection has been treated Subjective Subjective Date/Time Seen: 02/27/25 10:59 Interval history: Comfortable, less short of breath today Review of Systems Cardiovascular: Cardiovascular: Denies chest pain, Denies lightheadedness, Den ies palpitations and Denies dyspnea Respiratory: Respiratory: Denies dyspnea Gastrointestinal: Gastrointestinal: Denies diarrhea, Denies nausea and Denies vomiting Genitourinary: Genitourinary: Denies hematuria and Denies dysuria Endocrine: Endocrine: Denies palpitations Exam Const: General: no acute distress Resp: Effort & Inspection: normal respiratory effort GI: Inspection: non-distended GI Palp: No abdominal tenderness and No Guarding due to palpation present (GI) Auscultation: normal bowel sounds Objective Data Vital Signs Vital Signs: Vital Signs - 24 hr 02/26/25 11:50 02/26/25 11:52 02/26/25 12:00 Temperature 99.3 F Pulse Rate 92 93 Respiratory Rate 20 Blood Pressure 133/90 Pulse Oximetry 98 92 Oxygen Delivery Room Air Fraction of Inspired Oxygen 02/26/25 12:00 02/26/25 12:00 02/26/25 13:00 Temperature Pulse Rate 92 90 137 H Respiratory Rate Blood Pressure 133/90 Pulse Oximetry Oxygen Delivery Fraction of Inspired Oxygen 02/26/25 13:55 02/26/25 14:00 02/26/25 14:00 Temperature 98.4 F Pulse Rate 155 H 143 H 134 H Respiratory Rate 20 Blood Pressure 110/84 Pulse Oximetry 92 Oxygen Delivery Fraction of Inspired Oxygen 02/26/25 14:00 02/26/25 14:00 02/26/25 14:34 Temperature 98.2 F Pulse Rate 134 H 147 H 147 H Respiratory Rate 28 H 20 Blood Pressure 110/84 115/67 Pulse Oximetry 90 92 Oxygen Delivery Room Air Fraction of Inspired Oxygen 02/26/25 14:34 02/26/25 14:41 02/26/25 14:41 Temperature Pulse Rate 147 H 98 143 H Respiratory Rate 20 20 Blood Pressure Pulse Oximetry Oxygen Delivery Fraction of Inspired Oxygen 02/26/25 16:00 02/26/25 16:00 02/26/25 16:00 Temperature 99.0 F Pulse Rate 89 90 Respiratory Rate 28 H Blood Pressure 128/62 Pulse Oximetry 91 92 Oxygen Delivery Room Air Fraction of Inspired Oxygen 02/26/25 16:35 02/26/25 17:50 02/26/25 18:00 Temperature 98.5 F Pulse Rate 91 86 89 Respiratory Rate 28 H Blood Pressure 137/58 L Pulse Oximetry 93 Oxygen Delivery Fraction of Inspired Oxygen 02/26/25 19:28 02/26/25 20:00 02/26/25 20:00 Temperature 98.0 F Pulse Rate 87 93 93 Respiratory Rate 17 17 Blood Pressure 133/61 Pulse Oximetry 93 93 Oxygen Delivery Room Air Fraction of Inspired Oxygen 02/26/25 20:46 02/26/25 21:30 02/26/25 21:34 Temperature Pulse Rate 92 86 86 Respiratory Rate 18 18 Blood Pressure Pulse Oximetry 90 Oxygen Delivery Room Air Fraction of Inspired Oxygen 02/26/25 22:00 02/26/25 22:40 02/26/25 23:07 Temperature Pulse Rate 90 98 Respiratory Rate Blood Pressure Pulse Oximetry 91 Oxygen Delivery Room Air Fraction of Inspired Oxygen 02/26/25 23:42 02/27/25 00:00 02/27/25 00:00 Temperature 98.0 F Pulse Rate 94 94 94 Respiratory Rate 17 17 Blood Pressure 141/73 H Pulse Oximetry 97 97 Oxygen Delivery Room Air Fraction of Inspired Oxygen 02/27/25 02:00 02/27/25 03:12 02/27/25 03:34 Temperature 98.0 F Pulse Rate 91 81 80 Respiratory Rate 17 17 Blood Pressure 146/58 H Pulse Oximetry 97 Oxygen Delivery Room Air Fraction of Inspired Oxygen 02/27/25 03:34 02/27/25 05:17 02/27/25 06:00 Temperature Pulse Rate 80 124 H 80 Respiratory Rate Blood Pressure Pulse Oximetry Oxygen Delivery Fraction of Inspired Oxygen 02/27/25 07:20 02/27/25 07:35 02/27/25 07:39 Temperature 97.8 F Pulse Rate 147 H 86 Respiratory Rate 16 20 Blood Pressure 109/81 Pulse Oximetry 94 91 Oxygen Delivery Room Air Fraction of Inspired Oxygen 02/27/25 07:45 02/27/25 09:15 Temperature Pulse Rate 82 75 Respiratory Rate 20 Blood Pressure Pulse Oximetry Oxygen Delivery Fraction of Inspired Oxygen Intake/Output Intake/Output: Intake & Output 02/24/25 02/25/25 02/26/25 02/27/25 23:59 23:59 23:59 23:59 Intake Total 2953.0 2198.4 580.7 Output Total 3250 7000 1000 Balance -297.0 -4801.6 -419.3 Meds/Results Medications: Active Medications Generic Name Dose Route Start Last Admin Trade Name Freq PRN Reason Stop Dose Admin Acetaminophen 650 mg 02/24/25 22:24 02/25/25 23:34 Acetaminophen 325 Mg Tablet PO 650 mg Q4H PRN Administration Mild Pain (1-3) or Fever Hydrocodone Bitart/Acetaminophen 1 tab 02/25/25 00:31 Hydrocodone/Acetaminophen (*Crx) 10-325 Mg Tablet PO Q6H PRN pain (scale score 4-6) Al Hydrox/Mg Hydrox/Simethicone 30 ml 02/24/25 22:24 Mag Hydrox/Al Hydrox/Simeth 30 Ml Udc PO QID PRN Dyspepsia Amiodarone HCl 400 mg 02/26/25 15:25 02/27/25 09:15 Amiodarone Hcl 200 Mg Tablet PO 03/13/25 23:59 400 mg Q12HR ANTON Administration Cyclobenzaprine HCl 10 mg 02/25/25 00:31 Cyclobenzaprine Hcl 10 Mg Tablet PO DAILY PRN Muscle Spasm Dextrose 12.5 gm 02/25/25 00:33 Dextrose 50% 25 Gm/50 Ml Syringe IV PUSH PRN PRN Hypoglycemia Protocol Dextrose 12.5 gm 02/25/25 13:41 Dextrose 50% 25 Gm/50 Ml Syringe IV PUSH PRN PRN Hypoglycemia Protocol Furosemide 40 mg 02/26/25 17:00 02/27/25 09:14 Furosemide 40 Mg Tablet PO 40 mg BID ANTON Administration Glucagon 1 mg 02/25/25 00:33 Glucagon For Inj 1 Mg Vial IM PRN PRN Hypoglycemia Protocol Glucagon 1 mg 02/25/25 13:41 Glucagon For Inj 1 Mg Vial IM PRN PRN Hypoglycemia Protocol Glucose 15 gm 02/25/25 00:33 Glucose Oral Gel 15 Gm Of Glucse In 37.5 Gm Tube PO PRN PRN Hypoglycemia Protocol Glucose 15 gm 02/25/25 13:41 Glucose Oral Gel 15 Gm Of Glucse In 37.5 Gm Tube PO PRN PRN Hypoglycemia Protocol Heparin Sodium (Porcine) 7,000 units 02/25/25 04:55 Heparin Sodium 5,000 Units/Ml Vial IV PUSH PRN PRN aPTT less than 55 seconds Heparin Sodium (Porcine) 3,500 units 02/25/25 04:55 02/27/25 05:24 Heparin Sodium 5,000 Units/Ml Vial IV PUSH 3,500 units PRN PRN Administration aPTT 55 - 70 seconds Dextrose 1,000 mls @ 100 mls/hr 02/25/25 00:33 Dextrose 5% 1,000 Ml IVPB PRN PRN Hypoglycemia Protocol Heparin Sodium/Dextrose 25,000 units in 250 mls @ 17 mls/hr 02/25/25 04:55 02/27/25 10:01 Heparin Sodium/D5w 100 Units/Ml IV CONT 1,700 units/hr .[id number] ANTON 17 mls/hr Protocol Administration 1,700 UNITS/HR Dextrose 1,000 mls @ 100 mls/hr 02/25/25 13:41 Dextrose 5% 1,000 Ml IVPB PRN PRN Hypoglycemia Protocol Ceftriaxone Sodium 2 gm/ 100 mls @ 200 mls/hr 02/27/25 10:30 02/27/25 10:08 Sodium Chloride IVPB 200 mls/hr DAILY ANTON Administration Insulin Aspart 3 - 6 units 02/25/25 08:00 02/27/25 09:15 Insulin Aspart (*Bkc) 100 Units/Ml SUB-Q 3 units TIDWM ANTON Administration Protocol Insulin Aspart 1 - 2 units 02/25/25 21:00 02/26/25 20:47 Insulin Aspart (*Bkc) 100 Units/Ml SUB-Q Not Given [facility] Protocol Insulin Glargine 55 units 02/25/25 21:10 02/26/25 20:46 Insulin Glargine (*Bkc) 100 Units/Ml SUB-Q 55 units HS ANTON Administration Ipratropium [place] 0.5 mg 02/26/25 14:00 02/27/25 07:35 Ipratropium Br 0.02% Inh Soln 0.5 Mg/2.5 Ml Vial INHALATION 0.5 mg Q6HRT ANTON Administration Magnesium Hydroxide 30 ml 02/24/25 22:24 Magnesium Hydroxide Susp 30 Ml Udc PO DAILY PRN Constipation Metoprolol Tartrate 50 mg 02/26/25 22:00 02/27/25 05:17 Metoprolol Tartrate 50 Mg Tab PO 50 mg Q8HR ANTON Administration Morphine Sulfate 2 mg 02/24/25 22:24 Morphine Sulfate (*Crx) 2 Mg/Ml Inj IV PUSH Q4H PRN Pain Rated 7-10 Naloxone HCl 0.1 mg 02/24/25 22:24 Naloxone Hcl 0.4 Mg/Ml Vial IV PUSH Q2M PRN Opiate Reversal Ondansetron HCl 4 mg 02/25/25 02:38 02/25/25 15:15 Ondansetron Inj 4 Mg/2 Ml Vial IV PUSH 4 mg ONCE PRN Administration Nausea Ondansetron HCl 4 mg 02/25/25 14:59 Ondansetron Inj 4 Mg/2 Ml Vial IV PUSH Q4H PRN Nausea And Vomiting Radiology Results: ITS Impressions Chest X-Ray 02/25/25 19:27 Impression: Probable viral pneumonitis Retrograde Pyelogram 02/26/25 10:14 IMPRESSION: 1. Right internal ureteral stent placement. Please refer to real-time procedural findings for details. Abdomen X-Ray 02/26/25 17:22 IMPRESSION: 1. Valente catheter and right anterior vertebral stent, both remaining in expected positions. Labs Labs: Laboratory Results - last 24 hr 02/26/25 02/26/25 02/26/25 11:31 12:03 14:57 WBC 10.1 H RBC 3.56 L Hgb 11.4 L Hct 33.7 L MCV 94.7 MCH 32.0 MCHC 33.8 RDW 12.7 Plt Count 221 MPV 9.8 APTT 58.4 H Sodium Potassium Chloride Carbon Dioxide Anion Gap BUN Creatinine Estim Creat Clear Calc Estimated GFR Glucose POC Capillary Glucose 236 H Calcium Magnesium Total Bilirubin AST ALT Alkaline Phosphatase Total Protein Albumin Nasal MRSA (PCR) Not detected 02/26/25 02/26/25 02/26/25 16:22 20:35 21:23 WBC RBC Hgb Hct MCV MCH MCHC RDW Plt Count MPV APTT 110.6 H Sodium Potassium Chloride Carbon Dioxide Anion Gap BUN Creatinine Estim Creat Clear Calc Estimated GFR Glucose POC Capillary Glucose 281 H 246 H Calcium Magnesium Total Bilirubin AST ALT Alkaline Phosphatase Total Protein Albumin Nasal MRSA (PCR) 02/27/25 02/27/25 02/27/25 04:31 04:32 07:20 WBC 8.2 RBC 3.42 L Hgb 10.9 L Hct 32.7 L MCV 95.6 MCH 31.9 MCHC 33.3 RDW 12.6 Plt Count 213 MPV 9.7 APTT 67.6 H Sodium 133 L Potassium 3.3 L Chloride 95 L Carbon Dioxide 31 H Anion Gap 7 BUN 34 H Creatinine 1.25 Estim Creat Clear Calc 46 Estimated GFR 55 L Glucose 225 H POC Capillary Glucose 230 H Calcium 8.6 Magnesium 1.9 Total Bilirubin 0.6 AST 31 ALT 16 Alkaline Phosphatase 79 Total Protein 6.8 Albumin 3.3 L Nasal MRSA (PCR)
[2025-02-27 12:10] LABS: Partial Thromboplastin Time 60.3 Seconds (22.3-36.8)
[2025-02-27 18:00] LABS: Partial Thromboplastin Time 80.9 Seconds (22.3-36.8)
[2025-02-27] MEDS: INSULIN GLARGINE (*BKC) 100 UNITS/ML 55 UNITS SUB-Q (21:24)
[2025-02-27 23:51] LABS: Partial Thromboplastin Time 81.4 Seconds (22.3-36.8)
[2025-02-28] VITALS (13 sets, daily range): BP systolic 114–147; BP diastolic 59–72; PULSE 62–118; RESP 16–22; TEMP 36.3–36.7; O2SAT 92–97
[2025-02-28] MEDS: HEPARIN SOD/D5W 100 UNITS/ML 25,000 UNITS/250 ML BAG IV CONT
[2025-02-28 04:07] LABS: Hematocrit 34.5 % (42.0-52.0); Hemoglobin 11.4 g/dL (14.0-18.0); Immature Granulocyte Percent A 1.1 % (0-0.5); Lymphocytes Absolute Auto 0.86 K/mm3 (0.9-3.2); Mean Corpuscular HGB Conc 33.0 g/dl (32-36); Mean Corpuscular Hemoglobin 31.7 pg (26-34); Mean Corpuscular Volume 95.8 fl (80-100); Nucleated Red Blood Cells Absolute Auto 0.000 K/mm3 (0.0-0.012); Nucleated Red Blood Cells Perc 0.0 % (0.0-0.2); Platelet Count Result 225 k/mm3 (150-375); Red Blood Count 3.60 M/mm3 (4.6-6.20); White Blood Count 6.5 K/mm3 (4.5-10.0)
[2025-02-28 04:31] LABS: Alanine Aminotransferase 16 U/L (6-50); Albumin Level 3.3 g/dL (3.5-5.1); Alkaline Phosphatase 71 U/L (38-126); Anion Gap 6 mmol/L (4-12); Aspartate Amino Transferase 27 U/L (17-59); Bilirubin,Total 0.3 mg/dL (0.2-1.3); Blood Urea Nitrogen 33 mg/dL (9-20); Calcium 8.9 mg/dL (8.4-10.2); Carbon Dioxide 34 mmol/L (22-30); Chloride 93 mmol/L (98-107); Estimated CRCL calculation 53 ml/min; Estimated Glomerular Filt Rate > 60; Glucose 296 mg/dL (65-110); Magnesium 1.7 mg/dL (1.6-2.3); Potassium 3.5 mmol/L (3.4-5.0); Sodium 133 mmol/L (137-145); Total Protein 6.7 g/dL (6.3-8.2)
[2025-02-28] MEDS: METOPROLOL TARTRATE 50 MG TAB PO (05:55)
--- NOTE | 2025-02-28 07:35 | P.PNIM_ITS ---
Progress Note: A&P Assessment and Plan (1) Sepsis: Qualifiers: Acute renal failure type: unspecified Sepsis acute organ dysfunction status: with acute organ dysfunction Sepsis type: sepsis due to unspecified or ganism Severe sepsis acute organ dysfunction type: acute renal failure Severe sepsis shock status: without septic shock Qualified Code(s): A41.9 - Sepsis, unspecified organism; R65.20 - Severe sepsis without septic shock; N17.9 - Acute kidney failure, unspecified Code(s): A41.9 - Sepsis, unspecified organism Status: Acute Assessment and Plan: * Due to obstructive nephrolithiasis * Underwent emergent cystoscopy with right ureteral stent placement * Started on Zosyn at outside facility, switched to Ceftriaxone 2 gram IVPB daily. * Blood culture from outside facility growing Gram-negative bacilli at [facility]. Identified as E coli pansensitive * Blood culture drawn here on [id number] bacilli. * Urine culture from 02/25 is Gram-negative bacilli. * ID is following patient, appreciate recommendations. * Received fluids in the ED and floor -total 3 L * WBC improved from 10.1 > 8.2. (2) Hydronephrosis with renal calculous obstruction: Code(s): N13.2 - Hydronephrosis with renal and ureteral calculous obstruction Status: Acute Assessment and Plan: * As above (3) Urinary tract infection: Qualifiers: Urinary tract infection type: acute pyelonephritis Qualified Code(s): N10 - Acute pyelonephritis Code(s): N39.0 - Urinary tract infection, site not specified Status: Acute Assessment and Plan: * As above (4) Atrial fibrillation with rapid ventricular response: Code(s): I48.91 - Unspecified atrial fibrillation Status: Acute Assessment and Plan: * New onset. * TSH 0.221, free T4 1.55, total T3 0.65. * Echo shows left ventricular ejection fraction 60-65% * On heparin drip, switched to Eliquis 5 mg b.i.d. per Cardiology. * HbA1c 7.4% and Lipid Panel:Cholesterol 98, LDL <30, HDL 12, Triglycerides 235. * Amiodarone to 400 mg PO BID for one week then 400 mg daily for one week then 200 mg daily/ * Metoprolol 50 mg PO TID * Lasix 40mg PO b.i.d. * Cardiology consulted, appreciate recommendations. (5) Acute kidney injury: Code(s): N17.9 - Acute kidney failure, unspecified Status: Acute Assessment and Plan: * possibly due to obstructing nephrolithiasis * Avoid nephrotoxic drugs. * Monitor antihypertensive drug therapy. * Avoid NSAIDs. * Routine CMP monitoring GFR. * Monitor electrolytes especially potassium. * Antibiotic doses depending on creatinine clearance. * Pharmacy dose medications. * unable to find baseline Cr. * Routine follow-up with Nephrology as an outpatient. (6) Dehydration: Code(s): E86.0 - Dehydration Status: Acute Assessment and Plan: * Improved. Good oral intake. * Monitor I and O's (7) Type 2 diabetes mellitus with hyperglycemia, with long-term current use of insulin: Code(s): E11.65 - Type 2 diabetes mellitus with hyperglycemia; Z79.4 - intermediate (current) use of insulin Status: Acute Assessment and Plan: * HgbA1c 7.4% on 02/26/25. * SSI * Hypoglycemic protocol Lantus 55 units at bedtime Add prandial insulin 8 units t.i.d.. At home he takes 14 units with meals plus SSI (8) Bacteremia: Code(s): R78.81 - Bacteremia Status: Acute Assessment and Plan: * [facility] reported blood culture growing Gram-negative bacilli with aerobic bottle. Reported to be back as pansensitive E coli * Ceftriaxone 2 gram IVPB daily. * Follow-up with culture. Urine culture Gram-negative bacilli. Blood cultures from 02/25/25 are Gram-negative bacilli * Possible source UTI * Trans thoracic echocardiogram negative for any vegetation * Less suspicion for endocarditis, will not pursue for transesophageal echo cardiac * Monitor leukocytosis and fever * ID consulted (9) Hypokalemia: Code(s): E87.6 - Hypokalemia Status: Acute Assessment and Plan: * Replace and monitor Subjective Date/time seen: 02/28/25 07:35 Interval history: No overnight events. Feels weak no specific complaints. Does not feel back to baseline yet. No chest pain or shortness of breath. Review of Systems Review of Systems: All systems reviewed & are unremarkable except as noted in HPI and below Exam Narrative: GENERAL: The patient is well developed, not in acute distress HEENT: Nonicteric sclerae, PERRLA, EOMI. Oropharynx clear. Moist mucous membranes. Conjunctivae appear well perfused. CHEST: Chest wall is nontender. HEART: Regular rate and rhythm without murmur, rubs, or gallops LUNGS: Clear to auscultation bilaterally. no respiratory distress ABDOMEN: Soft, positive bowel sounds, non-tender, no organomegaly. SKIN: No rash, no excessive bruising, petechiae, or purpura. NEUROLOGIC: Cranial nerves II-XII intact, alert and oriented x 3, no gross motor deficits EXTREMITIES: no edema, cyanosis or clubbing Objective Data Vital Signs Vital Signs: Vital Signs - 24 hr 02/27/25 07:39 02/27/25 07:45 02/27/25 08:00 Temperature Pulse Rate 86 82 Respiratory Rate 20 20 Blood Pressure Pulse Oximetry 93 Oxygen Delivery Room Air Oxygen Flow Rate Fraction of Inspired Oxygen 02/27/25 08:00 02/27/25 09:15 02/27/25 10:00 Temperature Pulse Rate 79 75 75 Respiratory Rate Blood Pressure Pulse Oximetry Oxygen Delivery Oxygen Flow Rate Fraction of Inspired Oxygen 02/27/25 11:45 02/27/25 12:00 02/27/25 12:00 Temperature 98.1 F Pulse Rate 77 82 Respiratory Rate 20 Blood Pressure 116/57 L Pulse Oximetry 93 93 Oxygen Delivery Room Air Oxygen Flow Rate Fraction of Inspired Oxygen 02/27/25 13:21 02/27/25 14:00 02/27/25 16:00 Temperature Pulse Rate 89 98 Respiratory Rate Blood Pressure Pulse Oximetry 93 Oxygen Delivery Room Air Oxygen Flow Rate Fraction of Inspired Oxygen 02/27/25 16:00 02/27/25 16:00 02/27/25 18:00 Temperature 98.6 F Pulse Rate 76 77 81 Respiratory Rate 18 Blood Pressure 129/64 Pulse Oximetry 98 Oxygen Delivery Oxygen Flow Rate Fraction of Inspired Oxygen 02/27/25 20:00 02/27/25 20:00 02/27/25 20:00 Temperature 97.6 F Pulse Rate 78 78 78 Respiratory Rate 20 20 Blood Pressure 141/65 H Pulse Oximetry 93 88 L Oxygen Delivery Nasal Cannula Oxygen Flow Rate 2 Fraction of Inspired Oxygen 02/27/25 21:24 02/27/25 21:24 02/27/25 22:00 Temperature Pulse Rate 74 74 72 Respiratory Rate Blood Pressure Pulse Oximetry Oxygen Delivery Oxygen Flow Rate Fraction of Inspired Oxygen 02/28/25 00:00 02/28/25 00:00 02/28/25 00:00 Temperature 98.0 F Pulse Rate 77 76 76 Respiratory Rate 22 H 22 H Blood Pressure 147/67 H Pulse Oximetry 96 96 Oxygen Delivery Nasal Cannula Oxygen Flow Rate 2 Fraction of Inspired Oxygen 02/28/25 02:00 02/28/25 04:00 02/28/25 04:00 Temperature Pulse Rate 62 78 78 Respiratory Rate 22 H Blood Pressure Pulse Oximetry 96 Oxygen Delivery Nasal Cannula Oxygen Flow Rate 2 Fraction of Inspired Oxygen 02/28/25 04:00 02/28/25 05:55 02/28/25 06:00 Temperature 97.7 F Pulse Rate 73 118 H 74 Respiratory Rate 20 Blood Pressure 139/68 Pulse Oximetry 96 Oxygen Delivery Oxygen Flow Rate Fraction of Inspired Oxygen Intake/Output Intake/Output: Intake & Output 02/25/25 02/26/25 02/27/25 02/28/25 23:59 23:59 23:59 23:59 Intake Total 2953.0 2198.4 2769.1 241.1 Output Total 3250 7000 2625 1900 Balance -297.0 -4801.6 144.1 -1658.9 Meds/Results Medications: Active Medications Generic Name Dose Route Start Last Admin Trade Name Freq PRN Reason Stop Dose Admin Acetaminophen 650 mg 02/24/25 22:24 02/25/25 23:34 Acetaminophen 325 Mg Tablet PO 650 mg Q4H PRN Administration Mild Pain (1-3) or Fever Hydrocodone Bitart/Acetaminophen 1 tab 02/25/25 00:31 Hydrocodone/Acetaminophen (*Crx) 10-325 Mg Tablet PO Q6H PRN pain (scale score 4-6) Al Hydrox/Mg Hydrox/Simethicone 30 ml 02/24/25 22:24 Mag Hydrox/Al Hydrox/Simeth 30 Ml Udc PO QID PRN Dyspepsia Amiodarone HCl 400 mg 02/26/25 15:25 02/27/25 21:24 Amiodarone Hcl 200 Mg Tablet PO 03/13/25 23:59 400 mg Q12HR ANTON Administration Cyclobenzaprine HCl 10 mg 02/25/25 00:31 Cyclobenzaprine Hcl 10 Mg Tablet PO DAILY PRN Muscle Spasm Dextrose 12.5 gm 02/25/25 00:33 Dextrose 50% 25 Gm/50 Ml Syringe IV PUSH PRN PRN Hypoglycemia Protocol Dextrose 12.5 gm 02/25/25 13:41 Dextrose 50% 25 Gm/50 Ml Syringe IV PUSH PRN PRN Hypoglycemia Protocol Furosemide 40 mg 02/26/25 17:00 02/27/25 17:09 Furosemide 40 Mg Tablet PO 40 mg BID ANTON Administration Glucagon 1 mg 02/25/25 00:33 Glucagon For Inj 1 Mg Vial IM PRN PRN Hypoglycemia Protocol Glucagon 1 mg 02/25/25 13:41 Glucagon For Inj 1 Mg Vial IM PRN PRN Hypoglycemia Protocol Glucose 15 gm 02/25/25 00:33 Glucose Oral Gel 15 Gm Of Glucse In 37.5 Gm Tube PO PRN PRN Hypoglycemia Protocol Glucose 15 gm 02/25/25 13:41 Glucose Oral Gel 15 Gm Of Glucse In 37.5 Gm Tube PO PRN PRN Hypoglycemia Protocol Heparin Sodium (Porcine) 7,000 units 02/25/25 04:55 Heparin Sodium 5,000 Units/Ml Vial IV PUSH PRN PRN aPTT less than 55 seconds Heparin Sodium (Porcine) 3,500 units 02/25/25 04:55 02/27/25 13:22 Heparin Sodium 5,000 Units/Ml Vial IV PUSH 3,500 units PRN PRN Administration aPTT 55 - 70 seconds Dextrose 1,000 mls @ 100 mls/hr 02/25/25 00:33 Dextrose 5% 1,000 Ml IVPB PRN PRN Hypoglycemia Protocol Heparin Sodium/Dextrose 25,000 units in 250 mls @ 19 mls/hr 02/25/25 04:55 02/28/25 00:00 Heparin Sodium/D5w 100 Units/Ml IV CONT 19 units/hr .[id number] ANTON 0.19 mls/hr Protocol Administration 1,900 UNITS/HR Dextrose 1,000 mls @ 100 mls/hr 02/25/25 13:41 Dextrose 5% 1,000 Ml IVPB PRN PRN Hypoglycemia Protocol Ceftriaxone Sodium 2 gm/ 100 mls @ 200 mls/hr 02/27/25 10:30 02/27/25 10:08 Sodium Chloride IVPB 200 mls/hr DAILY ANTON Administration Insulin Aspart 3 - 6 units 02/25/25 08:00 02/27/25 17:09 Insulin Aspart (*Bkc) 100 Units/Ml SUB-Q 5 units TIDWM ANTON Administration Protocol Insulin Aspart 1 - 2 units 02/25/25 21:00 02/27/25 21:25 Insulin Aspart (*Bkc) 100 Units/Ml SUB-Q 2 units HS ANTON Administration Protocol Insulin Glargine 55 units 02/25/25 21:10 02/27/25 21:24 Insulin Glargine (*Bkc) 100 Units/Ml SUB-Q 55 units HS ANTON Administration Ipratropium [place] 0.5 mg 02/27/25 11:07 Ipratropium Br 0.02% Inh Soln 0.5 Mg/2.5 Ml Vial INHALATION Q6HRT PRN Wheezing Magnesium Hydroxide 30 ml 02/24/25 22:24 Magnesium Hydroxide Susp 30 Ml Udc PO DAILY PRN Constipation Metoprolol Tartrate 50 mg 02/26/25 22:00 02/28/25 05:55 Metoprolol Tartrate 50 Mg Tab PO 50 mg Q8HR ANTON Administration Morphine Sulfate 2 mg 02/24/25 22:24 Morphine Sulfate (*Crx) 2 Mg/Ml Inj IV PUSH Q4H PRN Pain Rated 7-10 Naloxone HCl 0.1 mg 02/24/25 22:24 Naloxone Hcl 0.4 Mg/Ml Vial IV PUSH Q2M PRN Opiate Reversal Ondansetron HCl 4 mg 02/25/25 02:38 02/25/25 15:15 Ondansetron Inj 4 Mg/2 Ml Vial IV PUSH 4 mg ONCE PRN Administration Nausea Ondansetron HCl 4 mg 02/25/25 14:59 Ondansetron Inj 4 Mg/2 Ml Vial IV PUSH Q4H PRN Nausea And Vomiting Radiology Results: ITS Impressions Chest X-Ray 02/25/25 19:27 Impression: Probable viral pneumonitis Retrograde Pyelogram 02/26/25 10:14 IMPRESSION: 1. Right internal ureteral stent placement. Please refer to real-time procedural findings for details. Abdomen X-Ray 02/26/25 17:22 IMPRESSION: 1. Valente catheter and right anterior vertebral stent, both remaining in expected positions. Labs Labs: Laboratory Results - last 24 hr 02/27/25 02/27/25 02/27/25 04:31 11:27 11:38 WBC RBC Hgb Hct MCV MCH MCHC RDW Plt Count MPV Immature Gran % (Auto) Neut % (Auto) Lymph % (Auto) [place] % (Auto) Eos % (Auto) Baso % (Auto) Lymph # (Auto) [place] # (Auto) Eos # (Auto) Baso # (Auto) Abs Immat Gran (auto) Absolute Neuts (auto) Absolute Nucleated RBC Nucleated RBC % APTT 60.3 H Sodium 133 L Potassium 3.3 L Chloride 95 L Carbon Dioxide 31 H Anion Gap 7 BUN 34 H Creatinine 1.25 Estim Creat Clear Calc 46 Estimated GFR 55 L Glucose 225 H POC Capillary Glucose 321 H Calcium 8.6 Magnesium 1.9 Total Bilirubin 0.6 AST 31 ALT 16 Alkaline Phosphatase 79 Total Protein 6.8 Albumin 3.3 L 02/27/25 02/27/25 02/27/25 16:01 17:43 19:53 WBC RBC Hgb Hct MCV MCH MCHC RDW Plt Count MPV Immature Gran % (Auto) Neut % (Auto) Lymph % (Auto) [place] % (Auto) Eos % (Auto) Baso % (Auto) Lymph # (Auto) [place] # (Auto) Eos # (Auto) Baso # (Auto) Abs Immat Gran (auto) Absolute Neuts (auto) Absolute Nucleated RBC Nucleated RBC % APTT 80.9 H Sodium Potassium Chloride Carbon Dioxide Anion Gap BUN Creatinine Estim Creat Clear Calc Estimated GFR Glucose POC Capillary Glucose 332 H 333 H Calcium Magnesium Total Bilirubin AST ALT Alkaline Phosphatase Total Protein Albumin 02/27/25 02/28/25 23:30 03:50 WBC 6.5 RBC 3.60 L Hgb 11.4 L Hct 34.5 L MCV 95.8 MCH 31.7 MCHC 33.0 RDW 12.6 Plt Count 225 MPV 10.1 Immature Gran % (Auto) 1.1 H Neut % (Auto) 71.4 Lymph % (Auto) 13.3 L [place] % (Auto) 10.8 H Eos % (Auto) 3.1 Baso % (Auto) 0.3 Lymph # (Auto) 0.86 L [place] # (Auto) 0.7 H Eos # (Auto) 0.2 Baso # (Auto) 0.0 Abs Immat Gran (auto) 0.07 H Absolute Neuts (auto) 4.6 Absolute Nucleated RBC 0.000 Nucleated RBC % 0.0 APTT 81.4 H Sodium 133 L Potassium 3.5 Chloride 93 L Carbon Dioxide 34 H Anion Gap 6 BUN 33 H Creatinine 1.08 Estim Creat Clear Calc 53 Estimated GFR > 60 Glucose 296 H POC Capillary Glucose Calcium 8.9 Magnesium 1.7 Total Bilirubin 0.3 AST 27 ALT 16 Alkaline Phosphatase 71 Total Protein 6.7 Albumin 3.3 L
--- NOTE | 2025-02-28 07:48 | P.PNUR_ITS ---
Progress Note: A&P Assessment and Plan (1) Hydronephrosis with renal calculous obstruction: Code(s): N13.2 - Hydronephrosis with renal and ureteral calculous obstruction Status: Acute Assessment and Plan: * Catheter out for voiding trial today Subjective Subjective Date/Time Seen: 02/28/25 07:48 Interval history: Continues to tolerate stent Review of Systems Review of Systems: All systems reviewed & are unremarkable except as noted in HPI and below Exam Const: General: no acute distress Resp: Effort & Inspection: normal respiratory effort GI: Inspection: non-distended GI Palp: No abdominal tenderness and No Guarding due to palpation present (GI) Auscultation: normal bowel sounds Objective Data Vital Signs Vital Signs: Vital Signs - 24 hr 02/27/25 08:00 02/27/25 08:00 02/27/25 09:15 Temperature Pulse Rate 79 75 Respiratory Rate Blood Pressure Pulse Oximetry 93 Oxygen Delivery Room Air Oxygen Flow Rate Fraction of Inspired Oxygen 02/27/25 10:00 02/27/25 11:45 02/27/25 12:00 Temperature 98.1 F Pulse Rate 75 77 Respiratory Rate 20 Blood Pressure 116/57 L Pulse Oximetry 93 93 Oxygen Delivery Room Air Oxygen Flow Rate Fraction of Inspired Oxygen 02/27/25 12:00 02/27/25 13:21 02/27/25 14:00 Temperature Pulse Rate 82 89 98 Respiratory Rate Blood Pressure Pulse Oximetry Oxygen Delivery Oxygen Flow Rate Fraction of Inspired Oxygen 02/27/25 16:00 02/27/25 16:00 02/27/25 16:00 Temperature 98.6 F Pulse Rate 76 77 Respiratory Rate 18 Blood Pressure 129/64 Pulse Oximetry 93 98 Oxygen Delivery Room Air Oxygen Flow Rate Fraction of Inspired Oxygen 02/27/25 18:00 02/27/25 20:00 02/27/25 20:00 Temperature 97.6 F Pulse Rate 81 78 78 Respiratory Rate 20 20 Blood Pressure 141/65 H Pulse Oximetry 93 88 L Oxygen Delivery Nasal Cannula Oxygen Flow Rate 2 Fraction of Inspired Oxygen 02/27/25 20:00 02/27/25 21:24 02/27/25 21:24 Temperature Pulse Rate 78 74 74 Respiratory Rate Blood Pressure Pulse Oximetry Oxygen Delivery Oxygen Flow Rate Fraction of Inspired Oxygen 02/27/25 22:00 02/28/25 00:00 02/28/25 00:00 Temperature 98.0 F Pulse Rate 72 77 76 Respiratory Rate 22 H 22 H Blood Pressure 147/67 H Pulse Oximetry 96 96 Oxygen Delivery Nasal Cannula Oxygen Flow Rate 2 Fraction of Inspired Oxygen 02/28/25 00:00 02/28/25 02:00 02/28/25 04:00 Temperature Pulse Rate 76 62 78 Respiratory Rate 22 H Blood Pressure Pulse Oximetry 96 Oxygen Delivery Nasal Cannula Oxygen Flow Rate 2 Fraction of Inspired Oxygen 02/28/25 04:00 02/28/25 04:00 02/28/25 05:55 Temperature 97.7 F Pulse Rate 78 73 118 H Respiratory Rate 20 Blood Pressure 139/68 Pulse Oximetry 96 Oxygen Delivery Oxygen Flow Rate Fraction of Inspired Oxygen 02/28/25 06:00 02/28/25 07:43 Temperature 97.5 F L Pulse Rate 74 76 Respiratory Rate 18 Blood Pressure 135/59 L Pulse Oximetry 93 Oxygen Delivery Oxygen Flow Rate Fraction of Inspired Oxygen Intake/Output Intake/Output: Intake & Output 02/25/25 02/26/25 02/27/25 02/28/25 23:59 23:59 23:59 23:59 Intake Total 2953.0 2198.4 2769.1 241.1 Output Total 3250 7000 2625 1900 Balance -297.0 -4801.6 144.1 -1658.9 Meds/Results Medications: Active Medications Generic Name Dose Route Start Last Admin Trade Name Freq PRN Reason Stop Dose Admin Acetaminophen 650 mg 02/24/25 22:24 02/25/25 23:34 Acetaminophen 325 Mg Tablet PO 650 mg Q4H PRN Administration Mild Pain (1-3) or Fever Hydrocodone Bitart/Acetaminophen 1 tab 02/25/25 00:31 Hydrocodone/Acetaminophen (*Crx) 10-325 Mg Tablet PO Q6H PRN pain (scale score 4-6) Al Hydrox/Mg Hydrox/Simethicone 30 ml 02/24/25 22:24 Mag Hydrox/Al Hydrox/Simeth 30 Ml Udc PO QID PRN Dyspepsia Amiodarone HCl 400 mg 02/26/25 15:25 02/27/25 21:24 Amiodarone Hcl 200 Mg Tablet PO 03/13/25 23:59 400 mg Q12HR [place] Administration Cyclobenzaprine HCl 10 mg 02/25/25 00:31 Cyclobenzaprine Hcl 10 Mg Tablet PO DAILY PRN Muscle Spasm Dextrose 12.5 gm 02/25/25 00:33 Dextrose 50% 25 Gm/50 Ml Syringe IV PUSH PRN PRN Hypoglycemia Protocol Dextrose 12.5 gm 02/25/25 13:41 Dextrose 50% 25 Gm/50 Ml Syringe IV PUSH PRN PRN Hypoglycemia Protocol Furosemide 40 mg 02/26/25 17:00 02/27/25 17:09 Furosemide 40 Mg Tablet PO 40 mg BID ANTON Administration Glucagon 1 mg 02/25/25 00:33 Glucagon For Inj 1 Mg Vial IM PRN PRN Hypoglycemia Protocol Glucagon 1 mg 02/25/25 13:41 Glucagon For Inj 1 Mg Vial IM PRN PRN Hypoglycemia Protocol Glucose 15 gm 02/25/25 00:33 Glucose Oral Gel 15 Gm Of Glucse In 37.5 Gm Tube PO PRN PRN Hypoglycemia Protocol Glucose 15 gm 02/25/25 13:41 Glucose Oral Gel 15 Gm Of Glucse In 37.5 Gm Tube PO PRN PRN Hypoglycemia Protocol Heparin Sodium (Porcine) 7,000 units 02/25/25 04:55 Heparin Sodium 5,000 Units/Ml Vial IV PUSH PRN PRN aPTT less than 55 seconds Heparin Sodium (Porcine) 3,500 units 02/25/25 04:55 02/27/25 13:22 Heparin Sodium 5,000 Units/Ml Vial IV PUSH 3,500 units PRN PRN Administration aPTT 55 - 70 seconds Dextrose 1,000 mls @ 100 mls/hr 02/25/25 00:33 Dextrose 5% 1,000 Ml IVPB PRN PRN Hypoglycemia Protocol Heparin Sodium/Dextrose 25,000 units in 250 mls @ 19 mls/hr 02/25/25 04:55 02/28/25 00:00 Heparin Sodium/D5w 100 Units/Ml IV CONT 19 units/hr .[id number] ANTON 0.19 mls/hr Protocol Administration 1,900 UNITS/HR Dextrose 1,000 mls @ 100 mls/hr 02/25/25 13:41 Dextrose 5% 1,000 Ml IVPB PRN PRN Hypoglycemia Protocol Ceftriaxone Sodium 2 gm/ 100 mls @ 200 mls/hr 02/27/25 10:30 02/27/25 10:08 Sodium Chloride IVPB 200 mls/hr DAILY AN[place] Administration Insulin Aspart 3 - 6 units 02/25/25 08:00 02/27/25 17:09 Insulin Aspart (*Bkc) 100 Units/Ml SUB-Q 5 units TIDWM [facility] Administration Protocol Insulin Aspart 1 - 2 units 02/25/25 21:00 02/27/25 21:25 Insulin Aspart (*Bkc) 100 Units/Ml SUB-Q 2 units HS [facility] [place] Administration Protocol Insulin Glargine 55 units 02/25/25 21:10 02/27/25 21:24 Insulin Glargine (*Bkc) 100 Units/Ml SUB-Q 55 units HS [facility] [place] Administration Ipratropium [place] 0.5 mg 02/27/25 11:07 Ipratropium Br 0.02% Inh Soln 0.5 Mg/2.5 Ml Vial INHALATION Q6HRT PRN Wheezing Magnesium Hydroxide 30 ml 02/24/25 22:24 Magnesium Hydroxide Susp 30 Ml Udc PO DAILY PRN Constipation Metoprolol Tartrate 50 mg 02/26/25 22:00 02/28/25 05:55 Metoprolol Tartrate 50 Mg Tab PO 50 mg Q8HR [facility] [place] Administration Morphine Sulfate 2 mg 02/24/25 22:24 Morphine Sulfate (*Crx) 2 Mg/Ml Inj IV PUSH Q4H PRN Pain Rated 7-10 Naloxone HCl 0.1 mg 02/24/25 22:24 Naloxone Hcl 0.4 Mg/Ml Vial IV PUSH Q2M PRN Opiate Reversal Ondansetron HCl 4 mg 02/25/25 02:38 02/25/25 15:15 Ondansetron Inj 4 Mg/2 Ml Vial IV PUSH 4 mg ONCE PRN Administration Nausea Ondansetron HCl 4 mg 02/25/25 14:59 Ondansetron Inj 4 Mg/2 Ml Vial IV PUSH Q4H PRN Nausea And Vomiting Radiology Results: ITS Impressions Chest X-Ray 02/25/25 19:27 Impression: Probable viral pneumonitis Retrograde Pyelogram 02/26/25 10:14 IMPRESSION: 1. Right internal ureteral stent placement. Please refer to real-time procedural findings for details. Abdomen X-Ray 02/26/25 17:22 IMPRESSION: 1. Valente catheter and right anterior vertebral stent, both remaining in expected positions. Labs Labs: Laboratory Results - last 24 hr 02/27/25 02/27/25 02/27/25 11:27 11:38 16:01 WBC RBC Hgb Hct MCV MCH MCHC RDW Plt Count MPV Immature Gran % (Auto) Neut % (Auto) Lymph % (Auto) [place] % (Auto) Eos % (Auto) Baso % (Auto) Lymph # (Auto) [place] # (Auto) Eos # (Auto) Baso # (Auto) Abs Immat Gran (auto) Absolute Neuts (auto) Absolute Nucleated RBC Nucleated RBC % APTT 60.3 H Sodium Potassium Chloride Carbon Dioxide Anion Gap BUN Creatinine Estim Creat Clear Calc Estimated GFR Glucose POC Capillary Glucose 321 H 332 H Calcium Magnesium Total Bilirubin AST ALT Alkaline Phosphatase Total Protein Albumin 02/27/25 02/27/25 02/27/25 17:43 19:53 23:30 WBC RBC Hgb Hct MCV MCH MCHC RDW Plt Count MPV Immature Gran % (Auto) Neut % (Auto) Lymph % (Auto) [place] % (Auto) Eos % (Auto) Baso % (Auto) Lymph # (Auto) [place] # (Auto) Eos # (Auto) Baso # (Auto) Abs Immat Gran (auto) Absolute Neuts (auto) Absolute Nucleated RBC Nucleated RBC % APTT 80.9 H 81.4 H Sodium Potassium Chloride Carbon Dioxide Anion Gap BUN Creatinine Estim Creat Clear Calc Estimated GFR Glucose POC Capillary Glucose 333 H Calcium Magnesium Total Bilirubin AST ALT Alkaline Phosphatase Total Protein Albumin 02/28/25 02/28/25 03:50 07:36 WBC 6.5 RBC 3.60 L Hgb 11.4 L Hct 34.5 L MCV 95.8 MCH 31.7 MCHC 33.0 RDW 12.6 Plt Count 225 MPV 10.1 Immature Gran % (Auto) 1.1 H Neut % (Auto) 71.4 Lymph % (Auto) 13.3 L [place] % (Auto) 10.8 H Eos % (Auto) 3.1 Baso % (Auto) 0.3 Lymph # (Auto) 0.86 L [place] # (Auto) 0.7 H Eos # (Auto) 0.2 Baso # (Auto) 0.0 Abs Immat Gran (auto) 0.07 H Absolute Neuts (auto) 4.6 Absolute Nucleated RBC 0.000 Nucleated RBC % 0.0 APTT Sodium 133 L Potassium 3.5 Chloride 93 L Carbon Dioxide 34 H Anion Gap 6 BUN 33 H Creatinine 1.08 Estim Creat Clear Calc 53 Estimated GFR > 60 Glucose 296 H POC Capillary Glucose 264 H Calcium 8.9 Magnesium 1.7 Total Bilirubin 0.3 AST 27 ALT 16 Alkaline Phosphatase 71 Total Protein 6.7 Albumin 3.3 L
[2025-02-28] MEDS: AMIODARONE HCL 200 MG TABLET 400 MG PO ×2 (09:07→20:30)
[2025-02-28] MEDS: INSULIN ASPART (*BKC) 100 UNITS/ML SUB-Q ×4 (09:08→21:42)
[2025-02-28] MEDS: FUROSEMIDE 40 MG TABLET PO ×2 (09:08→16:24)
[2025-02-28] MEDS: cefTRIAXone 2 GM in SODIUM CHLORIDE 0.9% IV 100 ML 200 ML IVPB (09:08)
--- NOTE | 2025-02-28 09:36 | PM.PNCARD ---
Progress Note: A&P Assessment and Plan (1) Atrial fibrillation with rapid ventricular response: Code(s): I48.91 - Unspecified atrial fibrillation Status: Acute Plan Acute hypoxemic respiratory failure is likely related to pulmonary edema improved today Atrial flutter with RVR converted back to sinus Sepsis Obstructive uropathy ASH Diabetes mellitus type 2 Plan Change Lasix 40 mg p.o. daily starting tomorrow Amiodarone to 400 mg PO BID for one week then 400 mg daily for one week then 200 mg daily Metoprolol can be shifted to ToprolXL 150mg daily for dosing convenience Will shift heparin to Eliquis 5mg b.i.d. - Platelets 225, H&H stable, and he is not having hematuria Follow-up CBC and BMP Will arrange for follow up in our office Cardiology will sign off please call with questions Subjective Date/time seen: 02/28/25 09:36 Interval history: Cardiology follow-up visit Patient is seen for follow-up for AFib with RVR No acute events overnight Telemetry paroxysmal atrial fibrillation alternating with sinus rhythm currently in sinus rhythm Date of service 02/28/2025: Feels well this morning. Complains of cough with thick phlegm. No chest pain, shortness of breath, palpitations. Review of Systems Review of Systems: All systems reviewed & are unremarkable except as noted in HPI and below ROS unobtainable: Yes unobtainable due to mental status Neurologic: Reports confusion Psychiatric: Psychiatric: Reports confusion Exam Const: General: in distress moderate and confusion Orientation/consciousness: confusion Other: Able to lie flat HENMT: Face/Nose/Sinus: Normal nares present and no epistaxis Mouth: Yes moist mucous membranes Eyes: Sclera: sclerae normal Pupils: Equal, round and reactive pupils present Neck: Neck: supple and JVD Carotids: no bruits Resp: Effort & Inspection: normal respiratory effort Auscultation: rales bilateral at the base and lung sounds not diminished Other: No chest wall tenderness Cardio: Rate: regular rate Rhythm: regular rhythm Heart sounds: no gallops, no murmurs and no rubs GI: Auscultation: normal bowel sounds Skin: General skin exam: normal color, rashes and/or lesions noted and no erythema Other: Warm Neuro: General: confusion Cranial nerves: Yes Equal, round and reactive pupils present Speech: normal speech Other: No obvious focal deficit or facial asymmetry Extrem: General: no edema Other: Normal capillary refills Intact distal pulses. Objective Data Vital Signs Vital Signs: Vital Signs - 24 hr 02/27/25 10:00 02/27/25 11:45 02/27/25 12:00 Temperature 36.7 C Pulse Rate 75 77 Respiratory Rate 20 Blood Pressure 116/57 L Pulse Oximetry 93 93 Oxygen Delivery Room Air Oxygen Flow Rate Fraction of Inspired Oxygen 02/27/25 12:00 02/27/25 13:21 02/27/25 14:00 Temperature Pulse Rate 82 89 98 Respiratory Rate Blood Pressure Pulse Oximetry Oxygen Delivery Oxygen Flow Rate Fraction of Inspired Oxygen 02/27/25 16:00 02/27/25 16:00 02/27/25 16:00 Temperature 37.0 C Pulse Rate 76 77 Respiratory Rate 18 Blood Pressure 129/64 Pulse Oximetry 93 98 Oxygen Delivery Room Air Oxygen Flow Rate Fraction of Inspired Oxygen 02/27/25 18:00 02/27/25 20:00 02/27/25 20:00 Temperature 36.4 C Pulse Rate 81 78 78 Respiratory Rate 20 20 Blood Pressure 141/65 H Pulse Oximetry 93 88 L Oxygen Delivery Nasal Cannula Oxygen Flow Rate 2 Fraction of Inspired Oxygen 02/27/25 20:00 02/27/25 21:24 02/27/25 21:24 Temperature Pulse Rate 78 74 74 Respiratory Rate Blood Pressure Pulse Oximetry Oxygen Delivery Oxygen Flow Rate Fraction of Inspired Oxygen 02/27/25 22:00 02/28/25 00:00 02/28/25 00:00 Temperature 36.7 C Pulse Rate 72 77 76 Respiratory Rate 22 H 22 H Blood Pressure 147/67 H Pulse Oximetry 96 96 Oxygen Delivery Nasal Cannula Oxygen Flow Rate 2 Fraction of Inspired Oxygen 02/28/25 00:00 02/28/25 02:00 02/28/25 04:00 Temperature Pulse Rate 76 62 78 Respiratory Rate 22 H Blood Pressure Pulse Oximetry 96 Oxygen Delivery Nasal Cannula Oxygen Flow Rate 2 Fraction of Inspired Oxygen 02/28/25 04:00 02/28/25 04:00 02/28/25 05:55 Temperature 36.5 C Pulse Rate 78 73 118 H Respiratory Rate 20 Blood Pressure 139/68 Pulse Oximetry 96 Oxygen Delivery Oxygen Flow Rate Fraction of Inspired Oxygen 02/28/25 06:00 02/28/25 07:43 02/28/25 09:07 Temperature 36.4 C L Pulse Rate 74 76 77 Respiratory Rate 18 Blood Pressure 135/59 L Pulse Oximetry 93 Oxygen Delivery Oxygen Flow Rate Fraction of Inspired Oxygen Intake/Output Intake/Output: Intake & Output 02/25/25 02/26/25 02/27/25 02/28/25 23:59 23:59 23:59 23:59 Intake Total 2953.0 2198.4 2869.1 481.1 Output Total 3250 7000 2625 2800 Balance -297.0 -4801.6 244.1 -2318.9 Meds/Results Medications: Active Medications Generic Name Dose Route Start Last Admin Trade Name Freq PRN Reason Stop Dose Admin Acetaminophen 650 mg 02/24/25 22:24 02/25/25 23:34 Acetaminophen 325 Mg Tablet PO 650 mg Q4H PRN Administration Mild Pain (1-3) or Fever Hydrocodone Bitart/Acetaminophen 1 tab 02/25/25 00:31 Hydrocodone/Acetaminophen (*Crx) 10-325 Mg Tablet PO Q6H PRN pain (scale score 4-6) Al Hydrox/Mg Hydrox/Simethicone 30 ml 02/24/25 22:24 Mag Hydrox/Al Hydrox/Simeth 30 Ml Udc PO QID PRN Dyspepsia Amiodarone HCl 400 mg 02/26/25 15:25 02/28/25 09:07 Amiodarone Hcl 200 Mg Tablet PO 03/13/25 23:59 400 mg Q12HR [place] Administration Cyclobenzaprine HCl 10 mg 02/25/25 00:31 Cyclobenzaprine Hcl 10 Mg Tablet PO DAILY PRN Muscle Spasm Dextrose 12.5 gm 02/25/25 00:33 Dextrose 50% 25 Gm/50 Ml Syringe IV PUSH PRN PRN Hypoglycemia Protocol Dextrose 12.5 gm 02/25/25 13:41 Dextrose 50% 25 Gm/50 Ml Syringe IV PUSH PRN PRN Hypoglycemia Protocol Furosemide 40 mg 02/26/25 17:00 02/28/25 09:08 Furosemide 40 Mg Tablet PO 40 mg BID ANTON Administration Glucagon 1 mg 02/25/25 00:33 Glucagon For Inj 1 Mg Vial IM PRN PRN Hypoglycemia Protocol Glucagon 1 mg 02/25/25 13:41 Glucagon For Inj 1 Mg Vial IM PRN PRN Hypoglycemia Protocol Glucose 15 gm 02/25/25 00:33 Glucose Oral Gel 15 Gm Of Glucse In 37.5 Gm Tube PO PRN PRN Hypoglycemia Protocol Glucose 15 gm 02/25/25 13:41 Glucose Oral Gel 15 Gm Of Glucse In 37.5 Gm Tube PO PRN PRN Hypoglycemia Protocol Heparin Sodium (Porcine) 7,000 units 02/25/25 04:55 Heparin Sodium 5,000 Units/Ml Vial IV PUSH PRN PRN aPTT less than 55 seconds Heparin Sodium (Porcine) 3,500 units 02/25/25 04:55 02/27/25 13:22 Heparin Sodium 5,000 Units/Ml Vial IV PUSH 3,500 units PRN PRN Administration aPTT 55 - 70 seconds Dextrose 1,000 mls @ 100 mls/hr 02/25/25 00:33 Dextrose 5% 1,000 Ml IVPB PRN PRN Hypoglycemia Protocol Heparin Sodium/Dextrose 25,000 units in 250 mls @ 19 mls/hr 02/25/25 04:55 02/28/25 00:00 Heparin Sodium/D5w 100 Units/Ml IV CONT 19 units/hr .[id number] ANTON 0.19 mls/hr Protocol Administration 1,900 UNITS/HR Dextrose 1,000 mls @ 100 mls/hr 02/25/25 13:41 Dextrose 5% 1,000 Ml IVPB PRN PRN Hypoglycemia Protocol Ceftriaxone Sodium 2 gm/ 100 mls @ 200 mls/hr 02/27/25 10:30 02/28/25 09:08 Sodium Chloride IVPB 200 mls/hr DAILY ANTON Administration Insulin Aspart 3 - 6 units 02/25/25 08:00 02/28/25 09:08 Insulin Aspart (*Bkc) 100 Units/Ml SUB-Q 4 units TIDWM [place] Administration Protocol Insulin Aspart 1 - 2 units 02/25/25 21:00 02/27/25 21:25 Insulin Aspart (*Bkc) 100 Units/Ml SUB-Q 2 units HS [place] Administration Protocol Insulin Glargine 55 units 02/25/25 21:10 02/27/25 21:24 Insulin Glargine (*Bkc) 100 Units/Ml SUB-Q 55 units HS [place] Administration Ipratropium [place] 0.5 mg 02/27/25 11:07 Ipratropium Br 0.02% Inh Soln 0.5 Mg/2.5 Ml Vial INHALATION Q6HRT PRN Wheezing Magnesium Hydroxide 30 ml 02/24/25 22:24 Magnesium Hydroxide Susp 30 Ml Udc PO DAILY PRN Constipation Metoprolol Tartrate 50 mg 02/26/25 22:00 02/28/25 05:55 Metoprolol Tartrate 50 Mg Tab PO 50 mg Q8HR [place] Administration Morphine Sulfate 2 mg 02/24/25 22:24 Morphine Sulfate (*Crx) 2 Mg/Ml Inj IV PUSH Q4H PRN Pain Rated 7-10 Naloxone HCl 0.1 mg 02/24/25 22:24 Naloxone Hcl 0.4 Mg/Ml Vial IV PUSH Q2M PRN Opiate Reversal Ondansetron HCl 4 mg 02/25/25 02:38 02/25/25 15:15 Ondansetron Inj 4 Mg/2 Ml Vial IV PUSH 4 mg ONCE PRN Administration Nausea Ondansetron HCl 4 mg 02/25/25 14:59 Ondansetron Inj 4 Mg/2 Ml Vial IV PUSH Q4H PRN Nausea And Vomiting Radiology Results: ITS Impressions Chest X-Ray 02/25/25 19:27 Impression: Probable viral pneumonitis Retrograde Pyelogram 02/26/25 10:14 IMPRESSION: 1. Right internal ureteral stent placement. Please refer to real-time procedural findings for details. Abdomen X-Ray 02/26/25 17:22 IMPRESSION: 1. Valente catheter and right anterior vertebral stent, both remaining in expected positions. Labs Labs: Laboratory Results - last 24 hr 02/27/25 02/27/25 02/27/25 11:27 11:38 16:01 WBC RBC Hgb Hct MCV MCH MCHC RDW Plt Count MPV Immature Gran % (Auto) Neut % (Auto) Lymph % (Auto) [place] % (Auto) Eos % (Auto) Baso % (Auto) Lymph # (Auto) [place] # (Auto) Eos # (Auto) Baso # (Auto) Abs Immat Gran (auto) Absolute Neuts (auto) Absolute Nucleated RBC Nucleated RBC % APTT 60.3 H Sodium Potassium Chloride Carbon Dioxide Anion Gap BUN Creatinine Estim Creat Clear Calc Estimated GFR Glucose POC Capillary Glucose 321 H 332 H Calcium Magnesium Total Bilirubin AST ALT Alkaline Phosphatase Total Protein Albumin 02/27/25 02/27/25 02/27/25 17:43 19:53 23:30 WBC RBC Hgb Hct MCV MCH MCHC RDW Plt Count MPV Immature Gran % (Auto) Neut % (Auto) Lymph % (Auto) [place] % (Auto) Eos % (Auto) Baso % (Auto) Lymph # (Auto) [place] # (Auto) Eos # (Auto) Baso # (Auto) Abs Immat Gran (auto) Absolute Neuts (auto) Absolute Nucleated RBC Nucleated RBC % APTT 80.9 H 81.4 H Sodium Potassium Chloride Carbon Dioxide Anion Gap BUN Creatinine Estim Creat Clear Calc Estimated GFR Glucose POC Capillary Glucose 333 H Calcium Magnesium Total Bilirubin AST ALT Alkaline Phosphatase Total Protein Albumin 02/28/25 02/28/25 03:50 07:36 WBC 6.5 RBC 3.60 L Hgb 11.4 L Hct 34.5 L MCV 95.8 MCH 31.7 MCHC 33.0 RDW 12.6 Plt Count 225 MPV 10.1 Immature Gran % (Auto) 1.1 H Neut % (Auto) 71.4 Lymph % (Auto) 13.3 L [place] % (Auto) 10.8 H Eos % (Auto) 3.1 Baso % (Auto) 0.3 Lymph # (Auto) 0.86 L [place] # (Auto) 0.7 H Eos # (Auto) 0.2 Baso # (Auto) 0.0 Abs Immat Gran (auto) 0.07 H Absolute Neuts (auto) 4.6 Absolute Nucleated RBC 0.000 Nucleated RBC % 0.0 APTT Sodium 133 L Potassium 3.5 Chloride 93 L Carbon Dioxide 34 H Anion Gap 6 BUN 33 H Creatinine 1.08 Estim Creat Clear Calc 53 Estimated GFR > 60 Glucose 296 H POC Capillary Glucose 264 H Calcium 8.9 Magnesium 1.7 Total Bilirubin 0.3 AST 27 ALT 16 Alkaline Phosphatase 71 Total Protein 6.7 Albumin 3.3 L Quality VTE Prophylaxis VTE prophylaxis: pharmacologic ordered
--- NOTE | 2025-02-28 12:45 | P.CONINF_ITS ---
Assessment and Plan Assessment and plan (1) E coli bacteremia: Code(s): R78.81 - Bacteremia; B96.20 - Unspecified Escherichia coli [E. coli] as the cause of diseases classified elsewhere Status: Acute (2) E. coli UTI (urinary tract infection): Code(s): N39.0 - Urinary tract infection, site not specified; B96.20 - Unspecified Escherichia coli [E. coli] as the cause of diseases classified elsewhere Status: Acute (3) Pyelonephritis of right kidney: Code(s): N12 - Tubulo-interstitial nephritis, not specified as acute or chronic Status: Acute (4) Hydronephrosis with renal calculous obstruction: Code(s): N13.2 - Hydronephrosis with renal and ureteral calculous obstruction Status: Acute Plan # Right pyelonephritis involving E coli. # Right - sided nephrolithiasis with ureteral obstruction and hydronephrosis now status post ureteral stent placement. # Acute sepsis associated with above, resolving. Plan: -- outside cultures reporting pansensitive E coli. [facility] urine and blood culture reported as positive for Gram-negative rods with 2 species identified in blood. suspect all these cultures will eventually be be identified as a single E coli species; however, until this can be verified would not deescalate antibiotics at this time. Recommend continuing ceftriaxone at 2 g IV Q 24 hours pending further lab [place] culture information. -- anticipate a 10 day course of antibiotics with plans to complete with oral antibiotics based on final culture results. -- Thank you for the consult. Further recommendations to follow. Patient was seen via video telehealth consultation with the assistance of staff. Chart, data, and patient independently reviewed. Patient was located at [facility] while I was located in my [place] office. Received verbal consent from patient. [facility] Data of Consult Date/Time: 02/28/25 12:45 Requesting Physician: Leana Contreras DO Primary Care Provider: Timothy MedranoMD Consult Narrative Reason for consult: Gram-negative sepsis. Narrative: Cami Agudelo is a 84 year old male and [facility] resident admitted 02/24/2025 for Gram-negative [facility]act[facility]. Past medical history significant for hypertension, diabetes with complication of neuropathy and retinopathy the, and nephrolithiasis. 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 Originally presented to [facility] with right flank pain. Additionally identified as having new onset atrial fibrillation with rapid ventricular response. Initially afebrile with low-grade leukocytosis and a lactic acid level of 2.4. Received Zosyn. Subsequently transferred to this institution. Noted to be febrile to 102.9. Review of outside CT scan of abdomen identified right ureteral stone with hydronephrosis. With clinical signs concerning for sepsis he was taken to the OR for right ureteral stent placement 02/25. 02/25 blood and urine cultures positive for Gram-negative rods with 2 species being reported in the blood cultures. however, initial blood cultures obtained at outside institution now being reported as pansensitive E coli. Has now been transitioned to ceftriaxone, now day 4 of antibiotics. No known antibiotic allergies. He currently remains afebrile with resolution of leukocytosis. He feels better. Review of Systems 2 Review of Systems: Improvement in right flank pain. 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 Diabetic retinopathy SK (seborrheic keratosis) Incomplete tear of right rotator cuff Hereditary and idiopathic neuropathy, unspecified Gastro-esophageal reflux disease without esophagitis Elevated PSA Dysphagia Body mass index (BMI) greater than 30 (01/29/17) AK (actinic keratosis) Hard of hearing Chronic pain of both knees Chronic low back pain Essential (primary) hypertension Prostate cancer BPH (benign prostatic hyperplasia) Kidney stone Seasonal allergies Surgical History Surgical History Status post cystoscopy with ureteral stent placement With right ureteral stent placement at least 3 past with the most recent episode being December 2013 and September 2017 Status post right partial knee replacement Complicated by Staph epidermidis infection with subsequent removal of hardware and antibiotic spacer placement 03/2025 H/O cataract removal with insertion of prosthetic lens Hx of excision of mass exc anterior chest wall cyst on 12/08/22 H/O arthroscopic knee surgery bilateral knees History of bladder surgery H/O prostatectomy Hx of cholecystectomy H/O colonoscopy H/O sinus surgery Family History Family History Father Family history of emphysema Family history of congestive heart failure Mother Family history of malignant neoplasm of breast in first degree relative Family history of malignant neoplasm Social History Social History (Updated 02/25/25 @ 04:32 by Leana Contreras DO) Social History: He lives with his . He has 6 children. 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 He smoked a pack of cigarettes per week from the time use 17 up until 2002. The last 10 or 15 years of his smoking he only smoked intermittently. Code status: Full code Surrogate decision maker: Smoking packs per day: 0.25 Smoking cigarettes per day: 5.0 Years smoked: 50 Smoking pack-years: 12.50 Smoking status: Former smoker Tobacco type: cigarettes Second hand tobacco smoke exposure: No Smoking end date: 12/27/02 Additional smoking assessment comments: SMOKED 1 PACK/WEEK X 15 YEARS Alcohol intake: former Substance use: never Lack of Transportation: No Lack of Food: Never True Current Housing: I Have Housing Concerned About Future Housing: No Difficulty Paying Gas/Electric Bills: No Difficulty Paying for Meds: No Currently Unemployed: No Education: Decline to Answer Difficulty w/ Childcare or Family Care: No Living arrangements: with family Additional living arrangements comments: AND GRANDDAUGHTER Spiritual care concerns: No Meds Home Medications and Allergies Home Medications ?Medication ?Instructions ?Recorded ?Confirmed ?Type blood sugar diagnostic (Accu-Chek #10 ea 08/11/1901/29 History Dot Plus test strips) blood-glucose meter (Accu-Chek #1 ea 08/11/19 02/25/25 History Dot Plus Meter) lancets (Accu-Chek Softclix #50 ea 08/11/19 02/25/25 H istory Lancets) vxyttjw-rzvlmkmxrcxfk-hebyyhpu 250 1 - 3 tablet PO Q4- 6H PRN HEADACHES 11/27/22 02/24/25 History mg-250 mg-65 mg tablet (Excedrin Migraine) magnesium 500 mg tablet 500 mg PO DAILY PRN cramps 0 11/27/22 02/24/25 History blood-glucose sensor (Dexcom G7 #10 ea 05/01/23 Rx Sensor device) pen needle, diabetic 31 gauge x #100 ea 08/11/2302/25 Rx 3/16 (BD Ultra-Fine Mini Pen Needle) hydrocodone 10 mg-acetaminophen 1 tablet PO Q6H PRN pa in (scale 02/09/24 02/24/25 History 325 mg tablet score 4-6) empagliflozin 10 mg tablet 10 mg PO QAM #90 tabs 05/2702/24/25 Rx (Jardiance) metformin 500 mg tablet 1,000 mg (2 x 500 mg) PO BID 90 09/05/24 02/24/25 Rx days #360 tabs cyclobenzaprine 10 mg tablet 10 mg PO DAILY PRN muscle spasm 02/24/25 02/24/25 History insulin glargine 100 unit/mL (3 60 unit subcut DAILY 0 02/24/25 02/24/25 History mL) subcutaneous pen (Lantus Solostar U-100 Insulin) insulin aspart U-100 100 unit/mL See Rx Instructions s ubcut DAILY 02/25/25 02/25/25 History (3 mL) subcutaneous pen (Novolog FlexPen U-100 Insulin aspart) Allergies Allergy/AdvReac Type Severity Reaction Status Date / Time venom-wasp Allergy Severe Anaphylaxis Verified 02/24/25 23:50 adhesive tape Allergy Mild Rash Verified 02/24/25 23:50 Vital Signs Vital Signs - 24 hr 02/27/25 13:21 02/27/25 14:00 02/27/25 16:00 Temperature Pulse Rate 89 98 Respiratory Rate Blood Pressure Pulse Oximetry 93 Oxygen Delivery Room Air Oxygen Flow Rate Fraction of Inspired Oxygen 02/27/25 16:00 02/27/25 16:00 02/27/25 18:00 Temperature 98.6 F Pulse Rate 76 77 81 Respiratory Rate 18 Blood Pressure 129/64 Pulse Oximetry 98 Oxygen Delivery Oxygen Flow Rate Fraction of Inspired Oxygen 02/27/25 20:00 02/27/25 20:00 02/27/25 20:00 Temperature 97.6 F Pulse Rate 78 78 78 Respiratory Rate 20 20 Blood Pressure 141/65 H Pulse Oximetry 93 88 L Oxygen Delivery Nasal Cannula Oxygen Flow Rate 2 Fraction of Inspired Oxygen 02/27/25 21:24 02/27/25 21:24 02/27/25 22:00 Temperature Pulse Rate 74 74 72 Respiratory Rate Blood Pressure Pulse Oximetry Oxygen Delivery Oxygen Flow Rate Fraction of Inspired Oxygen 02/28/25 00:00 02/28/25 00:00 02/28/25 00:00 Temperature 98.0 F Pulse Rate 77 76 76 Respiratory Rate 22 H 22 H Blood Pressure 147/67 H Pulse Oximetry 96 96 Oxygen Delivery Nasal Cannula Oxygen Flow Rate 2 Fraction of Inspired Oxygen 21 02/28/25 02:00 02/28/25 04:00 02/28/25 04:00 Temperature Pulse Rate 62 78 78 Respiratory Rate 22 H Blood Pressure Pulse Oximetry 96 Oxygen Delivery Nasal Cannula Oxygen Flow Rate 2 Fraction of Inspired Oxygen 21 02/28/25 04:00 02/28/25 05:55 02/28/25 06:00 Temperature 97.7 F Pulse Rate 73 118 H 74 Respiratory Rate 20 Blood Pressure 139/68 Pulse Oximetry 96 Oxygen Delivery Oxygen Flow Rate Fraction of Inspired Oxygen 02/28/25 07:43 02/28/25 08:00 02/28/25 08:00 Temperature 97.5 F L Pulse Rate 76 75 Respiratory Rate 18 Blood Pressure 135/59 L Pulse Oximetry 93 Oxygen Delivery Room Air Oxygen Flow Rate Fraction of Inspired Oxygen 02/28/25 09:07 02/28/25 10:00 02/28/25 12:00 Temperature 97.8 F Pulse Rate 77 70 70 Respiratory Rate 16 Blood Pressure 123/62 Pulse Oximetry 97 Oxygen Delivery Oxygen Flow Rate Fraction of Inspired Oxygen Exam 2 Narrative: Awake, alert, and nontoxic. Normocephalic and without conjunctivitis. Normal respiratory function. No abdominal distention. No rash. Results Labs 02/28/25 03:50 02/28/25 03:50 Labs: Short CBC 02/28/25 Range/Units 03:50 WBC 6.5 (4.5-10.0) K/mm3 Hgb 11.4 L (14.0-18.0) g/dL Hct 34.5 L (42.0-52.0) % Plt Count 225 (150-375) k/mm3 BMP 02/28/25 03:50 Sodium 133 L Potassium 3.5 Chloride 93 L Carbon Dioxide 34 H BUN 33 H Creatinine 1.08 Glucose 296 H Calcium 8.9 Liver Function 02/28/25 Range/Units 03:50 Total Bilirubin 0.3 (0.2-1.3) mg/dL AST 27 (17-59) U/L ALT 16 (6-50) U/L Alkaline Phosphatase 71 (38-126) U/L Albumin 3.3 L (3.5-5.1) g/dL
[2025-02-28] MEDS: HEPARIN SOD/D5W 100 UNITS/ML 25,000 UNITS/250 ML BAG 19 UNITS IV CONT (13:37)
[2025-02-28] MEDS: INSULIN ASPART (*BKC) 100 UNITS/ML 8 UNITS SUB-Q (16:57)
[2025-02-28] MEDS: APIXABAN 5 MG TABLET PO (20:30)
[2025-02-28] MEDS: INSULIN GLARGINE (*BKC) 100 UNITS/ML 55 UNITS SUB-Q (21:43)
[2025-03-01] VITALS (12 sets, daily range): BP systolic 117–131; BP diastolic 55–82; PULSE 71–95; RESP 16–20; TEMP 36.5–36.6; O2SAT 92–97
[2025-03-01 04:56] LABS: Hematocrit 38.5 % (42.0-52.0); Hemoglobin 12.8 g/dL (14.0-18.0); Immature Granulocyte Percent A 2.8 % (0-0.5); Lymphocytes Absolute Auto 1.47 K/mm3 (0.9-3.2); Mean Corpuscular HGB Conc 33.2 g/dl (32-36); Mean Corpuscular Hemoglobin 31.7 pg (26-34); Mean Corpuscular Volume 95.3 fl (80-100); Nucleated Red Blood Cells Absolute Auto 0.000 K/mm3 (0.0-0.012); Nucleated Red Blood Cells Perc 0.0 % (0.0-0.2); Platelet Count Result 296 k/mm3 (150-375); Red Blood Count 4.04 M/mm3 (4.6-6.20); White Blood Count 8.0 K/mm3 (4.5-10.0)
[2025-03-01 05:07] LABS: Alanine Aminotransferase 19 U/L (6-50); Albumin Level 3.7 g/dL (3.5-5.1); Alkaline Phosphatase 79 U/L (38-126); Anion Gap 9 mmol/L (4-12); Aspartate Amino Transferase 34 U/L (17-59); Bilirubin,Total 0.5 mg/dL (0.2-1.3); Blood Urea Nitrogen 30 mg/dL (9-20); Calcium 9.4 mg/dL (8.4-10.2); Carbon Dioxide 34 mmol/L (22-30); Chloride 94 mmol/L (98-107); Estimated CRCL calculation 46 ml/min; Estimated Glomerular Filt Rate 56; Glucose 224 mg/dL (65-110); Magnesium 1.7 mg/dL (1.6-2.3); Potassium 3.1 mmol/L (3.4-5.0); Sodium 137 mmol/L (137-145); Total Protein 7.5 g/dL (6.3-8.2)
[2025-03-01 05:50] LABS: Partial Thromboplastin Time 45.9 Seconds (22.3-36.8)
[2025-03-01] MEDS: APIXABAN 5 MG TABLET PO ×2 (08:11→20:50)
[2025-03-01] MEDS: METOPROLOL SUCCINATE EXT REL 50 MG TABCR 150 MG PO (08:11)
[2025-03-01] MEDS: FUROSEMIDE 40 MG TABLET PO (08:11)
[2025-03-01] MEDS: AMIODARONE HCL 200 MG TABLET 400 MG PO ×2 (08:11→20:49)
[2025-03-01] MEDS: INSULIN ASPART (*BKC) 100 UNITS/ML 8 UNITS SUB-Q (08:12)
[2025-03-01] MEDS: cefTRIAXone 2 GM in SODIUM CHLORIDE 0.9% IV 100 ML 200 ML IVPB (08:12)
[2025-03-01] MEDS: INSULIN ASPART (*BKC) 100 UNITS/ML SUB-Q ×3 (08:13→20:50)
--- NOTE | 2025-03-01 09:01 | PN_ITS ---
This document was recreated on 04/03/2025. The original document was signed by Makenzie Dumont APRN on 03/01/2025 0906. Progress Note: A&P Assessment and Plan (1) Atrial fibrillation with rapid ventricular response: Code(s): I48.91 - Unspecified atrial fibrillation Status: Acute Plan Acute hypoxemic respiratory failure is likely related to pulmonary edema improved today-now on PO lasix Atrial flutter with RVR converted back to sinus Sepsis Obstructive uropathy ASH Diabetes mellitus type 2 Plan Change Lasix 40 mg p.o. daily Amiodarone to 400 mg PO BID for one week then 400 mg daily for one week then 200 mg daily Metoprolol can be shifted to ToprolXL 150mg daily for dosing convenience Will shift heparin to Eliquis 5mg b.i.d. - Platelets and H&H stable, and he is not having hematuria Will arrange for follow up in our office Cardiology will sign off please call with questions Subjective Date/time seen: 03/01/25 09:01 Interval history: Patient is sitting up in bed shaving at time of visit. He is [place]. He denies any chest pain,shortness of breath, dizziness or palpitations. Review of Systems Review of Systems: All systems reviewed & are unremarkable except as noted in HPI and below (HPI) Exam Const: General: comfortable and no acute distress HENMT: Face/Nose/Sinus: Normal nares present and no epistaxis Mouth: Yes moist mucous membranes Neck: Neck: supple and JVD Carotids: no bruits Resp: Effort & Inspection: normal respiratory effort Auscultation: rales bilateral at the base and lung sounds not diminished Other: No chest wall tenderness Cardio: Rate: regular rate Rhythm: regular rhythm Heart sounds: no gallops, no murmurs and no rubs GI: Auscultation: normal bowel sounds Skin: General skin exam: normal color, rashes and/or lesions noted and no erythema Other: Warm Neuro: Cranial nerves: Yes Equal, round and reactive pupils present Speech: normal speech Other: No obvious focal deficit or facial asymmetry Extrem: General: no edema Other: Normal capillary refills Intact distal pulses. Objective Data Vital Signs Vital Signs: Vital Signs - 24 hr 02/28/2509:07 02/28/2510:00 02/29/2512:00 Temperature 36.6 C Pulse Rate 77 70 70 Respiratory Rate 16 Blood Pressure 123/62 Pulse Oximetry 97 Oxygen Delivery Fraction of Inspired Oxygen 02/29/2512:00 02/29/2516:00 02/29/2516:00 Temperature 36.6 C Pulse Rate 77 93 74 Respiratory Rate 20 Blood Pressure 146/68 H Pulse Oximetry 95 Oxygen Delivery Fraction of Inspired Oxygen 02/29/2520:00 02/29/2520:00 02/29/2520:00 Temperature 36.3 C L Pulse Rate 86 86 86 Respiratory Rate 20 20 Blood Pressure 124/61 Pulse Oximetry 92 92 Oxygen Delivery Room Air Fraction of Inspired Oxygen 21 02/28/2523:59 03/01/2500:00 03/01/2503:28 Temperature 36.4 C L 36.5 C Pulse Rate 90 89 89 Respiratory Rate 20 20 Blood Pressure 114/72 117/55 L Pulse Oximetry 94 92 Oxygen Delivery Fraction of Inspired Oxygen 03/01/2504:00 03/01/2508:00 03/01/2508:11 Temperature Pulse Rate 95 85 85 Respiratory Rate 16 Blood Pressure 129/82 Pulse Oximetry 94 Oxygen Delivery Fraction of Inspired Oxygen 03/01/2508:11 Temperature Pulse Rate 85 Respiratory Rate Blood Pressure Pulse Oximetry Oxygen Delivery Fraction of Inspired Oxygen Intake/Output Intake/Output: Intake & Output 02/26/25 02/27/25 02/28/25 03/01/25 23:59 23:59 23:59 23:59 Intake Total 2198.4 2869.1 1951.3 630 Output Total 7000 2625 3400 Balance -4801.6 244.1 -1448.7 630 Meds/Results Medications: Active Medications Generic Name Dose Route Start Last Admin Trade Name Freq PRN Reason Stop Dose Admin Acetaminophen 650 mg 02/24/25 22:24 02/25/25 23:34 Acetaminophen 325 Mg Tablet PO 650 mg Q4H PRN Administration Mild Pain (1-3) or Fever Hydrocodone Bitart/Acetaminophen 1 tab 02/25/25 00:31 Hydrocodone/Acetaminophen (*Crx) 10-325 Mg Tablet PO Q6H PRN pain (scale score 4-6) Al Hydrox/Mg Hydrox/Simethicone 30 ml 02/24/25 22:24 Mag Hydrox/Al Hydrox/Simeth 30 Ml Udc PO QID PRN Dyspepsia Amiodarone HCl 400 mg 02/26/25 15:25 03/01/25 08:11 Amiodarone Hcl 200 Mg Tablet PO 03/13/25 23:59 400 mg Q12HR ANTON Administration Apixaban 5 mg 02/28/25 21:00 03/01/25 08:11 Apixaban 5 Mg Tablet PO 5 mg Q12HR ANTON Administration Benzocaine 1 lozenge 02/28/25 16:26 Benzocaine/Menthol (*Bkc) 18 Ea Lozenge PO PRN PRN Sore Throat Cyclobenzaprine HCl 10 mg 02/25/25 00:31 Cyclobenzaprine Hcl 10 Mg Tablet PO DAILY PRN Muscle Spasm Dextrose 12.5 gm 02/28/25 12:21 Dextrose 50% 25 Gm/50 Ml Syringe IV PUSH PRN PRN Hypoglycemia Protocol Furosemide 40 mg 03/01/25 09:00 03/01/25 08:11 Furosemide 40 Mg Tablet PO 40 mg DAILY ANTON Administration Glucagon 1 mg 02/28/25 12:21 Glucagon For Inj 1 Mg Vial IM PRN PRN Hypoglycemia Protocol Glucose 15 gm 02/28/25 12:21 Glucose Oral Gel 15 Gm Of Glucse In 37.5 Gm Tube PO PRN PRN Hypoglycemia Protocol Ceftriaxone Sodium 2 gm/ 100 mls @ 200 mls/hr 02/27/25 10:30 03/01/25 08:12 Sodium Chloride IVPB 200 mls/hr DAILY ANTON Administration Dextrose 1,000 mls @ 100 mls/hr 02/28/25 12:21 Dextrose 5% 1,000 Ml IVPB PRN PRN Hypoglycemia Protocol Magnesium Sulfate/Dextrose 1 gm in 100 mls @ 100 mls/hr 03/01/25 08:45 Magnesium Sulf 1 Gm/D5w 100 Ml IVPB 03/01/25 09:44 ONCE ONE Insulin Aspart 3 - 6 units 02/25/25 08:00 03/01/25 08:13 Insulin Aspart (*Bkc) 100 Units/Ml SUB-Q 3 units TIDWM ANTON Administration Protocol Insulin Aspart 1 - 2 units 02/25/25 21:00 02/28/25 21:42 Insulin Aspart (*Bkc) 100 Units/Ml SUB-Q 2 units HS ANTON Administration Protocol Insulin Aspart 11 units 03/01/25 12:00 Insulin Aspart (*Bkc) 100 Units/Ml SUB-Q TIDWM ANTON Insulin Glargine 55 units 02/25/25 21:10 02/28/25 21:43 Insulin Glargine (*Bkc) 100 Units/Ml SUB-Q 55 units HS [facility] Administration Ipratropium [place] 0.5 mg 02/27/25 11:07 Ipratropium Br 0.02% Inh Soln 0.5 Mg/2.5 Ml Vial INHALATION Q6HRT PRN Wheezing Magnesium Hydroxide 30 ml 02/24/25 22:24 Magnesium Hydroxide Susp 30 Ml Udc PO DAILY PRN Constipation Metoprolol Succinate 150 mg 03/01/25 09:00 03/01/25 08:11 Metoprolol Succinate Ext Rel 50 Mg Tabcr PO 150 mg QAM [facility] Administration Morphine Sulfate 2 mg 02/24/25 22:24 Morphine Sulfate (*Crx) 2 Mg/Ml Inj IV PUSH Q4H PRN Pain Rated 7-10 Naloxone HCl 0.1 mg 02/24/25 22:24 Naloxone Hcl 0.4 Mg/Ml Vial IV PUSH Q2M PRN Opiate Reversal Ondansetron HCl 4 mg 02/25/25 02:38 02/25/25 15:15 Ondansetron Inj 4 Mg/2 Ml Vial IV PUSH 4 mg ONCE PRN Administration Nausea Ondansetron HCl 4 mg 02/25/25 14:59 Ondansetron Inj 4 Mg/2 Ml Vial IV PUSH Q4H PRN Nausea And Vomiting Potassium Chloride 40 meq 03/01/25 09:00 Potassium Chloride 20 Meq Er Tablet PO 03/01/25 13:01 Q4HR [facility] Radiology Results: ITS Impressions Chest X-Ray 02/25/25 19:27 Impression: Probable viral pneumonitis Retrograde Pyelogram 02/26/25 10:14 IMPRESSION: 1. Right internal ureteral stent placement. Please refer to real-time procedural findings for details. Abdomen X-Ray 02/28/25 13:46 Impression: 1: Right renal and probable ureteral stones. Consider correlation with CT. Right internal ureteral stent position stable. Labs Labs: Laboratory Results - last 24 hr 02/28/25 02/28/25 02/28/25 11:16 16:42 20:39 WBC RBC Hgb Hct MCV MCH MCHC RDW Plt Count MPV Immature Gran % (Auto) Neut % (Auto) Lymph % (Auto) [place] % (Auto) Eos % (Auto) Baso % (Auto) Lymph # (Auto) [place] # (Auto) Eos # (Auto) Baso # (Auto) Abs Immat Gran (auto) Absolute Neuts (auto) Absolute Nucleated RBC Nucleated RBC % APTT Sodium Potassium Chloride Carbon Dioxide Anion Gap BUN Creatinine Estim Creat Clear Calc Estimated GFR Glucose POC Capillary Glucose 280 H 261 H 311 H Calcium Magnesium Total Bilirubin AST ALT Alkaline Phosphatase Total Protein Albumin 03/01/25 03/01/25 04:23 07:56 WBC 8.0 RBC 4.04 L Hgb 12.8 L Hct 38.5 L MCV 95.3 MCH 31.7 MCHC 33.2 RDW 12.3 Plt Count 296 MPV 10.0 Immature Gran % (Auto) 2.8 H Neut % (Auto) 65.7 Lymph % (Auto) 18.5 [place] % (Auto) 9.8 H Eos % (Auto) 2.6 Baso % (Auto) 0.6 Lymph # (Auto) 1.47 [place] # (Auto) 0.8 H Eos # (Auto) 0.2 Baso # (Auto) 0.1 Abs Immat Gran (auto) 0.22 H Absolute Neuts (auto) 5.2 Absolute Nucleated RBC 0.000 Nucleated RBC % 0.0 APTT 45.9 H Sodium 137 Potassium 3.1 L Chloride 94 L Carbon Dioxide 34 H Anion Gap 9 BUN 30 H Creatinine 1.24 Estim Creat Clear Calc 46 Estimated GFR 56 L Glucose 224 H POC Capillary Glucose 241 H Calcium 9.4 Magnesium 1.7 Total Bilirubin 0.5 AST 34 ALT 19 Alkaline Phosphatase 79 Total Protein 7.5 Albumin 3.7 Please be advised this is a medical document. It is intended for [id number] communication. It is written in medical language and may contain unfamiliar abbreviations or verbiage. Medical documents are intended to carry relevant information, facts as evident, and the clinical opinion of the practitioner at the time of the encounter. This report may have been done utilizing a voice recognition system. Attempts have been made to correct errors. However, there may be uncorrected grammatical, spelling, and recognition errors present. The file time of this note does not necessarily represent the time the patient was seen. Report Initialized date/time: 6810 03/01/25905 Electronically signed by: [id number] 03/01/25905 Doyle Jenkins MD 03/01/25 6021
[2025-03-01] MEDS: MAGNESIUM SULF 1 GM/D5W 100 ML 1 GM/100 ML BAG IVPB (09:56)
[2025-03-01] MEDS: POTASSIUM CHLORIDE 20 MEQ ER TABLET 40 MEQ PO ×2 (09:56→13:29)
[2025-03-01] MEDS: INSULIN ASPART (*BKC) 100 UNITS/ML 11 UNITS SUB-Q ×2 (11:37→16:48)
[2025-03-01] MEDS: ACETAMINOPHEN 325 MG TABLET 650 MG PO (11:41)
--- NOTE | 2025-03-01 11:47 | WPDINFPN2 ---
Progress Note: A&P Assessment and Plan (1) E coli bacteremia: Code(s): R78.81 - Bacteremia; B96.20 - Unspecified Escherichia coli [E. coli] as the cause of diseases classified elsewhere Status: Acute (2) E. coli UTI (urinary tract infection): Code(s): N39.0 - Urinary tract infection, site not specified; B96.20 - Unspecified Escherichia coli [E. coli] as the cause of diseases classified elsewhere Status: Acute (3) Pyelonephritis of right kidney: Code(s): N12 - Tubulo-interstitial nephritis, not specified as acute or chronic Status: Acute (4) Hydronephrosis with renal calculous obstruction: Code(s): N13.2 - Hydronephrosis with renal and ureteral calculous obstruction Status: Acute Plan # Right pyelonephritis involving pansensitive E coli. # Right - sided nephrolithiasis with ureteral obstruction and hydronephrosis now status post ureteral stent placement. # Acute sepsis associated with above, resolving. Plan: -- until discharge recommend continuing with IV ceftriaxone . -- at discharge would transition to oral amoxicillin 1 g Q 8 hours to complete a combined 10 day course of IV and oral antibiotics. Patient was seen via video telehealth consultation with the assistance of staff. Chart, data, and patient independently reviewed. Patient was located at [facility] while I was located in my [place] office. Received verbal consent from patient. Subjective Date/time seen: 03/01/25 11:47 Interval history: 03/01/2025: Continued clinical improvement. Resolution of right flank pain. [facility] blood and urine cultures also positive for pansensitive E coli. Review of Systems Review of Systems: Resolution of right flank pain. All systems reviewed & are unremarkable except as noted in HPI and below Exam Narrative: Awake, alert, and nontoxic. Normocephalic and without conjunctivitis. Normal respiratory function. No abdominal distention. No rash. Objective Data Vital Signs Vital Signs: Vital Signs - 24 hr 02/28/25 12:00 02/28/25 12:00 02/28/25 16:00 Temperature 97.8 F Pulse Rate 70 77 93 Respiratory Rate 16 Blood Pressure 123/62 Pulse Oximetry 97 Oxygen Delivery Fraction of Inspired Oxygen 02/28/25 16:00 02/28/25 20:00 02/28/25 20:00 Temperature 97.8 F 97.3 F L Pulse Rate 74 86 86 Respiratory Rate 20 20 20 Blood Pressure 146/68 H 124/61 Pulse Oximetry 95 92 92 Oxygen Delivery Room Air Fraction of Inspired Oxygen 21 02/28/25 20:00 02/28/25 23:59 03/01/25 00:00 Temperature 97.5 F L Pulse Rate 86 90 89 Respiratory Rate 20 Blood Pressure 114/72 Pulse Oximetry 94 Oxygen Delivery Fraction of Inspired Oxygen 03/01/25 03:28 03/01/25 04:00 03/01/25 08:00 Temperature 97.7 F Pulse Rate 89 95 85 Respiratory Rate 20 16 Blood Pressure 117/55 L 129/82 Pulse Oximetry 92 94 Oxygen Delivery Fraction of Inspired Oxygen 03/01/25 08:00 03/01/25 08:11 03/01/25 08:11 Temperature Pulse Rate 78 85 85 Respiratory Rate Blood Pressure Pulse Oximetry Oxygen Delivery Fraction of Inspired Oxygen 03/01/25 08:11 03/01/25 11:36 Temperature Pulse Rate 85 77 Respiratory Rate 16 16 Blood Pressure 124/75 Pulse Oximetry 94 93 Oxygen Delivery Room Air Fraction of Inspired Oxygen 21 Intake/Output Intake/Output: Intake & Output 02/26/25 02/27/25 02/28/25 03/01/25 23:59 23:59 23:59 23:59 Intake Total 2198.4 2869.1 1951.3 630 Output Total 7000 2625 3400 Balance -4801.6 244.1 -1448.7 630 Meds/Results Medications: Active Medications Generic Name Dose Route Start Last Admin Trade Name Freq PRN Reason Stop Dose Admin Acetaminophen 650 mg 02/24/25 22:24 03/01/25 11:41 Acetaminophen 325 Mg Tablet PO 650 mg Q4H PRN Administration Mild Pain (1-3) or Fever Hydrocodone Bitart/Acetaminophen 1 tab 02/25/25 00:31 Hydrocodone/Acetaminophen (*Crx) 10-325 Mg Tablet PO Q6H PRN pain (scale score 4-6) Al Hydrox/Mg Hydrox/Simethicone 30 ml 02/24/25 22:24 Mag Hydrox/Al Hydrox/Simeth 30 Ml Udc PO QID PRN Dyspepsia Amiodarone HCl 400 mg 02/26/25 15:25 03/01/25 08:11 Amiodarone Hcl 200 Mg Tablet PO 03/13/25 23:59 400 mg Q12HR ANTON Administration Apixaban 5 mg 02/28/25 21:00 03/01/25 08:11 Apixaban 5 Mg Tablet PO 5 mg Q12HR ANTON Administration Benzocaine 1 lozenge 02/28/25 16:26 Benzocaine/Menthol (*Bkc) 18 Ea Lozenge PO PRN PRN Sore Throat Cyclobenzaprine HCl 10 mg 02/25/25 00:31 Cyclobenzaprine Hcl 10 Mg Tablet PO DAILY PRN Muscle Spasm Dextrose 12.5 gm 02/28/25 12:21 Dextrose 50% 25 Gm/50 Ml Syringe IV PUSH PRN PRN Hypoglycemia Protocol Furosemide 40 mg 03/01/25 09:00 03/01/25 08:11 Furosemide 40 Mg Tablet PO 40 mg DAILY ANTON Administration Glucagon 1 mg 02/28/25 12:21 Glucagon For Inj 1 Mg Vial IM PRN PRN Hypoglycemia Protocol Glucose 15 gm 02/28/25 12:21 Glucose Oral Gel 15 Gm Of Glucse In 37.5 Gm Tube PO PRN PRN Hypoglycemia Protocol Ceftriaxone Sodium 2 gm/ 100 mls @ 200 mls/hr 02/27/25 10:30 03/01/25 08:12 Sodium Chloride IVPB 200 mls/hr DAILY ANTON Administration Dextrose 1,000 mls @ 100 mls/hr 02/28/25 12:21 Dextrose 5% 1,000 Ml IVPB PRN PRN Hypoglycemia Protocol Insulin Aspart 3 - 6 units 02/25/25 08:00 03/01/25 11:38 Insulin Aspart (*Bkc) 100 Units/Ml SUB-Q 4 units TIDWM ANTON Administration Protocol Insulin Aspart 1 - 2 units 02/25/25 21:00 02/28/25 21:42 Insulin Aspart (*Bkc) 100 Units/Ml SUB-Q 2 units HS ANTON Administration Protocol Insulin Aspart 11 units 03/01/25 12:00 03/01/25 11:37 Insulin Aspart (*Bkc) 100 Units/Ml SUB-Q 11 units TIDWM ANTON Administration Insulin Glargine 55 units 02/25/25 21:10 02/28/25 21:43 Insulin Glargine (*Bkc) 100 Units/Ml SUB-Q 55 units HS ANTON Administration Ipratropium [place] 0.5 mg 02/27/25 11:07 Ipratropium Br 0.02% Inh Soln 0.5 Mg/2.5 Ml Vial INHALATION Q6HRT PRN Wheezing Magnesium Hydroxide 30 ml 02/24/25 22:24 Magnesium Hydroxide Susp 30 Ml Udc PO DAILY PRN Constipation Metoprolol Succinate 150 mg 03/01/25 09:00 03/01/25 08:11 Metoprolol Succinate Ext Rel 50 Mg Tabcr PO 150 mg QAM ANTON Administration Morphine Sulfate 2 mg 02/24/25 22:24 Morphine Sulfate (*Crx) 2 Mg/Ml Inj IV PUSH Q4H PRN Pain Rated 7-10 Naloxone HCl 0.1 mg 02/24/25 22:24 Naloxone Hcl 0.4 Mg/Ml Vial IV PUSH Q2M PRN Opiate Reversal Ondansetron HCl 4 mg 02/25/25 02:38 02/25/25 15:15 Ondansetron Inj 4 Mg/2 Ml Vial IV PUSH 4 mg ONCE PRN Administration Nausea Ondansetron HCl 4 mg 02/25/25 14:59 Ondansetron Inj 4 Mg/2 Ml Vial IV PUSH Q4H PRN Nausea And Vomiting Potassium Chloride 40 meq 03/01/25 09:00 03/01/25 09:56 Potassium Chloride 20 Meq Er Tablet PO 03/01/25 13:01 40 meq Q4HR ANTON Administration Radiology Results: ITS Impressions Chest X-Ray 02/25/25 19:27 Impression: Probable viral pneumonitis Retrograde Pyelogram 02/26/25 10:14 IMPRESSION: 1. Right internal ureteral stent placement. Please refer to real-time procedural findings for details. Abdomen X-Ray 02/28/25 13:46 Impression: 1: Right renal and probable ureteral stones. Consider correlation with CT. Right internal ureteral stent position stable. Labs Labs: Laboratory Results - last 24 hr 02/28/25 02/28/25 03/01/25 16:42 20:39 04:23 WBC 8.0 RBC 4.04 L Hgb 12.8 L Hct 38.5 L MCV 95.3 MCH 31.7 MCHC 33.2 RDW 12.3 Plt Count 296 MPV 10.0 Immature Gran % (Auto) 2.8 H Neut % (Auto) 65.7 Lymph % (Auto) 18.5 [place] % (Auto) 9.8 H Eos % (Auto) 2.6 Baso % (Auto) 0.6 Lymph # (Auto) 1.47 [place] # (Auto) 0.8 H Eos # (Auto) 0.2 Baso # (Auto) 0.1 Abs Immat Gran (auto) 0.22 H Absolute Neuts (auto) 5.2 Absolute Nucleated RBC 0.000 Nucleated RBC % 0.0 APTT 45.9 H Sodium 137 Potassium 3.1 L Chloride 94 L Carbon Dioxide 34 H Anion Gap 9 BUN 30 H Creatinine 1.24 Estim Creat Clear Calc 46 Estimated GFR 56 L Glucose 224 H POC Capillary Glucose 261 H 311 H Calcium 9.4 Magnesium 1.7 Total Bilirubin 0.5 AST 34 ALT 19 Alkaline Phosphatase 79 Total Protein 7.5 Albumin 3.7 03/01/25 03/01/25 07:56 11:28 WBC RBC Hgb Hct MCV MCH MCHC RDW Plt Count MPV Immature Gran % (Auto) Neut % (Auto) Lymph % (Auto) [place] % (Auto) Eos % (Auto) Baso % (Auto) Lymph # (Auto) [place] # (Auto) Eos # (Auto) Baso # (Auto) Abs Immat Gran (auto) Absolute Neuts (auto) Absolute Nucleated RBC Nucleated RBC % APTT Sodium Potassium Chloride Carbon Dioxide Anion Gap BUN Creatinine Estim Creat Clear Calc Estimated GFR Glucose POC Capillary Glucose 241 H 265 H Calcium Magnesium Total Bilirubin AST ALT Alkaline Phosphatase Total Protein Albumin
--- NOTE | 2025-03-01 12:06 | PM.IMPN ---
Progress Note: A&P Assessment and Plan (1) Atrial fibrillation with rapid ventricular response: Code(s): I48.91 - Unspecified atrial fibrillation Status: Acute (2) Hyperlipidemia LDL goal <100: Code(s): E78.5 - Hyperlipidemia, unspecified Status: Acute (3) Type 2 diabetes mellitus with hyperglycemia, with long-term current use of insulin: Code(s): E11.65 - Type 2 diabetes mellitus with hyperglycemia; Z79.4 - relationship executive (current) use of insulin Status: Acute (4) Hard of hearing: Code(s): H91.90 - Unspecified hearing loss, unspecified ear Status: Acute (5) Hydronephrosis with renal calculous obstruction: Code(s): N13.2 - Hydronephrosis with renal and ureteral calculous obstruction Status: Acute (6) Acute kidney injury: Code(s): N17.9 - Acute kidney failure, unspecified Status: Acute (7) E. coli UTI (urinary tract infection): Code(s): N39.0 - Urinary tract infection, site not specified; B96.20 - Unspecified Escherichia coli [E. coli] as the cause of diseases classified elsewhere Status: Acute (8) E coli bacteremia: Code(s): R78.81 - Bacteremia; B96.20 - Unspecified Escherichia coli [E. coli] as the cause of diseases classified elsewhere Status: Acute (9) Bacteremia: Code(s): R78.81 - Bacteremia Status: Acute (10) Sepsis: Qualifiers: Sepsis type: sepsis due to unspecified organism Sepsis acute organ dysfunction status: with acute organ dysfunction Severe sepsis acute organ dysfunction type: acute renal failure Acute renal failure type: unspecified Severe sepsis shock status: without septic shock Qualified Code(s): A41.9 - Sepsis, unspecified organism; R65.20 - Severe sepsis without septic shock; N17.9 - Acute kidney failure, unspecified Code(s): A41.9 - Sepsis, unspecified organism Status: Acute Plan 84-year-old male with past medical history of essential hypertension, 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 The patient presented outside facility complaining of decreased appetite for 3 days and right flank pain. According to the documentation from the outside facility the patient was initially had sinus tachycardia but shortly after arrival at ER was noted to flip into AFib with RVR. His CT from the outside facility was reviewed and demonstrated an 8 mm mid ureteral stone with mild hydronephrosis. Urology was contacted and subsequently patient was taken to the OR for ureteral stent placement. 1. Sepsis: Secondary to obstructive uropathy Bacteremia secondary to right-sided pyelonephritis/UTI Appreciate ID help Outside cultures growing E coli Await final culture reports Until then patient will continue on IV ceftriaxone Appreciate urology [facility], status post right ureteral stent placement Outpatient follow-up with Urology 2. ASH: Resolved Avoid nephrotoxins Recheck BMP in a.m. 3. AFib with RVR+ acute hypoxic respiratory failure: Cardiology was following Continue tele monitoring Currently on room air, hypoxia is resolved Lasix has been changed to p.o. Amiodarone to 400 mg PO BID for one week then 400 mg daily for one week then 200 mg daily Metoprolol can be shifted to ToprolXL 150mg daily for dosing convenience continue with Eliquis Outpatient follow-up with Cardiology Supplement magnesium and potassium 4. Diabetes mellitus Hemoglobin A1c 7.4 Blood glucose check t.i.d. a.c. and HS, noted hyperglycemia Increase Lantus to 58 units Increase mealtime insulin to 11 units, continue with sliding scale insulin Adjust dose as needed 5. DVT prophylaxis: On Eliquis 6. Code status: Full 7. Disposition: Anticipate discharge once okay with ID with the final discharge antibiotic recommendation Time Spent With Patient Time: 37 minutes Subjective Date/time seen: 03/01/25 12:06 Interval history: No acute events overnight, very hard of hearing Review of Systems Review of Systems: All systems reviewed & are unremarkable except as noted in HPI and below Exam Narrative: GENERAL: The patient is well developed, not in acute distress HEENT: Nonicteric sclerae, PERRLA, EOMI. Oropharynx clear. Moist mucous membranes. Conjunctivae appear well perfused. CHEST: Chest wall is nontender. HEART: Regular rate and rhythm without murmur, rubs, or gallops LUNGS: Clear to auscultation bilaterally. no respiratory distress ABDOMEN: Soft, positive bowel sounds, non-tender, no organomegaly. SKIN: No rash, no excessive bruising, petechiae, or purpura. NEUROLOGIC: Cranial nerves II-XII intact, alert and oriented x 3, no gross motor deficits EXTREMITIES: no edema, cyanosis or clubbing Objective Data Vital Signs Vital Signs: Vital Signs - 24 hr 02/28/25 16:00 02/28/25 16:00 02/28/25 20:00 Temperature 97.8 F 97.3 F L Pulse Rate 93 74 86 Respiratory Rate 20 20 Blood Pressure 146/68 H 124/61 Pulse Oximetry 95 92 Oxygen Delivery Fraction of Inspired Oxygen 02/28/25 20:00 02/28/25 20:00 02/28/25 23:59 Temperature 97.5 F L Pulse Rate 86 86 90 Respiratory Rate 20 20 Blood Pressure 114/72 Pulse Oximetry 92 94 Oxygen Delivery Room Air Fraction of Inspired Oxygen 21 03/01/25 00:00 03/01/25 03:28 03/01/25 04:00 Temperature 97.7 F Pulse Rate 89 89 95 Respiratory Rate 20 Blood Pressure 117/55 L Pulse Oximetry 92 Oxygen Delivery Fraction of Inspired Oxygen 03/01/25 08:00 03/01/25 08:00 03/01/25 08:11 Temperature Pulse Rate 85 78 85 Respiratory Rate 16 Blood Pressure 129/82 Pulse Oximetry 94 Oxygen Delivery Fraction of Inspired Oxygen 03/01/25 08:11 03/01/25 08:11 03/01/25 11:36 Temperature Pulse Rate 85 85 77 Respiratory Rate 16 16 Blood Pressure 124/75 Pulse Oximetry 94 93 Oxygen Delivery Room Air Fraction of Inspired Oxygen 21 Intake/Output Intake/Output: Intake & Output 02/26/25 02/27/25 02/28/25 03/01/25 23:59 23:59 23:59 23:59 Intake Total 2198.4 2869.1 1951.3 630 Output Total 7000 2625 3400 Balance -4801.6 244.1 -1448.7 630 Meds/Results Medications: Active Medications Generic Name Dose Route Start Last Admin Trade Name Freq PRN Reason Stop Dose Admin Acetaminophen 650 mg 02/24/25 22:24 03/01/25 11:41 Acetaminophen 325 Mg Tablet PO 650 mg Q4H PRN Administration Mild Pain (1-3) or Fever Hydrocodone Bitart/Acetaminophen 1 tab 02/25/25 00:31 Hydrocodone/Acetaminophen (*Crx) 10-325 Mg Tablet PO Q6H PRN pain (scale score 4-6) Al Hydrox/Mg Hydrox/Simethicone 30 ml 02/24/25 22:24 Mag Hydrox/Al Hydrox/Simeth 30 Ml Udc PO QID PRN Dyspepsia Amiodarone HCl 400 mg 02/26/25 15:25 03/01/25 08:11 Amiodarone Hcl 200 Mg Tablet PO 03/13/25 23:59 400 mg Q12HR ANTON Administration Apixaban 5 mg 02/28/25 21:00 03/01/25 08:11 Apixaban 5 Mg Tablet PO 5 mg Q12HR ANTON Administration Benzocaine 1 lozenge 02/28/25 16:26 Benzocaine/Menthol (*Bkc) 18 Ea Lozenge PO PRN PRN Sore Throat Cyclobenzaprine HCl 10 mg 02/25/25 00:31 Cyclobenzaprine Hcl 10 Mg Tablet PO DAILY PRN Muscle Spasm Dextrose 12.5 gm 02/28/25 12:21 Dextrose 50% 25 Gm/50 Ml Syringe IV PUSH PRN PRN Hypoglycemia Protocol Furosemide 40 mg 03/01/25 09:00 03/01/25 08:11 Furosemide 40 Mg Tablet PO 40 mg DAILY ANTON Administration Glucagon 1 mg 02/28/25 12:21 Glucagon For Inj 1 Mg Vial IM PRN PRN Hypoglycemia Protocol Glucose 15 gm 02/28/25 12:21 Glucose Oral Gel 15 Gm Of Glucse In 37.5 Gm Tube PO PRN PRN Hypoglycemia Protocol Ceftriaxone Sodium 2 gm/ 100 mls @ 200 mls/hr 02/27/25 10:30 03/01/25 08:12 Sodium Chloride IVPB 200 mls/hr DAILY ANTON Administration Dextrose 1,000 mls @ 100 mls/hr 02/28/25 12:21 Dextrose 5% 1,000 Ml IVPB PRN PRN Hypoglycemia Protocol Insulin Aspart 3 - 6 units 02/25/25 08:00 03/01/25 11:38 Insulin Aspart (*Bkc) 100 Units/Ml SUB-Q 4 units TIDWM ANTON Administration Protocol Insulin Aspart 1 - 2 units 02/25/25 21:00 02/28/25 21:42 Insulin Aspart (*Bkc) 100 Units/Ml SUB-Q 2 units HS ANTON Administration Protocol Insulin Aspart 11 units 03/01/25 12:00 03/01/25 11:37 Insulin Aspart (*Bkc) 100 Units/Ml SUB-Q 11 units TIDWM ANTON Administration Insulin Glargine 55 units 02/25/25 21:10 02/28/25 21:43 Insulin Glargine (*Bkc) 100 Units/Ml SUB-Q 55 units HS ANTON Administration Ipratropium [place] 0.5 mg 02/27/25 11:07 Ipratropium Br 0.02% Inh Soln 0.5 Mg/2.5 Ml Vial INHALATION Q6HRT PRN Wheezing Magnesium Hydroxide 30 ml 02/24/25 22:24 Magnesium Hydroxide Susp 30 Ml Udc PO DAILY PRN Constipation Metoprolol Succinate 150 mg 03/01/25 09:00 03/01/25 08:11 Metoprolol Succinate Ext Rel 50 Mg Tabcr PO 150 mg QAM ANTON Administration Morphine Sulfate 2 mg 02/24/25 22:24 Morphine Sulfate (*Crx) 2 Mg/Ml Inj IV PUSH Q4H PRN Pain Rated 7-10 Naloxone HCl 0.1 mg 02/24/25 22:24 Naloxone Hcl 0.4 Mg/Ml Vial IV PUSH Q2M PRN Opiate Reversal Ondansetron HCl 4 mg 02/25/25 02:38 02/25/25 15:15 Ondansetron Inj 4 Mg/2 Ml Vial IV PUSH 4 mg ONCE PRN Administration Nausea Ondansetron HCl 4 mg 02/25/25 14:59 Ondansetron Inj 4 Mg/2 Ml Vial IV PUSH Q4H PRN Nausea And Vomiting Potassium Chloride 40 meq 03/01/25 09:00 03/01/25 09:56 Potassium Chloride 20 Meq Er Tablet PO 03/01/25 13:01 40 meq Q4HR ANTON Administration Radiology Results: ITS Impressions Chest X-Ray 02/25/25 19:27 Impression: Probable viral pneumonitis Retrograde Pyelogram 02/26/25 10:14 IMPRESSION: 1. Right internal ureteral stent placement. Please refer to real-time procedural findings for details. Abdomen X-Ray 02/28/25 13:46 Impression: 1: Right renal and probable ureteral stones. Consider correlation with CT. Right internal ureteral stent position stable. Labs Labs: Laboratory Results - last 24 hr 02/28/25 02/28/25 03/01/25 16:42 20:39 04:23 WBC 8.0 RBC 4.04 L Hgb 12.8 L Hct 38.5 L MCV 95.3 MCH 31.7 MCHC 33.2 RDW 12.3 Plt Count 296 MPV 10.0 Immature Gran % (Auto) 2.8 H Neut % (Auto) 65.7 Lymph % (Auto) 18.5 [place] % (Auto) 9.8 H Eos % (Auto) 2.6 Baso % (Auto) 0.6 Lymph # (Auto) 1.47 [place] # (Auto) 0.8 H Eos # (Auto) 0.2 Baso # (Auto) 0.1 Abs Immat Gran (auto) 0.22 H Absolute Neuts (auto) 5.2 Absolute Nucleated RBC 0.000 Nucleated RBC % 0.0 APTT 45.9 H Sodium 137 Potassium 3.1 L Chloride 94 L Carbon Dioxide 34 H Anion Gap 9 BUN 30 H Creatinine 1.24 Estim Creat Clear Calc 46 Estimated GFR 56 L Glucose 224 H POC Capillary Glucose 261 H 311 H Calcium 9.4 Magnesium 1.7 Total Bilirubin 0.5 AST 34 ALT 19 Alkaline Phosphatase 79 Total Protein 7.5 Albumin 3.7 03/01/25 03/01/25 07:56 11:28 WBC RBC Hgb Hct MCV MCH MCHC RDW Plt Count MPV Immature Gran % (Auto) Neut % (Auto) Lymph % (Auto) [place] % (Auto) Eos % (Auto) Baso % (Auto) Lymph # (Auto) [place] # (Auto) Eos # (Auto) Baso # (Auto) Abs Immat Gran (auto) Absolute Neuts (auto) Absolute Nucleated RBC Nucleated RBC % APTT Sodium Potassium Chloride Carbon Dioxide Anion Gap BUN Creatinine Estim Creat Clear Calc Estimated GFR Glucose POC Capillary Glucose 241 H 265 H Calcium Magnesium Total Bilirubin AST ALT Alkaline Phosphatase Total Protein Albumin Quality VTE Prophylaxis VTE prophylaxis: pharmacologic ordered
[2025-03-01] MEDS: INSULIN GLARGINE (*BKC) 100 UNITS/ML 58 UNITS SUB-Q (20:50)
[2025-03-02] VITALS (7 sets, daily range): BP systolic 109–139; BP diastolic 66–79; PULSE 66–87; RESP 16–17; TEMP 36.2–36.5; O2SAT 90–95
[2025-03-02] MEDS: HYDROcodone/acetaminophen (*CRX) 10-325 MG TABLET 1 TAB PO (01:11)
[2025-03-02 04:59] LABS: Hematocrit 37.6 % (42.0-52.0); Hemoglobin 12.2 g/dL (14.0-18.0); Immature Granulocyte Percent A 4.0 % (0-0.5); Lymphocytes Absolute Auto 1.60 K/mm3 (0.9-3.2); Mean Corpuscular HGB Conc 32.4 g/dl (32-36); Mean Corpuscular Hemoglobin 31.4 pg (26-34); Mean Corpuscular Volume 96.9 fl (80-100); Nucleated Red Blood Cells Absolute Auto 0.000 K/mm3 (0.0-0.012); Nucleated Red Blood Cells Perc 0.0 % (0.0-0.2); Platelet Count Result 315 k/mm3 (150-375); Red Blood Count 3.88 M/mm3 (4.6-6.20); White Blood Count 10.7 K/mm3 (4.5-10.0)
[2025-03-02 05:16] LABS: Alanine Aminotransferase 20 U/L (6-50); Albumin Level 3.5 g/dL (3.5-5.1); Alkaline Phosphatase 72 U/L (38-126); Anion Gap 7 mmol/L (4-12); Aspartate Amino Transferase 37 U/L (17-59); Bilirubin,Total 0.5 mg/dL (0.2-1.3); Blood Urea Nitrogen 28 mg/dL (9-20); Calcium 9.3 mg/dL (8.4-10.2); Carbon Dioxide 34 mmol/L (22-30); Chloride 95 mmol/L (98-107); Estimated CRCL calculation 52 ml/min; Estimated Glomerular Filt Rate > 60; Glucose 190 mg/dL (65-110); Magnesium 1.9 mg/dL (1.6-2.3); Potassium 3.5 mmol/L (3.4-5.0); Sodium 136 mmol/L (137-145); Total Protein 7.0 g/dL (6.3-8.2)
[2025-03-02] MEDS: AMIODARONE HCL 200 MG TABLET 400 MG PO (08:47)
[2025-03-02] MEDS: FUROSEMIDE 40 MG TABLET PO (08:47)
[2025-03-02] MEDS: APIXABAN 5 MG TABLET PO (08:47)
[2025-03-02] MEDS: cefTRIAXone 2 GM in SODIUM CHLORIDE 0.9% IV 100 ML 200 ML IVPB (08:48)
[2025-03-02] MEDS: METOPROLOL SUCCINATE EXT REL 50 MG TABCR 150 MG PO (08:48)
[2025-03-02] MEDS: INSULIN ASPART (*BKC) 100 UNITS/ML 11 UNITS SUB-Q ×2 (08:49→12:11)
[2025-03-02] MEDS: INSULIN ASPART (*BKC) 100 UNITS/ML SUB-Q ×2 (08:49→12:11)
--- NOTE | 2025-03-02 10:51 | WPDINFPN2 ---
Progress Note: A&P Assessment and Plan (1) E coli bacteremia: Code(s): R78.81 - Bacteremia; B96.20 - Unspecified Escherichia coli [E. coli] as the cause of diseases classified elsewhere Status: Acute (2) E. coli UTI (urinary tract infection): Code(s): N39.0 - Urinary tract infection, site not specified; B96.20 - Unspecified Escherichia coli [E. coli] as the cause of diseases classified elsewhere Status: Acute (3) Pyelonephritis of right kidney: Code(s): N12 - Tubulo-interstitial nephritis, not specified as acute or chronic Status: Acute (4) Hydronephrosis with renal calculous obstruction: Code(s): N13.2 - Hydronephrosis with renal and ureteral calculous obstruction Status: Acute Plan # Right pyelonephritis involving pansensitive E coli. # Right - sided nephrolithiasis with ureteral obstruction and hydronephrosis now status post ureteral stent placement. # Acute sepsis associated with above, resolving. Plan: -- okay for discharge from an ID standpoint but until discharge recommend continuing with IV ceftriaxone. -- at discharge would transition to oral amoxicillin 1 g Q 8 hours to continue through 03/08/2025. Patient was seen via video telehealth consultation with the assistance of staff. Chart, data, and patient independently reviewed. Patient was located at [facility] while I was located in my [place] office. Received verbal consent from patient. Subjective Date/time seen: 03/02/25 10:51 Interval history: 03/01/2025: Continued clinical improvement. Resolution of right flank pain. [facility] blood and urine cultures also positive for pansensitive E coli. 03/02/2025: Remains afebrile with current white count 10.7. BUN 28 and creatinine 1.10. Had recurrence of right flank pain yesterday evening when sitting up to use his urinal. No gross hematuria. Pain has since resolved. Review of Systems Review of Systems: Brief recurrence of right flank pain last night. All systems reviewed & are unremarkable except as noted in HPI and below Exam Narrative: Awake, alert, and nontoxic. Normocephalic and without conjunctivitis. Normal respiratory function. No abdominal distention. No rash. Objective Data Vital Signs Vital Signs: Vital Signs - 24 hr 03/01/25 11:36 03/01/25 12:00 03/01/25 15:07 Temperature Pulse Rate 77 79 Respiratory Rate 16 Blood Pressure 124/75 Pulse Oximetry 93 Oxygen Delivery Room Air Fraction of Inspired Oxygen 03/01/25 16:00 03/01/25 16:00 03/01/25 19:48 Temperature Pulse Rate 73 74 74 Respiratory Rate 16 16 Blood Pressure 128/66 Pulse Oximetry 95 95 Oxygen Delivery Room Air Fraction of Inspired Oxygen 21 03/01/25 19:48 03/01/25 20:00 03/01/25 20:32 Temperature 97.9 F Pulse Rate 74 71 76 Respiratory Rate 17 Blood Pressure 131/67 Pulse Oximetry 97 Oxygen Delivery Fraction of Inspired Oxygen 03/01/25 23:37 03/02/25 00:00 03/02/25 03:45 Temperature 97.8 F 97.7 F Pulse Rate 75 74 66 Respiratory Rate 18 17 Blood Pressure 131/60 139/66 Pulse Oximetry 93 90 Oxygen Delivery Fraction of Inspired Oxygen 03/02/25 04:00 03/02/25 08:00 03/02/25 08:00 Temperature Pulse Rate 76 84 Respiratory Rate Blood Pressure Pulse Oximetry Oxygen Delivery Room Air Fraction of Inspired Oxygen 03/02/25 08:00 03/02/25 08:47 03/02/25 08:48 Temperature 97.2 F L Pulse Rate 81 87 87 Respiratory Rate 16 Blood Pressure 109/79 Pulse Oximetry 93 Oxygen Delivery Fraction of Inspired Oxygen Intake/Output Intake/Output: Intake & Output 02/27/25 02/28/25 03/01/25 03/02/25 23:59 23:59 23:59 23:59 Intake Total 2869.1 1951.3 2260 590 Output Total 2625 3400 Balance 244.1 -1448.7 2260 590 Meds/Results Medications: Active Medications Generic Name Dose Route Start Last Admin Trade Name Freq PRN Reason Stop Dose Admin Acetaminophen 650 mg 02/24/25 22:24 03/01/25 11:41 Acetaminophen 325 Mg Tablet PO 650 mg Q4H PRN Administration Mild Pain (1-3) or Fever Hydrocodone Bitart/Acetaminophen 1 tab 02/25/25 00:31 03/02/25 01:11 Hydrocodone/Acetaminophen (*Crx) 10-325 Mg Tablet PO 1 tab Q6H PRN Administration pain (scale score 4-6) Al Hydrox/Mg Hydrox/Simethicone 30 ml 02/24/25 22:24 Mag Hydrox/Al Hydrox/Simeth 30 Ml Udc PO QID PRN Dyspepsia Amiodarone HCl 400 mg 02/26/25 15:25 03/02/25 08:47 Amiodarone Hcl 200 Mg Tablet PO 03/13/25 23:59 400 mg Q12HR ANTON Administration Apixaban 5 mg 02/28/25 21:00 03/02/25 08:47 Apixaban 5 Mg Tablet PO 5 mg Q12HR ANTON Administration Benzocaine 1 lozenge 02/28/25 16:26 Benzocaine/Menthol (*Bkc) 18 Ea Lozenge PO PRN PRN Sore Throat Cyclobenzaprine HCl 10 mg 02/25/25 00:31 Cyclobenzaprine Hcl 10 Mg Tablet PO DAILY PRN Muscle Spasm Dextrose 12.5 gm 02/28/25 12:21 Dextrose 50% 25 Gm/50 Ml Syringe IV PUSH PRN PRN Hypoglycemia Protocol Furosemide 40 mg 03/01/25 09:00 03/02/25 08:47 Furosemide 40 Mg Tablet PO 40 mg DAILY ANTON Administration Glucagon 1 mg 02/28/25 12:21 Glucagon For Inj 1 Mg Vial IM PRN PRN Hypoglycemia Protocol Glucose 15 gm 02/28/25 12:21 Glucose Oral Gel 15 Gm Of Glucse In 37.5 Gm Tube PO PRN PRN Hypoglycemia Protocol Ceftriaxone Sodium 2 gm/ 100 mls @ 200 mls/hr 02/27/25 10:30 03/02/25 09:36 Sodium Chloride IVPB Infused DAILY ANTON Infusion Dextrose 1,000 mls @ 100 mls/hr 02/28/25 12:21 Dextrose 5% 1,000 Ml IVPB PRN PRN Hypoglycemia Protocol Insulin Aspart 3 - 6 units 02/25/25 08:00 03/02/25 08:49 Insulin Aspart (*Bkc) 100 Units/Ml SUB-Q 3 units TIDWM ANTON Administration Protocol Insulin Aspart 1 - 2 units 02/25/25 21:00 03/01/25 20:50 Insulin Aspart (*Bkc) 100 Units/Ml SUB-Q 1 units HS ANTON Administration Protocol Insulin Aspart 11 units 03/01/25 12:00 03/02/25 08:49 Insulin Aspart (*Bkc) 100 Units/Ml SUB-Q 11 units TIDWM ANTON Administration Insulin Glargine 58 units 03/01/25 21:00 03/01/25 20:50 Insulin Glargine (*Bkc) 100 Units/Ml SUB-Q 58 units HS ANTON Administration Ipratropium [place] 0.5 mg 02/27/25 11:07 Ipratropium Br 0.02% Inh Soln 0.5 Mg/2.5 Ml Vial INHALATION Q6HRT PRN Wheezing Magnesium Hydroxide 30 ml 02/24/25 22:24 Magnesium Hydroxide Susp 30 Ml Udc PO DAILY PRN Constipation Metoprolol Succinate 150 mg 03/01/25 09:00 03/02/25 08:48 Metoprolol Succinate Ext Rel 50 Mg Tabcr PO 150 mg QAM ANTON Administration Morphine Sulfate 2 mg 02/24/25 22:24 Morphine Sulfate (*Crx) 2 Mg/Ml Inj IV PUSH Q4H PRN Pain Rated 7-10 Naloxone HCl 0.1 mg 02/24/25 22:24 Naloxone Hcl 0.4 Mg/Ml Vial IV PUSH Q2M PRN Opiate Reversal Ondansetron HCl 4 mg 02/25/25 02:38 02/25/25 15:15 Ondansetron Inj 4 Mg/2 Ml Vial IV PUSH 4 mg ONCE PRN Administration Nausea Ondansetron HCl 4 mg 02/25/25 14:59 Ondansetron Inj 4 Mg/2 Ml Vial IV PUSH Q4H PRN Nausea And Vomiting Radiology Results: ITS Impressions Chest X-Ray 02/25/25 19:27 Impression: Probable viral pneumonitis Retrograde Pyelogram 02/26/25 10:14 IMPRESSION: 1. Right internal ureteral stent placement. Please refer to real-time procedural findings for details. Abdomen X-Ray 02/28/25 13:46 Impression: 1: Right renal and probable ureteral stones. Consider correlation with CT. Right internal ureteral stent position stable. Labs Labs: Laboratory Results - last 24 hr 03/01/25 03/01/25 03/01/25 11:28 16:35 19:36 WBC RBC Hgb Hct MCV MCH MCHC RDW Plt Count MPV Immature Gran % (Auto) Neut % (Auto) Lymph % (Auto) [place] % (Auto) Eos % (Auto) Baso % (Auto) Lymph # (Auto) [place] # (Auto) Eos # (Auto) Baso # (Auto) Abs Immat Gran (auto) Absolute Neuts (auto) Absolute Nucleated RBC Nucleated RBC % Sodium Potassium Chloride Carbon Dioxide Anion Gap BUN Creatinine Estim Creat Clear Calc Estimated GFR Glucose POC Capillary Glucose 265 H 181 H 222 H Calcium Magnesium Total Bilirubin AST ALT Alkaline Phosphatase Total Protein Albumin 03/02/25 03/02/25 03:58 07:39 WBC 10.7 H RBC 3.88 L Hgb 12.2 L Hct 37.6 L MCV 96.9 MCH 31.4 MCHC 32.4 RDW 12.5 Plt Count 315 MPV 10.0 Immature Gran % (Auto) 4.0 H Neut % (Auto) 69.7 Lymph % (Auto) 15.0 L [place] % (Auto) 8.0 Eos % (Auto) 2.7 Baso % (Auto) 0.6 Lymph # (Auto) 1.60 [place] # (Auto) 0.9 H Eos # (Auto) 0.3 Baso # (Auto) 0.1 Abs Immat Gran (auto) 0.43 H Absolute Neuts (auto) 7.4 H Absolute Nucleated RBC 0.000 Nucleated RBC % 0.0 Sodium 136 L Potassium 3.5 Chloride 95 L Carbon Dioxide 34 H Anion Gap 7 BUN 28 H Creatinine 1.10 Estim Creat Clear Calc 52 Estimated GFR > 60 Glucose 190 H POC Capillary Glucose 204 H Calcium 9.3 Magnesium 1.9 Total Bilirubin 0.5 AST 37 ALT 20 Alkaline Phosphatase 72 Total Protein 7.0 Albumin 3.5
--- NOTE | 2025-03-02 15:06 | PM.DS ---
DS: Admitting Diagnosis Discharge Date 03/02/2025 Admitting Diagnosis Flank pain DS: Discharge Diagnosis Discharge Diagnosis (1) Sepsis: Qualifiers: Acute renal failure type: unspecified Sepsis acute organ dysfunction status: with acute organ dysfunction Sepsis type: sepsis due to unspecified organism Severe sepsis acute organ dysfunction type: acute renal failure Severe sepsis shock status: without septic shock Qualified Code(s): A41.9 - Sepsis, unspecified organism; R65.20 - Severe sepsis without septic shock; N17.9 - Acute kidney failure, unspecified Code(s): A41.9 - Sepsis, unspecified organism Status: Acute (2) Pyelonephritis: Code(s): N12 - Tubulo-interstitial nephritis, not specified as acute or chronic Status: Acute (3) Acute kidney injury: Code(s): N17.9 - Acute kidney failure, unspecified Status: Acute (4) Atrial fibrillation with rapid ventricular response: Code(s): I48.91 - Unspecified atrial fibrillation Status: Acute (5) Type 2 diabetes mellitus with hyperglycemia, with long-term current use of insulin: Code(s): E11.65 - Type 2 diabetes mellitus with hyperglycemia; Z79.4 - long term care pharmacist (current) use of insulin Status: Acute (6) E coli bacteremia: Code(s): R78.81 - Bacteremia; B96.20 - Unspecified Escherichia coli [E. 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 He complains of decreased appetite for 3 days and right flank pain. He had a CT scan performed which demonstrated an 8 mm mid ureteral stone with mild hydronephrosis. Patient was transferred to [facility] in taken to OR for ureteral stent placement on 02/25/2025, no immediate complications. Catheter was removed and patient completed voiding trial successfully. He has been advised to follow up with Urology in the outpatient setting for definitive stone management. Urine cultures grew E coli as did blood cultures x2. Pansensitive. Patient has been on ceftriaxone 2 g daily, sepsis present on admission has resolved. Infectious disease consulted. He will be discharged on amoxicillin 1 g p.o. q.8 hours completed 10 day course. Patient also had acute hypoxic respiratory failure due to pulmonary edema which resolved. 02/25/2025 echocardiogram demonstrates abnormal left ventricular diastolic function, mild aortic valve stenosis. EF 60-65% estimated. Patient is discharged on Lasix and will have follow-up with the cardiology group of [facility]. A flutter/AFib with RVR resolved and patient converted back to sinus rhythm. He is being discharged on Toprol XL 150 mg p.o. q.day, Eliquis 5 mg p.o. b.i.d.. Amiodarone 400 mg p.o. b.i.d. until 03/05/2025, 400 mg p.o. q.day until 03/12 and then 200 mg p.o. q.day. As his sepsis resolved so did his leukocytosis. WBC on discharge 10.7, only mildly elevated and no other arrangement is symptoms to indicate sepsis or worsening infection. Patient will have a repeat CBC and BMP in 2 days post discharge. Of his questions and concerns were answered to satisfaction. Adverse effects, risk and benefits of medications discussed. The patient is in understanding and agreement with the plan. He is discharged to home in stable condition. Patient was full code during the admission. Time Spent with Patient Time attestation: Total time spent providing and/or coordinating discharge services: Exam Const: General: comfortable HENMT: Mouth: Yes moist mucous membranes Eyes: Pupils: Equal, round and reactive pupils present Neck: Neck: supple Resp: Effort & Inspection: normal respiratory effort Auscultation: clear to auscultation bilaterally Cardio: Rate: regular rate Rhythm: regular rhythm GI: Inspection: non-distended GI Palp: Yes Soft to palpation Neuro: Motor exam (neuro): 5/5 motor strength present throughout Extrem: General: no edema DS: Data Data Completed and Pending Labs on day of discharge: Labs from last 24 hours 03/02/25 03/02/25 03/02/25 11:27 07:39 03:58 WBC 10.7 H RBC 3.88 L Hgb 12.2 L Hct 37.6 L MCV 96.9 MCH 31.4 MCHC 32.4 RDW 12.5 Plt Count 315 MPV 10.0 Immature Gran % (Auto) 4.0 H Neut % (Auto) 69.7 Lymph % (Auto) 15.0 L [place] % (Auto) 8.0 Eos % (Auto) 2.7 Baso % (Auto) 0.6 Lymph # (Auto) 1.60 [place] # (Auto) 0.9 H Eos # (Auto) 0.3 Baso # (Auto) 0.1 Abs Immat Gran (auto) 0.43 H Absolute Neuts (auto) 7.4 H Absolute Nucleated RBC 0.000 Nucleated RBC % 0.0 Sodium 136 L Potassium 3.5 Chloride 95 L Carbon Dioxide 34 H Anion Gap 7 BUN 28 H Creatinine 1.10 Estim Creat Clear Calc 52 Estimated GFR > 60 Glucose 190 H POC Capillary Glucose 216 H 204 H Calcium 9.3 Magnesium 1.9 Total Bilirubin 0.5 AST 37 ALT 20 Alkaline Phosphatase 72 Total Protein 7.0 Albumin 3.5 03/01/25 03/01/25 19:36 16:35 WBC RBC Hgb Hct MCV MCH MCHC RDW Plt Count MPV Immature Gran % (Auto) Neut % (Auto) Lymph % (Auto) [place] % (Auto) Eos % (Auto) Baso % (Auto) Lymph # (Auto) [place] # (Auto) Eos # (Auto) Baso # (Auto) Abs Immat Gran (auto) Absolute Neuts (auto) Absolute Nucleated RBC Nucleated RBC % Sodium Potassium Chloride Carbon Dioxide Anion Gap BUN Creatinine Estim Creat Clear Calc Estimated GFR Glucose POC Capillary Glucose 222 H 181 H Calcium Magnesium Total Bilirubin AST ALT Alkaline Phosphatase Total Protein Albumin Discharge Plan Discharge Attending physician on discharge: Annie Darnell Consulting providers: Alberto Munroe; Manjeet Sen; Shemar Blakely Discharging Clinician: Annie Darnell Patient Disposition: Home Activity: october shower Diet: as tolerated Patient Instructions: Antibiotic Form, Diltiazem (By mouth), Heparin/Sodium Chloride Premix (Injection), A-fib (Atrial Fibrillation) (GEN), Blood Thinners (GEN), Cystoscopy (GEN), Ureteral Stent Placement (GEN) Patient Language: Telugu Stand Alone Forms: General Discharge Information Follow-up/Referrals: Manjeet Sen MD [Physician, Cardiology] Referral Note: 03/17/25 at 10:00. Arrive at 9:45 Marcela,Timothy Singh MD [Primary Care Provider, Unknown] Maddy Stout APN-C [Advanced Practice Nurse, Cardiology] Referral Note: 03/17/25 at 10:00. Arrive at 9:45 Alberto Munroe MD [Physician, Urology] - 03/10/25 Referral Note: Follow-up for definitive stone management. Discharge Medications: New Eliquis 5 mg Tablet 5 mg PO Q12HR Qty: 60 0RF metoprolol succinate 50 mg Tablet Extended Release 24 Hr 150 mg PO QAM Qty: 30 0RF furosemide 40 mg Tablet 40 mg PO DAILY Qty: 30 0RF amiodarone [Pacerone] 200 mg Tablet 400 mg PO Q12HR Qty: 30 0RF Rx Instructions: 400mg po BID until 03/05, then 400mg po daily until 03/12, then 200mg po daily. follow up with [facility] amoxicillin 500 mg tablet 1,000 mg PO Q8H 6 Days Qty: 36 0RF Continued hydrocodone-acetaminophen 10-325 mg tablet 1 tablet PO Q6H PRN (Reason: pain (scale score 4-6)) (DME) blood-glucose meter [Accu-Chek Dot Plus Meter] Misc See Rx Instructions .ROUTE .MEDSUPPLY Qty: 1 Rx Instructions: As directed (DME) Accu-Chek Dot Plus test strp Strip See Rx Instructions .ROUTE .MEDSUPPLY Qty: 10 Rx Instructions: As directed (DME) lancets [Accu-Chek Softclix Lancets] Misc See Rx Instructions .ROUTE .MEDSUPPLY Qty: 50 Rx Instructions: As directed magnesium 500 mg Tablet 500 mg PO DAILY PRN (Reason: cramps) cyclobenzaprine 10 mg tablet 10 mg PO DAILY PRN (Reason: muscle spasm) insulin glargine [Lantus Solostar U-100 Insulin] 100 unit/mL (3 mL) insulin pen 60 unit subcut DAILY insulin aspart U-100 [Novolog FlexPen U-100 Insulin] 100 unit/mL (3 mL) insulin pen See Rx Instructions subcut DAILY MDD 75 Rx Instructions: subcutaneously daily; 14 units pre meal; 150-180: 1 units 181-210: 2 units 211-240: 3 units 241-270: 4 units 271-300: 5 units 301-330: 6 units 331-360: 7 units 361-390: 8 units 391-420: 9 units >421: 10 units (DME) Dexcom G7 Sensor Device See Rx Instructions .Route Qty: 10 2RF Rx Instructions: As directed (DME) pen needle, diabetic [BD Ultra-Fine Mini Pen Needle] 31 gauge x 3/16 needle See Rx Instructions .ROUTE .MEDSUPPLY Qty: 100 2RF Rx Instructions: Use to inject insulin 4 times a day Jardiance 10 mg tablet 10 mg PO QAM Qty: 90 1RF metformin 500 mg tablet 1,000 mg PO BID 90 Days Qty: 360 1RF Discontinued [id number] [Excedrin Migraine] 250-250-65 mg Tablet 1 - 3 tablet PO Q4-6H PRN (Reason: HEADACHES) Other Ambulatory Orders: Basic Metabolic Panel (Routine) Timeframe: 2 Days Location: Determined by Patient Ordered By: Annie Darnell Complete Blood Count no Diff (Routine) Timeframe: 2 Days Location: Determined by Patient Ordered By: Annie Darnell Date of admission: 02/25/25 04:10 Primary Care Provider: MarcelaTimothy Admitting Provider: Elier Giles Attending physician on admission: Leana Contreras Condition: Stable Hospitalist MIPS Heart Failure (Exclusion) Patient has history of Heart Transplant or Left Ventricular Assistive Device?: No IF YES, STOP HERE Heart Failure (Qualifier) Patient has current or prior documentation of LVEF less than or equal to 40%, or mod/servere depressed LVSF?: No IF NO, STOP HERE
== END 2025-03-02 16:10 | disposition home or self-care (01) | DRG 853 ==
LOC: ANHIMU 02-28 11:29 → ANH2MED 02-28 12:55
PROVIDERS: General Practice; Nurse Practitioner Family; Urology; Admitting Provider Internal Medicine; PCP Family Medicine; Visit Provider General Practice
PROC: 0T768DZ Dilation of Right Ureter with Intraluminal Device, Via Natural or Artificial Opening Endoscopic (ICD-10-PCS; CPT 52352; principal; 2025-02-25 01:40)
DX: A41.51 Sepsis due to Escherichia coli [E. coli] (principal); J96.01 Acute respiratory failure with hypoxia; N13.6 Pyonephrosis; N17.9 Acute kidney failure, unspecified; I48.92 Unspecified atrial flutter; R65.20 Severe sepsis without septic shock; I35.0 Nonrheumatic aortic (valve) stenosis; E86.0 Dehydration; E87.6 Hypokalemia; E11.65 Type 2 diabetes mellitus with hyperglycemia; E11.40 Type 2 diabetes mellitus with diabetic neuropathy, unspecified; E11.319 Type 2 diabetes mellitus with unspecified diabetic retinopathy without macular edema; C61 Malignant neoplasm of prostate; I48.91 Unspecified atrial fibrillation; K21.9 Gastro-esophageal reflux disease without esophagitis; I10 Essential (primary) hypertension; H91.90 Unspecified hearing loss, unspecified ear; Z79.4 Long term (current) use of insulin; Z79.84 Long term (current) use of oral hypoglycemic drugs; Z79.899 Other long term (current) drug therapy; Z87.442 Personal history of urinary calculi; Z87.891 Personal history of nicotine dependence; Z90.79 Acquired absence of other genital organ(s); Z90.49 Acquired absence of other specified parts of digestive tract; Z98.890 Other specified postprocedural states
CPT/HCPCS: 36415; 71045; 74018; 74420; 80048; 80053; 80061; 81001; 82948; 83036; 83605; 83735; 84100; 84439; 84443; 84480; 84484; 85025; 85027; 85730; 87040; 87086; 87641; 93005; 94640; 94762; 97110; 97116; 97161; 97165; J0690; A9270; C1758; C1769; C2617; C8929; G0378; J0282; J0616; J0696; J1163; J1644; J1815; J1938; J2003; J2405; J2543; J2704; J3475; J7030; J7120; Q9957

== ENCOUNTER 2025-03-16 12:20 | Inpatient (IN) | payer MEDICARE, SELFPAY ==
[2025-03-16] VITALS (24 sets, daily range): BP systolic 104–151; BP diastolic 59–88; PULSE 71–87; RESP 15–20; TEMP 36.8; O2SAT 92–98; BMI 31.5
--- NOTE | ~2025-03-16 | CT_ITS ---
EXAMINATION: CT abdomen pelvis wo con DATE: 03/16/2025 18:13 INDICATION: Right lower quadrant abdominal/flank pain. TECHNIQUE: Computed tomography (CT) of the abdomen and pelvis was performed with 100 mL Omnipaque-350 intravenous contrast. Automated exposure control and iterative reconstruction technique were employed. The dose-length product was 100.21 mGy-cm. COMPARISON: 10/13/2017 FINDINGS: Lung bases are clear. Heart size is normal. Small amount of atherosclerotic coronary artery calcification. No pericardial or pleural effusion. Dense mitral annular calcification and small amount of aortic valve calcification. Small sliding-type hiatal hernia. Mild dilation of the common bile duct and mild central intrahepatic biliary ductal dilation likely related to prior cholecystectomy with surgical clips at the gallbladder fossa. Likely dropped gallstones along the posterior margin of the right hepatic lobe. 1 cm hepatic cyst. Spleen, pancreas, bilateral adrenal glands and left kidney are normal. Mild right hydronephrosis with right internal ureteral stent in expected position with proximal loop formed in the right renal pelvis and distal loop in the bladder. There is a 6 mm stone at the junction of the proximal to mid right ureter. No bowel obstruction. Status post prostatectomy. There is a 3.9 x 3.7 cm mass in the deep right pelvis positioned posterior to the distalmost right ureter which raises concern for malignancy. There are multiple enlarged retroperitoneal lymph nodes extending cephalad along the aorta and inferior vena cava. For reference there is a left para-aortic lymph nodes measuring 2.2 x 2.0 cm just above level of the left renal artery and 3.6 x 3.2 cm lymph node just below level of the left renal artery. No free intraperitoneal gas or fluid. Mild S-shaped curvature of the lumbar spine with severe spondylosis. A few small densely sclerotic bone islands at the bilateral femoral heads and right acetabula. No suspicious lytic or blastic bone lesions. IMPRESSION: 1. Mild right hydronephrosis with 6 mm left ureteral stone along side a right intraureteral stent which is in expected position. 2. 3.9 x 3.7 cm mass in the deep right pelvis and retroperitoneal lymphadenopathy concerning for metastatic disease. Patient is status post prostatectomy suggesting this could represent metastatic prostate cancer. Correlate with clinical history and with PSA levels. 6 3. Small sliding-type hiatal hernia. Reviewed, dictated and finalized at location A. IMPRESSION: 1. Mild right hydronephrosis with 6 mm left ureteral stone along side a right i ntraureteral stent which is in expected position. 2. 3.9 x 3.7 cm mass in the deep right pelvis and retroperitoneal lymphadenopat hy concerning for metastatic disease. Patient is status post prostatectomy sugg esting this could represent metastatic prostate cancer. Correlate with clinical history and with PSA levels. 6 3. Small sliding-type hiatal hernia.
--- NOTE | ~2025-03-16 | XR_ITS ---
EXAMINATION: XR abdomen/kub 1V DATE: 03/17/2025 12:18 INDICATION: Ureteral stone TECHNIQUE: A supine view of the abdomen on 2 radiographs was obtained. COMPARISON: CT dated 03/16/2025 FINDINGS: Cholecystectomy clips in right upper quadrant. Right internal ureteral stent with formed loop projecting over the region of the right renal pelvis and the bladder. Couple unchanged small phleboliths along side the distal stent. No stones identified along the course of the right intrarenal stent. There are a few additional phleboliths in left pelvis projecting over the superior pubic ramus. Likely dropped gallstones projecting over the liver. There are no dilated loops of gas-filled bowel to suggest obstruction. Couple heterotopic ossicles project over the left sacroiliac joint. Mild S-shaped curvature of the lumbar spine with severe spondylosis. IMPRESSION: 1. Right internal ureteral stent in expected position. No evident urolithiasis. Reviewed, dictated and finalized at location A.
--- OUTSIDE RECORDS SUMMARY | 2025-03-16 12:24 | XMS_ITS | Clinical Summary ---
Author Organization [facility] 8 [facility] Address [address] [place] [address] Care Team Providers Care Mining Detail Draftsperson Name Role Phone Jay Barreto MD Primary Care Provider [phone] Allergies Active Allergy Reactions Criticality Noted Date Comments Dimethicone-Petrolatum Rash Medium Clear tape Venom-Wasp Unknown 07/21/2022 Wasp Venom Anaphylaxis High 03/19/2018 Medications aspirin (ASPIRIN LOW DOSE) 81 mg tablet take 1 tablet (81MG) by oral route every day 0 11/10/19 13 Active Additional Information Patient taking differently:81 mgoral Every morning, Indications: primary prevention, Informant: Self, Reported on 03/19/2018 cyclobenzaprin e (FLEXERIL) 10 mg tablet Take as directed 0 0 05/10/20 13 Active Additional Information Patient taking differently:10 mg2 times daily PRN, Indications: Muscle Spasm, Informant: Self, Reported on 03/19/2018 blood glucose diagnostic (FREESTYLE TEST) stripIndicatio ns:Type 2 diabetes mellitus with hyperglycemia, with long-term current use of insulin (HCC) Check BG fasting and one additional time daily 180 each 3 10/23/19 18 Active pen needle, diabetic (BD Ultra-Fine Mini Pen Needle) 31 gauge x 3/16 needle Use one new pen needle once daily with Basaglar 100 each 3 05/17/20 20 Active semaglutide (OZEMPIC) 1 mg/dose (4 mg/3 mL) pen injector injection Inject 1 mg under the skin once a week 3 mL 11 05/16/20 21 Active metFORMIN (GLUCOPHAGE) 500 mg tabletIndicati ons:Type 2 diabetes mellitus with hyperglycemia, with long-term current use of insulin ([facility]) Take 2 tablets (1,000 mg total) by mouth 2 (two) times a day with meals 360 tablet 3 05/16/20 21 Active Dexcom G6 Sensor deviceIndicati ons:Type 2 diabetes mellitus with hyperglycemia, with long-term current use of insulin ([facility]) Change sensor every 10 days 9 each 2 05/16/20 Active Dexcom G6 Head Host/Hostess miscIndication s:Type 2 diabetes mellitus with hyperglycemia, with long-term current use of insulin ([facility]) Use to check bg daily as directed 1 each 05/16/20 Active Dexcom G6 Transmitter deviceIndicati ons:Type 2 diabetes mellitus with hyperglycemia, with long-term current use of insulin ([facility]) Change every 90 days 1 each 1 05/16/20 21 Active BD Ultra-Fine Mini Pen Needle 31 gauge x 3/16 needleIndicati ons:Type 2 diabetes mellitus with hyperglycemia, with long-term current use of insulin ([facility]) USE TO INJECT THREE TIMES DAILY 100 each 3 08/26/19 22 Active insulin regular (HumuLIN R, NovoLIN R) 100 unit/mL vial for injection Inject 14-20 Units under the skin 3 (three) times a day before meals 60 mL 08/29/19 22 Active insulin glargine (BASAGLAR) 100 unit/mL (3 mL) pen for injection Inject 80 Units under the skin nightly 75 mL 1 08/29/19 22 Active insulin syringe-needle U-100 (BD Insulin Syringe Ultra-Fine) 0.3 mL 31 gauge x 5/16 syringe Use one syringe three times daily with sliding scale insulin 300 each 1 08/29/19 22 Active atorvastatin (LIPITOR) 20 mg tabletIndicati ons:Type 2 diabetes mellitus without complication, with long-term current use of insulin ([facility]) Take 1 tablet (20 mg total) by mouth daily 30 tablet 12/17/19 22 Active diazePAM (Valium) 10 mg tablet Valium 10 mg tablet Take one tablet by mouth for one hour before the procedure. Act matt acidophilus-pe ctin, citrus 25 million cell -100 mg tablet acidophilus 25 million cell-pectin, citrus 100 mg tablet TAKE 2 TABLETS BY MOUTH TWICE A DAY WITH MEALS Active glipiZIDE (GLUCOTROL) 10 mg tablet glipizide 10 mg tablet TAKE 1 TABLET BY MOUTH TWICE A DAY Active SITagliptin phos-metformin (Janumet) 50-1,000 mg per tablet Janumet 50 mg-1,000 mg tablet TAKE 1 TABLET BY MOUTH TWICE A DAY Active predniSONE (DELTASONE) 10 mg tablet prednisone 10 mg tablet TAKE 4 TABS DAILY X2 DAYS, 3 TABS DAILY X2 DAYS, 2 TABS DAILY X2 DAYS, THEN 1 TAB DAILY X2 DAYS Active methylPREDNISo lone (MEDROL DOSEPACK) 4 mg Dosepack methylprednisolone 4 mg tablets in a dose pack TAKE 6 TABLETS ON DAY 1 DIRECTED ON PACKAGE AND DECREASE BY 1 TAB EACH DAY FOR A TOTAL OF 6 DAYS Active insulin syringe-needle U-100 0.3 mL 31 gauge x 5/16 syringe insulin syringe U-100 with needle 0.3 mL 31 gauge x 5/16 USE 1 SYRINGE FOR 3 TIME DAILY INJECTIONS USE SLIDING SCALE Active pen needle, diabetic (BD Ultra-Fine Mini Pen Needle) 31 gauge x 3/16 needle BD Ultra-Fine Mini Pen Needle 31 gauge x 3/16 USE TO INJECT ONCE DAILY Active Active Problems Problem Noted Date Diagnosed Date Cellulitis of foot 02/24/2021 Hypertriglyceridemia 05/31/2019 Assessment & Plan (05/31/2019 1:48 PM 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 Prostate cancer 02/02/2018 Overview (02/02/2018): Added automatically from request for surgery [id number] Type 2 diabetes mellitus without complication (C MS/HCC) 11/08/2013 Overview (07/21/2022): DMII WO CMP UNCNTRLD Assessment & Plan (05/16/2021 1:36 PM 4TH GRADE MATH TEACHER): Hba1c was Lab Results Component Value Date HGBA1C 8.9 % 05/16/2021 today, indicating poor DM control Goal Hba1c and blood glucose explained Diet and exercise , discussed Prevention and treatment of hyypoglcyemia discussed. Blood glucose monitoring : restart DEXCOM Adjustment to medications: Increase Ozempic to 1 mg weekly Take Basaglar, 80 units at bedtime Take Regular insulin , 14 units with meals For sugars over 180 , take 16 units For sugars over 240, take 20 units Continue with Metformin Assessment & Plan (02/21/2021 1:01 PM CDT): A1c 9.9. Many concepts about taking his medication. Increase Basaglar by 2 units and provided with instructions to increase to < 150 consistently. Provided with BG logs and recommend he send these in every 2 weeks so that actual pattern can be assessed to make appropriate adjustment, basal vs bolus. Difficult to determine this based on A1c vs reported BG. Importance of following appropriate diet and portions discussed. Will check with rep re: cost of sensor. Santillan nino should be less expensive than $1400 for 90 days. Assessment & Plan (11/20/2020 1:14 PM CDT): Hba1c was Lab Results Component Value Date HGBA1C 9.6 11/20/2020 today, indicating poor DM control due to poor compliance, engaging and understanding of the condition Goal blood sugars in the 120-150 range , with Hb1c under 7.0 % was explained 1800 calorie, consistent carb diet recommended. No more than 30-45 grams of carbs per meal recommended, as well as avoiding high concentrated sweet drinks . 25-45 min daily exercise, combining both aerobic and resistance exercise recommended. The need to monitor blood glucose before meals and bedtime was discussed. Prevention and treatment of hyypoglcyemia discussed. Regular insulin ( Novolin or Humulin R ) , 10 units before breakfast and dinner Continue basaglar, Janumet and Glucotrol Assessment & Plan (08/25/2020 7:22 PM 4TH GRADE MATH TEACHER): A1c 10.3. Diet is greatly Increasing pc excursions. Increase Basaglar (Tresiba ) to 74 units. Start Farxiga 10 mg in the morning. Diet and exercise importance and BG goals reviewed. Assessment & Plan (05/17/2020 2:02 PM 4TH GRADE MATH TEACHER): A1c 10.5, improved but still to high. Continues to be inconsistent with diet and taking medication. Advised to increase Basaglar to 75 units. Continue Janumet and glipizide. Increase regular insulin sliding scale to 3:50>150 starting at 2 units. Assessment & Plan (02/23/2020 4:06 PM CDT): A1c is 11.6. Likely not always compliant with medication, BG checks and diet. Advised to increase Basaglar 72 units. Will likely need to increase but will await BG log after other med change first. Stop Janumet d/t cost but continue metformin 1000 bid Continue glipizide bid Start Reli On Novolog CF tid ac 2:50> 150. Go to pharmacy and take first dose as soon as arrives home. Send in BG weekly for the next month. Carter discussion re: ongoing risks associated with elevated BG. Reduce milk significantly and drink more water. Assessment & Plan (05/31/2019 1:49 PM 4TH GRADE MATH TEACHER): Hba1c was Lab Results Component Value Date HGBA1C 10.2 (A) 05/31/2019 today, indicating very poor DM control 1800 calorie, consistent carb diet recommended. No more than 30-45 grams of carbs per meal recommended, as well as avoiding high concentrated sweet drinks . 25-45 min daily exercise, combining both aerobic and resistance exercise recommended. The need to monitor blood glucose before meals and bedtime was discussed. Prevention and treatment of hyypoglcyemia discussed. Insulin dose: Increase basaglar 80 units every day Add Invokana Continue Janumet and Glucotrol Assessment & Plan (01/28/2019 2:15 PM CDT): Difficult to determine what current BG range is to make changes. Suspect still running higher pc. Advised to check insurance about coverage for V-go as he may need additional coverage at meals instead of glipizide. Also discussed CGM. Would benefit from having Dexcom to determine BG trends. Needs to send in BG log for 2 weeks checking qid to be eligible. Follow up in 2 months and will recheck A1c. Assessment & Plan (11/18/2018 1:32 PM CDT): Hba1c was Lab Results Component Value Date HGBA1C 10.0 11/18/2018 today, indicating poor DM control 1800 calorie, consistent carb diet recommended 25-45 min daily aerobic and resistance exercise recommended Prevention and treatment of hyypoglcyemia discussed. Blood glucose monitoring with fingers before meals and bedtime x 1 week and fax logs Also log food and medications. Will set up for professional CGMS. Will consider VGO . Assessment & Plan (07/06/2018 1:45 PM 4TH GRADE MATH TEACHER): Hba1c was Lab Results Component Value Date HGBA1C 8.3 07/06/2018 today, indicating inadequate, worsening DM control 1800 calorie, consistent carb diet recommended 25-45 min daily aerobic and resistance exercise recommended Prevention and treatment of hyypoglcyemia discussed. Blood glucose monitoring with fingers sticks 1-2 x day . Increase Basaglar to 75 u hs Assessment & Plan (10/23/2017 10:53 AM CDT): A1c is 8.0. Will not recommend change to medication today. Elevated A1c due in part to recent illness. BG goals reviewed and advised to check FBG and one additional time ac. Will adjust medication based on fasting vs pc pattern. Assessment & Plan (06/16/2017 3:01 PM 4TH GRADE MATH TEACHER): Hba1c was 7.7 today, indicating suboptimal DM control 1800 calorie, consistent carb diet recommended 30 min daily aerobic and resistance exercise recommended Prevention and treatment of hyypoglcyemia discussed. Blood glucose monitoring with fingers sticks 1-2 x day . Foot care was discussed. 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 Continue Vascepa Assessment & Plan (02/23/2020 4:00 PM CDT): Continue Vasepa Assessment & Plan (11/18/2018 1:32 PM CDT): Goal of treatment , LDL cholesterol less than 100 ( less than 70 in patients with history of heart attacks and / or strokes ) NonHDL cholesterol ( total cholesterol minus HDL cholesterol ) goal less than 130 ( less than 100 in patients with history of heart attacks and / or strokes ) Low cholesterol, low fat diet was discussed and advised. Daily exercise On statin therapy Assessment & Plan (07/06/2018 1:46 PM 4TH GRADE MATH TEACHER): Goal of treatment , LDL cholesterol less than 100 ( less than 70 in patients with history of heart attacks and / or strokes ) NonHDL cholesterol ( total cholesterol minus HDL cholesterol ) goal less than 130 ( less than 100 in patients with history of heart attacks and / or strokes ) Low cholesterol, low fat diet was discussed and advised. Daily exercise Assessment & Plan (06/16/2017 3:02 PM 4TH GRADE MATH TEACHER): Goal of treatment , LDL cholesterol less than 100 ( less than 70 in patients with history of heart attacks and / or strokes ) NonHDL cholesterol goal less than 130 ( less than 100 in patients with history of heart attacks and / or strokes ) Continue statin therapy Assessment & Plan (02/10/2017 2:01 PM CDT): Goal of treatment , LDL cholesterol less than 100 ( less than 70 in patients with history of heart attacks and / or strokes ) NonHDL cholesterol goal less than 130 / 100 Lipids at goal. Low cholesterol diet, exercise advised. Encounters Date Type Department Care Team Description 03/14/2025 Orders Only [facility] Cardiology [address] [place] [address] Maddy Stout NP 03/07/2025 Orders Only [facility] Cardiology [address] [place] [address] Manjeet Sen MD from Last 3 Months Surgical History Surgery Date Site/Laterality Comments CHOLECYSTECTOMY Cholecystectomy OTHER SURGICAL HISTORY 2012 broke knee cap BACK SURGERY Back Surgery - (Added by TW Conv) [place] NEPHROLITHOTOMY REMOVAL CALCULUS Lithotomy - (Added by TW Conv) BLADDER SURGERY Bladder Surgery - (Added by TW Conv) Medical History Medical History Date Comments Hypertension Hypertension Hyperlipidemia Hyperlipidemia Diabetes mellitus (HCC) Diabetes Hx Other Medical not claustropho bic; Comments: HARDY 05/09/2014 - Personal history of other en docrine, nutritional and metabolic disease History of diabetes mellitus - (Added by TW Conv) Prostate cancer (HCC) T2DM (type 2 diabetes mellitus) (HCC) Smoker PONV (postoperative nausea and vomiting) Family History Medical History Relation Name Comments Emphysema Father Family history of emphysema - (Added by TW Conv) Cancer Mother Family history of malignant neoplasm - (Added by TW Conv) Breast cancer Other Family history of Cancer, breast; Heart attack Paternal Grandmother Relation Name Status Comments Father Mother Other Paternal Grandmother Social History Tobacco Use Types Packs/Day Years Used Date Smoking Tobacco: Former Cigarettes 0.3 30.9 1 988 - 05/29/2018 Cigars Smokeless Tobacco: Never Alcohol Use Standard Drinks/Week Comments No 0 (1 standard drink = 0.6 oz pur e alcohol) PHQ-2 Answer Date Recorded PHQ-2 Total Score (If total score is 3 or more points, staff should administer the PHQ-9) 0 05/16/2021 Sex and Gender Information Value Date Recorded Sex Assigned at Not on file Legal Sex Male 10:22 AM 4TH GRADE MATH TEACHER Gender Identity Not on file Sexual Orientation Not on file Obstetrics History Last Filed Vital Signs Vital Sign Reading Time Taken Comments Blood Pressure 150/72 05/16/2021 12:32 PM 4TH GRADE MATH TEACHER Pulse 92 05/16/2021 12:32 PM 4TH GRADE MATH TEACHER Temperature 36.9 C (98.4 F) 12/11/2020 10:25 AM CDT Respiratory Rate 12 05/16/2021 12:3 2 PM 4TH GRADE MATH TEACHER Oxygen Saturation 93% 04/15/2018 12: 01 PM CDT Inhaled Oxygen Concentration - - Weight 100.8 kg (222 lb 3.6 oz) 021 12:32 PM 4TH GRADE MATH TEACHER Height 185.4 cm (6' 0.99) 05/16/2021 1 2:32 PM 4TH GRADE MATH TEACHER Body Mass Index 29.33 05/16/2021 12:32 PM 4TH GRADE MATH TEACHER Plan of Treatment Health Maintenance Due Date Last Done Comments Fall Risk Assessment 1942 eGFR 1942 DTaP/Tdap/Td Vaccine (1 - Tdap) 1953 Hepatitis B Screening 1960 Pneumococcal vaccine 65+ (1 of 2 - PCV) 1961 Zoster Vaccine (1 of 2) 1992 Well Visit 65+ 10/04/2007 Albumin Creatinine Ratio, Urine 12/23/2017 7 Dilated Eye Exam 01/22/2018 01/22/2017 Foot Exam 02/22/2021 02/23/2020, 10/28, 07/06/2018 Hemoglobin A1C 11/13/2021 05/16/2021, 01/28, 11/20/2020, Additional history exists Lipid Panel 11/20/2021 11/20/2020, 12/0 08/2018, 04/14/2018, Additional history exists Depression Screening 05/16/2022 05/16/2021, 11/20/2020, 11/18/2018, Additional history exists Influenza Vaccine (#1) 2025 Abdominal Aortic Aneurysm (A AA) Screen Completed 05/03/2018, 09/21/2017 Procedures Procedure Name Priority Date/Time Associated Diagnosis Comments CARDIOLOGY DOCUMENT SCAN Routine 02/28/2025 1:57 PM CDT CARDIOLOGY DOCUMENT SCAN Routine 02/27/2025 4:50 PM CDT CARDIOLOGY DOCUMENT SCAN Routine 02/26/2025 4:47 PM CDT CARDIOLOGY DOCUMENT SCAN Routine 02/25/2025 4:45 PM CDT POCT HEMOGLOBIN A1C Routine 05/16/2021 1:04 PM 4TH GRADE MATH TEACHER Type 2 diabetes mellitus with hyperglycemia, with long-term current use of insulin (HCC) POCT LIPID PANEL Routine 11/20/2020 11:0 8 AM CDT Type 2 diabetes mellitus with hyperglycemia, with long-term current use of insulin (HCC) CT ABDOMEN PELVIS WO CONTRAST Schedule Routine, Read Routine (OP Routine) 05/03/2018 9:47 AM 4TH GRADE MATH TEACHER Prostate cancer (HCC) DIABETIC EYE EXAM Routine 01/22/2017 ALBUMIN CREATININE RATIO, URINE Routine 12/23/2016 Essential hypertension from Last 3 Months or Most Recently Relevant to Health Maintenance Results * Cardiology Document Scan (02/28/2025 1:57 PM CDT) Anatomical Region Laterality Modality Other Maddy Stout NP CV CARDIAC SERVICES PROCEDUR ES Final Result * Cardiology Document Scan (02/27/2025 4:50 PM CDT) Anatomical Region Laterality Modality Other Result [facility] Manjeet Sen MD CV CARDIAC SERVICES PROCEDU RES Final Result * Cardiology Document Scan (02/26/2025 4:47 PM CDT) Anatomical Region Laterality Modality Other Result [facility] Manjeet Sen MD CV CARDIAC SERVICES PROCEDU RES Final Result * Cardiology Document Scan (02/25/2025 4:45 PM CDT) Anatomical Region Laterality Modality Other Result [facility] Manjeet Sen MD CV CARDIAC SERVICES PROCEDU RES Final Result * POCT hemoglobin A1c (05/16/2021 1:04 PM 4TH GRADE MATH TEACHER) Hemoglobin A1C, POC 8.9 % Blood specimen (specimen) 05/16/2021 1:04 PM 4TH GRADE MATH TEACHER Result [facility] us Cecilio Hallman MD POINT OF CARE TEST ORDERABLES Fi nal Result * POCT lipid panel (11/20/2020 11:08 AM CDT) Cholesterol, POC 154 mg/dL HDL, POC 23 mg/dL Triglycerides, POC 318 mg/dL LDL Cholesterol POC 68 mg/dL Chol/HDL Ratio, POC 6.8 Non-HDL Cholesterol, POC 132 mg/dL Cholesterol Total, POC 154 mg/dL Capillary blood 11/20/2020 1 1:08 AM CDT Result [facility] us Cecilio Hallman MD POINT OF CARE TEST ORDERABLES Fi nal Result * CT Abdomen Pelvis WO Contrast (05/03/2018 9:47 AM 4TH GRADE MATH TEACHER) Anatomical Region Laterality Modality Body N/A Computed Tomogra phy 05/03/2018 9:57 AM 4TH GRADE MATH TEACHER Impressions 05/03/2018 10:00 AM 4TH GRADE MATH TEACHER 1. RECENT POSTSURGICAL CHANGE FOLLOWING PROSTATECTOMY NOTED ABOVE. PROBABLE SMALL SEROMAS PRESENT WITHIN THE PROSTATE BED AND INGUINAL CANALS. 2. NO OTHER ACUTE INTRA-ABDOMINAL FINDINGS. Electronically signed by: Trenton Obregon M.D. Narrative 05/03/2018 10:00 AM 4[employer] M[employer] [address]ER CT ABDOMEN PELVIS WO CONTRAST HISTORY: abdominal pain after surgery. Several weeks status post prostatectomy. Persistent left flank pain. TECHNIQUE: Helically acquired axial images were obtained from the dome of the diaphragm to the pubic symphysis. CONTRAST: None. COMPARISON: 09/21/2017 FINDINGS: The unenhanced solid parenchymal organs are unremarkable. The patient is status post cholecystectomy. The small and large bowel are nondilated. There is no evidence of ascites or adenopathy. Postsurgical changes following prostatectomy are noted. There is a very small amount of fluid within the prostate bed measuring 2 cm. Additional small fluid collections are present within the inguinal canals bilaterally. This is likely employer relations representative of postoperative seromas. Diffuse vascular calcification is seen. The lung bases are clear. Procedure Note Trenton Obregon MD - 05/03/2018 CT ABDOMEN PELVIS WO CONTRAST HISTORY: abdominal pain after surgery. Several weeks status post prostatectomy. Persistent left flank pain. TECHNIQUE: Helically acquired axial images were obtained from the dome of the diaphragm to the pubic symphysis. CONTRAST: None. COMPARISON: 09/21/2017 FINDINGS: The unenhanced solid parenchymal organs are unremarkable. The patient is status post cholecystectomy. The small and large bowel are nondilated. There is no evidence of ascites or adenopathy. Postsurgical changes following prostatectomy are noted. There is a very small amount of fluid within the prostate bed measuring 2 cm. Additional small fluid collections are present within the inguinal canals bilaterally. This is likely employer relations representative of postoperative seromas. Diffuse vascular calcification is seen. The lung bases are clear. IMPRESSION: 1. RECENT POSTSURGICAL CHANGE FOLLOWING PROSTATECTOMY NOTED ABOVE. PROBABLE SMALL SEROMAS PRESENT WITHIN THE PROSTATE BED AND INGUINAL CANALS. 2. NO OTHER ACUTE INTRA-ABDOMINAL FINDINGS. Electronically signed by: Trenton Obregon M.D. Avila Schwartz MD IMG CT PROCEDURES Final Result * Diabetic Eye Exam (01/22/2017) David Provider HEALTH MAINTENANCE Edited Result - Final * (ABNORMAL) Microalbumin / creatinine ratio, urine, random (12/23/2016) SCRIBED Creatinine, Urine 167.0 na - na EXTERNAL LAB SCRIBED Microalbumin 381.0(A) 0 - 16.7 EXTERNAL LAB SCRIBED Microalb/Creat Ratio 228.1(A) 0 - 30.0 EXTERNAL LAB Urine 12/23/2016 Cecilio Hallman MD LAB URINE ORDERABLES Final Resul t EXTERNAL LAB from Last 3 Months or Most Recently Relevant to Health Maintenance Insurance MEDICARE [facility] [id number] MEDICARE [employer] [facility] [id number] AET MEDICARE Advance Directives For more information, please contact: [phone] * Full Code (Latest Code Status on File) Date Activated Date Inactivated Comments 04/14/2018 3:55 PM 04/15/2018 8:07 PM Care Teams Mining Detail Draftsperson Relationship Specialty Start Date End Date Jay Barreto MD [address] [facility] [address] [place] [address] PCP - General 09/26/16
--- OUTSIDE RECORDS SUMMARY | 2025-03-16 12:24 | XMS_ITS | Encounter Summary ---
Author Organization [facility] Healthcare Address [address] [place] [address] Care Team Providers Care Skate Hop Name Role Phone Jay Barreto MD Primary Care Provider +- [phone] Encounter Details Date Type Department Care Team (Late st Contact Info) Description 03/14/[address] 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 Gender Identity Not on file Sexual Orientation Not on file documented as of this encounter Plan of Treatment Not on file documented as of this encounter Procedures Procedure Name Priority Date/Time Associated Diagnosis Comments CARDIOLOGY DOCUMENT SCAN Routine 02/28/2025 1:57 PM CDT documented in this encounter Results * Cardiology Document Scan (02/28/2025 1:57 PM CDT) Anatomical Region Laterality Modality Other us Maddy Stout METAL CLEANER CV CARDIAC SERVICES PROCEDUR ES Final Result documented in this encounter Visit Diagnoses Not on filedocumented in this encounter Care Teams Skate Hop Relationship Specialty Start Date End Date Jay Barreto MD [address] [facility] [address] [place] [id number] PCP - General 09/26/16 documented as of this encounter
--- NOTE | 2025-03-16 17:24 | ED_ITS ---
HPI - Back Pain/Injury General Chief Complaint: Back Pain/Injury <NIKITA Calderon Last Filed: 03/16/25 20:54> Stated Complaint: Back pain-HX of kidney staone <NIKITA Calderon Last Filed: 03/16/25 20:54> Time Seen by Provider: 03/16/25 17:23 <NIKITA Calderon Last Filed: 03/16/25 20:54> Source: patient and old records reviewed <NIKITA Calderon Filed: 03/16/25 20:54> Mode of arrival: ambulatory <NIKITA Calderon Filed: 03/16/25 20:54> Limitations: no limitations <NIKITA Calderon Filed: 03/16/25 20:54> History of Present Illness HPI Narrative: Patient is an 84 y/o male who presents to the ED with c/o R flank pain. Patient reports he was transferred here from [facility] on 02/24 for a septic R ureteral stone. Underwent R ureteral stent placement w/ Dr. Munroe. Also found to be in new onset AFIB with rvr at that time. Urine and blood cultures were positive at that time. He was discharged on 03/02/25, eliquis, metoprolol, Lasix, amiodarone, amoxicillin. States over the past 1 week, has been having increased pain throughout his right flank region radiating into his right lower abdomen. Has been taking his home Vicodin without much improvement. Had difficulty getting out of bed this morning. Recent reports some difficulty urinating. Denies nausea, vomiting, fevers. <NIKITA Calderon Last Filed: 03/16/25 20:54> Related Data Home Medications: Home Medications ?Medication ?Instructions ?Recorded ?Confirmed ?Last Taken ?Type blood sugar diagnostic (Accu-Chek #10 ea 08/11/1901/29 Unknown History Dot Plus test strips) blood-glucose meter (Accu-Chek #1 ea 08/11/19 02/25/25 Unknown History Dot Plus Meter) lancets (Accu-Chek Softclix #50 ea 08/11/19 02/25/25 U nknown History Lancets) magnesium 500 mg tablet 500 mg PO DAILY PRN cramps 0 11/27/22 02/24/25 Unknown History hydrocodone 10 mg-acetaminophen 1 tablet PO Q6H PRN pa in (scale 02/09/24 02/24/25 Unknown History 325 mg tablet score 4-6) cyclobenzaprine 10 mg tablet 10 mg PO DAILY PRN muscle spasm 02/24/25 02/24/25 Unknown History insulin glargine 100 unit/mL (3 60 unit subcut DAILY 0 02/24/25 02/24/25 Unknown History mL) subcutaneous pen (Lantus Solostar U-100 Insulin) insulin aspart U-100 100 unit/mL See Rx Instructions s ubcut DAILY 02/25/25 02/25/25 Unknown History (3 mL) subcutaneous pen (Novolog FlexPen U-100 Insulin aspart) <Sonia Nguyễn PA-C - Last Filed: 03/16/25 20:54> Allergies/Adverse Reactions: Allergies Allergy/AdvReac Type Severity Reaction Status Date / Time venom-wasp Allergy Severe Anaphylaxis Verified 02/24/25 23:50 adhesive tape Allergy Mild Rash Verified 02/24/25 23:50 <Sonia Nguyễn PA-C - Last Filed: 03/16/25 20:54> Review of Systems 2 Review of Systems: All systems reviewed & are unremarkable except as noted in HPI. <Sonia Nguyễn PA-C - Last Filed: 03/16/25 20:54> All systems reviewed & are unremarkable except as noted in HPI and below < Sonia Nguyễn PA-C - Last Filed: 03/16/25 20:54> [facility] Past Medical History Medical History: Medical History Sepsis Type 2 diabetes mellitus with insulin therapy Diabetic retinopathy SK (seborrheic keratosis) Incomplete tear of right rotator cuff Hereditary and idiopathic neuropathy, unspecified Gastro-esophageal reflux disease without esophagitis Elevated PSA Dysphagia Body mass index (BMI) greater than 30 (01/29/17) [place] (actinic keratosis) Hard of hearing Chronic pain of both knees Chronic low back pain Essential (primary) hypertension Prostate cancer BPH (benign prostatic hyperplasia) Kidney stone Seasonal allergies <Sonia Nguyễn PA-C - Last Filed: 03/16/25 20:54> Surgical History Surgical History: Surgical History Status post cystoscopy with ureteral stent placement With right ureteral stent placement at least 3 past with the most recent episode being December 2013 and September 2017 Status post right partial knee replacement Complicated by Staph epidermidis infection with subsequent removal of hardware and antibiotic spacer placement 03/2025 H/O cataract removal with insertion of prosthetic lens Hx of excision of mass exc anterior chest wall cyst on 12/08/22 H/O arthroscopic knee surgery bilateral knees History of bladder surgery H/O prostatectomy Hx of cholecystectomy H/O colonoscopy H/O sinus surgery <Sonia Nguyễn PA-C - Last Filed: 03/16/25 20:54> Family History Family History: Family History Father Family history of emphysema Family history of congestive heart failure Mother Family history of malignant neoplasm of breast in first degree relative Family history of malignant neoplasm <Sonia Nguyễn PA-C - Last Filed: 03/16/25 20:54> Social History Social History: Social History Social History: He lives with his . He has 6 children. 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 He smoked a pack of cigarettes per week from the time use 17 up until 2002. The last 10 or 15 years of his smoking he only smoked intermittently. Code status: Full code Surrogate decision maker: Smoking packs per day: 0.25 Smoking cigarettes per day: 5.0 Years smoked: 50 Smoking pack-years: 12.50 Smoking status: Former smoker Tobacco type: cigarettes Second hand tobacco smoke exposure: No Smoking end date: 12/27/02 Additional smoking assessment comments: SMOKED 1 PACK/WEEK X 15 YEARS Alcohol intake: former Substance use: never Lack of Transportation: No Lack of Food: Never True Current Housing: I Have Housing Concerned About Future Housing: No Difficulty Paying Gas/Electric Bills: No Difficulty Paying for Meds: No Currently Unemployed: No Education: Decline to Answer Difficulty w/ Childcare or Family Care: No Living arrangements: with family Additional living arrangements comments: AND GRANDDAUGHTER Spiritual care concerns: No <Sonia Nguyễn PA-C - Last Filed: 03/16/25 20:54> Exam 2 Narrative: GENERAL: Elderly but well appearing, well-nourished, non-toxic, in no acute distress. HEAD: Normocephalic, atraumatic. RESPIRATORY: Airway patent, respirations nonlabored. Clear to auscultation bilaterally, no rales, rhonchi, wheezing. CARDIOVASCULAR: Regular rate and rhythm without murmurs, rubs, or gallops. ABDOMINAL: Soft, TTP in R lower /lower abdomen, nondistended. Normoactive BS. +CVA tenderness on R MUSCULOSKELETAL: Moves all extremities. No gross deformities. SKIN: Warm, dry, normal color. NEURO: A&O X3. Speech clear. PSYCHIATRIC: Appropriate mood and affect. Normal interaction. <Sonia Nguyễn PA-C - Last Filed: 03/16/25 20:54> Course LATEX THREAD MACHINE OPERATOR/PA Physician Supervision This visit was performed by both a physician and an APC; I performed all aspects of the medical decision making component of this evaluation as documented. <Becca Puga MD - Last Filed: 03/16/25 21:29> Vital Signs Vital signs: Vital Signs Temperature 98.2 F 03/16/25 12:25 Pulse Rate 72 03/16/25 12:25 Respiratory Rate 16 03/16/25 12:25 Blood Pressure 146/64 H 03/16/25 12:25 Pulse Oximetry 98 03/16/25 12:25 Temperature 98.2 F 03/16/25 12:25 Pulse Rate 72 03/16/25 19:00 Respiratory Rate 18 03/16/25 19:00 Blood Pressure 141/74 H 03/16/25 19:00 Pulse Oximetry 92 03/16/25 19:00 <Sonia Nguyễn PA-C - Last Filed: 03/16/25 20:54> Vital Signs Temperature 98.2 F 03/16/25 12:25 Pulse Rate 72 03/16/25 12:25 Respiratory Rate 16 03/16/25 12:25 Blood Pressure 146/64 H 03/16/25 12:25 Pulse Oximetry 98 03/16/25 12:25 Temperature 98.2 F 03/16/25 12:25 Pulse Rate 72 03/16/25 19:00 Respiratory Rate 18 03/16/25 19:00 Blood Pressure 141/74 H 03/16/25 19:00 Pulse Oximetry 92 03/16/25 19:00 <Becca Puga MD - Last Filed: 03/16/25 21:29> MDM - Back Pain/Injury MDM Narrative Medical decision making narrative: Patient presented to ED with right flank pain, right lower quadrant abdominal pain, history of recent septic stone with current ureteral stent placement. Vital signs stable upon arrival. Patient is afebrile here. Laboratory studies without leukocytosis. Stable H&H. CMP with stable electrolytes, stable kidney function. UA with 1+ leuk esterase, 51-100 RBC, 6- 10 WBC. No urine bacteria seen. Sent for culture. CT scan of abdomen/pelvis obtained: IMPRESSION: 1. Mild right hydronephrosis with 6 mm left ureteral stone along side a right intraureteral stent which is in expected position. 2. 3.9 x 3.7 cm mass in the deep right pelvis and retroperitoneal lymphadenopathy concerning for metastatic disease. Patient is status post prostatectomy suggesting this could represent metastatic prostate cancer. Correlate with clinical history and with PSA levels. 6 Discussed case with Urology, Dr. Cohen, advised can admit for pain control/IV antibiotics, Urology consult in the morning. If patient really wants to go home, can discharge on oral antibiotics, close follow-up. Discussed lab/imaging findings/urology recommendations with patient. He is still reporting moderate amount of pain. Requesting additional pain control. Will be admitted for continued evaluation. Discussed mass in right pelvis. Patient reports history of prostate cancer in 2017, underwent prostatectomy at that time. Did not receive radiation or chemotherapy. Blood cultures obtained. Started on Rocephin Updated Dr. Cohen of admission Discussed case with Delphine Mcdaniel, LATEX THREAD MACHINE OPERATOR hospitalist, accepted patient for admission. Patient and family in agreement with plan. <GWEN Calderon - Last Filed: 03/16/25 20:54> Medical Records Attestation: I reviewed the patient's medical records. <Sonia Nguyễn PA-C - Last Filed: 03/16/25 20:54> Lab Data Attestation: I reviewed the patient's lab results. <Sonia Nguyễn PA-C - Last Filed: 03/16/25 20:54> Result diagrams: 03/16/25 18:01 03/16/25 18:01 <Sonia Nguyễn PA-C - Last Filed: 03/16/25 20:54> Labs: Lab Results 03/16/25 Range/Units 18:01 WBC 5.7 (4.5-10.0) K/mm3 RBC 3.89 L (4.6-6.20) M/mm3 Hgb 12.6 L (14.0-18.0) g/dL Hct 38.4 L (42.0-52.0) % MCV 98.7 (80-100) fl MCH 32.4 (26-34) pg MCHC 32.8 (32-36) g/dl RDW 14.1 (11.5-14.5) % Plt Count 248 (150-375) k/mm3 MPV 9.5 (7.4-10.4) fl Immature Gran % (Auto) 0.7 H (0-0.5) % Neut % (Auto) 57.6 (45.5-73.1) % Lymph % (Auto) 29.9 (18.3-44.2) % [place] % (Auto) 8.7 H (2.6-8.5) % Eos % (Auto) 2.4 (0-4.4) % Baso % (Auto) 0.7 (0.2-1.2) % Lymph # (Auto) 1.71 (0.9-3.2) K/mm3 [place] # (Auto) 0.5 (0.1-0.6) K/mm3 Eos # (Auto) 0.1 (0-0.3) K/mm3 Baso # (Auto) 0.0 (0.0-0.1) K/mm3 Abs Immat Gran (auto) 0.04 H (0.00-0.031) K/mm3 Absolute Neuts (auto) 3.3 (1.3-6.7) K/mm3 Absolute Nucleated RBC 0.000 (0.0-0.012) K/mm3 Nucleated RBC % 0.0 (0.0-0.2) % Sodium 138 (137-145) mmol/L Potassium 4.5 (3.4-5.0) mmol/L Chloride 103 (98-107) mmol/L Carbon Dioxide 30 (22-30) mmol/L Anion Gap 5 (4-12) mmol/L BUN 14 D (9-20) mg/dL Creatinine 1.06 (0.7-1.3) mg/dL Estim Creat Clear Calc 52 ml/min Estimated GFR > 60 (59 - ) Glucose 129 H (65-110) mg/dL Calcium 9.1 (8.4-10.2) mg/dL Total Bilirubin 0.6 (0.2-1.3) mg/dL AST 30 (17-59) U/L ALT 20 (6-50) U/L Alkaline Phosphatase 70 (38-126) U/L Total Protein 8.0 (6.3-8.2) g/dL Albumin 4.1 (3.5-5.1) g/dL Lipase 41 (23-300) U/L Prostate Specific Ag 49.9 H (< OR = 4.0) ng/mL Urine Color Yellow (Yellow) Urine Appearance Cloudy H (Clear) Urine pH 5.5 (5.0-9.0) Ur Specific [place] 1.011 (1.001-1.035) Urine Protein 1+ H (Negative) mg/dL Urine Glucose (UA) Negative (Negative) mg/dL Urine Ketones Negative (Negative) mg/dL Ur Blood (Man) 3+ H (Negative) Urine Nitrate Negative (Negative) Urine Bilirubin Negative (Negative) Urine Urobilinogen 0.2 (<2.0) mg/dL Leukocyte Esterase Rfl 1+ H (Negative) ISABELLE/UL Urine RBC 51-100 H (0-2) /hpf Urine WBC 6-10 H (0-3) /hpf Ur Squamous Epith Cells None seen (Few) /hpf Urine Bacteria None seen /hpf Urine Casts 0-2 <Sonia Nguyễn PA-C - Last Filed: 03/16/25 20:54> Lab Results 09/18/25 Range/Units 18:01 WBC 5.7 (4.5-10.0) K/mm3 RBC 3.89 L (4.6-6.20) M/mm3 Hgb 12.6 L (14.0-18.0) g/dL Hct 38.4 L (42.0-52.0) % MCV 98.7 (80-100) fl MCH 32.4 (26-34) pg MCHC 32.8 (32-36) g/dl RDW 14.1 (11.5-14.5) % Plt Count 248 (150-375) k/mm3 MPV 9.5 (7.4-10.4) fl Immature Gran % (Auto) 0.7 H (0-0.5) % Neut % (Auto) 57.6 (45.5-73.1) % Lymph % (Auto) 29.9 (18.3-44.2) % [place] % (Auto) 8.7 H (2.6-8.5) % Eos % (Auto) 2.4 (0-4.4) % Baso % (Auto) 0.7 (0.2-1.2) % Lymph # (Auto) 1.71 (0.9-3.2) K/mm3 [place] # (Auto) 0.5 (0.1-0.6) K/mm3 Eos # (Auto) 0.1 (0-0.3) K/mm3 Baso # (Auto) 0.0 (0.0-0.1) K/mm3 Abs Immat Gran (auto) 0.04 H (0.00-0.031) K/mm3 Absolute Neuts (auto) 3.3 (1.3-6.7) K/mm3 Absolute Nucleated RBC 0.000 (0.0-0.012) K/mm3 Nucleated RBC % 0.0 (0.0-0.2) % Sodium 138 (137-145) mmol/L Potassium 4.5 (3.4-5.0) mmol/L Chloride 103 (98-107) mmol/L Carbon Dioxide 30 (22-30) mmol/L Anion Gap 5 (4-12) mmol/L BUN 14 D (9-20) mg/dL Creatinine 1.06 (0.7-1.3) mg/dL Estim Creat Clear Calc 52 ml/min Estimated GFR > 60 (59 - ) Glucose 129 H (65-110) mg/dL Calcium 9.1 (8.4-10.2) mg/dL Total Bilirubin 0.6 (0.2-1.3) mg/dL AST 30 (17-59) U/L ALT 20 (6-50) U/L Alkaline Phosphatase 70 (38-126) U/L Total Protein 8.0 (6.3-8.2) g/dL Albumin 4.1 (3.5-5.1) g/dL Lipase 41 (23-300) U/L Prostate Specific Ag 49.9 H (< OR = 4.0) ng/mL Urine Color Yellow (Yellow) Urine Appearance Cloudy H (Clear) Urine pH 5.5 (5.0-9.0) Ur Specific [place] 1.011 (1.001-1.035) Urine Protein 1+ H (Negative) mg/dL Urine Glucose (UA) Negative (Negative) mg/dL Urine Ketones Negative (Negative) mg/dL Ur Blood (Man) 3+ H (Negative) Urine Nitrate Negative (Negative) Urine Bilirubin Negative (Negative) Urine Urobilinogen 0.2 (<2.0) mg/dL Leukocyte Esterase Rfl 1+ H (Negative) ISABELLE/UL Urine RBC 51-100 H (0-2) /hpf Urine WBC 6-10 H (0-3) /hpf Ur Squamous Epith Cells None seen (Few) /hpf Urine Bacteria None seen /hpf Urine Casts 0-2 <Becca Puga MD - Last Filed: 03/16/25 21:29> Imaging Data Attestation: I personally reviewed and interpreted this imaging study as follows: < Sonia Nguyễn PA-C - Last Filed: 03/16/25 20:54> Radiologist's impression: ITS Impressions Abdomen/Pelvis CT 03/16/25 18:14 IMPRESSION: 1. Mild right hydronephrosis with 6 mm left ureteral stone along side a right intraureteral stent which is in expected position. 2. 3.9 x 3.7 cm mass in the deep right pelvis and retroperitoneal lymphadenopathy concerning for metastatic disease. Patient is status post prostatectomy suggesting this could represent metastatic prostate cancer. Correlate with clinical history and with PSA levels. 6 3. Small sliding-type hiatal hernia. <NIKITA Calderon Last Filed: 03/16/25 20:54> Discharge Plan Discharge Clinical Impression: Abnormal finding on urinalysis, Pelvic mass, Ureteral stent present, Calculus of right ureter <NIKITA Calderon Last Filed: 03/16/25 20:54> Patient Disposition: Still a Patient <NIKITA Calderon Last Filed: 03/16/25 20:54> Condition: Stable <NIKITA Calderon Last Filed: 03/16/25 20:54>
--- OUTSIDE RECORDS SUMMARY | 2025-03-16 17:44 | XMS_ITS | Clinical Summary ---
Author Organization [facility] Address [address] [place] [address] Care Team Providers Care Family Living Educator Name Role Phone Jay Barreto MD Primary Care Provider [phone] Allergies Active Allergy Reactions Criticality Noted Date [...] hyperglycemia, with long-term current use of insulin ([facility]) Take 2 tablets (1,000 mg total) by mouth 2 (two) times a day with meals 360 tablet 3 05/16/20 21 Active Dexcom G6 Sensor deviceIndicati ons:Type 2 diabetes mellitus with hyperglycemia, with long-term current use of insulin ([facility]) Change sensor every 10 days 9 each 2 05/16/20 Active Dexcom G6 Computer Networking Instructor miscIndication s:Type 2 diabetes mellitus with hyperglycemia, with long-term current use of insulin ([facility]) Use to check bg daily as directed 1 each 05/16/20 Active Dexcom G6 Transmitter deviceIndicati ons:Type 2 diabetes mellitus with hyperglycemia, with long-term current use of insulin ([facility]) Change every 90 days 1 each 1 05/16/20 21 Active BD Ultra-Fine Mini Pen Needle 31 gauge x 3/16 needleIndicati ons:Type 2 diabetes mellitus with hyperglycemia, with long-term current use of insulin ([facility]) USE TO INJECT THREE TIMES DAILY 100 [...] complication, with long-term current use of insulin ([facility]) Take 1 tablet (20 mg total) by [...] 05/31/2019 Assessment & Plan (05/31/2019 1:48 PM FAN RUNNER): Very uncontrolled Low fat diet Exercise Better BG control Start Vascepa. Prostate cancer 02/02/2018 Overview (02/02/2018): Added automatically from request for surgery [id number] Type 2 diabetes mellitus without complication (C MS/HCC) 11/08/2013 Overview (07/21/2022): DMII WO CMP UNCNTRLD Assessment & Plan (05/16/2021 1:36 PM FAN RUNNER): Hba1c was Lab Results Component Value Date [...] Glucotrol Assessment & Plan (08/25/2020 7:22 PM FAN RUNNER): A1c 10.3. Diet is greatly Increasing pc excursions. Increase Basaglar (Tresiba ) to 74 units. Start Farxiga 10 mg in the morning. Diet and exercise importance and BG goals reviewed. Assessment & Plan (05/17/2020 2:02 PM FAN RUNNER): A1c 10.5, improved but still to high. [...] water. Assessment & Plan (05/31/2019 1:49 PM FAN RUNNER): Hba1c was Lab Results Component Value Date [...] . Assessment & Plan (07/06/2018 1:45 PM FAN RUNNER): Hba1c was Lab Results Component Value Date [...] pattern. Assessment & Plan (06/16/2017 3:01 PM FAN RUNNER): Hba1c was 7.7 today, indicating suboptimal DM [...] diabetes Assessment & Plan (08/25/2020 7:17 PM FAN RUNNER): Continue Vascepa Assessment & Plan (05/17/2020 1:59 PM FAN RUNNER): Will order lipid panel. Continue Vascepa Assessment [...] therapy Assessment & Plan (07/06/2018 1:46 PM FAN RUNNER): Goal of treatment , LDL cholesterol less [...] exercise Assessment & Plan (06/16/2017 3:02 PM FAN RUNNER): Goal of treatment , LDL cholesterol less [...] Department Care Team Description 03/14/2025 Orders Only [facility] Cardiology [address] [place] [address] Maddy Stout NP 03/07/2025 Orders Only [facility] Cardiology [address] [place] [address] Manjeet Sen MD from Last 3 Months Surgical History Surgery Date Site/Laterality Comments CHOLECYSTECTOMY Cholecystectomy OTHER SURGICAL HISTORY 2012 broke knee cap BACK SURGERY Back Surgery - (Added by TW Conv) [place] NEPHROLITHOTOMY REMOVAL CALCULUS Lithotomy - (Added by [...] on file Legal Sex Male 10:22 AM FAN RUNNER Gender Identity Not on file Sexual Orientation Not on file Obstetrics History Last Filed Vital Signs Vital Sign Reading Time Taken Comments Blood Pressure 150/72 05/16/2021 12:32 PM FAN RUNNER Pulse 92 05/16/2021 12:32 PM FAN RUNNER Temperature 36.9 C (98.4 F) 12/11/2020 10:25 AM CDT Respiratory Rate 12 05/16/2021 12:3 2 PM FAN RUNNER Oxygen Saturation 93% 04/15/2018 12: 01 PM CDT Inhaled Oxygen Concentration - - Weight 100.8 kg (222 lb 3.6 oz) 021 12:32 PM FAN RUNNER Height 185.4 cm (6' 0.99) 05/16/2021 1 2:32 PM FAN RUNNER Body Mass Index 29.33 05/16/2021 12:32 PM FAN RUNNER Plan of Treatment Health Maintenance Due Date [...] POCT HEMOGLOBIN A1C Routine 05/16/2021 1:04 PM FAN RUNNER Type 2 diabetes mellitus with hyperglycemia, with long-term current use of insulin (HCC) POCT LIPID PANEL Routine 11/20/2020 11:0 8 AM CDT Type 2 diabetes mellitus with hyperglycemia, with long-term current use of insulin (HCC) CT ABDOMEN PELVIS WO CONTRAST Schedule Routine, Read Routine (OP Routine) 05/03/2018 9:47 AM FAN RUNNER Prostate cancer (HCC) DIABETIC EYE EXAM Routine [...] CDT) Anatomical Region Laterality Modality Other Result [facility] Manjeet Sen MD CV CARDIAC SERVICES PROCEDU RES Final Result * Cardiology Document Scan (02/26/2025 4:47 PM CDT) Anatomical Region Laterality Modality Other Result [facility] Manjeet Sen MD CV CARDIAC SERVICES PROCEDU RES Final Result * Cardiology Document Scan (02/25/2025 4:45 PM CDT) Anatomical Region Laterality Modality Other Result [facility] Manjeet Sen MD CV CARDIAC SERVICES PROCEDU RES Final Result * POCT hemoglobin A1c (05/16/2021 1:04 PM FAN RUNNER) Hemoglobin A1C, POC 8.9 % Blood specimen (specimen) 05/16/2021 1:04 PM FAN RUNNER Result [facility] us Cecilio Hallman MD POINT OF CARE TEST ORDERABLES Fi nal Result * POCT lipid panel (11/20/2020 11:08 AM CDT) Cholesterol, POC 154 mg/dL HDL, POC 23 mg/dL Triglycerides, POC 318 mg/dL LDL Cholesterol POC 68 mg/dL Chol/HDL Ratio, POC 6.8 Non-HDL Cholesterol, POC 132 mg/dL Cholesterol Total, POC 154 mg/dL Capillary blood 11/20/2020 1 1:08 AM CDT Result [facility] us Cecilio Hallman MD POINT OF CARE TEST ORDERABLES Fi nal Result * CT Abdomen Pelvis WO Contrast (05/03/2018 9:47 AM FAN RUNNER) Anatomical Region Laterality Modality Body N/A Computed Tomogra phy 05/03/2018 9:57 AM FAN RUNNER Impressions 05/03/2018 10:00 AM FAN RUNNER 1. RECENT POSTSURGICAL CHANGE FOLLOWING PROSTATECTOMY NOTED ABOVE. PROBABLE SMALL SEROMAS PRESENT WITHIN THE PROSTATE BED AND INGUINAL CANALS. 2. NO OTHER ACUTE INTRA-ABDOMINAL FINDINGS. Electronically signed by: Trenton Obregon M.D. Narrative 05/03/2018 10:[address] ABDOMEN PELVIS WO CONTRAST HISTORY: abdominal [...] the inguinal canals bilaterally. This is likely associate financial representative of postoperative seromas. Diffuse vascular calcification [...] the inguinal canals bilaterally. This is likely associate financial representative of postoperative seromas. Diffuse vascular calcification [...] Recently Relevant to Health Maintenance Insurance MEDICARE [facility] [id number] MEDICARE [facility] Address: [address] [address] [place] [address] [employer] [facility] [id number] AET MEDICARE Advance Directives For more information, please contact: [phone] * Full Code (Latest Code Status on File) Date Activated Date Inactivated Comments 04/14/2018 3:55 PM 04/15/2018 8:07 PM Care Teams Family Living Educator Relationship Specialty Start Date End Date Jay Barreto MD [address] [facility] [address] [place] [address] PCP - General 09/26/16
[2025-03-16 18:09] LABS: Hematocrit 38.4 % (42.0-52.0); Hemoglobin 12.6 g/dL (14.0-18.0); Immature Granulocyte Percent A 0.7 % (0-0.5); Lymphocytes Absolute Auto 1.71 K/mm3 (0.9-3.2); Mean Corpuscular HGB Conc 32.8 g/dl (32-36); Mean Corpuscular Hemoglobin 32.4 pg (26-34); Mean Corpuscular Volume 98.7 fl (80-100); Nucleated Red Blood Cells Absolute Auto 0.000 K/mm3 (0.0-0.012); Nucleated Red Blood Cells Perc 0.0 % (0.0-0.2); Platelet Count Result 248 k/mm3 (150-375); Red Blood Count 3.89 M/mm3 (4.6-6.20); White Blood Count 5.7 K/mm3 (4.5-10.0)
[2025-03-16 18:22] LABS: Alanine Aminotransferase 20 U/L (6-50); Albumin Level 4.1 g/dL (3.5-5.1); Alkaline Phosphatase 70 U/L (38-126); Anion Gap 5 mmol/L (4-12); Aspartate Amino Transferase 30 U/L (17-59); Bilirubin,Total 0.6 mg/dL (0.2-1.3); Blood Urea Nitrogen 14 mg/dL (9-20); Calcium 9.1 mg/dL (8.4-10.2); Carbon Dioxide 30 mmol/L (22-30); Chloride 103 mmol/L (98-107); Estimated CRCL calculation 52 ml/min; Estimated Glomerular Filt Rate > 60; Glucose 129 mg/dL (65-110); Lipase 41 U/L (23-300); Potassium 4.5 mmol/L (3.4-5.0); Sodium 138 mmol/L (137-145); Total Protein 8.0 g/dL (6.3-8.2)
[2025-03-16 18:24] LABS: Add Urine Microscopic? YES; Appearance Urine Cloudy (Clear); Glucose Urine UA Negative (Negative); Leukocyte Esterase Ur 1+ LEU/UL (Negative); Nitrate Urine Negative (Negative); Non Pathogenic Casts 0-2; Specific Grav Ur 1.011 (1.001-1.035)
[2025-03-16] MEDS: ACETAMINOPHEN 500 MG TABLET 1000 MG PO (18:28)
[2025-03-16] MEDS: SODIUM CHLORIDE 0.9% IV 500 ML 999 ML IV CONT (18:28)
[2025-03-16] MEDS: MORPHINE SULFATE (*CRX) 4 MG/ML INJ IV PUSH ×2 (18:29→22:19)
[2025-03-16] MEDS: ONDANSETRON INJ 4 MG/2 ML VIAL IV PUSH (18:29)
--- NOTE | 2025-03-16 19:02 | PC.NURSE ---
Medications were about to be given by this RN and the IV on the right peripheral side had blown. New IV access was needed thus there was a delay in delivering of medications. Fluids and meds were given immediately after the new IV was placed.
[2025-03-16 21:18] LABS: Prostate Specific Antigen 49.9 ng/mL (< OR = 4.0)
--- NOTE | 2025-03-16 21:34 | PM.IMHP ---
H&P: HPI History of Present Illness Date/Time: 03/16/25 21:34 Chief Complaint: Bilateral back pain/flank pain right greater than left. Narrative: This is an 84-year-old male patient with a history of nephrolithiasis, hydronephrosis, and prostate cancer who presented to the hospital today with complaints of right flank pain. Abnormal labs include an H&H of 12.6 and 38.4 where he is at his baseline. His blood sugar was 129. His PSA was found to be 49.9. Urinalysis was read as 1+ protein, 3+ blood, 1+ leukocyte esterase, urine rbc's 51-100, and urine WBC 6-10. CT of the abdomen was read as1. Mild right hydronephrosis with 6 mm left ureteral stone along side a right intraureteral stent which is in expected position. 2. 3.9 x 3.7 cm mass in the deep right pelvis and retroperitoneal lymphadenopathy concerning for metastatic disease. Patient is status post prostatectomy suggesting this could represent metastatic prostate cancer. Correlate with clinical history and with PSA levels. 6 3. Small sliding-type hiatal hernia. Urology has been consulted. The patient was given IV fluids, morphine, Tylenol and ceftriaxone in the emergency room. The patient is being admitted to observation status on the date of service of 03/16/2025. ( The patient had been discharged from here on 03/02/2025 where he had been treated for sepsis, pyelonephritis, acute renal failure, and new onset of atrial fibrillation with rapid ventricular response. The patient had a ureteral stent placement on 02/25/2025. His urine cultures grew E coli which was pansensitive. He had been discharged on amoxicillin for 10 days.) Review of Systems Constitutional: Constitutional: Reports as per HPI and Reports no additional constitutional complaints Eyes: Eyes: Reports as per HPI and Reports no additional eye complaints ENT: Reports no additional ear, nose, mouth, and throat complaints and Reports Normal hearing present Cardiovascular: Cardiovascular: Reports no additional cardiovascular complaints Respiratory: Respiratory: Reports as per HPI and Reports no additional respiratory complaints Gastrointestinal: Gastrointestinal: Reports as per HPI and Reports no additional gastrointestinal complaints Musculoskeletal: Musculoskeletal: Reports no additional musculoskeletal complaints Integumentary/Breasts: Skin/Breast: Reports system reviewed and no additional complaints, except as docu Neurologic: Reports no additional neurologic complaints and Reports Normal hearing present Psychiatric: Psychiatric: Reports no additional psychiatric complaints and Reports as per HPI Hematologic/Lymphatic: Hematologic/Lymphatic: Reports no additional hematologic/lymphatic complaints Allergic/Immunologic: Allergic/Immunologic: Reports no additional allergic/immunologic complaints PENDING SALE TO [facility] Past Medical History Medical History (Updated 03/16/25 @ 21:35 by Delphine Mcdaniel APRN) Atrial fibrillation Sepsis Type 2 diabetes mellitus with insulin therapy Diabetic retinopathy SK (seborrheic keratosis) Incomplete tear of right rotator cuff Hereditary and idiopathic neuropathy, unspecified Gastro-esophageal reflux disease without esophagitis Elevated PSA Dysphagia Body mass index (BMI) greater than 30 (01/29/17) AK (actinic keratosis) Hard of hearing Chronic pain of both knees Chronic low back pain Essential (primary) hypertension Prostate cancer BPH (benign prostatic hyperplasia) Kidney stone Seasonal allergies Surgical History Surgical History Status post cystoscopy with ureteral stent placement With right ureteral stent placement at least 3 past with the most recent episode being December 2013 and September 2017 Status post right partial knee replacement Complicated by Staph epidermidis infection with subsequent removal of hardware and antibiotic spacer placement 03/2025 H/O cataract removal with insertion of prosthetic lens Hx of excision of mass exc anterior chest wall cyst on 12/08/22 H/O arthroscopic knee surgery bilateral knees History of bladder surgery H/O prostatectomy Hx of cholecystectomy H/O colonoscopy H/O sinus surgery Family History Family History Father Family history of emphysema Family history of congestive heart failure Mother Family history of malignant neoplasm of breast in first degree relative Family history of malignant neoplasm Social History Social History (Updated 03/16/25 @ 22:23 by Delphine Mcdaniel APRN) Social History: He lives with his . He has 6 children. 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 He smoked a pack of cigarettes per week from the time he was in his 30's until the year 2002. The last 10 or 15 years of his smoking he only smoked intermittently. Code status: Full code Surrogate decision maker: Smoking packs per day: 0.25 Smoking cigarettes per day: 5.0 Years smoked: 50 Smoking pack-years: 12.50 Smoking status: Former smoker Tobacco type: cigarettes Second hand tobacco smoke exposure: No Smoking end date: 12/27/02 Additional smoking assessment comments: SMOKED 1 PACK/WEEK X 15 YEARS Alcohol intake: never Substance use: never Lack of Transportation: No Lack of Food: Never True Current Housing: I Have Housing Concerned About Future Housing: No Difficulty Paying Gas/Electric Bills: No Difficulty Paying for Meds: No Currently Unemployed: No Education: Master's Degree or Higher Difficulty w/ Childcare or Family Care: No Living arrangements: with family Additional living arrangements comments: AND GRANDDAUGHTER Spiritual care concerns: No Meds Home Medications and Allergies Home Medications ?Medication ?Instructions ?Recorded ?Confirmed ?Type blood sugar diagnostic (Accu-Chek #10 ea 08/11/19 03/16/25 History Dot Plus test strips) blood-glucose meter (Accu-Chek #1 ea 08/11/19 03/16/25 History Dot Plus Meter) lancets (Accu-Chek Softclix #50 ea 08/11/19 03/16/25 History Lancets) magnesium 500 mg tablet 500 mg PO DAILY PRN cramps 11/27/22 03/16/25 History blood-glucose sensor (Dexcom G7 #10 ea 05/01/23 03/16/25 Rx Sensor device) pen needle, diabetic 31 gauge x #100 ea 08/11/23 03/16/25 Rx 3/16 (BD Ultra-Fine Mini Pen Needle) hydrocodone 10 mg-acetaminophen 1 tablet PO Q6H PRN pain (scale 02/09/24 03/16/25 History 325 mg tablet score 4-6) metformin 500 mg tablet 1,000 mg (2 x 500 mg) PO BID 90 09/05/24 03/16/25 Rx days #360 tabs cyclobenzaprine 10 mg tablet 10 mg PO DAILY PRN muscle spasm 02/24/25 03/16/25 History insulin glargine 100 unit/mL (3 60 unit subcut QPM 02/24/25 03/16/25 History mL) subcutaneous pen (Lantus Solostar U-100 Insulin) insulin aspart U-100 100 unit/mL See Rx Instructions subcut DAILY 02/25/25 03/16/25 History (3 mL) subcutaneous pen (Novolog FlexPen U-100 Insulin aspart) amiodarone 200 mg tablet ([place]one) 400 mg (2 x 200 mg) PO Q12HR #30 03/02/25 03/16/25 Rx tabs apixaban 5 mg tablet (Eliquis) 5 mg PO Q12HR #60 tabs 03/02/25 03/16/25 Rx metoprolol succinate 50 mg 150 mg (3 x 50 mg) PO QAM #30 tabs 03/02/25 03/16/25 Rx tablet,extended release 24 hr furosemide 40 mg tablet 40 mg PO DAILY PRN edema 03/16/25 03/16/25 History Allergies Allergy/AdvReac Type Severity Reaction Status Date / Time venom-wasp Allergy Severe Anaphylaxis Verified 02/24/25 23:50 adhesive tape Allergy Mild Rash Verified 02/24/25 23:50 Vital Signs Vital Signs - 24 hr 03/16/25 12:25 03/16/25 14:30 03/16/25 19:00 Temperature 98.2 F Pulse Rate 72 87 72 Respiratory Rate 16 16 18 Blood Pressure 146/64 H 142/88 H 141/74 H Pulse Oximetry 98 98 92 Exam Const: General: cooperative, comfortable, no acute distress, well developed, awake, Physically active, average body habitus and well nourished Nutritional Appearance: average body habitus and well nourished Orientation/consciousness: oriented to person, oriented to place, oriented to time and patient oriented x3 Limitations: no limitations HENMT: Head: normal to inspection, No palpable skull fracture present, normocephalic, atraumatic and abrasion Ears: external ears normal Face/Nose/Sinus: Normal external nose present Other: The patient is very hard of hearing even with both of his hearing aids intact bilaterally. Eyes: General: appearance normal, both eyes and all related structures Alignment and Position: alignment normal Periorbital: periorbital findings normal Eyelids: eyelids normal EOM: EOMs intact bilaterally Neck: Neck: normal visual inspection and full ROM Resp: Effort & Inspection: normal respiratory effort Auscultation: clear to auscultation bilaterally Cardio: Palpation: normal PMI Rate: regular rate Rhythm: regular rhythm Heart sounds: S1 normal heart sound present and S2 normal heart sound present Peripheral pulses: Peripheral pulses 2+ throughout Other: Sinus rhythm on telemetry GI: Inspection: normal to inspection Auscultation: normal bowel sounds Rectal Exam: deferred : Other: Bilateral CVA tenderness. Bilateral upper quadrant pain with light to deep palpation of the abdomen. Back/Spine/Pelvis: Cervical Spine: cervical ROM normal Skin: General skin exam: normal color Lesions: no lesions Rashes: no rashes Trauma: no lacerations or abrasions Wounds: no wounds Hair: normal Nails: normal Neuro: General: oriented to person, oriented to place, oriented to time and patient oriented x3 Cognition (Neuro): normal cognition Speech: normal speech Motor exam (neuro): 5/5 motor strength present throughout Sensory Exam: normal sensation Extrem: General: normal to inspection Right upper extremity: normal to inspection and shoulder/upper arm Left upper extremity: normal to inspection and shoulder/upper arm Right lower extremity: normal to inspection Left lower extremity: normal to inspection Psych: Appearance: grossly normal Mental Status: mental status grossly normal Speech and movement: Normal speech and movement present Affect: normal affect Attitude: cooperative Thought process: Normal thought process present Thought content: Yes Normal thought content present Insight: Good insight present (Psych) Judgement: Good judgement present (Psych) H&P: Results Labs Labs: Short CBC 03/16/25 Range/Units 18:01 WBC 5.7 (4.5-10.0) K/mm3 Hgb 12.6 L (14.0-18.0) g/dL Hct 38.4 L (42.0-52.0) % Plt Count 248 (150-375) k/mm3 BMP 03/16/25 18:01 Sodium 138 Potassium 4.5 Chloride 103 Carbon Dioxide 30 BUN 14 D Creatinine 1.06 Glucose 129 H Calcium 9.1 Liver Function 03/16/25 Range/Units 18:01 Total Bilirubin 0.6 (0.2-1.3) mg/dL AST 30 (17-59) U/L ALT 20 (6-50) U/L Alkaline Phosphatase 70 (38-126) U/L Albumin 4.1 (3.5-5.1) g/dL Urine 03/16/25 Range/Units 18:01 Urine Color Yellow (Yellow) Urine Appearance Cloudy H (Clear) Urine pH 5.5 (5.0-9.0) Ur Specific [place] 1.011 (1.001-1.035) Urine Protein 1+ H (Negative) mg/dL Urine Glucose (UA) Negative (Negative) mg/dL Imaging CT scan - abdomen: Radiologist's impression: Impressions Abdomen/Pelvis CT 03/16/25 18:14 IMPRESSION: 1. Mild right hydronephrosis with 6 mm left ureteral stone along side a right intraureteral stent which is in expected position. 2. 3.9 x 3.7 cm mass in the deep right pelvis and retroperitoneal lymphadenopathy concerning for metastatic disease. Patient is status post prostatectomy suggesting this could represent metastatic prostate cancer. Correlate with clinical history and with PSA levels. 6 3. Small sliding-type hiatal hernia. Assessment and Plan Assessment and plan (1) Calculus of right ureter: Code(s): N20.1 - Calculus of ureter Status: Acute Assessment and Plan: -Abdomen/Pelvis CT 03/16/25 18:14 IMPRESSION: 1. Mild right hydronephrosis with 6 mm left ureteral stone along side a right intraureteral stent which is in expected position. 2. 3.9 x 3.7 cm mass in the deep right pelvis and retroperitoneal lymphadenopathy concerning for metastatic disease. Patient is status post prostatectomy suggesting this could represent metastatic prostate cancer. Correlate with clinical history and with PSA levels. 6 3. Small sliding-type hiatal hernia. -the patient stated that the morphine was not controlling his pain and his pain medication was changed to Dilaudid. -urology has been consulted. -strain all urine -the patient was started on Rocephin. -urine culture from 02/25/2025 grew E coli which was pansensitive. -repeat urine cultures -blood cultures are pending -p.r.n. Zofran -monitor BUN and creatinine (2) Atrial fibrillation: Code(s): I48.91 - Unspecified atrial fibrillation Status: Acute Assessment and Plan: -the patient is newly diagnosed and was recently started on apixaban and is on metoprolol. I will continue with those for now. -his rate is controlled today and he is in sinus rhythm. (3) Essential (primary) hypertension: Code(s): I10 - Essential (primary) hypertension Status: Acute Assessment and Plan: -his blood pressure is 141/74 -continue with metoprolol (4) Hyperlipidemia LDL goal <100: Code(s): E78.5 - Hyperlipidemia, unspecified Status: Acute Assessment and Plan: -continue with Zetia and monitor liver function (5) Type 2 diabetes mellitus with hyperglycemia, with long-term current use of insulin: Code(s): E11.65 - Type 2 diabetes mellitus with hyperglycemia; Z79.4 - bed bug exterminator (current) use of insulin Status: Acute Assessment and Plan: -the patient will be NPO so we will do Accu-Cheks every 6 hours with sliding scale insulin. -hold Lantus for now. -last A1c was 7.4 on 02/26/2025 (6) Pelvic mass: Code(s): R19.00 - Intra-abdominal and pelvic swelling, mass and lump, unspecified site Status: Acute Assessment and Plan: -urology has been consulted. The patient stated that he had a PET scan approximately 2 years ago. He does have a history of having prostate cancer status post prostatectomy. He denied having any chemo or radiation. According to the , the patient was told that the prostate cancer add completely been removed. -1. Mild right hydronephrosis with 6 mm left ureteral stone along side a right intraureteral stent which is in expected position. 2. 3.9 x 3.7 cm mass in the deep right pelvis and retroperitoneal lymphadenopathy concerning for metastatic disease. Patient is status post prostatectomy suggesting this could represent metastatic prostate cancer. Correlate with clinical history and with PSA levels. 6 3. Small sliding-type hiatal hernia. -PSA 49.9. -outpatient PET scan would greatly appreciated Quality VTE Prophylaxis VTE prophylaxis: pharmacologic ordered
[2025-03-16] MEDS: cefTRIAXone 1 GM in SODIUM CHLORIDE 0.9% IV 50 ML 100 ML IVPB (22:57)
--- NOTE | 2025-03-16 23:20 | ADMGEN ---
This patient, Thompson Agudelo, was admitted to Medical Room 243-01. Patient/family oriented to hospital policies and general routines including ID bracelet, bed and alarms, visiting hours, pain management, procedures, bathroom and other care routines, personal items, smoking policy, room service/diet, and visiting hours. Information on how to activate the Rapid Response Team has been discussed. Patient/Family are encouraged to report perceived risks to care and to ask questions if they do not understand what they are told or what they should do.
[2025-03-16] MEDS: HYDROmorphone HCL INJ (*CRX) 1 MG/ML SYR IV PUSH (23:23)
[2025-03-16] MEDS: SODIUM CHLORIDE 0.9% IV 1,000 ML 75 ML IV CONT (23:23)
[2025-03-17] MEDS: HYDROmorphone HCL INJ (*CRX) 1 MG/ML SYR IV PUSH ×6 (03:18→21:46)
[2025-03-17 05:49] LABS: Hematocrit 36.0 % (42.0-52.0); Hemoglobin 11.0 g/dL (14.0-18.0); Immature Granulocyte Percent A 1.0 % (0-0.5); Lymphocytes Absolute Auto 1.80 K/mm3 (0.9-3.2); Mean Corpuscular HGB Conc 30.6 g/dl (32-36); Mean Corpuscular Hemoglobin 32.4 pg (26-34); Mean Corpuscular Volume 105.9 fl (80-100); Nucleated Red Blood Cells Absolute Auto 0.000 K/mm3 (0.0-0.012); Nucleated Red Blood Cells Perc 0.0 % (0.0-0.2); Platelet Count Result 194 k/mm3 (150-375); Red Blood Count 3.40 M/mm3 (4.6-6.20); White Blood Count 5.0 K/mm3 (4.5-10.0)
[2025-03-17 06:00] VITALS: BP 141/65; PULSE 89; RESP 18; TEMP 36.7; O2SAT 92
[2025-03-17 06:01] LABS: Anion Gap 5 mmol/L (4-12); Blood Urea Nitrogen 14 mg/dL (9-20); Calcium 8.2 mg/dL (8.4-10.2); Carbon Dioxide 23 mmol/L (22-30); Chloride 107 mmol/L (98-107); Estimated CRCL calculation 62 ml/min; Estimated Glomerular Filt Rate > 60; Glucose 148 mg/dL (65-110); Potassium 4.5 mmol/L (3.4-5.0); Sodium 135 mmol/L (137-145)
[2025-03-17 06:22] LABS: Macrocytosis 1+ (NORMAL); Schistocytes None Seen
--- NOTE | 2025-03-17 06:57 | PM.IMPN ---
Progress Note: A&P Assessment and Plan (1) Calculus of right ureter: Code(s): N20.1 - Calculus of ureter Status: Acute Assessment and Plan: Patient recently admitted from 02/24-03/02 for obstructing right ureteral calculus with obstructive pyelonephritis s/p Cystoscopy right retrograde pyelogram, right ureteral stent placement on 02/[address] Munroe Urine culture from 02/25/2025 grew E coli which was pansensitive, patient completed antibiotic course on 03/08 Abdomen/pelvis CT: Mild right hydronephrosis with 6 mm left ureteral stone along side a right intraureteral stent which is in expected position. - BUN/Cr remains WNL, continue to monitor - UA with + leukocytes, started on Rocephin on 03/16 for possible UTI repeat urine cultures and blood cultures pending - analgesics: [place] q4H PRN, Dilaudid 1 mg q3H PRN currently requiring IV pain medication as patient NPO awaiting further urology recommendations will wean IV pain medications to oral as appropriate - antiemetics: Zofran - Eliquis on hold pending urologic intervention, resume as appropriate - Monitor I/O, strain all urine - urology has been consulted KUB ordered (2) Pelvic mass: Code(s): R19.00 - Intra-abdominal and pelvic swelling, mass and lump, unspecified site Status: Acute Assessment and Plan: The patient stated that he had a PET scan approximately 2 years ago. He does have a history of having prostate cancer status post prostatectomy. He denied having any chemo or radiation. According to the , the patient was told that the prostate cancer had completely been removed. - CT abdomen/pelvis: 3.9 x 3.7 cm mass in the deep right pelvis and retroperitoneal lymphadenopathy concerning for metastatic disease. Patient is status post prostatectomy suggesting this could represent metastatic prostate cancer. Mass previously seen on outside CT imaging in 01/2025 Patient does wish to pursue further workup of the pelvic mass - PSA elevated at 49.9. -urology has been consulted will need to set up outpatient PSMA PET scan to further evaluate the pelvic mass (3) Atrial fibrillation: Code(s): I48.91 - Unspecified atrial fibrillation Status: Acute Assessment and Plan: New diagnosis of Afib on prior admission from 02/24-03/02 - Current home medications: Amiodarone 400 mg BID Metoprolol 150 mg daily Eliquis 5 mg BID, currently on hold pending urological intervention. Resume as appropriate - Remains rate controlled in sinus rhythm (4) Essential (primary) hypertension: Code(s): I10 - Essential (primary) hypertension Status: Acute Assessment and Plan: Chronic, continue home medications - metoprolol 150 mg daily - blood pressures remain well controlled, continue to monitor (5) Hyperlipidemia LDL goal <100: Code(s): E78.5 - Hyperlipidemia, unspecified Status: Acute Assessment and Plan: -continue with Zetia and monitor liver function (6) Type 2 diabetes mellitus with hyperglycemia, with long-term current use of insulin: Code(s): E11.65 - Type 2 diabetes mellitus with hyperglycemia; Z79.4 - retirement (current) use of insulin Status: Acute Assessment and Plan: - hypoglycemia protocol - POC blood glucose q6H as patient is NPO at this time - home medication - metformin 1000 mg BID, SSI insulin TIDWM, 58 units lantus HS - correct regimen ordered - low dose TIDWM, resume lantus as appropriate - A1C 7.4 Time Spent With Patient Time with patient: 25 - 35 minutes Subjective Date/time seen: 03/17/25 06:57 Interval history: 84-year-old male with a past medical history of recurrent nephrolithiasis with hydronephrosis, prostate cancer s/p prostatectomy, insulin dependent diabetes, and atrial fibrillation on chronic anticoagulation presented to the hospital with complaints of right flank pain. Patient is pleasant sitting up in bed. He continues to endorse right flank pain that is worsened with any twisting/turning. He also endorses dysuria but states the hematuria and burning sensation have resolved. Discussed the pelvic mass noted imaging with patient. He states he was unaware this mass until yesterday on admission. He is agreeable to a further workup the pelvic. He has no other complaints denying chest pain, shortness a breath, palpitations, nausea/vomiting, abdominal pain. Review of Systems Review of Systems: All systems reviewed & are unremarkable except as noted in HPI and below Exam Narrative: AF HR 89 RR 18 Spo2 92 BP 141/65 General: male in no acute respiratory distress who is nontoxic appearing, sitting up in bed. HEENT: Normocephalic. Atraumatic. Extraocular movement intact. Sclera clear and anicteric. No facial asymmetry. Chest: Lungs are clear to auscultation bilaterally. No wheezes or crackles. CV: Heart was regular rate and rhythm. Abd: Abdomen was soft. Nontender. Nondistended. Positive bowel sounds. CVA tenderness to right flank. Ext: No clubbing, cyanosis, or edema. DP pulses bilaterally. Neuro: Patient is alert and oriented x4. Speech is clear. Objective Data Vital Signs Vital Signs: Vital Signs - 24 hr 03/16/25 12:25 03/16/25 14:30 03/16/25 17:23 Temperature 98.2 F Pulse Rate 72 87 Respiratory Rate 16 16 Blood Pressure 146/64 H 142/88 H Pulse Oximetry 98 98 96 Oxygen Delivery 03/16/25 17:31 03/16/25 19:00 03/16/25 19:00 Temperature Pulse Rate 72 Respiratory Rate 18 Blood Pressure 141/74 H Pulse Oximetry 97 92 93 Oxygen Delivery 03/16/25 19:01 03/16/25 19:32 03/16/25 20:02 Temperature Pulse Rate 72 76 Respiratory Rate 16 18 Blood Pressure 141/74 H 114/64 104/72 Pulse Oximetry 96 93 95 Oxygen Delivery 03/16/25 20:05 03/16/25 20:15 03/16/25 20:30 Temperature Pulse Rate 74 73 74 Respiratory Rate 19 18 17 Blood Pressure Pulse Oximetry Oxygen Delivery 03/16/25 20:54 03/16/25 21:00 03/16/25 21:02 Temperature Pulse Rate 74 74 72 Respiratory Rate 18 17 16 Blood Pressure 131/62 Pulse Oximetry 94 93 96 Oxygen Delivery 03/16/25 21:15 03/16/25 21:30 03/16/25 21:32 Temperature Pulse Rate 72 73 73 Respiratory Rate 16 18 18 Blood Pressure 134/59 L Pulse Oximetry 94 95 97 Oxygen Delivery 03/16/25 21:45 03/16/25 22:00 03/16/25 22:02 Temperature 98.3 F Pulse Rate 74 79 71 Respiratory Rate 19 18 15 Blood Pressure 151/67 H 117/60 Pulse Oximetry 96 92 Oxygen Delivery 03/16/25 22:04 03/16/25 22:21 03/16/25 22:30 Temperature Pulse Rate 73 74 75 Respiratory Rate 16 17 15 Blood Pressure Pulse Oximetry 94 94 96 Oxygen Delivery 03/16/25 22:45 03/17/25 00:05 03/17/25 06:00 Temperature 98.1 F Pulse Rate 75 89 Respiratory Rate 20 18 Blood Pressure 141/65 H Pulse Oximetry 96 92 Oxygen Delivery Room Air Intake/Output Intake/Output: Intake & Output 03/14/25 03/15/25 03/16/25 03/17/25 23:59 23:59 23:59 23:59 Intake Total 500 Balance 500 Meds/Results Medications: Active Medications Generic Name Dose Route Start Last Admin Trade Name Freq PRN Reason Stop Dose Admin Acetaminophen 650 mg 03/16/25 20:47 Acetaminophen 325 Mg Tablet PO Q4H PRN Mild Pain (1-3) or Fever Hydrocodone Bitart/Acetaminophen 1 tab 03/16/25 22:19 Hydrocodone/Acetaminophen (*Crx) 5-325 Mg Tablet PO Q4H PRN Pain Rated 4-6 Amiodarone HCl 200 mg 03/17/25 08:00 Amiodarone Hcl 200 Mg Tablet PO DAILY@0800 ANTON Apixaban 5 mg 03/17/25 09:00 Apixaban 5 Mg Tablet PO Q12HR ANTON Cyclobenzaprine HCl 10 mg 03/17/25 05:00 Cyclobenzaprine Hcl 10 Mg Tablet PO DAILY PRN Muscle Spasm Dextrose 12.5 gm 03/16/25 22:21 Dextrose 50% 25 Gm/50 Ml Syringe IV PUSH PRN PRN Hypoglycemia Protocol Glucagon 1 mg 03/16/25 22:21 Glucagon For Inj 1 Mg Vial IM PRN PRN Hypoglycemia Protocol Glucose 15 gm 03/16/25 22:21 Glucose Oral Gel 15 Gm Of Glucse In 37.5 Gm Tube PO PRN PRN Hypoglycemia Protocol Hydromorphone HCl 1 mg 03/16/25 21:39 03/17/25 06:23 Hydromorphone Hcl Inj (*Crx) 1 Mg/Ml Syr IV PUSH 1 mg Q3H PRN Administration Pain Rated 7-10 Ceftriaxone Sodium 1 gm/ 50 mls @ 100 mls/hr 03/17/25 21:00 Sodium Chloride IVPB Q24H ANTON Dextrose 1,000 mls @ 100 mls/hr 03/16/25 22:21 Dextrose 5% 1,000 Ml IVPB PRN PRN Hypoglycemia Protocol Sodium Chloride 1,000 mls @ 75 mls/hr 03/16/25 22:55 03/16/25 23:23 Normal Saline Iv IV CONT 75 mls/hr .[id number] [facility] Administration Insulin Aspart 2 - 5 units 03/17/25 08:00 Insulin Aspart (*Bkc) 100 Units/Ml SUB-Q TIDWM [facility] Protocol Magnesium Oxide 400 mg 03/17/25 05:15 Magnesium Oxide 400 Mg Tablet PO DAILY PRN cramps Metoprolol Succinate 150 mg 03/17/25 09:00 Metoprolol Succinate Ext Rel 50 Mg Tabcr PO QAM [facility] Ondansetron HCl 4 mg 03/16/25 20:47 Ondansetron Inj 4 Mg/2 Ml Vial IV PUSH Q4H PRN Nausea Radiology Results: ITS Impressions Abdomen/Pelvis CT 03/16/25 18:14 IMPRESSION: 1. Mild right hydronephrosis with 6 mm left ureteral stone along side a right intraureteral stent which is in expected position. 2. 3.9 x 3.7 cm mass in the deep right pelvis and retroperitoneal lymphadenopathy concerning for metastatic disease. Patient is status post prostatectomy suggesting this could represent metastatic prostate cancer. Correlate with clinical history and with PSA levels. 6 3. Small sliding-type hiatal hernia. Labs Labs: Laboratory Results - last 24 hr 03/16/25 03/17/25 03/17/25 18:01 00:09 05:03 WBC 5.7 5.0 RBC 3.89 L 3.40 L Hgb 12.6 L 11.0 L Hct 38.4 L 36.0 L MCV 98.7 105.9 H D MCH 32.4 32.4 MCHC 32.8 30.6 L RDW 14.1 14.4 Plt Count 248 194 MPV 9.5 9.6 Immature Gran % (Auto) 0.7 H 1.0 H Neut % (Auto) 57.6 48.3 Lymph % (Auto) 29.9 35.9 [place] % (Auto) 8.7 H 11.0 H Eos % (Auto) 2.4 3.0 Baso % (Auto) 0.7 0.8 Lymph # (Auto) 1.71 1.80 [place] # (Auto) 0.5 0.6 Eos # (Auto) 0.1 0.2 Baso # (Auto) 0.0 0.0 Abs Immat Gran (auto) 0.04 H 0.05 H Absolute Neuts (auto) 3.3 2.4 Absolute Nucleated RBC 0.000 0.000 Band Neutrophils % Not Reportable Nucleated RBC % 0.0 0.0 Platelet Estimate Adequate Macrocytosis 1+ Schistocytes None seen Sodium 138 135 L Potassium 4.5 4.5 Chloride 103 107 Carbon Dioxide 30 23 Anion Gap 5 5 BUN 14 D 14 Creatinine 1.06 1.02 Estim Creat Clear Calc 52 62 Estimated GFR > 60 > 60 Glucose 129 H 148 H POC Capillary Glucose 153 H Calcium 9.1 8.2 L Total Bilirubin 0.6 AST 30 ALT 20 Alkaline Phosphatase 70 Total Protein 8.0 Albumin 4.1 Lipase 41 Prostate Specific Ag 49.9 H Urine Color Yellow Urine Appearance Cloudy H Urine pH 5.5 Ur Specific [place] 1.011 Urine Protein 1+ H Urine Glucose (UA) Negative Urine Ketones Negative Ur Blood (Man) 3+ H Urine Nitrate Negative Urine Bilirubin Negative Urine Urobilinogen 0.2 Leukocyte Esterase Rfl 1+ H Urine RBC 51-100 H Urine WBC 6-10 H Ur Squamous Epith Cells None seen Urine Bacteria None seen Urine Casts 0-2 03/17/25 06:28 WBC RBC Hgb Hct MCV MCH MCHC RDW Plt Count MPV Immature Gran % (Auto) Neut % (Auto) Lymph % (Auto) [place] % (Auto) Eos % (Auto) Baso % (Auto) Lymph # (Auto) [place] # (Auto) Eos # (Auto) Baso # (Auto) Abs Immat Gran (auto) Absolute Neuts (auto) Absolute Nucleated RBC Band Neutrophils % Nucleated RBC % Platelet Estimate Macrocytosis Schistocytes Sodium Potassium Chloride Carbon Dioxide Anion Gap BUN Creatinine Estim Creat Clear Calc Estimated GFR Glucose POC Capillary Glucose 153 H Calcium Total Bilirubin AST ALT Alkaline Phosphatase Total Protein Albumin Lipase Prostate Specific Ag Urine Color Urine Appearance Urine pH Ur Specific [place] Urine Protein Urine Glucose (UA) Urine Ketones Ur Blood (Man) Urine Nitrate Urine Bilirubin Urine Urobilinogen Leukocyte Esterase Rfl Urine RBC Urine WBC Ur Squamous Epith Cells Urine Bacteria Urine Casts Quality VTE Prophylaxis VTE prophylaxis: mechanical ordered
--- NOTE | 2025-03-17 09:02 | WPDURCON ---
Assessment and Plan Assessment and plan (1) Calculus of right ureter: Code(s): N20.1 - Calculus of ureter Status: Acute (2) Ureteral stent present: Code(s): Z96.0 - Presence of urogenital implants Status: Acute (3) Pelvic mass: Code(s): R19.00 - Intra-abdominal and pelvic swelling, mass and lump, unspecified site Status: Acute Plan 84-year-old male with right flank pain in the setting of right ureteral stent with 6 mm stone alongside the stent. - CT reveals Mild right hydronephrosis with 6 mm left ureteral stone along side a right intraureteral stent which is in expected position. 3.9 x 3.7 cm mass in the deep right pelvis and retroperitoneal lymphadenopathy concerning for metastatic disease. Patient is status post prostatectomy suggesting this could represent metastatic prostate cancer. - UA has possibility for infection. urine culture pending. Culture driven antibiotics per primary service. - WBC and creatinine are currently within normal limits. - stat KUB - Patient will need to get set up for a PSMA PET scan as outpatient to evaluate the pelvic mass. I have sent our office messages to get this set up. -Stone was not visualized on kub so will need ureteroscopy. This is being set up as outpatient with Dr. Munroe. Patient will get call next week to get scheduled for right special. -no urological surgical intervention at this time. -He can have normal diet and resume eliquis from our standpoint. Urology Consult Note HPI Date Seen: 03/17/25 Requesting Physician: Daria Lopez MD Primary Care Provider: Timothy Medrano, Consult Narrative Narrative: Thompson Agudelo is a 84 year old male with a past medical history of recurrent nephrolithiasis with hydronephrosis, prostate cancer s/p prostatectomy, insulin dependent diabetes, and atrial fibrillation on chronic anticoagulation presented to the hospital with complaints of right flank pain. Patient recently admitted from 02/24-03/02 for obstructing right ureteral calculus with obstructive pyelonephritis s/p Cystoscopy right retrograde pyelogram, right ureteral stent placement on 02/[address] Munroe Urine culture from 02/25/2025 grew E coli which was pansensitive, patient completed antibiotic course on 03/08 Abdomen/pelvis CT: 1. Mild right hydronephrosis with 6 mm left ureteral stone along side a right intraureteral stent which is in expected position. 2. 3.9 x 3.7 cm mass in the deep right pelvis and retroperitoneal lymphadenopathy concerning for metastatic disease. Patient is status post prostatectomy suggesting this could represent metastatic prostate cancer. Review of Systems Review of Systems: per hpi [facility] Past Medical History Medical History (Updated 03/16/25 @ 21:35 by Delphine Mcdaniel APRN) Atrial fibrillation Sepsis Type 2 diabetes mellitus with insulin therapy Diabetic retinopathy SK (seborrheic keratosis) Incomplete tear of right rotator cuff Hereditary and idiopathic neuropathy, unspecified Gastro-esophageal reflux disease without esophagitis Elevated PSA Dysphagia Body mass index (BMI) greater than 30 (01/29/17) [place] (actinic keratosis) Hard of hearing Chronic pain of both knees Chronic low back pain Essential (primary) hypertension Prostate cancer BPH (benign prostatic hyperplasia) Kidney stone Seasonal allergies Surgical History Surgical History Status post cystoscopy with ureteral stent placement With right ureteral stent placement at least 3 past with the most recent episode being December 2013 and September 2017 Status post right partial knee replacement Complicated by Staph epidermidis infection with subsequent removal of hardware and antibiotic spacer placement 03/2025 H/O cataract removal with insertion of prosthetic lens Hx of excision of mass exc anterior chest wall cyst on 12/08/22 H/O arthroscopic knee surgery bilateral knees History of bladder surgery H/O prostatectomy Hx of cholecystectomy H/O colonoscopy H/O sinus surgery Family History Family History Father Family history of emphysema Family history of congestive heart failure Mother Family history of malignant neoplasm of breast in first degree relative Family history of malignant neoplasm Social History Social History (Updated 03/16/25 @ 22:23 by Delphine Mcdaniel APRN) Social History: He lives with his . He has 6 children. 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 He smoked a pack of cigarettes per week from the time he was in his 30's until the year 2002. The last 10 or 15 years of his smoking he only smoked intermittently. Code status: Full code Surrogate decision maker: Smoking packs per day: 0.25 Smoking cigarettes per day: 5.0 Years smoked: 50 Smoking pack-years: 12.50 Smoking status: Former smoker Tobacco type: cigarettes Second hand tobacco smoke exposure: No Smoking end date: 12/27/02 Additional smoking assessment comments: SMOKED 1 PACK/WEEK X 15 YEARS Alcohol intake: never Substance use: never Lack of Transportation: No Lack of Food: Never True Current Housing: I Have Housing Concerned About Future Housing: No Difficulty Paying Gas/Electric Bills: No Difficulty Paying for Meds: No Currently Unemployed: No Education: Master's Degree or Higher Difficulty w/ Childcare or Family Care: No Living arrangements: with family Additional living arrangements comments: AND GRANDDAUGHTER Spiritual care concerns: No Meds Home Medications and Allergies Home Medications ?Medication ?Instructions ?Recorded ?Confirmed ?Type blood sugar diagnostic (Accu-Chek #10 ea 08/11/19 03/16/25 History Dot Plus test strips) blood-glucose meter (Accu-Chek #1 ea 08/11/19 03/16/25 History Dot Plus Meter) lancets (Accu-Chek Softclix #50 ea 08/11/19 03/16/25 History Lancets) magnesium 500 mg tablet 500 mg PO DAILY PRN cramps 11/27/22 03/16/25 History blood-glucose sensor (Dexcom G7 #10 ea 05/01/23 03/16/25 Rx Sensor device) pen needle, diabetic 31 gauge x #100 ea 08/11/23 03/16/25 Rx 3/16 (BD Ultra-Fine Mini Pen Needle) hydrocodone 10 mg-acetaminophen 1 tablet PO Q6H PRN pain (scale 02/09/24 03/16/25 History 325 mg tablet score 4-6) metformin 500 mg tablet 1,000 mg (2 x 500 mg) PO BID 90 09/05/24 03/16/25 Rx days #360 tabs cyclobenzaprine 10 mg tablet 10 mg PO DAILY PRN muscle spasm 02/24/25 03/16/25 History insulin glargine 100 unit/mL (3 60 unit subcut QPM 02/24/25 03/16/25 History mL) subcutaneous pen (Lantus Solostar U-100 Insulin) insulin aspart U-100 100 unit/mL See Rx Instructions subcut DAILY 02/25/25 03/16/25 History (3 mL) subcutaneous pen (Novolog FlexPen U-100 Insulin aspart) amiodarone 200 mg tablet ([place]) 400 mg (2 x 200 mg) PO Q12HR #30 03/02/25 03/16/25 Rx tabs apixaban 5 mg tablet (Eliquis) 5 mg PO Q12HR #60 tabs 03/02/25 03/16/25 Rx metoprolol succinate 50 mg 150 mg (3 x 50 mg) PO QAM #30 tabs 03/02/25 03/16/25 Rx tablet,extended release 24 hr furosemide 40 mg tablet 40 mg PO DAILY PRN edema 03/16/25 03/16/25 History Allergies Allergy/AdvReac Type Severity Reaction Status Date / Time venom-wasp Allergy Severe Anaphylaxis Verified 02/24/25 23:50 adhesive tape Allergy Mild Rash Verified 02/24/25 23:50 Vital Signs Vital Signs - 24 hr 03/16/25 12:25 03/16/25 14:30 03/16/25 17:23 Temperature 98.2 F Pulse Rate 72 87 Respiratory Rate 16 16 Blood Pressure 146/64 H 142/88 H Pulse Oximetry 98 98 96 Oxygen Delivery 03/16/25 17:31 03/16/25 19:00 03/16/25 19:00 Temperature Pulse Rate 72 Respiratory Rate 18 Blood Pressure 141/74 H Pulse Oximetry 97 92 93 Oxygen Delivery 03/16/25 19:01 03/16/25 19:32 03/16/25 20:02 Temperature Pulse Rate 72 76 Respiratory Rate 16 18 Blood Pressure 141/74 H 114/64 104/72 Pulse Oximetry 96 93 95 Oxygen Delivery 03/16/25 20:05 03/16/25 20:15 03/16/25 20:30 Temperature Pulse Rate 74 73 74 Respiratory Rate 19 18 17 Blood Pressure Pulse Oximetry Oxygen Delivery 03/16/25 20:54 03/16/25 21:00 03/16/25 21:02 Temperature Pulse Rate 74 74 72 Respiratory Rate 18 17 16 Blood Pressure 131/62 Pulse Oximetry 94 93 96 Oxygen Delivery 03/16/25 21:15 03/16/25 21:30 03/16/25 21:32 Temperature Pulse Rate 72 73 73 Respiratory Rate 16 18 18 Blood Pressure 134/59 L Pulse Oximetry 94 95 97 Oxygen Delivery 03/16/25 21:45 03/16/25 22:00 03/16/25 22:02 Temperature 98.3 F Pulse Rate 74 79 71 Respiratory Rate 19 18 15 Blood Pressure 151/67 H 117/60 Pulse Oximetry 96 92 Oxygen Delivery 03/16/25 22:04 03/16/25 22:21 03/16/25 22:30 Temperature Pulse Rate 73 74 75 Respiratory Rate 16 17 15 Blood Pressure Pulse Oximetry 94 94 96 Oxygen Delivery 03/16/25 22:45 03/17/25 00:05 03/17/25 06:00 Temperature 98.1 F Pulse Rate 75 89 Respiratory Rate 20 18 Blood Pressure 141/65 H Pulse Oximetry 96 92 Oxygen Delivery Room Air Exam Const: General: uncomfortable Eyes: General: appearance normal, both eyes and all related structures Resp: Effort & Inspection: normal respiratory effort Skin: General skin exam: normal color Neuro: Speech: normal speech Psych: Speech and movement: Normal speech and movement present Results Labs 03/17/25 05:03 03/17/25 05:03 Labs: Short CBC 03/16/25 03/17/25 Range/Units 18:01 05:03 WBC 5.7 5.0 (4.5-10.0) K/mm3 Hgb 12.6 L 11.0 L (14.0-18.0) g/dL Hct 38.4 L 36.0 L (42.0-52.0) % Plt Count 248 194 (150-375) k/mm3 [facility] 03/16/25 03/17/25 18:01 05:03 Sodium 138 135 L Potassium 4.5 4.5 Chloride 103 107 Carbon Dioxide 30 23 BUN 14 D 14 Creatinine 1.06 1.02 Glucose 129 H 148 H Calcium 9.1 8.2 L Liver Function 03/16/25 Range/Units 18:01 Total Bilirubin 0.6 (0.2-1.3) mg/dL AST 30 (17-59) U/L ALT 20 (6-50) U/L Alkaline Phosphatase 70 (38-126) U/L Albumin 4.1 (3.5-5.1) g/dL Urine 03/16/25 Range/Units 18:01 Urine Color Yellow (Yellow) Urine Appearance Cloudy H (Clear) Urine pH 5.5 (5.0-9.0) Ur Specific [place] 1.011 (1.001-1.035) Urine Protein 1+ H (Negative) mg/dL Urine Glucose (UA) Negative (Negative) mg/dL
[2025-03-17 09:04] VITALS: PULSE 70
[2025-03-17] MEDS: AMIODARONE HCL 200 MG TABLET PO (09:04)
[2025-03-17] MEDS: METOPROLOL SUCCINATE EXT REL 50 MG TABCR 150 MG PO (09:04)
[2025-03-17] MEDS: HYDROmorphone HCL INJ (*CRX) 1 MG/ML SYR 0.5 MG IV PUSH (09:10)
[2025-03-17] MEDS: SODIUM CHLORIDE 0.9% IV 1,000 ML 75 ML IV CONT (11:59)
[2025-03-17 14:00] VITALS: BP 140/72; PULSE 76; RESP 18; TEMP 36.8; O2SAT 96
[2025-03-17] MEDS: HYDROcodone/acetaminophen (*CRX) 5-325 MG TABLET 1 TAB PO (17:16)
[2025-03-17 19:48] VITALS: BP 136/59; PULSE 68; RESP 20; TEMP 36.6; O2SAT 95
[2025-03-17] MEDS: APIXABAN 5 MG TABLET PO (20:31)
[2025-03-17] MEDS: cefTRIAXone 1 GM in SODIUM CHLORIDE 0.9% IV 50 ML 100 ML IVPB (20:31)
[2025-03-17] MEDS: INSULIN GLARGINE (*BKC) 100 UNITS/ML 32 UNITS SUB-Q (21:43)
[2025-03-18] MEDS: HYDROmorphone HCL INJ (*CRX) 1 MG/ML SYR IV PUSH (00:48)
[2025-03-18 03:16] VITALS: BP 141/58; PULSE 64; RESP 20; TEMP 36.6; O2SAT 94
[2025-03-18 05:29] LABS: Hematocrit 35.4 % (42.0-52.0); Hemoglobin 11.4 g/dL (14.0-18.0); Immature Granulocyte Percent A 0.6 % (0-0.5); Lymphocytes Absolute Auto 1.32 K/mm3 (0.9-3.2); Mean Corpuscular HGB Conc 32.2 g/dl (32-36); Mean Corpuscular Hemoglobin 32.5 pg (26-34); Mean Corpuscular Volume 100.9 fl (80-100); Nucleated Red Blood Cells Absolute Auto 0.000 K/mm3 (0.0-0.012); Nucleated Red Blood Cells Perc 0.0 % (0.0-0.2); Platelet Count Result 197 k/mm3 (150-375); Red Blood Count 3.51 M/mm3 (4.6-6.20); White Blood Count 4.7 K/mm3 (4.5-10.0)
[2025-03-18] MEDS: SODIUM CHLORIDE 0.9% IV 1,000 ML 75 ML IV CONT (05:38)
[2025-03-18 05:53] LABS: Alanine Aminotransferase 16 U/L (6-50); Albumin Level 3.5 g/dL (3.5-5.1); Alkaline Phosphatase 65 U/L (38-126); Anion Gap 4 mmol/L (4-12); Aspartate Amino Transferase 27 U/L (17-59); Bilirubin,Total 0.5 mg/dL (0.2-1.3); Blood Urea Nitrogen 12 mg/dL (9-20); Calcium 8.8 mg/dL (8.4-10.2); Carbon Dioxide 30 mmol/L (22-30); Chloride 103 mmol/L (98-107); Estimated CRCL calculation 66 ml/min; Estimated Glomerular Filt Rate > 60; Glucose 132 mg/dL (65-110); Potassium 4.1 mmol/L (3.4-5.0); Sodium 137 mmol/L (137-145); Total Protein 6.7 g/dL (6.3-8.2)
--- NOTE | 2025-03-18 06:47 | P.PNIM_ITS ---
Progress Note: A&P Assessment and Plan (1) Calculus of right ureter: Code(s): N20.1 - Calculus of ureter Status: Acute Assessment and Plan: Patient recently admitted from 02/24-03/02 for obstructing right ureteral calculus with obstructive pyelonephritis s/p Cystoscopy right retrograde pyelogram, right ureteral stent placement on 02/[address] Munroe Urine culture from 02/25/2025 grew E coli which was pansensitive, patient completed antibiotic course on 03/08 Abdomen/pelvis CT: Mild right hydronephrosis with 6 mm left ureteral stone along side a right intraureteral stent which is in expected position. - BUN/Cr remains WNL, continue to monitor - UA with + leukocytes, started on Rocephin on 03/16 for possible UTI Urine cultures and blood cultures pending continues to endorse dysuria, burning and hematuria Prior cultures reviewed: Ecoli pansensitive - analgesics: [place] q4H PRN, Dilaudid 0.5 mg q3H PRN currently requiring IV pain medication, will continue to wean as tolerated - antiemetics: Zofran - Eliquis resumed as no plan for urologic intervention at this time - Monitor I/O, strain all urine - urology has been consulted Stone was not visualized on kub so will need ureteroscopy. This is being set up as outpatient with Dr. Munroe. Patient will get call next week to get scheduled for right special. No urological surgical intervention at this time. (2) Pelvic mass: Code(s): R19.00 - Intra-abdominal and pelvic swelling, mass and lump, unspecified site Status: Acute Assessment and Plan: The patient stated that he had a PET scan approximately 2 years ago. He does have a history of having prostate cancer status post prostatectomy. He denied having any chemo or radiation. According to the , the patient was told that the prostate cancer had completely been removed. - CT abdomen/pelvis: 3.9 x 3.7 cm mass in the deep right pelvis and retroperitoneal lymphadenopathy concerning for metastatic disease. Patient is status post prostatectomy suggesting this could represent metastatic prostate cancer. Mass previously seen on outside CT imaging in 01/2025 Patient does wish to pursue further workup of the pelvic mass - PSA elevated at 49.9. -urology has been consulted will need to set up outpatient PSMA PET scan to further evaluate the pelvic mass (3) Atrial fibrillation: Code(s): I48.91 - Unspecified atrial fibrillation Status: Acute Assessment and Plan: New diagnosis of Afib on prior admission from 02/24-03/02 - Current home medications: Amiodarone 400 mg BID Metoprolol 150 mg daily Eliquis 5 mg BID - Remains rate controlled in sinus rhythm (4) Essential (primary) hypertension: Code(s): I10 - Essential (primary) hypertension Status: Acute Assessment and Plan: Chronic, continue home medications - metoprolol 150 mg daily - blood pressures reviewed and remain well controlled, continue to monitor (5) Hyperlipidemia LDL goal <100: Code(s): E78.5 - Hyperlipidemia, unspecified Status: Acute Assessment and Plan: -continue with Zetia and monitor liver function (6) Type 2 diabetes mellitus with hyperglycemia, with long-term current use of insulin: Code(s): E11.65 - Type 2 diabetes mellitus with hyperglycemia; Z79.4 - custodial (current) use of insulin Status: Acute Assessment and Plan: - hypoglycemia protocol - POC blood glucose ACHS - home medication - metformin 1000 mg BID, SSI insulin TIDWM, 58 units lantus HS - correct regimen ordered - low dose TIDWM, lantus 32 units - A1C 7.4 Glucose reviewed and remains stable. Continue to monitor. Time Spent With Patient Time with patient: 25 - 35 minutes Subjective Date/time seen: 03/18/25 06:47 Interval history: 84-year-old male with a past medical history of recurrent nephrolithiasis with hydronephrosis, prostate cancer s/p prostatectomy, insulin dependent diabetes, and atrial fibrillation on chronic anticoagulation presented to the hospital with complaints of right flank pain. Patient is pleasant lying comfortably in bed. He continues to endorse pain with urination, burning sensation hematuria with each urination. He states that the pain is well controlled on the current regimen. He has no other complaints denying chest pain, shortness a breath, palpitations, nausea/vomiting, and abdominal pain. Patient is ambulating throughout the room denying any dizziness and lightheadedness. Review of Systems Review of Systems: All systems reviewed & are unremarkable except as noted in HPI and below Exam Narrative: AF HR 64 RR 20 Spo2 94 BP 141/58 General: male in no acute respiratory distress who is nontoxic appearing, lying semirecumbent in bed. HEENT: Normocephalic. Atraumatic. Extraocular movement intact. Sclera clear and anicteric. No facial asymmetry. Chest: Lungs are clear to auscultation bilaterally. No wheezes or crackles. CV: Heart was regular rate and rhythm. Abd: Abdomen was soft. Nontender. Nondistended. Positive bowel sounds. Ext: No clubbing, cyanosis, or edema. DP pulses bilaterally. Neuro: Patient is alert and oriented x4. Speech is clear. Objective Data Vital Signs Vital Signs: Vital Signs - 24 hr 03/17/25 09:04 03/17/25 09:04 03/17/25 14:00 Temperature 98.3 F Pulse Rate 70 70 76 Respiratory Rate 18 Blood Pressure 140/72 Pulse Oximetry 96 Oxygen Delivery 03/17/25 19:48 03/17/25 20:00 03/18/25 03:16 Temperature 97.8 F 97.8 F Pulse Rate 68 64 Respiratory Rate 20 20 Blood Pressure 136/59 L 141/58 H Pulse Oximetry 95 94 Oxygen Delivery Room Air Intake/Output Intake/Output: Intake & Output 03/15/25 03/16/25 03/17/25 03/18/25 23:59 23:59 23:59 23:59 Intake Total 500 1185 1240 Output Total 200 200 Balance 607 597 5321 Meds/Results Medications: Active Medications Generic Name Dose Route Start Last Admin Trade Name Freq PRN Reason Stop Dose Admin Acetaminophen 650 mg 03/16/25 20:47 Acetaminophen 325 Mg Tablet PO Q4H PRN Mild Pain (1-3) or Fever Hydrocodone Bitart/Acetaminophen 1 tab 03/16/25 22:19 03/17/25 17:16 Hydrocodone/Acetaminophen (*Crx) 5-325 Mg Tablet PO 1 tab Q4H PRN Administration Pain Rated 4-6 Amiodarone HCl 200 mg 03/17/25 08:00 03/17/25 09:04 Amiodarone Hcl 200 Mg Tablet PO 200 mg DAILY@0800 [place] Administration Apixaban 5 mg 03/17/25 09:00 03/17/25 20:31 Apixaban 5 Mg Tablet PO 03/18/25 21:00 5 mg Q12HR [place] Administration Cyclobenzaprine HCl 10 mg 03/17/25 05:00 Cyclobenzaprine Hcl 10 Mg Tablet PO DAILY PRN Muscle Spasm Dextrose 12.5 gm 03/16/25 22:21 Dextrose 50% 25 Gm/50 Ml Syringe IV PUSH PRN PRN Hypoglycemia Protocol Glucagon 1 mg 03/16/25 22:21 Glucagon For Inj 1 Mg Vial IM PRN PRN Hypoglycemia Protocol Glucose 15 gm 03/16/25 22:21 Glucose Oral Gel 15 Gm Of Glucse In 37.5 Gm Tube PO PRN PRN Hypoglycemia Protocol Hydromorphone HCl 1 mg 03/17/25 11:49 03/18/25 00:48 Hydromorphone Hcl Inj (*Crx) 1 Mg/Ml Syr IV PUSH 1 mg Q3H PRN Administration Pain Rated 7-10 Ceftriaxone Sodium 1 gm/ 50 mls @ 100 mls/hr 03/17/25 21:00 03/17/25 20:31 Sodium Chloride IVPB 100 mls/hr Q24H [facility] Administration Dextrose 1,000 mls @ 100 mls/hr 03/16/25 22:21 Dextrose 5% 1,000 Ml IVPB PRN PRN Hypoglycemia Protocol Sodium Chloride 1,000 mls @ 75 mls/hr 03/16/25 22:55 03/18/25 05:38 Normal Saline Iv IV CONT 75 mls/hr .[id number] [facility] Administration Insulin Aspart 2 - 5 units 03/17/25 08:00 03/17/25 17:06 Insulin Aspart (*Bkc) 100 Units/Ml SUB-Q Not Given TIDWM [facility] Protocol Insulin Glargine 32 units 03/17/25 21:00 03/17/25 21:43 Insulin Glargine (*Bkc) 100 Units/Ml 0.3 units/kg (32 units) 32 units SUB-Q Administration HS [facility] Magnesium Oxide 400 mg 03/17/25 05:15 Magnesium Oxide 400 Mg Tablet PO DAILY PRN cramps Metoprolol Succinate 150 mg 03/17/25 09:00 03/17/25 09:04 Metoprolol Succinate Ext Rel 50 Mg Tabcr PO 150 mg QAM [facility] Administration Ondansetron HCl 4 mg 03/16/25 20:47 Ondansetron Inj 4 Mg/2 Ml Vial IV PUSH Q4H PRN Nausea Radiology Results: ITS Impressions Abdomen/Pelvis CT 03/16/25 18:14 IMPRESSION: 1. Mild right hydronephrosis with 6 mm left ureteral stone along side a right intraureteral stent which is in expected position. 2. 3.9 x 3.7 cm mass in the deep right pelvis and retroperitoneal lymphadenopathy concerning for metastatic disease. Patient is status post prostatectomy suggesting this could represent metastatic prostate cancer. Correlate with clinical history and with PSA levels. 6 3. Small sliding-type hiatal hernia. Abdomen X-Ray 03/17/25 12:33 IMPRESSION: 1. Right internal ureteral stent in expected position. No evident urolithiasis. Labs Labs: Laboratory Results - last 24 hr 03/17/25 03/17/25 03/17/25 07:52 11:15 16:11 WBC RBC Hgb Hct MCV MCH MCHC RDW Plt Count MPV Immature Gran % (Auto) Neut % (Auto) Lymph % (Auto) [place] % (Auto) Eos % (Auto) Baso % (Auto) Lymph # (Auto) [place] # (Auto) Eos # (Auto) Baso # (Auto) Abs Immat Gran (auto) Absolute Neuts (auto) Absolute Nucleated RBC Nucleated RBC % Sodium Potassium Chloride Carbon Dioxide Anion Gap BUN Creatinine Estim Creat Clear Calc Estimated GFR Glucose POC Capillary Glucose 136 H 155 H 152 H Calcium Total Bilirubin AST ALT Alkaline Phosphatase Total Protein Albumin 03/17/25 03/18/25 21:40 04:27 WBC 4.7 RBC 3.51 L Hgb 11.4 L Hct 35.4 L MCV 100.9 H MCH 32.5 MCHC 32.2 RDW 14.1 Plt Count 197 MPV 9.6 Immature Gran % (Auto) 0.6 H Neut % (Auto) 55.9 Lymph % (Auto) 27.9 [place] % (Auto) 11.2 H Eos % (Auto) 4.0 Baso % (Auto) 0.4 Lymph # (Auto) 1.32 [place] # (Auto) 0.5 Eos # (Auto) 0.2 Baso # (Auto) 0.0 Abs Immat Gran (auto) 0.03 Absolute Neuts (auto) 2.6 Absolute Nucleated RBC 0.000 Nucleated RBC % 0.0 Sodium 137 Potassium 4.1 Chloride 103 Carbon Dioxide 30 Anion Gap 4 BUN 12 Creatinine 0.95 Estim Creat Clear Calc 66 Estimated GFR > 60 Glucose 132 H POC Capillary Glucose 187 H Calcium 8.8 Total Bilirubin 0.5 AST 27 ALT 16 Alkaline Phosphatase 65 Total Protein 6.7 Albumin 3.5 Quality VTE Prophylaxis VTE prophylaxis: mechanical ordered and pharmacologic ordered
[2025-03-18] MEDS: HYDROmorphone HCL INJ (*CRX) 1 MG/ML SYR 0.5 MG IV PUSH ×2 (09:56→20:25)
[2025-03-18 09:57] VITALS: PULSE 64
[2025-03-18] MEDS: APIXABAN 5 MG TABLET PO ×2 (09:57→20:28)
[2025-03-18] MEDS: AMIODARONE HCL 200 MG TABLET PO (09:57)
[2025-03-18] MEDS: METOPROLOL SUCCINATE EXT REL 50 MG TABCR 150 MG PO (09:57)
[2025-03-18 13:36] VITALS: BP 150/73; PULSE 65; RESP 18; TEMP 36.8; O2SAT 97
[2025-03-18] MEDS: HYDROcodone/acetaminophen (*CRX) 5-325 MG TABLET 1 TAB PO ×3 (13:48→23:22)
[2025-03-18] MEDS: cefTRIAXone 1 GM in SODIUM CHLORIDE 0.9% IV 50 ML 100 ML IVPB (20:29)
[2025-03-18] MEDS: INSULIN GLARGINE (*BKC) 100 UNITS/ML 32 UNITS SUB-Q (20:29)
[2025-03-18 22:00] VITALS: BP 135/62; PULSE 62; RESP 18; TEMP 37.2; O2SAT 96
[2025-03-19] MEDS: HYDROmorphone HCL INJ (*CRX) 1 MG/ML SYR 0.5 MG IV PUSH ×2 (01:34→05:52)
[2025-03-19 05:22] LABS: Hematocrit 36.0 % (42.0-52.0); Hemoglobin 11.7 g/dL (14.0-18.0); Immature Granulocyte Percent A 0.2 % (0-0.5); Lymphocytes Absolute Auto 1.53 K/mm3 (0.9-3.2); Mean Corpuscular HGB Conc 32.5 g/dl (32-36); Mean Corpuscular Hemoglobin 32.1 pg (26-34); Mean Corpuscular Volume 98.9 fl (80-100); Nucleated Red Blood Cells Absolute Auto 0.000 K/mm3 (0.0-0.012); Nucleated Red Blood Cells Perc 0.0 % (0.0-0.2); Platelet Count Result 175 k/mm3 (150-375); Red Blood Count 3.64 M/mm3 (4.6-6.20); White Blood Count 4.6 K/mm3 (4.5-10.0)
[2025-03-19 05:45] LABS: Alanine Aminotransferase 17 U/L (6-50); Albumin Level 3.6 g/dL (3.5-5.1); Alkaline Phosphatase 65 U/L (38-126); Anion Gap 5 mmol/L (4-12); Aspartate Amino Transferase 26 U/L (17-59); Bilirubin,Total 0.6 mg/dL (0.2-1.3); Blood Urea Nitrogen 11 mg/dL (9-20); Calcium 8.9 mg/dL (8.4-10.2); Carbon Dioxide 26 mmol/L (22-30); Chloride 103 mmol/L (98-107); Estimated CRCL calculation 76 ml/min; Estimated Glomerular Filt Rate > 60; Glucose 157 mg/dL (65-110); Potassium 3.7 mmol/L (3.4-5.0); Sodium 134 mmol/L (137-145); Total Protein 7.0 g/dL (6.3-8.2)
[2025-03-19 06:00] VITALS: BP 156/85; PULSE 63; RESP 18; TEMP 36.5; O2SAT 98
[2025-03-19 09:42] VITALS: PULSE 668; PULSE 68
[2025-03-19] MEDS: METOPROLOL SUCCINATE EXT REL 50 MG TABCR 150 MG PO (09:42)
[2025-03-19] MEDS: AMIODARONE HCL 200 MG TABLET PO (09:42)
[2025-03-19] MEDS: HYDROcodone/acetaminophen (*CRX) 7.5-325 MG TABLET 1 TAB PO ×3 (09:43→19:22)
[2025-03-19] MEDS: INSULIN ASPART (*BKC) 100 UNITS/ML SUB-Q ×2 (12:27→16:56)
--- NOTE | 2025-03-19 12:29 | P.PNIM_ITS ---
Progress Note: A&P Assessment and Plan (1) Calculus of right ureter: Code(s): N20.1 - Calculus of ureter Status: Acute Assessment and Plan: Patient recently admitted from 02/24-03/02 for obstructing right ureteral calculus with obstructive pyelonephritis s/p Cystoscopy right retrograde pyelogram, right ureteral stent placement on 02/[address] Munroe Urine culture from 02/25/2025 grew E coli which was pansensitive, patient completed antibiotic course on 03/08 Abdomen/pelvis CT: Mild right hydronephrosis with 6 mm left ureteral stone along side a right intraureteral stent which is in expected position. - BUN/Cr remains WNL, continue to monitor - UA with + leukocytes, started on Rocephin on 03/16 for possible UTI Urine cultures and blood cultures: negative Continues to endorse dysuria, burning and hematuria. Despite negative culture will continue to treat for UTI given symptomatic. Prior cultures reviewed: Ecoli pansensitive - analgesics: [place] q4H PRN, Dilaudid 0.5 mg q3H PRN currently requiring IV pain medication, will continue to wean as tolerated - antiemetics: Zofran - Eliquis resumed as no plan for urologic intervention at this time - Monitor I/O, strain all urine - urology has been consulted Stone was not visualized on kub so will need ureteroscopy. This is being set up as outpatient with Dr. Munroe. Patient will get call next week to get scheduled for right special. No urological surgical intervention at this time. Patient continues to endorse right flank pain, dysuria, burning and hematuria. Discussed patient with Urology Dr. Covarrubias. Pain likely related to stent irritation and recommends oxybutynin 5 mg BID. Continue to monitor. (2) Pelvic mass: Code(s): R19.00 - Intra-abdominal and pelvic swelling, mass and lump, unspecified site Status: Acute Assessment and Plan: The patient stated that he had a PET scan approximately 2 years ago. He does have a history of having prostate cancer status post prostatectomy. He denied having any chemo or radiation. According to the , the patient was told that the prostate cancer had completely been removed. - CT abdomen/pelvis: 3.9 x 3.7 cm mass in the deep right pelvis and retroperitoneal lymphadenopathy concerning for metastatic disease. Patient is status post prostatectomy suggesting this could represent metastatic prostate cancer. Mass previously seen on outside CT imaging in 01/2025 Patient does wish to pursue further workup of the pelvic mass - PSA elevated at 49.9. -urology has been consulted will need to set up outpatient PSMA PET scan to further evaluate the pelvic mass (3) Atrial fibrillation: Code(s): I48.91 - Unspecified atrial fibrillation Status: Acute Assessment and Plan: New diagnosis of Afib on prior admission from 02/24-03/02 - Current home medications: Amiodarone 400 mg BID Metoprolol 150 mg daily Eliquis 5 mg BID - Remains rate controlled in sinus rhythm (4) Essential (primary) hypertension: Code(s): I10 - Essential (primary) hypertension Status: Acute Assessment and Plan: Chronic, continue home medications - metoprolol 150 mg daily - blood pressures reviewed and remain well controlled, continue to monitor (5) Hyperlipidemia LDL goal <100: Code(s): E78.5 - Hyperlipidemia, unspecified Status: Acute Assessment and Plan: -continue with Zetia and monitor liver function (6) Type 2 diabetes mellitus with hyperglycemia, with long-term current use of insulin: Code(s): E11.65 - Type 2 diabetes mellitus with hyperglycemia; Z79.4 - rat exterminator (current) use of insulin Status: Acute Assessment and Plan: - hypoglycemia protocol - POC blood glucose ACHS - home medication - metformin 1000 mg BID, SSI insulin TIDWM, 58 units lantus HS - correct regimen ordered - low dose TIDWM, lantus 32 units - A1C 7.4 Glucose reviewed and remains stable. Continue to monitor. Discussed patient's home regimen of 58 units Lantus HS and he states that his sugars have been well controlled on this regimen. Will resume this at time of discharge. Time Spent With Patient Time with patient: 25 - 35 minutes Subjective Date/time seen: 03/19/25 12:29 Interval history: 84-year-old male with a past medical history of recurrent nephrolithiasis with hydronephrosis, prostate cancer s/p prostatectomy, insulin dependent diabetes, and atrial fibrillation on chronic anticoagulation presented to the hospital with complaints of right flank pain. Patient continues to endorse right flank pain that extends to the right groin. He also has dysuria and hematuria. He has no other complaints denying chest pain, shortness a breath, palpitations, and abdominal pain. Given patient's continued discomfort discussed with Urology who recommended oxybutynin for spasms likely related to stent irritation. Medication started. Review of Systems Review of Systems: All systems reviewed & are unremarkable except as noted in HPI and below Exam Narrative: AF HR 68 RR 18 Spo2 98 BP 156/85 General: male in no acute respiratory distress who is nontoxic appearing, sitting up in bed. HEENT: Normocephalic. Atraumatic. Extraocular movement intact. Sclera clear and anicteric. No facial asymmetry. Chest: Lungs are clear to auscultation bilaterally. No wheezes or crackles. CV: Heart was regular rate and rhythm. Abd: Abdomen was soft. Nontender. Nondistended. CVA tenderness. Positive bowel sounds. Ext: No clubbing, cyanosis, or edema. DP pulses bilaterally. Neuro: Patient is alert and oriented x4. Speech is clear. Objective Data Vital Signs Vital Signs: Vital Signs - 24 hr 03/18/25 13:36 03/18/25 20:20 03/18/25 22:00 Temperature 98.3 F 98.9 F Pulse Rate 65 62 Respiratory Rate 18 18 Blood Pressure 150/73 H 135/62 Pulse Oximetry 97 96 Oxygen Delivery Room Air 03/19/25 06:00 03/19/25 09:42 03/19/25 09:42 Temperature 97.7 F Pulse Rate 63 668 H 68 Respiratory Rate 18 Blood Pressure 156/85 H Pulse Oximetry 98 Oxygen Delivery Intake/Output Intake/Output: Intake & Output 03/16/25 03/17/25 03/18/25 03/19/25 23:59 23:59 23:59 23:59 Intake Total 500 1185 2060 240 Output Total 200 600 Balance 992 915 2951 240 Meds/Results Medications: Active Medications Generic Name Dose Route Start Last Admin Trade Name Freq PRN Reason Stop Dose Admin Acetaminophen 650 mg 03/16/25 20:47 Acetaminophen 325 Mg Tablet PO Q4H PRN Mild Pain (1-3) or Fever Hydrocodone Bitart/Acetaminophen 1 tab 03/16/25 22:19 03/18/25 23:22 Hydrocodone/Acetaminophen (*Crx) 5-325 Mg Tablet PO 1 tab Q4H PRN Administration Pain Rated 4-6 Hydrocodone Bitart/Acetaminophen 1 tab 03/19/25 06:44 03/19/25 09:43 Hydrocodone/Acetaminophen (*Crx) 7.5-325 Mg Tablet PO 1 tab Q4H PRN Administration Pain Rated 7-10 Amiodarone HCl 200 mg 03/17/25 08:00 03/19/25 09:42 Amiodarone Hcl 200 Mg Tablet PO 200 mg DAILY@0800 [place] Administration Cyclobenzaprine HCl 10 mg 03/17/25 05:00 Cyclobenzaprine Hcl 10 Mg Tablet PO DAILY PRN Muscle Spasm Dextrose 12.5 gm 03/16/25 22:21 Dextrose 50% 25 Gm/50 Ml Syringe IV PUSH PRN PRN Hypoglycemia Protocol Glucagon 1 mg 03/16/25 22:21 Glucagon For Inj 1 Mg Vial IM PRN PRN Hypoglycemia Protocol Glucose 15 gm 03/16/25 22:21 Glucose Oral Gel 15 Gm Of Glucse In 37.5 Gm Tube PO PRN PRN Hypoglycemia Protocol Ceftriaxone Sodium 1 gm/ 50 mls @ 100 mls/hr 03/17/25 21:00 03/18/25 20:59 Sodium Chloride IVPB Infused Q24H [facility] Infusion Dextrose 1,000 mls @ 100 mls/hr 03/16/25 22:21 Dextrose 5% 1,000 Ml IVPB PRN PRN Hypoglycemia Protocol Insulin Aspart 2 - 5 units 03/17/25 08:00 03/19/25 12:27 Insulin Aspart (*Bkc) 100 Units/Ml SUB-Q 2 units TIDWM [facility] Administration Protocol Insulin Glargine 32 units 03/17/25 21:00 03/18/25 20:29 Insulin Glargine (*Bkc) 100 Units/Ml 0.3 units/kg (32 units) 32 units SUB-Q Administration [facility] Magnesium Oxide 400 mg 03/17/25 05:15 Magnesium Oxide 400 Mg Tablet PO DAILY PRN cramps Metoprolol Succinate 150 mg 03/17/25 09:00 03/19/25 09:42 Metoprolol Succinate Ext Rel 50 Mg Tabcr PO 150 mg QAM [facility] Administration Ondansetron HCl 4 mg 03/16/25 20:47 Ondansetron Inj 4 Mg/2 Ml Vial IV PUSH Q4H PRN Nausea Radiology Results: ITS Impressions Abdomen/Pelvis CT 03/16/25 18:14 IMPRESSION: 1. Mild right hydronephrosis with 6 mm left ureteral stone along side a right intraureteral stent which is in expected position. 2. 3.9 x 3.7 cm mass in the deep right pelvis and retroperitoneal lymphadenopathy concerning for metastatic disease. Patient is status post pr ostatectomy suggesting this could represent metastatic prostate cancer. Correlate with clinical history and with PSA levels. 6 3. Small sliding-type hiatal hernia. Abdomen X-Ray 03/17/25 12:33 IMPRESSION: 1. Right internal ureteral stent in expected position. No evident urolithiasis. Labs Labs: Laboratory Results - last 24 hr 03/18/25 03/18/25 03/19/25 16:42 20:19 04:39 WBC 4.6 RBC 3.64 L Hgb 11.7 L Hct 36.0 L MCV 98.9 MCH 32.1 MCHC 32.5 RDW 13.9 Plt Count 175 MPV 9.3 Immature Gran % (Auto) 0.2 Neut % (Auto) 49.4 Lymph % (Auto) 33.4 [place] % (Auto) 11.4 H Eos % (Auto) 5.2 H Baso % (Auto) 0.4 Lymph # (Auto) 1.53 [place] # (Auto) 0.5 Eos # (Auto) 0.2 Baso # (Auto) 0.0 Abs Immat Gran (auto) 0.01 Absolute Neuts (auto) 2.3 Absolute Nucleated RBC 0.000 Nucleated RBC % 0.0 Sodium 134 L Potassium 3.7 Chloride 103 Carbon Dioxide 26 Anion Gap 5 BUN 11 Creatinine 0.82 Estim Creat Clear Calc 76 Estimated GFR > 60 Glucose 157 H POC Capillary Glucose 152 H 191 H Calcium 8.9 Total Bilirubin 0.6 AST 26 ALT 17 Alkaline Phosphatase 65 Total Protein 7.0 Albumin 3.6 03/19/25 03/19/25 07:45 11:37 WBC RBC Hgb Hct MCV MCH MCHC RDW Plt Count MPV Immature Gran % (Auto) Neut % (Auto) Lymph % (Auto) [place] % (Auto) Eos % (Auto) Baso % (Auto) Lymph # (Auto) [place] # (Auto) Eos # (Auto) Baso # (Auto) Abs Immat Gran (auto) Absolute Neuts (auto) Absolute Nucleated RBC Nucleated RBC % Sodium Potassium Chloride Carbon Dioxide Anion Gap BUN Creatinine Estim Creat Clear Calc Estimated GFR Glucose POC Capillary Glucose 150 H 212 H Calcium Total Bilirubin AST ALT Alkaline Phosphatase Total Protein Albumin Quality VTE Prophylaxis VTE prophylaxis: mechanical ordered and pharmacologic ordered
[2025-03-19 14:00] VITALS: BP 147/66; PULSE 60; RESP 16; TEMP 36.1; O2SAT 97
[2025-03-19] MEDS: cefTRIAXone 1 GM in SODIUM CHLORIDE 0.9% IV 50 ML 100 ML IVPB (20:48)
[2025-03-19] MEDS: INSULIN GLARGINE (*BKC) 100 UNITS/ML 32 UNITS SUB-Q (20:48)
[2025-03-19 22:00] VITALS: BP 154/69; PULSE 61; RESP 18; TEMP 37.1; O2SAT 97
[2025-03-19] MEDS: CYCLOBENZAPRINE HCL 10 MG TABLET PO (22:10)
[2025-03-20] MEDS: HYDROcodone/acetaminophen (*CRX) 5-325 MG TABLET 1 TAB PO (00:53)
[2025-03-20 05:11] LABS: Hematocrit 36.8 % (42.0-52.0); Hemoglobin 12.0 g/dL (14.0-18.0); Immature Granulocyte Percent A 0.4 % (0-0.5); Lymphocytes Absolute Auto 1.66 K/mm3 (0.9-3.2); Mean Corpuscular HGB Conc 32.6 g/dl (32-36); Mean Corpuscular Hemoglobin 32.1 pg (26-34); Mean Corpuscular Volume 98.4 fl (80-100); Nucleated Red Blood Cells Absolute Auto 0.000 K/mm3 (0.0-0.012); Nucleated Red Blood Cells Perc 0.0 % (0.0-0.2); Platelet Count Result 177 k/mm3 (150-375); Red Blood Count 3.74 M/mm3 (4.6-6.20); White Blood Count 4.6 K/mm3 (4.5-10.0)
[2025-03-20 05:41] LABS: Alanine Aminotransferase 20 U/L (6-50); Albumin Level 3.8 g/dL (3.5-5.1); Alkaline Phosphatase 61 U/L (38-126); Anion Gap 8 mmol/L (4-12); Aspartate Amino Transferase 26 U/L (17-59); Bilirubin,Total 0.5 mg/dL (0.2-1.3); Blood Urea Nitrogen 15 mg/dL (9-20); Calcium 9.0 mg/dL (8.4-10.2); Carbon Dioxide 25 mmol/L (22-30); Chloride 101 mmol/L (98-107); Estimated CRCL calculation 74 ml/min; Estimated Glomerular Filt Rate > 60; Glucose 195 mg/dL (65-110); Potassium 4.0 mmol/L (3.4-5.0); Sodium 134 mmol/L (137-145); Total Protein 7.1 g/dL (6.3-8.2)
[2025-03-20 06:00] VITALS: BP 150/61; PULSE 63; RESP 18; TEMP 36.4; O2SAT 95
[2025-03-20 08:29] VITALS: PULSE 70
[2025-03-20] MEDS: METOPROLOL SUCCINATE EXT REL 50 MG TABCR 150 MG PO (08:29)
[2025-03-20] MEDS: AMIODARONE HCL 200 MG TABLET PO (08:29)
[2025-03-20] MEDS: HYDROcodone/acetaminophen (*CRX) 7.5-325 MG TABLET 1 TAB PO ×2 (08:31→14:33)
[2025-03-20] MEDS: INSULIN ASPART (*BKC) 100 UNITS/ML SUB-Q (12:21)
[2025-03-20 14:00] VITALS: BP 136/60; PULSE 76; RESP 18; TEMP 36.1; O2SAT 97
--- NOTE | 2025-03-20 14:01 | WPDUROPN2 ---
Progress Note: A&P Assessment and Plan (1) Ureteral stent present: Code(s): Z96.0 - Presence of urogenital implants Status: Chronic (2) Calculus of right ureter: Code(s): N20.1 - Calculus of ureter Status: Acute Plan Pt is an 84 year old M with Hx of prostate cancer s/p prostatectomy with Right midureteral 6 mm stone s/p ureteral stent placement (02/25/2025). Last office visit with Dr. Covarrubias in 2013 with elevated PSA, however, details surrounding prostatectomy unknown on chart review. - No acute intervention indicated; pt to follow up outpatient to plan definitive stone management - Discontinue oxybutynin and recommend solifenacin 5 mg QD for stent symptoms - Planning for outpatient PET scan for new pelvic mass in the setting of elevated PSA (49 ng/ml) - Urologically cleared for discharge with close outpatient follow up Subjective Subjective Date/Time Seen: 03/20/25 14:01 Interval history: NAEO. Pt with some mild stent symptoms particularly bothersome when up and moving; oxybutynin moderatley improved symptoms. Exam Const: General: comfortable and no acute distress Resp: Effort & Inspection: normal respiratory effort GI: Inspection: non-distended Skin: General skin exam: normal color Objective Data Vital Signs Vital Signs: Vital Signs - 24 hr 03/19/25 20:00 03/19/25 22:00 03/20/25 06:00 Temperature 98.8 F 97.6 F Pulse Rate 61 63 Respiratory Rate 18 18 Blood Pressure 154/69 H 150/61 H Pulse Oximetry 97 95 Oxygen Delivery Room Air 03/20/25 08:29 03/20/25 08:29 03/20/25 08:30 Temperature Pulse Rate 70 70 Respiratory Rate Blood Pressure Pulse Oximetry Oxygen Delivery Room Air Intake/Output Intake/Output: Intake & Output 03/17/25 03/18/25 03/19/25 03/20/25 23:59 23:59 23:59 23:59 Intake Total 1185 2060 1150 720 Output Total 200 600 Balance 985 1460 1150 720 Meds/Results Medications: Active Medications Generic Name Dose Route Start Last Admin Trade Name Freq PRN Reason Stop Dose Admin Acetaminophen 650 mg 03/16/25 20:47 Acetaminophen 325 Mg Tablet PO Q4H PRN Mild Pain (1-3) or Fever Hydrocodone Bitart/Acetaminophen 1 tab 03/16/25 22:19 03/20/25 00:53 Hydrocodone/Acetaminophen (*Crx) 5-325 Mg Tablet PO 1 tab Q4H PRN Administration Pain Rated 4-6 Hydrocodone Bitart/Acetaminophen 1 tab 03/19/25 06:44 03/20/25 08:31 Hydrocodone/Acetaminophen (*Crx) 7.5-325 Mg Tablet PO 1 tab Q4H PRN Administration Pain Rated 7-10 Amiodarone HCl 200 mg 03/17/25 08:00 03/20/25 08:29 Amiodarone Hcl 200 Mg Tablet PO 200 mg DAILY@0800 ANTON Administration Amoxicillin/Clavulanate Potassium 1 tablet 03/20/25 21:00 Amoxicillin/Clavulanate K 875-125 Mg Tab PO 03/26/25 09:01 Q12HR ANTON Cyclobenzaprine HCl 10 mg 03/17/25 05:00 03/19/25 22:10 Cyclobenzaprine Hcl 10 Mg Tablet PO 10 mg DAILY PRN Administration Muscle Spasm Dextrose 12.5 gm 03/16/25 22:21 Dextrose 50% 25 Gm/50 Ml Syringe IV PUSH PRN PRN Hypoglycemia Protocol Glucagon 1 mg 03/16/25 22:21 Glucagon For Inj 1 Mg Vial IM PRN PRN Hypoglycemia Protocol Glucose 15 gm 03/16/25 22:21 Glucose Oral Gel 15 Gm Of Glucse In 37.5 Gm Tube PO PRN PRN Hypoglycemia Protocol Dextrose 1,000 mls @ 100 mls/hr 03/16/25 22:21 Dextrose 5% 1,000 Ml IVPB PRN PRN Hypoglycemia Protocol Insulin Aspart 2 - 5 units 03/17/25 08:00 03/20/25 12:21 Insulin Aspart (*Bkc) 100 Units/Ml SUB-Q 2 units TIDWM ANTON Administration Protocol Insulin Glargine 32 units 03/17/25 21:00 03/19/25 20:48 Insulin Glargine (*Bkc) 100 Units/Ml 0.3 units/kg (32 units) 32 units SUB-Q Administration HS ANTON Magnesium Oxide 400 mg 03/17/25 05:15 Magnesium Oxide 400 Mg Tablet PO DAILY PRN cramps Metoprolol Succinate 150 mg 03/17/25 09:00 03/20/25 08:29 Metoprolol Succinate Ext Rel 50 Mg Tabcr PO 150 mg QAM ANTON Administration Ondansetron HCl 4 mg 03/16/25 20:47 Ondansetron Inj 4 Mg/2 Ml Vial IV PUSH Q4H PRN Nausea Oxybutynin Chloride 5 mg 03/19/25 17:00 03/20/25 08:36 Oxybutynin Chloride 5 Mg Tablet PO Not Given BID [facility] Radiology Results: ITS Impressions Abdomen/Pelvis CT 03/16/25 18:14 IMPRESSION: 1. Mild right hydronephrosis with 6 mm left ureteral stone along side a right intraureteral stent which is in expected position. 2. 3.9 x 3.7 cm mass in the deep right pelvis and retroperitoneal lymphadenopathy concerning for metastatic disease. Patient is status post prostatectomy suggesting this could represent metastatic prostate cancer. Correlate with clinical history and with PSA levels. 6 3. Small sliding-type hiatal hernia. Abdomen X-Ray 03/17/25 12:33 IMPRESSION: 1. Right internal ureteral stent in expected position. No evident urolithiasis. Labs Labs: Laboratory Results - last 24 hr 03/19/25 03/19/25 03/20/25 16:30 20:29 04:29 WBC 4.6 RBC 3.74 L Hgb 12.0 L Hct 36.8 L MCV 98.4 MCH 32.1 MCHC 32.6 RDW 13.9 Plt Count 177 MPV 9.5 Immature Gran % (Auto) 0.4 Neut % (Auto) 46.1 Lymph % (Auto) 36.3 [place] % (Auto) 11.2 H Eos % (Auto) 5.3 H Baso % (Auto) 0.7 Lymph # (Auto) 1.66 [place] # (Auto) 0.5 Eos # (Auto) 0.2 Baso # (Auto) 0.0 Abs Immat Gran (auto) 0.02 Absolute Neuts (auto) 2.1 Absolute Nucleated RBC 0.000 Nucleated RBC % 0.0 Sodium 134 L Potassium 4.0 Chloride 101 Carbon Dioxide 25 Anion Gap 8 BUN 15 Creatinine 0.85 Estim Creat Clear Calc 74 Estimated GFR > 60 Glucose 195 H POC Capillary Glucose 232 H 265 H Calcium 9.0 Total Bilirubin 0.5 AST 26 ALT 20 Alkaline Phosphatase 61 Total Protein 7.1 Albumin 3.8 03/20/25 03/20/25 08:03 12:08 WBC RBC Hgb Hct MCV MCH MCHC RDW Plt Count MPV Immature Gran % (Auto) Neut % (Auto) Lymph % (Auto) [place] % (Auto) Eos % (Auto) Baso % (Auto) Lymph # (Auto) [place] # (Auto) Eos # (Auto) Baso # (Auto) Abs Immat Gran (auto) Absolute Neuts (auto) Absolute Nucleated RBC Nucleated RBC % Sodium Potassium Chloride Carbon Dioxide Anion Gap BUN Creatinine Estim Creat Clear Calc Estimated GFR Glucose POC Capillary Glucose 163 H 214 H Calcium Total Bilirubin AST ALT Alkaline Phosphatase Total Protein Albumin
--- NOTE | 2025-03-20 14:03 | P.DS_ITS ---
DS: Admitting Diagnosis Discharge Date 03/20/2025 Admitting Diagnosis calculus of right ureter pelvic mass afib htn hld dm DS: Discharge Diagnosis Discharge Diagnosis (1) Calculus of right ureter: Code(s): N20.1 - Calculus of ureter Status: Acute (2) Pelvic mass: Code(s): R19.00 - Intra-abdominal and pelvic swelling, mass and lump, unspecified site Status: Acute (3) Atrial fibrillation: Code(s): I48.91 - Unspecified atrial fibrillation Status: Acute (4) Essential (primary) hypertension: Code(s): I10 - Essential (primary) hypertension Status: Acute (5) Hyperlipidemia LDL goal <100: Code(s): E78.5 - Hyperlipidemia, unspecified Status: Acute (6) Type 2 diabetes mellitus with hyperglycemia, with long-term current use of insulin: Code(s): E11.65 - Type 2 diabetes mellitus with hyperglycemia; Z79.4 - tank terminal gauger (current) use of insulin Status: Acute DS: Summary Hospital Course Reason for hospitalization: calculus of right ureter pelvic mass afib htn hld dm Hospital Course: 84-year-old male with a past medical history of recurrent nephrolithiasis with hydronephrosis, prostate cancer s/p prostatectomy, insulin dependent diabetes, and atrial fibrillation on chronic anticoagulation presented to the hospital with complaints of right flank pain. Patient recently admitted from 02/24-03/02 for obstructing right ureteral calculus with obstructive pyelonephritis s/p Cystoscopy right retrograde pyelogram, right ureteral stent placement on 02/[address] Munroe. Urine culture from 02/25/2025 grew E coli which was pansensitive, patient completed antibiotic course on 03/08. Patient continued to have flank pain, dysuria and hematuria prompting him to return to the hospital. Renal function remained wnl throughout admission. UA with + leukocytes, started on Rocephin on 03/16 for possible UTI. Urine cultures and blood cultures: negative. Continues to endorse dysuria, burning and hematuria. Despite negative culture will continue to treat for UTI given symptomatic, transitioned to oral antibiotics to complete course at time of discharge. Abdomen/pelvis CT showed Mild right hydronephrosis with 6 mm left ureteral stone along side a right intraureteral stent which is in expected position. Urology consulted. Stone was not visualized on kub so will need ureteroscopy outpatient. No urological surgical intervention at this time. Discussed patient with urology CLEANING LABORER who is in agreement with discharge from urological standpoint. Patient to follow up with urology in the outpatient setting. Patient was trialed on oxybutinin for bladder spasms however he stated increased shakiness on this medication thus it was discontinued. Urology recommended solifenacin at time of discharge. During admission a pelvic mass was seen on imaging. CT abdomen/pelvis showed 3.9 x 3.7 cm mass in the deep right pelvis and retroperitoneal lymphadenopathy concerning for metastatic disease. Patient is status post prostatectomy suggesting this could represent metastatic prostate cancer. Mass previously seen on outside CT imaging in 01/2025. PSA elevated. Urology following and patient will need to set up outpatient PSMA PET scan to further evaluate the pelvic mass. Patient had no complaints at time of discharge denying chest pain, shortness a breath, palpitations, nausea/vomiting. He continues to endorse slight flank tenderness but this had improved since admission. Patient was noted to be able to walk throughout the room independently and denied any dizziness/lightheadedness. Patient discharged home in a stable condition. He is to follow-up with urology as scheduled and his primary care within 1 week. Status at Discharge Functional status at discharge: independent ambulation Time Spent with Patient Time attestation: Total time spent providing and/or coordinating discharge services: Time spent: Greater than 30 minutes Exam Narrative: AF HR 63 RR 18 Spo2 95 BP 150/61 General: male in no acute respiratory distress who is nontoxic appearing, sitting up in bed. HEENT: Normocephalic. Atraumatic. Extraocular movement intact. Sclera clear and anicteric. No facial asymmetry. Chest: Lungs are clear to auscultation bilaterally. No wheezes or crackles. CV: Heart was regular rate and rhythm. Abd: Abdomen was soft. Nontender. Nondistended. Slight CVA tenderness. Positive bowel sounds. Ext: No clubbing, cyanosis, or edema. DP pulses bilaterally. Neuro: Patient is alert and oriented x4. Speech is clear. DS: Data Data Completed and Pending Completed studies during hospitalization: abdomen xr abdomen/pelvis ct Labs on day of discharge: Labs from last 24 hours 03/20/25 03/20/25 03/20/25 12:08 08:03 04:29 WBC 4.6 RBC 3.74 L Hgb 12.0 L Hct 36.8 L MCV 98.4 MCH 32.1 MCHC 32.6 RDW 13.9 Plt Count 177 MPV 9.5 Immature Gran % (Auto) 0.4 Neut % (Auto) 46.1 Lymph % (Auto) 36.3 [place] % (Auto) 11.2 H Eos % (Auto) 5.3 H Baso % (Auto) 0.7 Lymph # (Auto) 1.66 [place] # (Auto) 0.5 Eos # (Auto) 0.2 Baso # (Auto) 0.0 Abs Immat Gran (auto) 0.02 Absolute Neuts (auto) 2.1 Absolute Nucleated RBC 0.000 Nucleated RBC % 0.0 Sodium 134 L Potassium 4.0 Chloride 101 Carbon Dioxide 25 Anion Gap 8 BUN 15 Creatinine 0.85 Estim Creat Clear Calc 74 Estimated GFR > 60 Glucose 195 H POC Capillary Glucose 214 H 163 H Calcium 9.0 Total Bilirubin 0.5 AST 26 ALT 20 Alkaline Phosphatase 61 Total Protein 7.1 Albumin 3.8 03/19/25 03/19/25 20:29 16:30 WBC RBC Hgb Hct MCV MCH MCHC RDW Plt Count MPV Immature Gran % (Auto) Neut % (Auto) Lymph % (Auto) [place] % (Auto) Eos % (Auto) Baso % (Auto) Lymph # (Auto) [place] # (Auto) Eos # (Auto) Baso # (Auto) Abs Immat Gran (auto) Absolute Neuts (auto) Absolute Nucleated RBC Nucleated RBC % Sodium Potassium Chloride Carbon Dioxide Anion Gap BUN Creatinine Estim Creat Clear Calc Estimated GFR Glucose POC Capillary Glucose 265 H 232 H Calcium Total Bilirubin AST ALT Alkaline Phosphatase Total Protein Albumin Preliminary micro results at discharge 03/16/25 22:56 Blood Culture - Preliminary Blood 03/16/25 22:49 Blood Culture - Preliminary Blood Discharge Plan Discharge Attending physician on discharge: Daria Lopez Consulting providers: Alberto Munroe; Kika Morocho Discharging Clinician: Kika Morocho Anticipated Discharge Date/Time: 03/20/25 13:52 Patient Disposition: Home Activity: as tolerated Diet: as tolerated and diabetic Discharge Instructions: Discharge disposition: Patient admitted to the hospital for right flank pain Urology evaluated the prior stent and known stone and no acute urologic intervention required at that time Concern for possible UTI Take all medications as prescribed even if feeling better Augmentin twice a day, course to be completed on 03/26 Attached is information on this medication Continue norco as previously prescribed Attached is information on this medication Do not drive or operate heavy machinery on this medication Given bladder spasms patient started on solifenacin daily Attached is information on this medication Eat well balanced meals and stay hydrated Keep active to remain strong Avoid use of diapers or pads Good raul Care every 2 hours Trend urine output Follow up with urology in the office as you will need a ureteroscopy Patient noted to have a right pelvic mass and retroperitoneal lymphadenopathy concerning for metastatic disease Follow up in the urology office for a PSMA PET scan to further evaluate Continue home diabetes regimen Closely monitor blood glucose levels Monitor blood pressures Take caution while standing, rising, or moving Change positions slowly taking a break between each position change If you standing feel dizzy sit back down and take a break Encouraged to continue with yearly vaccinations Return to the emergency department if he developed sudden shortness of breath, chest pain, nausea, vomiting, upset stomach or intractable diarrhea Return to the emergency department if you develop fever greater than 100.5 Follow-up with the primary care physician within 1-2 weeks Thank you for choosing [facility] for your healthcare needs Patient Instructions: Antibiotic Form, Hydrocodone/Acetaminophen (By mouth), Amoxicillin/Clavulanate Potassium (By mouth), Solifenacin (By mouth), Apixaban (By mouth), Kidney Stones (DC), Urinary Tract Infection in Men (DC), How to Strain Your Urine (ED), Blood Thinners (DC) Patient Language: Scottish Stand Alone Forms: General Discharge Information Follow-up/Referrals: Marcela,Timothy Singh MD [Primary Care Provider, Unknown] - 1 Week Alberto Munroe MD [Physician, Urology] - Call for Appointment Discharge Medications: New amoxicillin-pot clavulanate 875-125 mg tablet 1 tablet PO Q12H Qty: 12 0RF solifenacin 5 mg tablet 5 mg PO DAILY Qty: 14 0RF Continued hydrocodone-acetaminophen 10-325 mg tablet 1 tablet PO Q6H PRN (Reason: pain (scale score 4-6)) (DME) blood-glucose meter [Accu-Chek Dot Plus Meter] Misc See Rx Instructions .ROUTE .MEDSUPPLY Qty: 1 Rx Instructions: As directed (DME) Accu-Chek Dot Plus test strp Strip See Rx Instructions .ROUTE .MEDSUPPLY Qty: 10 Rx Instructions: As directed (DME) lancets [Accu-Chek Softclix Lancets] Misc See Rx Instructions .ROUTE .MEDSUPPLY Qty: 50 Rx Instructions: As directed furosemide 40 mg Tablet 40 mg PO DAILY PRN (Reason: edema) magnesium 500 mg Tablet 500 mg PO DAILY PRN (Reason: cramps) cyclobenzaprine 10 mg tablet 10 mg PO DAILY PRN (Reason: muscle spasm) insulin glargine [Lantus Solostar U-100 Insulin] 100 unit/mL (3 mL) insulin pe n 60 unit subcut QPM insulin aspart U-100 [Novolog FlexPen U-100 Insulin] 100 unit/mL (3 mL) insulin pen See Rx Instructions subcut DAILY MDD 75 Rx Instructions: subcutaneously daily; 14 units pre meal; 150-180: 1 units 181-210: 2 units 211-240: 3 units 241-270: 4 units 271-300: 5 units 301-330: 6 units 331-360: 7 units 361-390: 8 units 391-420: 9 units >421: 10 units Eliquis 5 mg Tablet 5 mg PO Q12HR Qty: 60 0RF metoprolol succinate 50 mg Tablet Extended Release 24 Hr 150 mg PO QAM Qty: 30 0RF amiodarone [Pacerone] 200 mg Tablet 400 mg PO Q12HR Qty: 30 0RF Rx Instructions: 400mg po BID until 03/05, then 400mg po daily until 03/12, then 200mg po daily. follow up with [employer] machine mechanic (ELIAZAR) [employer] G7 Sensor Device See Rx Instructions .Route Qty: 10 2RF Rx Instructions: As directed (DME) pen needle, diabetic [BD Ultra-Fine Mini Pen Needle] 31 gauge x 3/16 needle See Rx Instructions .ROUTE .MEDSUPPLY Qty: 100 2RF Rx Instructions: Use to inject insulin 4 times a day metformin 500 mg tablet 1,000 mg PO BID 90 Days Qty: 360 1RF Date of admission: 03/18/25 13:07 Primary Care Provider: MarcelaTimothy Admitting Provider: Daria Lopez Attending physician on admission: Daria Lopez Condition: Stable Hospitalist MIPS Heart Failure (Exclusion) Patient has history of Heart Transplant or Left Ventricular Assistive Device?: No IF YES, STOP HERE Heart Failure (Qualifier) Patient has current or prior documentation of LVEF less than or equal to 40%, or mod/servere depressed LVSF?: No IF NO, STOP HERE
== END 2025-03-20 15:35 | disposition home or self-care (01) | DRG 694 ==
LOC: ANHED 20:34 → ANH2MED 21:24
PROVIDERS: Nurse Practitioner; Admitting Provider Internal Medicine; Emergency Provider Physician Assistant; PCP Family Medicine; Visit Provider Student in an Organized Health Care Education/Training Program
DX: N13.2 Hydronephrosis with renal and ureteral calculous obstruction (principal); I48.20 Chronic atrial fibrillation, unspecified; I10 Essential (primary) hypertension; E11.319 Type 2 diabetes mellitus with unspecified diabetic retinopathy without macular edema; E11.40 Type 2 diabetes mellitus with diabetic neuropathy, unspecified; K21.9 Gastro-esophageal reflux disease without esophagitis; R19.00 Intra-abdominal and pelvic swelling, mass and lump, unspecified site; R13.10 Dysphagia, unspecified; N40.0 Benign prostatic hyperplasia without lower urinary tract symptoms; Z96.0 Presence of urogenital implants; Z79.01 Long term (current) use of anticoagulants; Z79.4 Long term (current) use of insulin; Z85.46 Personal history of malignant neoplasm of prostate; Z87.891 Personal history of nicotine dependence
CPT/HCPCS: 36415; 74018; 74176; 80048; 80053; 81001; 82948; 83690; 84153; 85025; 87040; 87086; 96361; 96374; 96375; 96376; 99285; A9270; G0378; J0696; J1171; J1815; J2270; J2405; J7030; J7040

== ENCOUNTER 2025-04-05 13:37 | Outpatient (CLI) | payer MEDICARE, SELFPAY ==
--- NOTE | ~2025-04-05 | PE_ITS ---
EXAMINATION: PET_PETPSMAST_PT DATE: 04/05/2025 15:58 INDICATION: Prostate cancer. TECHNIQUE: 4.405 mCi of Ga-68 gozetotide was administered intravenously. Low dose computed tomography (CT) images were acquired from the base of the brain to the proximal thighs for attenuation correction and anatomic localization. Automated exposure control was employed. Dose-length product (DLP) was 1223 mGy- cm. Positron emission tomography (PET) images were acquired in the same distribution. COMPARISON: CT abdomen and pelvis 03/16/2025 FINDINGS: Head/neck: There is left supraclavicular lymphadenopathy with increased activity, consistent with metastatic disease. For example, a left supraclavicular node measures 3.1 x 1.5 cm with maximum SUV of 36.4. Chest: There is mild scarring at the lung apices. No pleural effusion. There is increased activity in the left pleura without CT correlate. The heart size is normal. There are coronary artery calcifications. No pericardial effusion. There is a small sliding hiatal hernia. There are enlarged mediastinal and bilateral hilar lymph nodes with increased activity, consistent with metastatic disease. Abdomen/pelvis/proximal thighs: There are cysts in the liver measuring up to 5 mm. There are changes of cholecystectomy. The spleen, pancreas, adrenal glands, and left kidney are normal. There is cortical thinning of right kidney. There is mild right hydronephrosis. There is a 6 mm stone in proximal right ureter. There is a right internal ureteral stent in expected position. There are bilateral inguinal hernias containing fat. There are no dilated loops of bowel. The appendix is normal. There is an enlarged retrocaval, left para-aortic, aortocaval, bilateral common iliac, and bilateral internal iliac lymph nodes with increased activity, consistent with metastatic disease. There is no ascites. There is no osseous metastatic disease. IMPRESSION: 1. Lymphadenopathy in the left supraclavicular region, chest, abdomen, and pelvis with increased activity, consistent with metastatic disease. 2. 6 mm stone in proximal right ureter with mild right hydronephrosis and right internal ureteral stent in expected position. Reviewed, dictated and finalized at location E. IMPRESSION: 1. Lymphadenopathy in the left supraclavicular region, chest, abdomen, and pelv is with increased activity, consistent with metastatic disease. 2. 6 mm stone in proximal right ureter with mild right hydronephrosis and right internal ureteral stent in expected position.
== END 2025-04-05 13:38 | disposition home or self-care (01) ==
PROVIDERS: PCP Family Medicine; Visit Provider Urology
DX: R59.1 Generalized enlarged lymph nodes (principal); N20.1 Calculus of ureter; N13.1 Hydronephrosis with ureteral stricture, not elsewhere classified; Z96.0 Presence of urogenital implants; C61 Malignant neoplasm of prostate; R19.00 Intra-abdominal and pelvic swelling, mass and lump, unspecified site
CPT/HCPCS: 78815; A9596

== ENCOUNTER 2025-04-19 15:21 | Outpatient (CLI) | payer MEDICARE, SELFPAY ==
--- OUTSIDE RECORDS SUMMARY | 2025-03-01 19:00 | XMS_ITS | Continuity of Care Document ---
Author Organization [facility] Address [address] [place] [id number] Phone Care Team Providers Care Engineering Program Analyst Name Role Phone Caio KATHLEEN, NEDA, Ata Unavailable Unavailab le Procedures Procedure Date ELECTROCARDIOGRAM REPORT Advance Directives Directive Yes / No Effective Date File Name No Information Encounters Encounter Description Practice Location Reason(s) For Visit Diagnoses Date Provider Providers Copied on Encounter [facility], [address] [place] [address], [id number], tel:[phone] [facility] ER No Information Caio Choman. [address] [place] [address], [id number], . tel:[phone] Referring Provider: Ata Kearney, [facility] [place], [address]. tel:[phone] Family History Family Member Type Diagnosis Age At Onset No Information Payers Payer name Insurance type Covered republican ID Authoriza tion(s) [employer] MEDICARE ESA PPO [id number] Social History Type Description Quantity Date Captured Comments Sex Male Smoking Status No Information Chief Complaint And Reason For Visit No Information Reason For Referral Reason For Referral No Information History Of Present Illness Encounter Date Complaint History Of Prese nt Illness No Information Functional Status Date Functional Assessmen t No Information Instructions Date Instruction Additional Infor mation No Information Assessments Type Assessment Date No Information Patient Care Teams Name Effective Dates (start - stop) Status Members No Information
--- NOTE | ~2025-04-19 | XR_ITS ---
XR abdomen/kub 1V 04/19/2025 16:10 Indication: Right ureteral stone Procedure: KUB Comparison: 02/25/2025 Findings: Right internal ureteral stent position unchanged. There pelvic phleboliths. No definite renal/ureteral stones identified. There are cholecystectomy clips. Bowel gas pattern nonobstructive with moderate colonic fecal loading. Severe lumbar spondylosis with dextroscoliosis. There is a probable dropped gallstone overlying the liver. Impression: 1: No acute abdominal abnormality. Reviewed, dictated and finalized at location O. Impression: 1: No acute abdominal abnormality.
--- NOTE | ~2025-04-19 | US_ITS ---
EXAMINATION: US venous doppler [facility] DATE: 04/19/2025 15:57 INDICATION: Lower limb swelling TECHNIQUE: Grayscale ultrasound images without and with compression and Doppler ultrasound images of the bilateral lower extremity veins were obtained. COMPARISON: None. FINDINGS: The visualized portions of right common femoral vein, profunda (deep) femoral vein, femoral vein, popliteal vein, posterior tibial veins, peroneal veins, gastrocnemius vein and greater saphenous vein outflow are patent. The visualized portions of left common femoral vein, profunda femoral vein, femoral vein, popliteal vein, posterior tibial veins, peroneal veins, gastrocnemius vein and greater saphenous vein outflow are patent. IMPRESSION: 1. No deep venous thrombosis in either lower limb. Reviewed, dictated and finalized at location A.
--- OUTSIDE RECORDS SUMMARY | 2025-04-19 19:42 | XMS_ITS | Clinical Summary ---
Author Organization [facility] [place] [facility] Address [address] [place] [address] Care Team Providers Care Centerless Grinder Operator Name Role Phone Jay Barreto MD Primary Care Provider [phone] Allergies Active Allergy Reactions Criticality Noted Date [...] long-term current use of insulin ([facility]) Take 2 tablets (1,000 mg total) by mouth 2 (two) times a day with meals 360 tablet 3 05/16/20 21 Active Dexcom G6 Sensor deviceIndicati ons:Type 2 diabetes mellitus with hyperglycemia, with long-term current use of insulin ([facility]) Change sensor every 10 days 9 each 2 05/16/20 Active Dexcom G6 Cashier Or Checker Stock Clerk miscIndication s:Type 2 diabetes mellitus with hyperglycemia, with long-term current use of insulin ([facility]) Use to check bg daily as directed 1 each 05/16/20 Active Dexcom G6 Transmitter deviceIndicati ons:Type 2 diabetes mellitus with hyperglycemia, with long-term current use of insulin ([facility]) Change every 90 days 1 each 1 05/16/20 21 Active BD Ultra-Fine Mini Pen Needle 31 gauge x 3/16 needleIndicati ons:Type 2 diabetes mellitus with hyperglycemia, with long-term current use of insulin ([facility]) USE TO INJECT THREE TIMES DAILY [...] long-term current use of insulin ([facility]) Take 1 tablet (20 mg total) [...] 3/16 USE TO INJECT ONCE DAILY Active Eliquis 5 mg tablet Take 1 tablet (5 mg total) by mouth every 12 (twelve) hours 03/02/20 25 Active metoprolol XL (TOPROL-XL) 50 mg extended release tablet TAKE 3 TABLETS BY MOUTH ONCE DAILY IN THE MORNING 03/02/20 25 Active furosemide (LASIX) 40 mg tablet Take 1 tablet (40 mg total) by mouth daily 03/02/20 25 Active amiodarone (PACERONE) 200 mg tablet TAKE 2 TABLETS BY MOUTH TWICE DAILY UNITL 03/05 THEN TAKE 2 TABLET ONCE DAILY UNTIL 03/12, THEN TAKE 1 TABLET ONCE DAILY. FOLLOW UP WITH SERVICE CENTER MANAGER 03/02/20 25 Active amoxicillin 500 mg capsule TAKE 2 CAPSULES BY MOUTH EVERY 8 HOURS 03/02/20 25 Active HYDROcodone-ac etaminophen (NORCO) 10-325 mg per tablet Take 1 tablet by mouth every 6 (six) hours as needed 02/24/20 25 Active magnesium gluconate (MAGONATE) 27.5 mg magne- sium (500 mg) tabletIndicati ons:hypomagnes emia Take 1 tablet (500 mg total) by mouth daily as needed Active insulin glargine,hum.r ec.anlog (LANTUS SOLOSTAR U-100 INSULIN SUBQ) Inject under the skin Active Active Problems Problem Noted Date Diagnosed Date Cellulitis of foot 02/24/2021 Hypertriglyceridemia 05/31/2019 Assessment & Plan (05/31/2019 1:48 PM BAND RIPSAW OPERATOR): Very uncontrolled Low fat diet Exercise Better BG control Start Vascepa. Prostate cancer 02/02/2018 Overview (02/02/2018): Added automatically from request for surgery [id number] Type 2 diabetes mellitus without complication (C MS/HCC) 11/08/2013 Overview (07/21/2022): DMII WO CMP UNCNTRLD Assessment & Plan (05/16/2021 1:36 PM BAND RIPSAW OPERATOR): Hba1c was Lab Results Component Value Date [...] Glucotrol Assessment & Plan (08/25/2020 7:22 PM BAND RIPSAW OPERATOR): A1c 10.3. Diet is greatly Increasing pc excursions. Increase Basaglar (Tresiba ) to 74 units. Start Farxiga 10 mg in the morning. Diet and exercise importance and BG goals reviewed. Assessment & Plan (05/17/2020 2:02 PM BAND RIPSAW OPERATOR): A1c 10.5, improved but still to high. [...] water. Assessment & Plan (05/31/2019 1:49 PM BAND RIPSAW OPERATOR): Hba1c was Lab Results Component Value Date [...] . Assessment & Plan (07/06/2018 1:45 PM BAND RIPSAW OPERATOR): Hba1c was Lab Results Component Value Date [...] pattern. Assessment & Plan (06/16/2017 3:01 PM BAND RIPSAW OPERATOR): Hba1c was 7.7 today, indicating suboptimal DM [...] diabetes Assessment & Plan (08/25/2020 7:17 PM BAND RIPSAW OPERATOR): Continue Vascepa Assessment & Plan (05/17/2020 1:59 PM BAND RIPSAW OPERATOR): Will order lipid panel. Continue Vascepa Assessment [...] therapy Assessment & Plan (07/06/2018 1:46 PM BAND RIPSAW OPERATOR): Goal of treatment , LDL cholesterol less [...] exercise Assessment & Plan (06/16/2017 3:02 PM BAND RIPSAW OPERATOR): Goal of treatment , LDL cholesterol less [...] Encounters Date Type Department Care Team Description 04/04/2025 Orders Only [facility] Medical [facility] Cardiology [address] [place] [phone] Makenzie Dumont, RADHA 03/14/2025 Orders Only [facility] Cardiology [address] [place] [phone] Maddy Stout NP 03/07/2025 Orders Only [facility] Cardiology [address] [place] [phone] Manjeet Sen MD from Last 3 Months Surgical History Surgery Date Site/Laterality Comments CHOLECYSTECTOMY Cholecystectomy OTHER SURGICAL HISTORY 2012 broke knee cap BACK SURGERY Back Surgery - (Added by TW Conv) [place] NEPHROLITHOTOMY REMOVAL CALCULUS Lithotomy - (Added by TW Conv) BLADDER SURGERY Bladder Surgery - (Added by TW Conv) Medical History Medical History Date Comments Hypertension Hypertension Hyperlipidemia Hyperlipidemia Diabetes mellitus Diabetes Hx Other Medical not claustropho bic; Comments: HARDY 05/09/2014 - Personal history of other en docrine, nutritional and metabolic disease History of diabetes mellitus - (Added by TW Conv) Prostate cancer (HCC) T2DM (type 2 diabetes mellitus) Smoker PONV (postoperative nausea and vomiting) Family [...] on file Legal Sex Male 10:22 AM BAND RIPSAW OPERATOR Gender Identity Not on file Sexual Orientation Not on file Obstetrics History Last Filed Vital Signs Vital Sign Reading Time Taken Comments Blood Pressure 150/72 05/16/2021 12:32 PM BAND RIPSAW OPERATOR Pulse 92 05/16/2021 12:32 PM BAND RIPSAW OPERATOR Temperature 36.9 C (98.4 F) 12/11/2020 10:25 AM CDT Respiratory Rate 12 05/16/2021 12:3 2 PM BAND RIPSAW OPERATOR Oxygen Saturation 93% 04/15/2018 12: 01 PM CDT Inhaled Oxygen Concentration - - Weight 100.8 kg (222 lb 3.6 oz) 021 12:32 PM BAND RIPSAW OPERATOR Height 185.4 cm (6' 0.99) 05/16/2021 1 2:32 PM BAND RIPSAW OPERATOR Body Mass Index 29.33 05/16/2021 12:32 PM BAND RIPSAW OPERATOR Plan of Treatment Health Maintenance Due Date [...] Associated Diagnosis Comments CARDIOLOGY DOCUMENT SCAN Routine 03/01/2025 7:15 AM CDT CARDIOLOGY DOCUMENT SCAN Routine 02/28/2025 1:57 PM CDT CARDIOLOGY DOCUMENT SCAN Routine 02/27/2025 4:50 PM CDT CARDIOLOGY DOCUMENT SCAN Routine 02/26/2025 4:47 PM CDT CARDIOLOGY DOCUMENT SCAN Routine 02/25/2025 4:45 PM CDT POCT HEMOGLOBIN A1C Routine 05/16/2021 1:04 PM BAND RIPSAW OPERATOR Type 2 diabetes mellitus with hyperglycemia, with long-term current use of insulin (HCC) POCT LIPID PANEL Routine 11/20/2020 11:0 8 AM CDT Type 2 diabetes mellitus with hyperglycemia, with long-term current use of insulin (HCC) CT ABDOMEN PELVIS WO CONTRAST Schedule Routine, Read Routine (OP Routine) 05/03/2018 9:47 AM BAND RIPSAW OPERATOR Prostate cancer (HCC) DIABETIC EYE EXAM Routine 01/22/2017 ALBUMIN CREATININE RATIO, URINE Routine 12/23/2016 Essential hypertension from Last 3 Months or Most Recently Relevant to Health Maintenance Results * Cardiology Document Scan (03/01/2025 7:15 AM CDT) Anatomical Region Laterality Modality Other Makenzie Dumont NP CV CARDIAC SERVICE S PROCEDURES Final Result * Cardiology Document Scan (02/28/2025 1:57 PM CDT) Anatomical Region Laterality Modality Other us Maddy Stout NP CV CARDIAC SERVICES PROCEDUR ES Final Result * Cardiology Document Scan (02/27/2025 4:50 PM CDT) Anatomical Region Laterality Modality Other Manjeet Sen MD CV CARDIAC SERVICES PROCEDU RES Final Result * Cardiology Document Scan (02/26/2025 4:47 PM CDT) Anatomical Region Laterality Modality Other Result Maik Sen MD CV CARDIAC SERVICES PROCEDU RES Final Result * Cardiology Document Scan (02/25/2025 4:45 PM CDT) Anatomical Region Laterality Modality Other Result Maik Sen MD CV CARDIAC SERVICES PROCEDU RES Final Result * POCT hemoglobin A1c (05/16/2021 1:04 PM BAND RIPSAW OPERATOR) Hemoglobin A1C, POC 8.9 % Blood specimen (specimen) 05/16/2021 1:04 PM BAND RIPSAW OPERATOR Result Maik Hallman MD POINT OF CARE TEST ORDERABLES Fi nal Result * POCT lipid panel (11/20/2020 11:08 AM CDT) Cholesterol, POC 154 mg/dL HDL, POC 23 mg/dL Triglycerides, POC 318 mg/dL LDL Cholesterol POC 68 mg/dL Chol/HDL Ratio, POC 6.8 Non-HDL Cholesterol, POC 132 mg/dL Cholesterol Total, POC 154 mg/dL Capillary blood 11/20/2020 1 1:08 AM CDT Result Maik Hallman MD POINT OF CARE TEST ORDERABLES Fi nal Result * CT Abdomen Pelvis WO Contrast (05/03/2018 9:47 AM BAND RIPSAW OPERATOR) Anatomical Region Laterality Modality Body N/A Computed Tomogra phy 05/03/2018 9:57 AM BAND RIPSAW OPERATOR Impressions 05/03/2018 10:00 AM BAND RIPSAW OPERATOR 1. RECENT POSTSURGICAL CHANGE FOLLOWING PROSTATECTOMY NOTED ABOVE. PROBABLE SMALL SEROMAS PRESENT WITHIN THE PROSTATE BED AND INGUINAL CANALS. 2. NO OTHER ACUTE INTRA-ABDOMINAL FINDINGS. Electronically signed by: Trenton Obregon M.D. Narrative 05/03/2018 10:[address]W [address] ABDOMEN PELVIS WO CONTRAST HISTORY: abdominal [...] the inguinal canals bilaterally. This is likely promotional representative of postoperative seromas. Diffuse vascular calcification [...] the inguinal canals bilaterally. This is likely promotional representative of postoperative seromas. Diffuse vascular calcification is seen. The lung bases are clear. IMPRESSION: 1. RECENT POSTSURGICAL CHANGE FOLLOWING PROSTATECTOMY NOTED ABOVE. PROBABLE SMALL SEROMAS PRESENT WITHIN THE PROSTATE BED AND INGUINAL CANALS. 2. NO OTHER ACUTE INTRA-ABDOMINAL FINDINGS. Electronically signed by: Trenton Obregon M.D. Avila Schwartz MD IMG CT PROCEDURES Final Result * Diabetic Eye Exam (01/22/2017) Historical Provider [facility] MAINTENANCE Edited Result - Final * (ABNORMAL) [...] Recently Relevant to Health Maintenance Insurance MEDICARE [facility] [id number] [facility] [id number] [employer] MEDICARE Advance Directives For more information, please contact: [phone] * Full Code (Latest Code Status on File) Date Activated Date Inactivated Comments 04/14/2018 3:55 PM 04/15/2018 8:07 PM Care Teams Centerless Grinder Operator Relationship Specialty Start Date End Date Jay Barreto MD [address] [facility] [address] [place] [address] PCP - General 09/26/16
== END 2025-04-19 15:22 | disposition home or self-care (01) ==
PROVIDERS: PCP Family Medicine; Visit Provider Urology
DX: R22.41 Localized swelling, mass and lump, right lower limb (principal); N20.1 Calculus of ureter
CPT/HCPCS: 74018; 93970

== ENCOUNTER 2025-05-02 13:08 | Outpatient (CLI) | payer MEDICARE, SELFPAY ==
--- NOTE | ~2025-05-02 | CT_ITS ---
CT abdomen pelvis wo con INDICATION:Calculus of ureter . COMPARISON: 03/16/2025 TECHNIQUE: Axial 2.5 mm images of the abdomen were obtained without IV or oral contrast. Diagnostic sensitivity is limited due to lack of IV contrast. FINDINGS: The lung bases are clear. The liver parenchyma is unremarkable. No intrahepatic mass or ductal dilatation is evident. The patient has had a cholecystectomy. The pancreas and spleen are normal in appearance. The adrenal glands are symmetric in size. There is progression of severe right hydronephrosis. Right double-J ureteral stent is in place. There is a 6 mm stone within the mid right ureter unchanged in position. No intrarenal stones are noted. Evaluation of the stomach and bowel loops are limited due to lack of oral contrast. 3 cm right pelvic mass is again noted. There is diffuse thickening of the lateral wall. No free intraperitoneal fluid or air is evident. Retroperitoneal lymph nodes are again noted measuring up to 4 x 2.6 cm. The aorta, visceral vessels and renal arteries demonstrate normal caliber. The lower thoracic and lumbar vertebrae are in normal alignment. IMPRESSION: Progression of severe right hydronephrosis. Right double-J ureteral stent is in place. There are marked retroperitoneal lymphadenopathy measuring up to 4 x 2.6 cm. Findings are suggestive of metastases. There are large right pelvic mass measuring up to [address] scans at this facility are performed using low dose modulation techniques as appropriate to perform exam including the following: automated exposure control; use of iterative reconstruction technique; adjustment of the mA and/or kV according to patient size (this includes techniques or standardized protocols for targeted exams where dose is matched to indication/reason for exam). Reviewed, dictated and finalized at location S. SCOPE OPERATOR IMPRESSION: Progression of severe right hydronephrosis. Right double-J ureteral stent is in place. There are marked retroperitoneal lymphadenopathy measuring up to 4 x 2.6 cm. Fi ndings are suggestive of metastases. There are large right pelvic mass measurin g up to [address] scans at this facility are performed using low dose modulation techniqu es as appropriate to perform exam including the following: automated exposure c ontrol; use of iterative reconstruction technique; adjustment of the mA and/or kV according to patient size (this includes techniques or standardized protocol s for targeted exams where dose is matched to indication/reason for exam).
== END 2025-05-02 13:09 | disposition home or self-care (01) ==
PROVIDERS: PCP Family Medicine; Visit Provider Urology
DX: N13.30 Unspecified hydronephrosis (principal); Z96.0 Presence of urogenital implants; N20.1 Calculus of ureter
CPT/HCPCS: 74176